=== PATIENT | female | born 1970 | race Caucasian/White ===

== ENCOUNTER 2016-06-27 20:57 | Emergency (ER) | payer OTHER ==
[2016-06-27 21:04] VITALS: RESP 16
--- NOTE | 2016-06-27 22:00 | XR ---
EXAMINATION TYPE: XR cervical spine comp DATE OF EXAM: 06/27/2016 9:49 PM COMPARISON: NONE HISTORY: Neck pain TECHNIQUE: 5 views FINDINGS: Cervical vertebra have normal spacing and alignment. Neural foramina are widely patent. Etta antoaxial facet joint is normal. There are no cervical ribs. IMPRESSION: Normal cervical spine exam.
[2016-06-27] MEDS ORDERED: CYCLOBENZAPRINE 10MG STARTER 3 TAB BTL PO STA (22:03)
[2016-06-27] MEDS ORDERED: IBUPROFEN 600 MG STARTER PACK 4 TAB BTL PO STA (22:03)
--- NOTE | 2016-06-27 22:07 | ED ---
General Adult HPI - General Chief complaint: Neck Pain/Injury Stated complaint: Pinched Nerve Time Seen by Provider: 06/27/16 21:18 Source: patient, RN notes reviewed, old records reviewed Mode of arrival: ambulatory Limitations: no limitations - History of Present Illness Initial comments: Chief complaint history of present for 5-year-old female complaint of pain to the right side of the neck which started 24 hours ago. Patient's had this one time before also from sleeping wrong. No direct injury. Appears to be right sided torticollis. - Related Data Home Medications Medication Instructions Recorded Confirmed Ranitidine HCl [Zantac] 150 mg PO DAILY PRN 09/08/14 06/27/16 metFORMIN HCL [Glucophage] 500 mg PO DAILY 09/08/14 06/27/16 Atenolol [Tenormin] 25 mg PO DAILY 12/28/15 06/27/16 Lisinopril [Zestril] 10 mg PO DAILY 12/28/15 06/27/16 Albuterol Inhaler [Ventolin Hfa 1 - 2 puff INHALATION RT-Q6H PRN 06/27/16 Inhaler] Levothyroxine Sodium [Synthroid] 300 mcg PO DAILY 06/27/16 06/27/16 Previous Rx's Medication Instructions Recorded Cyclobenzaprine [Flexeril] 5 mg PO BID PRN #8 tab 06/27/16 Ibuprofen [Motrin] 600 mg PO Q6HR PRN #20 tab 06/27/16 Allergies Allergy/AdvReac Type Severity Reaction Status Date / Time codeine Allergy Severe Tachycardia Verified 06/27/16 21:04 meperidine HCl [From Demerol] Allergy Severe Unknown Verified 06/27/16 21:04 adhesive Allergy Rash/Hives Verified 06/27/16 21:04 celery Allergy Unknown Verified 06/27/16 21:04 cinnamon Allergy Swelling Verified 06/27/16 21:04 ciprofloxacin [From Cipro] Allergy Abdominal Verified 06/27/16 21:04 Pain ciprofloxacin HCl Allergy Abdominal Verified 06/27/16 21:04 [From Cipro] Pain diphenhydramine HCl Allergy Swelling Verified 06/27/16 21:04 [From Benadryl] eucalyptus Allergy Swelling Verified 06/27/16 21:04 [From [place] Cough Drops] menthol Allergy Swelling Verified 06/27/16 21:04 [From [place] Cough Drops] morphine Allergy Unknown Verified 06/27/16 21:04 naproxen sodium [From Aleve] Allergy Rash/Hives Verified 06/27/16 21:04 nitrofurantoin Allergy Unknown Verified 06/27/16 21:04 macrocrystalline [From Macrodantin] Sulfa (Sulfonamide AdvReac Nausea & Verified 06/27/16 21:04 Antibiotics) Vomiting multivitamin Allergy Intermediate Rash/Hives Uncoded 06/27/16 21:04 car exhaust Allergy Mild Nausea & Uncoded 06/27/16 21:04 Vomiting Review of Systems ROS Statement: Those systems with pertinent positive or pertinent negative responses have been documented in the HPI. Review of systems no headache. She has right sided torticollis no sore throat no visual acuity changes no sinus pain or pressure is no chest pain shortness breath GI/ problems. All systems were otherwise reviewed. Past medical problems significant for non-insulin diabetes mellitus, fibromyalgia, GERD, hyperlipidemia, hypertension, osteoarthritis, seizure disorder which she last had 8 months ago. She stopped all medications because she reports she had more seizures on medication that off. History of SVT and she reports she has probably daily short runs. She's had hypothyroidism. Patient reports she was in coma twice in the once because of Demerol the other because of toxemia . The patient's surgeries include cardiac ablation, , gallbladder, hernia repair, bilateral tubal ligation,. ALLERGIES to codeine, meperidine, adhesive, celery, cinnamon, Cipro, Benadryl. Patient states that she can take ibuprofen and Flexeril if needed. ROS Other: All systems not noted in ROS Statement are negative. Past Medical History Past Medical History: Diabetes Mellitus, Fibromyalgia, GERD/Reflux, Hyperlipidemia, Hypertension, Osteoarthritis (OA), Seizure Disorder, Supraventricular Tachycardia (SVT), Thyroid Disorder Additional Past Medical History / Comment(s): PT STATES IN 1994 PTWAS HAD TOXEMIA WAS GIVEN DEMEROL AND WENT INTO A CARDIAC ARREST (COMA 2 WEEKS), 2ND CARDIAC ARREST 2000(COMA 3-5 DAYS). SLEEP APNEA( NO MACHINE), STATES LAST SEIZURE 1 YEAR AGO. , PANCREATITIS (NOVEMBER 2015)., UMBILICAL HERNIA. History of Any Multi-Drug Resistant Organisms: None Reported Past Surgical History: Cardiac Ablation, Section, Cholecystectomy, Hernia Repair, Tubal Ligation Additional Past Surgical History / Comment(s): Cardiac Arrest x2, Past Anesthesia/Blood Transfusion Reactions: Motion Sickness Additional Past Anesthesia/Blood Transfusion Reaction / Comment(s): CLAUSTERPHOBIA, Past Psychological History: Anxiety, Panic Disorder Additional Psychological History / Comment(s): TAKES CARE OF HER DAUGHTER WHO HAS CEREBAL PALSEY. Smoking Status: Former smoker Past Alcohol Use History: None Reported Additional Past Alcohol Use History / Comment(s): STARTED SMOKING AT AGE 13- SMOKED 1/2 PPD, QUIT IN 1994 Past Drug Use History: None Reported - Past Family History Father Family Medical History: Cancer, Myocardial Infarction ([place]) Additional Family Medical History / Comment(s): AGE 45 FROM [place] Mother Family Medical History: No Reported History Additional Family Medical History / Comment(s): NORMAL-NO PROBLEMS General Exam - General Exam Comments Initial Comments: General: The patient is awake and alert, complaining of right-sided neck pain, stiff necktorticollis. For the past 24 hours. No direct injury. She went to bed and awakened with the discomfort. This is happened one time before. Vital signs show temperature 97.4 pulse 88 respiratory rate 16, blood pressure elevated 185/80. And a pulse ox is 97% room air. Eye: Pupils are equal, round and reactive to light, extra-ocular movements are intact ; there is normal conjunctiva bilaterally. No signs of icterus. Ears, nose, mouth and throat: There are moist mucous membranes and no oral lesions. Neck: Right sided torticollis. Tender right sided neck muscle. Pain increases with looking to the right. No evidence of any rash. No tenderness to the scalp. Patient can look up and to the left more comfortably than down into the right. Cardiovascular: There is a regular rate and rhythm. No murmur, rub or gallop is appreciated. Respiratory: Lungs are clear to auscultation, respirations are non-labored, breath sounds are equal. No wheezes, stridor, rales, or rhonchi. Gastrointestinal: No complaint of any abdominal pain. Back: No back pain Musculoskeletal: No complaint of pain in the upper or lower extremities. No rashes. Full range of motion. Neurological: No neuro deficits. Pain right side of neck. Skin: Skin is warm and dry and no rashes or lesions are noted. Limitations: no limitations Course Vital Signs 06/27/16 21:00 Temperature 97.4 F L Pulse Rate 88 Respiratory 16 Rate Blood Pressure 185/80 O2 Sat by Pulse 97 Oximetry Medical Decision Making - Medical Decision Making Medical decision making;. X-rays of the neck shows straightening. Awaiting radiologist's final impression. The patient was given ibuprofen 800 mg while in emergency room plus Flexeril 10 mg. Her mother is driving her home. She'll be told to use hot showers alternating with ice packs and gentle stretching continue with ibuprofen and Flexeril as needed. Advised follow-up with family physician Disposition Clinical Impression: Torticollis, acute Disposition: HOME SELF-CARE Condition: Fair Instructions: Spasmodic Torticollis (ED) Additional Instructions: Apply ice alternating with heat gentle stretching take medications as directed follow-up with family physician. Prescriptions: Cyclobenzaprine [Flexeril] 5 mg PO BID PRN #8 tab PRN Reason: Pain Ibuprofen [Motrin] 600 mg PO Q6HR PRN #20 tab PRN Reason: Pain Time of Disposition: 22:06
[2016-06-27 22:17] VITALS: BP 159/78; PULSE 77; TEMP 98
== END 2016-06-27 22:21 | disposition home or self-care (01) ==
LOC: EC 20:57
DX: M43.6 Torticollis (principal); Z79.899 Other long term (current) drug therapy; Z88.5 Allergy status to narcotic agent; Z88.1 Allergy status to other antibiotic agents; Z91.02 Food additives allergy status; Z91.018 Allergy to other foods; Z91.048 Other nonmedicinal substance allergy status; K21.9 Gastro-esophageal reflux disease without esophagitis; I10 Essential (primary) hypertension; E11.9 Type 2 diabetes mellitus without complications; E03.9 Hypothyroidism, unspecified; E78.5 Hyperlipidemia, unspecified; F17.200 Nicotine dependence, unspecified, uncomplicated
CPT/HCPCS: 72050; 99283

== ENCOUNTER 2016-07-27 21:51 | Emergency (ER) | payer OTHER ==
[2016-07-27 21:56] VITALS: RESP 18
--- NOTE | 2016-07-27 22:10 | ED ---
Chest Pain HPI - General Chief Complaint: Chest Pain Stated Complaint: Chest Pain Time Seen by Provider: 07/27/16 22:00 Source: patient, family, RN notes reviewed Mode of arrival: ambulatory Limitations: no limitations - History of Present Illness Initial Comments: Is a 46-year-old female who presents with complains of the onset of sharp left- sided chest pain started about 2 hours ago while she was sitting she states was sharp stabbing in nature 10/10 when away came back when waking back up to her left neck into her left axilla. Early she's pain-free she denies any fevers chills nausea vomiting sweats cough other than a chronic cough from her blood pressure medications no phlegm production no trauma no other complaints she states is similar to previous pain she's had in the past but she is not recall what the etiology was. MD Complaint: chest pain - Related Data Home Medications Medication Instructions Recorded Confirmed Ranitidine HCl [Zantac] 150 mg PO DAILY PRN 09/08/14 07/27/16 metFORMIN HCL [Glucophage] 500 mg PO DAILY 09/08/14 07/27/16 Atenolol [Tenormin] 25 mg PO DAILY 12/28/15 07/27/16 Lisinopril [Zestril] 10 mg PO DAILY 12/28/15 07/27/16 Albuterol Inhaler [Ventolin Hfa 1 - 2 puff INHALATION RT-Q6H PRN 06/27/16 Inhaler] Levothyroxine Sodium [Synthroid] 300 mcg PO DAILY 06/27/16 07/27/16 Sodium Chloride [[place]] 1 spray EA NOSTRIL DAILY PRN 07/27/16 07/27/16 Previous Rx's Medication Instructions Recorded Cyclobenzaprine [Flexeril] 5 mg PO BID PRN #8 tab 06/27/16 Ibuprofen [Motrin] 600 mg PO Q6HR PRN #20 tab 06/27/16 Allergies Allergy/AdvReac Type Severity Reaction Status Date / Time codeine Allergy Severe Tachycardia Verified 07/27/16 22:30 meperidine HCl [From Demerol] Allergy Severe Unknown Verified 07/27/16 22:30 adhesive Allergy Rash/Hives Verified 07/27/16 22:30 celery Allergy Unknown Verified 07/27/16 22:30 cinnamon Allergy Swelling Verified 07/27/16 22:30 ciprofloxacin [From Cipro] Allergy Abdominal Verified 07/27/16 22:30 Pain ciprofloxacin HCl Allergy Abdominal Verified 07/27/16 22:30 [From Cipro] Pain diphenhydramine HCl Allergy Swelling Verified 07/27/16 22:30 [From Benadryl] eucalyptus Allergy Swelling Verified 07/27/16 22:30 [From [place] Cough Drops] menthol Allergy Swelling Verified 07/27/16 22:30 [From [place] Cough Drops] morphine Allergy Unknown Verified 07/27/16 22:30 naproxen sodium [From Aleve] Allergy Rash/Hives Verified 07/27/16 22:30 nitrofurantoin Allergy Unknown Verified 07/27/16 22:30 macrocrystalline [From Macrodantin] Sulfa (Sulfonamide AdvReac Nausea & Verified 07/27/16 22:30 Antibiotics) Vomiting multivitamin Allergy Intermediate Rash/Hives Uncoded 07/27/16 21:54 car exhaust Allergy Mild Nausea & Uncoded 07/27/16 21:54 Vomiting Review of Systems ROS Statement: Those systems with pertinent positive or pertinent negative responses have been documented in the HPI. ROS Other: All systems not noted in ROS Statement are negative. EKG Findings - EKG Results: EKG: interpreted by [facility], sinus rhythm (Sinus rhythm rate of 82. Interval 148 QRS duration 68 daily since QTC of 3/[address]-T wave changes are seen.) Past Medical History Past Medical History: Diabetes Mellitus, Fibromyalgia, GERD/Reflux, Hyperlipidemia, Hypertension, Osteoarthritis (OA), Seizure Disorder, Supraventricular Tachycardia (SVT), Thyroid Disorder Additional Past Medical History / Comment(s): PT STATES IN 1994 PTWAS HAD TOXEMIA WAS GIVEN DEMEROL AND WENT INTO A CARDIAC ARREST (COMA 2 WEEKS), 2ND CARDIAC ARREST 2000(COMA 3-5 DAYS). SLEEP APNEA( NO MACHINE), STATES LAST SEIZURE 1 YEAR AGO. , PANCREATITIS (NOVEMBER 2015)., UMBILICAL HERNIA. History of Any Multi-Drug Resistant Organisms: None Reported Past Surgical History: Cardiac Ablation, Section, Cholecystectomy, Hernia Repair, Tubal Ligation Additional Past Surgical History / Comment(s): Cardiac Arrest x2, Past Anesthesia/Blood Transfusion Reactions: Motion Sickness Additional Past Anesthesia/Blood Transfusion Reaction / Comment(s): CLAUSTERPHOBIA, Past Psychological History: Anxiety, Panic Disorder Additional Psychological History / Comment(s): TAKES CARE OF HER DAUGHTER WHO HAS CEREBAL PALSEY. Smoking Status: Former smoker Past Alcohol Use History: None Reported Additional Past Alcohol Use History / Comment(s): STARTED SMOKING AT AGE 13- SMOKED 1/2 PPD, QUIT IN 1994 Past Drug Use History: None Reported - Past Family History Father Family Medical History: Cancer, Myocardial Infarction ([place]) Additional Family Medical History / Comment(s): AGE 45 FROM [place] Mother Family Medical History: No Reported History Additional Family Medical History / Comment(s): NORMAL-NO PROBLEMS General Exam - General Exam Comments Initial Comments: This is a well-developed well-nourished awake alert oriented 3 female Limitations: no limitations General appearance: alert, in no apparent distress Head exam: Present: atraumatic, normocephalic, normal inspection Eye exam: Present: normal appearance, PERRL, EOMI. Absent: scleral icterus, conjunctival injection, periorbital swelling ENT exam: Present: normal exam, mucous membranes moist Neck exam: Present: normal inspection. Absent: tenderness, meningismus, lymphadenopathy Respiratory exam: Present: normal lung sounds bilaterally. Absent: respiratory distress, wheezes, rales, rhonchi, stridor Cardiovascular Exam: Present: regular rate, normal rhythm, normal heart sounds. Absent: systolic murmur, diastolic murmur, rubs, gallop, clicks GI/Abdominal exam: Present: soft, normal bowel sounds, other (Obese abdomen). Absent: distended, tenderness, guarding, rebound, rigid Extremities exam: Present: normal inspection, full ROM, normal capillary refill. Absent: tenderness, pedal edema, joint swelling, calf tenderness Back exam: Present: normal inspection Neurological exam: Present: alert, oriented X3, CN II-XII intact Psychiatric exam: Present: normal affect, normal mood Skin exam: Present: warm, dry, intact, normal color. Absent: rash Course Vital Signs 07/27/16 21:55 Temperature 98.2 F Pulse Rate 94 Respiratory 18 Rate Blood Pressure 193/84 O2 Sat by Pulse 99 Oximetry - Reevaluation(s) Reevaluation #1: 07/27/16 22:11 Old charting was review the patient did have SVT did have ablation done in October 2014 Chest Pain [facility]-rays are negative for acute findings the patient is feeling improved she'll be discharged the presentation is consistent with chest wall pain she states she does have anti-inflammatories at home. Disposition Clinical Impression: Chest wall syndrome, Costalchondritis Disposition: HOME SELF-CARE Condition: Good Instructions: Costochondritis (ED), Chest Wall Pain (ED)
[2016-07-27 22:23] LABS: Basophils % (A) 1 %; CH 30.2; CHCM 33.8; Eosinophils # (A) 0.2 k/uL (0-0.7); Eosinophils % (A) 4 %; HCT 38.1 % (34.0-46.0); HDW 3.06; HGB 12.7 gm/dL (11.4-16.0); Luc # (Auto) 0.11; Luc % (Auto) 2; Lymphocytes # (A) 1.8 k/uL (1.0-4.8); Lymphocytes % (A) 34 %; MCH 29.9 pg (25.0-35.0); MCHC 33.4 g/dL (31.0-37.0); MCV 89.6 fL (80.0-100.0); Mean Platelet Volume 6.9; Monocytes # (A) 0.2 k/uL (0-1.0); Monocytes % (A) 3 %; Neutrophils % (A) 56 %; RBC 4.25 m/uL (3.80-5.40); RDW 13.8 % (11.5-15.5); WBC 5.3 k/uL (3.8-10.6)
--- NOTE | 2016-07-27 22:39 | XR ---
EXAMINATION TYPE: XR chest 2V DATE OF EXAM: 07/27/2016 10:31 PM COMPARISON: May 28, 2016 HISTORY: Chest pain TECHNIQUE: Frontal and lateral views of the chest are obtained. FINDINGS: There is no focal air space opacity, pleural effusion, or pneumothorax seen. The cardiac silhouette size is within normal limits. The osseous structures are intact. IMPRESSION: No acute cardiopulmonary process. No significant change.
[2016-07-27 22:40] LABS: ALT 31 U/L (9-52); AST 21 U/L (14-36); Alkaline Phosphatase 111 U/L (38-126); Amylase <30 U/L (30-110); Anion Gap 9 mmol/L; Blood Urea Nitrogen 17 mg/dL (7-17); Calcium 8.6 mg/dL (8.4-10.2); Carbon Dioxide 25 mmol/L (22-30); Chloride 105 mmol/L (98-107); Glucose 179 mg/dL (74-99); Magnesium 1.8 mg/dL (1.6-2.3); Non-African American GFR(MDRD) 37 (>60 ml/min/1.73 sqM); Potassium 4.8 mmol/L (3.5-5.1); Sodium 139 mmol/L (137-145); Total Bilirubin 0.4 mg/dL (0.2-1.3); Total Protein 6.3 g/dL (6.3-8.2)
[2016-07-27 22:41] LABS: INR 0.9 (<1.1); Partial Thromboplastin Time 22.6 sec (22.0-30.0); Prothrombin Time 9.4 sec (9.0-12.0)
[2016-07-27 23:02] LABS: Creatine Kinase 45 U/L (30-135)
[2016-07-27 23:14] LABS: Creatine Kinase MB 0.8 ng/mL (0.0-2.4); Troponin I <0.012 ng/mL (0.000-0.034)
[2016-07-27 23:58] VITALS: BP 141/66; PULSE 80; TEMP 98
== END 2016-07-27 23:58 | disposition home or self-care (01) ==
LOC: EC 21:51
DX: M94.0 Chondrocostal junction syndrome [Tietze] (principal); R07.1 Chest pain on breathing; K21.9 Gastro-esophageal reflux disease without esophagitis; E07.9 Disorder of thyroid, unspecified; I10 Essential (primary) hypertension; E11.9 Type 2 diabetes mellitus without complications; Z79.84 Long term (current) use of oral hypoglycemic drugs; Z87.891 Personal history of nicotine dependence; Z79.899 Other long term (current) drug therapy; Z88.2 Allergy status to sulfonamides; Z88.5 Allergy status to narcotic agent; Z88.6 Allergy status to analgesic agent; Z88.1 Allergy status to other antibiotic agents; Z91.02 Food additives allergy status; Z91.048 Other nonmedicinal substance allergy status
CPT/HCPCS: 36415; 71020; 80053; 82150; 82550; 82553; 83690; 83735; 83880; 84484; 85025; 85379; 85610; 85730; 93005; 99285

== ENCOUNTER 2016-10-11 22:12 | Observation (INO) | payer OTHER ==
[2016-10-11] MEDS ORDERED: ASPIRIN 81 MG CHEW PO STA (22:46)
[2016-10-11] MEDS ORDERED: SODIUM CHLORIDE 0.9% 1,000 ML IV STA (22:46)
[2016-10-11] MEDS ORDERED: NITROGLYCERIN SL TABS 0.4 MG TAB SUBLINGUAL STA (22:46)
--- NOTE | 2016-10-11 22:51 | ED ---
General Adult HPI - General Chief complaint: Shortness of Breath Stated complaint: back pain Time Seen by Provider: 10/11/16 22:38 Source: patient, RN notes reviewed Mode of arrival: ambulatory Limitations: no limitations - History of Present Illness Initial comments: Patient for 46-year-old female who presents emergency room today with a chief complaint of onset of back and chest pain that began approximately 8 AM this morning. She describes a sharp type pain that started left side of the upper back. States does radiate around to the front of the left side of the chest. She states those a possible for muscle. She denies any injury or trauma to the area. She states she's tried Tylenol at home with no relief the symptoms. Patient does admit the pain is worse when she takes deep inspiration. Denies any other complaints. Patient denies any recent fever, chills, shortness of breath, abdominal pain, nausea or vomiting, numbness or tingling, dysuria or hematuria, constipation or diarrhea, headaches or visual changes, or any other complaints. - Related Data Home Medications Medication Instructions Recorded Confirmed metFORMIN HCL [Glucophage] 500 mg PO QAM 09/08/14 10/11/16 Atenolol [Tenormin] 25 mg PO QAM 12/28/15 10/11/16 Lisinopril [Zestril] 10 mg PO QAM 12/28/15 10/11/16 Albuterol Inhaler [Ventolin Hfa 1 - 2 puff INHALATION RT-Q6H PRN 06/27/16 Inhaler] Levothyroxine Sodium [Synthroid] 300 mcg PO QAM 06/27/16 10/11/16 Pravastatin Sodium [Pravachol] 10 mg PO QAM 10/11/16 10/11/16 Allergies Allergy/AdvReac Type Severity Reaction Status Date / Time codeine Allergy Severe Cardiac Verified 10/11/16 23:34 Arrest meperidine HCl [From Demerol] Allergy Severe Cardiac Verified 10/11/16 23:34 Arrest morphine Allergy Severe Caridac Verified 10/11/16 23:34 Arrest adhesive tape Allergy Rash/Hives Verified 10/11/16 23:34 celery Allergy Oral Verified 10/11/16 23:34 Numbness cinnamon Allergy Anaphylaxis Verified 10/11/16 23:34 diphenhydramine HCl Allergy Anaphylaxis Verified 10/11/16 23:34 [From Benadryl] eucalyptus Allergy Anaphylaxis Verified 10/11/16 23:34 [From [place] Cough Drops] menthol Allergy Anaphylaxis Verified 10/11/16 23:34 [From [place] Cough Drops] naproxen sodium [From Aleve] Allergy Rash/Hives Verified 10/11/16 23:34 nitrofurantoin Allergy Unknown Verified 10/11/16 23:34 macrocrystalline [From Macrodantin] Sulfa (Sulfonamide Allergy Rash/Hives Verified 10/11/16 23:34 Antibiotics) ciprofloxacin [From Cipro] AdvReac Abdominal Verified 10/11/16 23:34 Pain ciprofloxacin HCl AdvReac Abdominal Verified 10/11/16 23:34 [From Cipro] Pain multivitamin Allergy Intermediate Rash/Hives Uncoded 10/11/16 22:28 car exhaust AdvReac Mild Nausea & Uncoded 10/11/16 23:34 Vomiting Review of Systems ROS Statement: Those systems with pertinent positive or pertinent negative responses have been documented in the HPI. ROS Other: All systems not noted in ROS Statement are negative. Past Medical History Past Medical History: Diabetes Mellitus, Fibromyalgia, GERD/Reflux, Hyperlipidemia, Hypertension, Osteoarthritis (OA), Seizure Disorder, Supraventricular Tachycardia (SVT), Thyroid Disorder Additional Past Medical History / Comment(s): PT STATES IN 1994 PTWAS HAD TOXEMIA WAS GIVEN DEMEROL AND WENT INTO A CARDIAC ARREST (COMA 2 WEEKS), 2ND CARDIAC ARREST 2000(COMA 3-5 DAYS). SLEEP APNEA( NO MACHINE), STATES LAST SEIZURE 1 YEAR AGO. , PANCREATITIS (NOVEMBER 2015)., UMBILICAL HERNIA. History of Any Multi-Drug Resistant Organisms: None Reported Past Surgical History: Cardiac Ablation, Section, Cholecystectomy, Hernia Repair, Tubal Ligation Additional Past Surgical History / Comment(s): Cardiac Arrest x2, Past Anesthesia/Blood Transfusion Reactions: Motion Sickness Additional Past Anesthesia/Blood Transfusion Reaction / Comment(s): CLAUSTERPHOBIA, Past Psychological History: Anxiety, Panic Disorder Additional Psychological History / Comment(s): TAKES CARE OF HER DAUGHTER WHO HAS CEREBAL PALSEY. Smoking Status: Former smoker Past Alcohol Use History: None Reported Additional Past Alcohol Use History / Comment(s): STARTED SMOKING AT AGE 13- SMOKED 1/2 PPD, QUIT IN 1994 Past Drug Use History: None Reported - Past Family History Father Family Medical History: Cancer, Myocardial Infarction ([place]) Additional Family Medical History / Comment(s): AGE 45 FROM [place] Mother Family Medical History: No Reported History Additional Family Medical History / Comment(s): NORMAL-NO PROBLEMS General Exam - General Exam Comments Initial Comments: General: The patient is awake and alert, in no distress, and does not appear acutely ill. Eye: Pupils are equal, round and reactive to light, extra-ocular movements are intact. No nystagmus. There is normal conjunctiva bilaterally. No signs of icterus. Ears, nose, mouth and throat: There are moist mucous membranes and no oral lesions. Neck: The neck is supple, there is no tenderness or JVD. Cardiovascular: There is a regular rate and rhythm. No murmur, rub or gallop is appreciated. Respiratory: Lungs are clear to auscultation, respirations are non-labored, breath sounds are equal. No wheezes, stridor, rales, or rhonchi. Gastrointestinal: Soft, non-distended, non-tender abdomen without masses or organomegaly noted. There is no rebound or guarding present. No CVA tenderness. Bowel sounds are unremarkable. Musculoskeletal: Normal ROM, no tenderness. Strength 5/5. Sensation intact. Pulses equal bilaterally 2+. Neurological: A&O x 3. CN II-XII intact, There are no obvious motor or sensory deficits. Coordination appears grossly intact. Speech is normal. Skin: Skin is warm and dry and no rashes or lesions are noted. Psychiatric: Cooperative, appropriate mood & affect, normal judgment. Limitations: no limitations Course Vital Signs 10/11/16 10/11/16 22:26 23:08 Temperature 97.9 F Pulse Rate 88 85 Respiratory 20 16 Rate Blood Pressure 205/88 169/88 O2 Sat by Pulse 98 98 Oximetry EKG Findings - EKG Comments: EKG Findings:: EKG performed at 2253: Shows sinus rhythm with PVCs at 86 bpm. ID interval 148. QRS 76. QT/QTC 380/454. No acute ST changes. Medical Decision Making - Medical Decision Making Patient reexamined at this time shows no signs of distress. She does admit to some improvement of her pain after one sublingual nitroglycerin tab. Patient does have history of diabetes and cardiac disease will be admitted to the hospital for serial enzymes. Heparin and nitro paste. - Lab Data Result diagrams: 10/11/16 23:00 10/11/16 23:00 Lab Results 10/11/16 10/11/16 10/11/16 Range/Units 23:00 23:00 23:00 WBC 6.7 (3.8-10.6) k/uL RBC 4.09 (3.80-5.40) m/uL Hgb 12.4 (11.4-16.0) gm/dL Hct 36.9 (34.0-46.0) % MCV 90.1 (80.0-100.0) fL MCH 30.4 (25.0-35.0) pg MCHC 33.7 (31.0-37.0) g/dL RDW 14.7 (11.5-15.5) % Plt Count 197 (150-450) k/uL Neutrophils % 62 % Lymphocytes % 30 % Monocytes % 3 % Eosinophils % 2 % Basophils % 1 % Neutrophils # 4.2 (1.3-7.7) k/uL Lymphocytes # 2.0 (1.0-4.8) k/uL Monocytes # 0.2 (0-1.0) k/uL Eosinophils # 0.1 (0-0.7) k/uL Basophils # 0.0 (0-0.2) k/uL PT (9.0-12.0) sec INR (<1.1) APTT (22.0-30.0) sec D-Dimer (<0.60) mg/L FEU Sodium 136 L (137-145) mmol/L Potassium 4.2 (3.5-5.1) mmol/L Chloride 102 (98-107) mmol/L Carbon Dioxide 23 (22-30) mmol/L Anion Gap 11 mmol/L BUN 14 (7-17) mg/dL Creatinine 0.66 (0.52-1.04) mg/dL Est GFR (MDRD) Af Amer >60 (>60 ml/min/1.73 sqM) Est GFR (MDRD) Non-Af >60 (>60 ml/min/1.73 sqM) Glucose 147 H (74-99) mg/dL Calcium 9.1 (8.4-10.2) mg/dL Magnesium 1.8 (1.6-2.3) mg/dL Total Bilirubin 0.6 (0.2-1.3) mg/dL AST 27 (14-36) U/L ALT 23 (9-52) U/L Alkaline Phosphatase 101 (38-126) U/L Total Creatine Kinase 66 (30-135) U/L CK-MB (CK-2) 1.1 (0.0-2.4) ng/mL CK-MB (CK-2) Rel Index 1.7 Troponin I <0.012 (0.000-0.034) ng/mL Total Protein 7.1 (6.3-8.2) g/dL Albumin 3.9 (3.5-5.0) g/dL 10/11/16 Range/Units 23:00 WBC (3.8-10.6) k/uL RBC (3.80-5.40) m/uL Hgb (11.4-16.0) gm/dL Hct (34.0-46.0) % MCV (80.0-100.0) fL MCH (25.0-35.0) pg MCHC (31.0-37.0) g/dL RDW (11.5-15.5) % Plt Count (150-450) k/uL Neutrophils % % Lymphocytes % % Monocytes % % Eosinophils % % Basophils % % Neutrophils # (1.3-7.7) k/uL Lymphocytes # (1.0-4.8) k/uL Monocytes # (0-1.0) k/uL Eosinophils # (0-0.7) k/uL Basophils # (0-0.2) k/uL PT 9.7 (9.0-12.0) sec INR 0.9 (<1.1) APTT 23.0 (22.0-30.0) sec D-Dimer 0.43 (<0.60) mg/L FEU Sodium (137-145) mmol/L Potassium (3.5-5.1) mmol/L Chloride (98-107) mmol/L Carbon Dioxide (22-30) mmol/L Anion Gap mmol/L BUN (7-17) mg/dL Creatinine (0.52-1.04) mg/dL Est GFR (MDRD) Af Amer (>60 ml/min/1.73 sqM) Est GFR (MDRD) Non-Af (>60 ml/min/1.73 sqM) Glucose (74-99) mg/dL Calcium (8.4-10.2) mg/dL Magnesium (1.6-2.3) mg/dL Total Bilirubin (0.2-1.3) mg/dL AST (14-36) U/L ALT (9-52) U/L Alkaline Phosphatase (38-126) U/L Total Creatine Kinase (30-135) U/L CK-MB (CK-2) (0.0-2.4) ng/mL CK-MB (CK-2) Rel Index Troponin I (0.000-0.034) ng/mL Total Protein (6.3-8.2) g/dL Albumin (3.5-5.0) g/dL Disposition Clinical Impression: Chest pain Disposition: ADMITTED IP TO THIS HOSP Condition: Stable Time of Disposition: 00:13
[2016-10-11 23:17] LABS: Basophils % (A) 1 %; CH 30.5; CHCM 34.1; Eosinophils # (A) 0.1 k/uL (0-0.7); Eosinophils % (A) 2 %; HCT 36.9 % (34.0-46.0); HGB 12.4 gm/dL (11.4-16.0); Luc # (Auto) 0.15; Luc % (Auto) 2; Lymphocytes % (A) 30 %; MCH 30.4 pg (25.0-35.0); MCHC 33.7 g/dL (31.0-37.0); MCV 90.1 fL (80.0-100.0); Mean Platelet Volume 6.6; Monocytes # (A) 0.2 k/uL (0-1.0); Monocytes % (A) 3 %; Neutrophils # (A) 4.2 k/uL (1.3-7.7); Neutrophils % (A) 62 %; RBC 4.09 m/uL (3.80-5.40); RDW 14.7 % (11.5-15.5); WBC 6.7 k/uL (3.8-10.6); WBC (Perox) 6.86
[2016-10-11 23:23] LABS: ALT 23 U/L (9-52); AST 27 U/L (14-36); Alkaline Phosphatase 101 U/L (38-126); Anion Gap 11 mmol/L; Blood Urea Nitrogen 14 mg/dL (7-17); Calcium 9.1 mg/dL (8.4-10.2); Carbon Dioxide 23 mmol/L (22-30); Chloride 102 mmol/L (98-107); Glucose 147 mg/dL (74-99); Magnesium 1.8 mg/dL (1.6-2.3); Non-African American GFR(MDRD) >60 (>60 ml/min/1.73 sqM); Potassium 4.2 mmol/L (3.5-5.1); Sodium 136 mmol/L (137-145); Total Bilirubin 0.6 mg/dL (0.2-1.3); Total Protein 7.1 g/dL (6.3-8.2)
[2016-10-11 23:30] LABS: INR 0.9 (<1.1); Prothrombin Time 9.7 sec (9.0-12.0)
--- NOTE | 2016-10-11 23:36 | XR ---
EXAM: XR Chest, 2 Views CLINICAL HISTORY: Reason: Chest Pain TECHNIQUE: Frontal and lateral views of the chest. COMPARISON: CXR 07/27/16 FINDINGS: Lungs: Unremarkable. No consolidation. Pleural space: Unremarkable. No pneumothorax. Heart: Unremarkable. No cardiomegaly. Mediastinum: Unremarkable. Bones/joints: Unremarkable. IMPRESSION: Unremarkable chest x-rays.
[2016-10-11 23:37] LABS: Creatine Kinase 66 U/L (30-135)
[2016-10-11 23:50] LABS: Creatine Kinase MB 1.1 ng/mL (0.0-2.4); Troponin I <0.012 ng/mL (0.000-0.034)
[2016-10-12] MEDS ORDERED: SODIUM CHLORIDE 0.9% 1,000 ML IV ONE (00:14)
[2016-10-12] MEDS ORDERED: HEPARIN SODIUM,PORCINE/D5W PMX 25,000 UNIT in DEXTROSE/WATER 1 500ML.BAG IV SCH (00:15)
[2016-10-12] MEDS: HEPARIN SODIUM,PORCINE 5,000 UNIT/ML 1 ML VIAL IV ONE ×2 (00:57→07:36)
[2016-10-12] MEDS: FAMOTIDINE 20 MG/2 ML VIAL IV SCH (02:07)
[2016-10-12 07:17] LABS: Creatine Kinase 54 U/L (30-135)
[2016-10-12 07:29] LABS: Creatine Kinase MB 0.9 ng/mL (0.0-2.4); Troponin I <0.012 ng/mL (0.000-0.034)
[2016-10-12 08:27] LABS: Glucose,Whole Blood 150 mg/dL (75-99)
--- NOTE | 2016-10-12 12:06 | P.CRDCN ---
History of Present Illness Consult date: 10/12/16 Chief complaint: Chest pain History of present illness: This is a pleasant 46-year-old female patient who sees Dr. Zurita with a past medical history significant for hypertension, diabetes, and status post SVT ablation, presented to the hospital complaining of chest discomfort. The patient is under a lot of stress at home lately. She was in her usual state of health until yesterday when she was sitting home and started experiencing discomfort in the mid of the chest as a sharp kind of discomfort worse with deep breath. It was radiating to her back. It was associated with shortness of breath and sweating. When she presented to the emergency room she was given nitroglycerin and aspirin with some improvement in her symptoms. She is not aware of any prior history of coronary artery disease and no heart catheterization. As a matter of fact she underwent a stress test a year ago and that was unremarkable. The EKG showed sinus rhythm without any significant changes compared to the previous EKG. 2 sets of cardiac enzymes came in to unremarkable. The d-dimer was checked and came in to be normal. The blood pressure has been uncontrolled and in the emergency room her systolic pressure was more than 200 mmHg systolic. The patient has hypertensive emergency. I am going to resume her lisinopril and metoprolol. We'll obtain an echocardiogram was Doppler. We'll continue monitor the blood pressure very closely. Past Medical History Past Medical History: Diabetes Mellitus, Fibromyalgia, GERD/Reflux, Hyperlipidemia, Hypertension, Osteoarthritis (OA), Seizure Disorder, Supraventricular Tachycardia (SVT), Thyroid Disorder Additional Past Medical History / Comment(s): Severe allergies, PT STATES IN 1994 PTWAS HAD TOXEMIA WAS GIVEN DEMEROL AND WENT INTO A CARDIAC ARREST (COMA 21 days), was having seizures and had 2ND CARDIAC ARREST 2000 ( COMA 3-5 DAYS), recent sinus and yeast infections tx with ABX, SVT, SLEEP APNEA ( NO MACHINE), STATES LAST SEIZURE 1 YEAR AGO, arthritis low back and hips, PANCREATITIS. History of Any Multi-Drug Resistant Organisms: None Reported Past Surgical History: Cardiac Ablation, Section, Cholecystectomy, Hernia Repair, Tubal Ligation Additional Past Surgical History / Comment(s): Umbilical hernia repair. Past Anesthesia/Blood Transfusion Reactions: Motion Sickness Additional Past Anesthesia/Blood Transfusion Reaction / Comment(s): CLAUSTERPHOBIA, Past Psychological History: Anxiety, Panic Disorder Additional Psychological History / Comment(s): Lives with spouse/daughter. TAKES CARE OF HER 21 yr old DAUGHTER WHO HAS CEREBAL PALSEY. Does not drive, family takes to appts. Ran out of diabetic strips, lancets due to loss of insurance for 2 months. States she is going to be able to have insurance coverage next month. Smoking Status: Former smoker Past Alcohol Use History: None Reported Additional Past Alcohol Use History / Comment(s): STARTED SMOKING AT AGE 13- SMOKED 1/2 PPD, QUIT IN 1994 Past Drug Use History: None Reported - Past Family History Father Family Medical History: Cancer, Myocardial Infarction ([place]) Additional Family Medical History / Comment(s): AGE 45 FROM [place] Mother Family Medical History: No Reported History Additional Family Medical History / Comment(s): NORMAL-NO PROBLEMS Medications and Allergies Home Medications Medication Instructions Recorded Confirmed Type metFORMIN HCL [Glucophage] 500 mg PO QAM 09/08/14 10/11/16 History Atenolol [Tenormin] 25 mg PO QAM 12/28/15 10/11/16 History Lisinopril [Zestril] 10 mg PO QAM 12/28/15 10/11/16 History Albuterol Inhaler [Ventolin Hfa 1 - 2 puff INHALATION RT-Q6H PRN 06/27/16 History Inhaler] Levothyroxine Sodium [Synthroid] 300 mcg PO QAM 06/27/16 10/11/16 History Pravastatin Sodium [Pravachol] 10 mg PO QAM 10/11/16 10/11/16 History Allergies Allergy/AdvReac Type Severity Reaction Status Date / Time codeine Allergy Severe Cardiac Verified 10/11/16 23:34 Arrest meperidine HCl [From Demerol] Allergy Severe Cardiac Verified 10/11/16 23:34 Arrest morphine Allergy Severe Caridac Verified 10/11/16 23:34 Arrest adhesive tape Allergy Rash/Hives Verified 10/11/16 23:34 celery Allergy Oral Verified 10/11/16 23:34 Numbness cinnamon Allergy Anaphylaxis Verified 10/11/16 23:34 diphenhydramine HCl Allergy Anaphylaxis Verified 10/11/16 23:34 [From Benadryl] eucalyptus Allergy Anaphylaxis Verified 10/11/16 23:34 [From [place] Cough Drops] menthol Allergy Anaphylaxis Verified 10/11/16 23:34 [From [place] Cough Drops] naproxen sodium [From Aleve] Allergy Rash/Hives Verified 10/11/16 23:34 nitrofurantoin Allergy Unknown Verified 10/11/16 23:34 macrocrystalline [From Macrodantin] Sulfa (Sulfonamide Allergy Rash/Hives Verified 10/11/16 23:34 Antibiotics) ciprofloxacin [From Cipro] AdvReac Abdominal Verified 10/11/16 23:34 Pain ciprofloxacin HCl AdvReac Abdominal Verified 10/11/16 23:34 [From Cipro] Pain multivitamin Allergy Intermediate Rash/Hives Uncoded 10/11/16 22:28 car exhaust AdvReac Mild Nausea & Uncoded 10/11/16 23:34 Vomiting Physical Exam Vitals: Vital Signs Temp Pulse Pulse Resp BP BP Pulse Ox 10/12/16 11:30 80 16 144/80 98 10/12/16 08:00 98.2 F 85 16 184/83 98 10/12/16 06:48 98.0 F 84 16 159/70 98 10/12/16 02:12 82 18 169/76 98 Intake and Output 10/11/16 10/12/16 10/12/16 22:59 06:59 14:59 Intake Total 130.863 Balance 130.863 Intake: Intake, IV Titration 130.863 Amount Heparin Sodium,Porcine/ 130.863 D5w Pmx 25,000 unit In Dextrose/Water 1 500ml. bag @ 9.2 UNITS/KG/HR 20. 03 mls/hr IV .Q24H [facility] Rx #:[id number] Other: # Voids 1 - Constitutional General appearance: no acute distress - Respiratory Respiratory: bilateral: CTA - Cardiovascular Rhythm: regular Heart sounds: normal: S1, S2 Results 10/11/16 23:00 10/11/16 23:00 Cardiac Enzymes 10/12/16 Range/Units 06:33 CK-MB (CK-2) 0.9 (0.0-2.4) ng/mL Troponin I <0.012 (0.000-0.034) ng/mL Coagulation 10/12/16 Range/Units 06:33 APTT 26.6 (22.0-30.0) sec Current Medications Generic Name Dose Route Start Last Admin Trade Name Freq PRN Reason Stop Dose Admin Aspirin 325 mg 10/12/16 09:00 Aspirin PO DAILY SABINE Famotidine 20 mg 10/12/16 09:00 10/12/16 02:07 Pepcid IV 20 mg DAILY SABINE Administration Sodium Chloride 1,000 mls @ 20 mls/hr 10/11/16 22:46 10/11/16 23:09 Saline 0.9% IV 10/12/16 22:45 20 mls/hr .Q24H STA Administration Heparin Sodium/Dextrose 25,000 500 mls @ 20.03 mls/hr 10/12/16 00:15 07:31 unit/ IV Solution IV 12.2 units/kg/hr .Q24H SABINE 26.56 mls/hr Protocol Titration 9.2 UNITS/KG/HR Sodium Chloride 1,000 mls @ 20 mls/hr 10/12/16 00:14 10/12/16 07:52 Saline 0.9% IV 10/13/16 00:13 Not Given .Q24H ONE Lisinopril 20 mg 10/13/16 09:00 Zestril PO DAILY [facility] Metoprolol Tartrate 25 mg 10/12/16 21:00 Lopressor PO BID SABINE Nitroglycerin 1 inch 10/12/16 06:00 Nitro-Bid Oint TOPICAL Q6HR SABINE Intake and Output 10/11/16 10/12/16 10/12/16 22:59 06:59 14:59 Intake Total 130.863 Balance 130.863 Intake: Intake, IV Titration 130.863 Amount Heparin Sodium,Porcine/ 130.863 D5w Pmx 25,000 unit In Dextrose/Water 1 500ml. bag @ 9.2 UNITS/KG/HR 20. 03 mls/hr IV .Q24H [facility] Rx #:[id number] Other: # Voids 1 Assessment and Plan Plan: Assessment #1 hypertensive emergency #2 diabetes #3 status post SVT ablation Plan #1 resume lisinopril and metoprolol #2 adjust the medications according to blood pressure #3 obtain echocardiogram was Doppler #4 follow-up with the patient
[2016-10-12 13:20] LABS: Creatine Kinase 56 U/L (30-135)
[2016-10-12 13:29] LABS: Creatine Kinase MB 0.9 ng/mL (0.0-2.4); Troponin I <0.012 ng/mL (0.000-0.034)
[2016-10-12] MEDS: ASPIRIN 325 MG TAB PO SCH (13:48)
[2016-10-12] MEDS: NITROGLYCERIN OINT 1 INCH/GM PACKET TOPICAL SCH ×2 (13:48→19:13)
--- NOTE | 2016-10-12 15:37 | P.HPIM ---
History of Present Illness H&P Date: 10/12/16 Chief Complaint: Chest discomfort 46-year-old female presented to the emergency room on the day of admission with a chief complaint of developing chest discomfort chest tightness described as a sharp stabbing pain worse with a deep breath radiated into the back. Patient gives no history of coronary artery artery disease. States that she had a stress test a year ago and was unremarkable. It was noted in the emergency room the blood pressure systolic was elevated more than 200. Patient stated that she was compliant with taking her medication. Patient was seen and admitted to the services of the attending it treated for hypertension urgency. A cardiology consultation has been requested. Patient's d-dimer was checked and was normal the 12-lead EKG showed sinus without any significant changes compared to prior EKGs. 2 sets of cardiac enzymes were reviewed negative patient states that she has seen Dr. ramon in the past and status post SVT ablation Review of Systems Essentially unremarkable except as mentioned in the present illness Past Medical History Past Medical History: Diabetes Mellitus, Fibromyalgia, GERD/Reflux, Hyperlipidemia, Hypertension, Osteoarthritis (OA), Seizure Disorder, Supraventricular Tachycardia (SVT), Thyroid Disorder Additional Past Medical History / Comment(s): Severe allergies, PT STATES IN 1994 PTWAS HAD TOXEMIA WAS GIVEN DEMEROL AND WENT INTO A CARDIAC ARREST (COMA 21 days), was having seizures and had 2ND CARDIAC ARREST 2000 ( COMA 3-5 DAYS), recent sinus and yeast infections tx with ABX, SVT, SLEEP APNEA ( NO MACHINE), STATES LAST SEIZURE 1 YEAR AGO, arthritis low back and hips, PANCREATITIS. History of Any Multi-Drug Resistant Organisms: None Reported Past Surgical History: Cardiac Ablation, Section, Cholecystectomy, Hernia Repair, Tubal Ligation Additional Past Surgical History / Comment(s): Umbilical hernia repair. Past Anesthesia/Blood Transfusion Reactions: Motion Sickness Additional Past Anesthesia/Blood Transfusion Reaction / Comment(s): CLAUSTERPHOBIA, Past Psychological History: Anxiety, Panic Disorder Additional Psychological History / Comment(s): Lives with spouse/daughter. TAKES CARE OF HER 21 yr old DAUGHTER WHO HAS CEREBAL PALSEY. Does not drive, family takes to appts. Ran out of diabetic strips, lancets due to loss of insurance for 2 months. States she is going to be able to have insurance coverage next month. Smoking Status: Former smoker Past Alcohol Use History: None Reported Additional Past Alcohol Use History / Comment(s): STARTED SMOKING AT AGE 13- SMOKED 1/2 PPD, QUIT IN 1994 Past Drug Use History: None Reported - Past Family History Father Family Medical History: Cancer, Myocardial Infarction ([place]) Additional Family Medical History / Comment(s): AGE 45 FROM [place] Mother Family Medical History: No Reported History Additional Family Medical History / Comment(s): NORMAL-NO PROBLEMS Medications and Allergies Home Medications Medication Instructions Recorded Confirmed Type metFORMIN HCL [Glucophage] 500 mg PO QAM 09/08/14 10/11/16 History Atenolol [Tenormin] 25 mg PO QAM 12/28/15 10/11/16 History Lisinopril [Zestril] 10 mg PO QAM 12/28/15 10/11/16 History Albuterol Inhaler [Ventolin Hfa 1 - 2 puff INHALATION RT-Q6H PRN 06/27/16 History Inhaler] Levothyroxine Sodium [Synthroid] 300 mcg PO QAM 06/27/16 10/11/16 History Pravastatin Sodium [Pravachol] 10 mg PO QAM 10/11/16 10/11/16 History Allergies Allergy/AdvReac Type Severity Reaction Status Date / Time codeine Allergy Severe Cardiac Verified 10/11/16 23:34 Arrest meperidine HCl [From Demerol] Allergy Severe Cardiac Verified 10/11/16 23:34 Arrest morphine Allergy Severe Caridac Verified 10/11/16 23:34 Arrest adhesive tape Allergy Rash/Hives Verified 10/11/16 23:34 celery Allergy Oral Verified 10/11/16 23:34 Numbness cinnamon Allergy Anaphylaxis Verified 10/11/16 23:34 diphenhydramine HCl Allergy Anaphylaxis Verified 10/11/16 23:34 [From Benadryl] eucalyptus Allergy Anaphylaxis Verified 10/11/16 23:34 [From [place] Cough Drops] menthol Allergy Anaphylaxis Verified 10/11/16 23:34 [From [place] Cough Drops] naproxen sodium [From Aleve] Allergy Rash/Hives Verified 10/11/16 23:34 nitrofurantoin Allergy Unknown Verified 10/11/16 23:34 macrocrystalline [From Macrodantin] Sulfa (Sulfonamide Allergy Rash/Hives Verified 10/11/16 23:34 Antibiotics) ciprofloxacin [From Cipro] AdvReac Abdominal Verified 10/11/16 23:34 Pain ciprofloxacin HCl AdvReac Abdominal Verified 10/11/16 23:34 [From Cipro] Pain multivitamin Allergy Intermediate Rash/Hives Uncoded 10/11/16 22:28 car exhaust AdvReac Mild Nausea & Uncoded 10/11/16 23:34 Vomiting Physical Exam Vitals: Vital Signs Temp Pulse Pulse Resp BP BP Pulse Ox 10/12/16 12:37 97.6 F 85 16 156/85 94 L 10/12/16 11:30 80 16 144/80 98 10/12/16 08:00 98.2 F 85 16 184/83 98 10/12/16 06:48 98.0 F 84 16 159/70 98 10/12/16 02:12 82 18 169/76 98 Intake and Output 10/12/16 10/12/16 10/12/16 06:59 14:59 22:59 Intake Total 130.863 Balance 130.863 Intake: Intake, IV Titration 130.863 Amount Heparin Sodium,Porcine/ 130.863 D5w Pmx 25,000 unit In Dextrose/Water 1 500ml. bag @ 9.2 UNITS/KG/HR 20. 03 mls/hr IV .Q24H [facility] Rx #:[id number] Other: # Voids 1 GENERAL APPEARANCE: The patient is alert, oriented, in no acute distress. VITAL SIGNS: Reviewed HEENT: Head is normocephalic and atraumatic. Pupils are equal and reactive. The nares are patent. Oropharynx is clear without lesions. NECK: Supple without lymphadenopathy. Traches midline. HEART: S1, S2. Regular rate and rhythm. LUNGS: No crackles or wheezes are heard. ABDOMEN: Soft, nontender, nondistended with good bowel sounds. No peritoneal signs. No palpable organomegaly or masses. EXTREMITIES: Normal skin color and turgor. No cyanosis, rash, ulceration, clubbing or edema. Radial pedal pulses are 2/4 bilaterally. NEUROLOGICAL: No focal deficits. Strength and sensation are grossly intact. Results CBC & Chem 7: 10/11/16 23:00 10/11/16 23:00 Labs: Abnormal Lab Results - Last 24 Hours (Table) 10/12/16 10/12/16 Range/Units 08:04 12:34 APTT 31.0 H (22.0-30.0) sec POC Glucose (mg/dL) 150 H (75-99) mg/dL Thrombosis Risk Factor Assmnt - Choose All That Apply Any of the Below Risk Factors Present?: Yes Each Factor Represents 1 point: Age 41-60 years, Obesity (BMI >25) Other Risk Factors: No Other congenital or acquired thrombophilia - If yes, enter type in comment: No Thrombosis Risk Factor Assessment Total Risk Factor Score: 2 Thrombosis Risk Factor Assessment Level: Low Risk Assessment and Plan Plan: Impression Present on admission chest tightness suspect due to hypertensive urgency systolic pressure 200 History of hypertension Status post SVT ablation Type 2 diabetes non-insulin Dyslipidemia Morbid obesity BMI 42 Plan Follow up on the echocardiogram pending Cardiology recommendations noted appreciated and reviewed continue with recommendations Resume home meds as appropriate DVT and GI prophylaxis Monitor blood pressure and heart rate adjust antihypertensive meds as indicated The above dictated assessment and findings were discussed with dr waters Impression and the plan of care have been dictated as directed. Anum Nguyen nurse practitioner acting as a scribe for dr waters
[2016-10-12 17:07] LABS: Glucose,Whole Blood 162 mg/dL (75-99)
[2016-10-12] MEDS: ACETAMINOPHEN TAB 325 MG TAB PO PRN (21:26)
[2016-10-12] MEDS: METOPROLOL TARTRATE 25 MG TAB PO SCH (21:26)
[2016-10-13] MEDS: NITROGLYCERIN OINT 1 INCH/GM PACKET TOPICAL SCH ×2 (00:30→04:44)
[2016-10-13 04:25] VITALS: RESP 18
[2016-10-13] MEDS: ACETAMINOPHEN TAB 325 MG TAB PO PRN (04:38)
[2016-10-13] MEDS ORDERED: LEVOTHYROXINE 100 MCG TAB PO SCH (06:30)
[2016-10-13 07:11] LABS: Glucose,Whole Blood 157 mg/dL (75-99)
[2016-10-13 07:43] LABS: Cholesterol 213 mg/dL (<200); HDL Cholesterol 41 mg/dL (40-60)
[2016-10-13 08:01] LABS: Triglycerides 1108 mg/dL (<150)
--- NOTE | 2016-10-13 08:50 | P.PN ---
Progress Note - Text This is a pleasant 46-year-old female patient who sees Dr. Zurita with a past medical history significant for hypertension, diabetes, and status post SVT ablation, presented to the hospital complaining of chest discomfort. The patient is under a lot of stress at home lately. She was in her usual state of health until yesterday when she was sitting home and started experiencing discomfort in the mid of the chest as a sharp kind of discomfort worse with deep breath. It was radiating to her back. It was associated with shortness of breath and sweating. When she presented to the emergency room she was given nitroglycerin and aspirin with some improvement in her symptoms. She is not aware of any prior history of coronary artery disease and no heart catheterization. As a matter of fact she underwent a stress test a year ago and that was unremarkable. The EKG showed sinus rhythm without any significant changes compared to the previous EKG. 2 sets of cardiac enzymes came in to unremarkable. The d-dimer was checked and came in to be normal. The blood pressure has been uncontrolled and in the emergency room her systolic pressure was more than 200 mmHg systolic. I did feel that the patient had hypertensive emergency. I did restart her on the beta hang and LOLA inhibitor. On follow-up with her today the blood pressure has been well-controlled and the chest discomfort is much better as well. An echocardiogram was performed and we don't have the results back yet. From the cardiac standpoint of view, she might be able to be discharged home.
[2016-10-13] MEDS: ASPIRIN 325 MG TAB PO SCH (08:51)
[2016-10-13] MEDS: METOPROLOL TARTRATE 25 MG TAB PO SCH (08:52)
[2016-10-13] MEDS: FAMOTIDINE 20 MG/2 ML VIAL IV SCH (08:52)
[2016-10-13] MEDS ORDERED: LISINOPRIL 20 MG TAB PO SCH (09:00)
[2016-10-13] MEDS ORDERED: PRAVASTATIN SODIUM 20 MG TAB PO SCH (09:00)
[2016-10-13] MEDS ORDERED: metFORMIN 500 MG TAB PO SCH (09:00)
--- NOTE | 2016-10-13 11:34 | P.DS ---
Providers Date of admission: 10/12/16 01:05 Expected date of discharge: 10/13/16 Attending physician: Og Waters [facility] Course: 46-year-old female presented to the emergency room on the day of admission with a chief complaint of developing chest discomfort chest tightness described as a sharp stabbing pain worse with a deep breath radiated into the back. Patient gives no history of coronary artery artery disease. States that she had a stress test a year ago and was unremarkable. It was noted in the emergency room the blood pressure systolic was elevated more than 200. Patient stated that she was compliant with taking her medication. Patient was seen and admitted to the services of the attending it treated for hypertension urgency. A cardiology consultation has been requested. Patient's d-dimer was checked and was normal the 12-lead EKG showed sinus without any significant changes compared to prior EKGs. 2 sets of cardiac enzymes were reviewed negative patient states that she has seen Dr. ramon in the past and status post SVT ablation Cardiology felt that the patient had a hypertensive emergency and indicated restart the patient on a beta hang and LOLA inhibitor and a follow-up visit the day after the blood pressure had been fairly well-controlled in the chest discomfort much better. Echocardiogram was done Impression Present on admission chest tightness suspect due to hypertensive urgency systolic pressure 200 History of hypertension Status post SVT ablation Type 2 diabetes non-insulin Dyslipidemia Morbid obesity BMI 42 The above dictated assessment and findings were discussed with dr waters Impression and the plan of care have been dictated as directed. Anum Nguyen nurse practitioner acting as a scribe for dr waters Patient Condition at Discharge: Stable Plan - Discharge Summary New Discharge Prescriptions: Lisinopril [Zestril] 20 mg PO DAILY #30 tab Metoprolol Tartrate [Lopressor] 25 mg PO BID #60 tab Discharge Medication List metFORMIN HCL [Glucophage] 500 mg PO QAM 09/08/14 [History] Albuterol Inhaler [Ventolin Hfa Inhaler] 1 - 2 puff INHALATION RT-Q6H PRN [History] Levothyroxine Sodium [Synthroid] 300 mcg PO QAM 06/27/16 [History] Pravastatin Sodium [Pravachol] 10 mg PO QAM 10/11/16 [History] Lisinopril [Zestril] 20 mg PO DAILY #30 tab 10/13/16 [Rx] Metoprolol Tartrate [Lopressor] 25 mg PO BID #60 tab 10/13/16 [Rx] Follow up Appointment(s)/Referral(s): Og Waters MD [Primary Care Provider] - 1-2 days Discharge Disposition: HOME SELF-CARE
[2016-10-13 11:45] VITALS: BP 131/65; PULSE 77; TEMP 98
[2016-10-13] MEDS ORDERED: FAMOTIDINE 20 MG TAB PO SCH (21:00)
--- NOTE | 2016-10-19 16:00 | ECHOF ---
Referral Reason:cp MEASUREMENTS -------- HEIGHT: 160.0 cm WEIGHT: 108.9 kg BP: 156/55 RVIDd: 2.9 cm (< 3.3) IVSd: 1.2 cm (0.6 - 1.1) LVIDd: 4.9 cm (3.9 - 5.3) LVPWd: 1.1 cm (0.6 - 1.1) IVSs: 1.5 cm LVIDs: 3.7 cm LVPWs: 1.4 cm Ao Diam: 3.1 cm (2.0 - 3.7) AV Cusp: 1.8 cm (1.5 - 2.6) LA Diam: 3.8 cm (2.7 - 3.8) MV EXCURSION: 15.618 mm (> 18.000) MV EF SLOPE: 111 mm/s (70 - 150) EPSS: 0.5 cm MV E Jase: 0.70 m/s MV DecT: 249 ms MV A Jase: 0.96 m/s MV E/A Ratio: 0.73 RAP: 5.00 mmHg RVSP: 9.20 mmHg FINDINGS -------- Sinus rhythm with extra systolic beats. This was a technically adequate study. There is mild concentric left ventricular hypertrophy. Overall left ventricular systolic function is normal with, an EF between 55 - 60 %. The right ventricle is normal in size and function. Normal LA size by volume 22+/-6 ml/m2. The right atrium is normal in size. Aortic valve is trileaflet and is mildly thickened. There is no evidence of aortic regurgitation. There is no evidence of aortic stenosis. The mitral valve leaflets are mildly thickened. There is trace mitral regurgitation. Trace tricuspid regurgitation present. The right ventricular systolic pressure, as measured by Doppler, is 9.20mmHg. The pulmonic valve is normal. The aortic root size is normal. There is a small pericardial effusion is located near the right ventricle. CONCLUSIONS -------- 1. Sinus rhythm with extra systolic beats. 2. There is a small pericardial effusion is located near the right ventricle. 3. There is mild concentric left ventricular hypertrophy. 4. Overall left ventricular systolic function is normal with, an EF between 55 - 60 %. 5. Aortic valve is trileaflet and is mildly thickened. 6. The mitral valve leaflets are mildly thickened. 7. There is trace mitral regurgitation. 8. Trace tricuspid regurgitation present. 9. The right ventricular systolic pressure, as measured by Doppler, is 9.20mmHg. 10. The aortic root size is normal. [employer]ASS: Flora Alvarado RDCS
== END 2016-10-13 12:41 | disposition home or self-care (01) ==
LOC: EC 22:12 → 3OBS 10-12 01:05 → 2ORWHC 10-12 07:38 → 3OBS 10-12 11:50
PROVIDERS: ADMIT Family Medicine; ATTEND Family Medicine
DX: R06.02 Shortness of breath (principal); Z79.84 Long term (current) use of oral hypoglycemic drugs; Z79.899 Other long term (current) drug therapy; Z88.6 Allergy status to analgesic agent; Z88.1 Allergy status to other antibiotic agents; Z88.5 Allergy status to narcotic agent; Z88.2 Allergy status to sulfonamides; Z91.018 Allergy to other foods; Z91.048 Other nonmedicinal substance allergy status; E11.9 Type 2 diabetes mellitus without complications; M79.7 Fibromyalgia; K21.9 Gastro-esophageal reflux disease without esophagitis; E78.5 Hyperlipidemia, unspecified; I10 Essential (primary) hypertension; M19.90 Unspecified osteoarthritis, unspecified site; G40.909 Epilepsy, unspecified, not intractable, without status epilepticus; I47.1 Supraventricular tachycardia; E07.9 Disorder of thyroid, unspecified; G47.30 Sleep apnea, unspecified; Z86.74 Personal history of sudden cardiac arrest; F41.0 Panic disorder [episodic paroxysmal anxiety]; Z87.891 Personal history of nicotine dependence; Z82.49 Family history of ischemic heart disease and other diseases of the circulatory system
CPT/HCPCS: 96365; 96366 ×6; 96376 ×2; 99285; 36415; 94760; 93005 ×2; 93306; 85379; 80061; 80053; 82550 ×2; 82553 ×2; 83735; 84484 ×2; 85025; 85610; 85730 ×2; 71020; G0378 ×2; J1644 ×2

== ENCOUNTER 2016-12-07 00:31 | Observation (INO) | payer OTHER ==
[2016-12-07 00:35] VITALS: RESP 18
[2016-12-07] MEDS ORDERED: ASPIRIN 81 MG CHEW PO STA (00:59)
[2016-12-07] MEDS ORDERED: NITROGLYCERIN OINT 1 INCH/GM PACKET TOPICAL STA (00:59)
--- NOTE | 2016-12-07 01:03 | ED ---
General Adult HPI - General Chief complaint: Chest Pain Stated complaint: chest pain Time Seen by Provider: 12/07/16 00:46 Source: patient, RN notes reviewed Mode of arrival: wheelchair Limitations: no limitations - History of Present Illness Initial comments: Patient is a pleasant 46-year-old female presenting to emergency Department complaining of chest discomfort. Discomfort was severe however now is more mild. Discomfort is sharp left anterior chest. Discomfort is somewhat increased with deep breaths. Discomfort is somewhat similar to previous heart attack. Patient was a little short of breath earlier and nauseated and lightheaded. No diaphoresis. Patient states her fibromyalgia has been acting up more and her last couple of days. - Related Data Home Medications Medication Instructions Recorded Confirmed metFORMIN HCL [Glucophage] 500 mg PO QAM 09/08/14 10/11/16 Albuterol Inhaler [Ventolin Hfa 1 - 2 puff INHALATION RT-Q6H PRN 06/27/16 Inhaler] Levothyroxine Sodium [Synthroid] 300 mcg PO QAM 06/27/16 10/11/16 Pravastatin Sodium [Pravachol] 10 mg PO QAM 10/11/16 10/11/16 Previous Rx's Medication Instructions Recorded Lisinopril [Zestril] 20 mg PO DAILY #30 tab 10/13/16 Metoprolol Tartrate [Lopressor] 25 mg PO BID #60 tab 10/13/16 Allergies Allergy/AdvReac Type Severity Reaction Status Date / Time codeine Allergy Severe Cardiac Verified 12/07/16 00:35 Arrest meperidine HCl [From Demerol] Allergy Severe Cardiac Verified 12/07/16 00:35 Arrest morphine Allergy Severe Caridac Verified 12/07/16 00:35 Arrest adhesive tape Allergy Rash/Hives Verified 12/07/16 00:35 celery Allergy Oral Verified 12/07/16 00:35 Numbness cinnamon Allergy Anaphylaxis Verified 12/07/16 00:35 diphenhydramine HCl Allergy Anaphylaxis Verified 12/07/16 00:35 [From Benadryl] eucalyptus Allergy Anaphylaxis Verified 12/07/16 00:35 [From [place] Cough Drops] menthol Allergy Anaphylaxis Verified 12/07/16 00:35 [From [place] Cough Drops] naproxen sodium [From Aleve] Allergy Rash/Hives Verified 12/07/16 00:35 nitrofurantoin Allergy Unknown Verified 12/07/16 00:35 macrocrystalline [From Macrodantin] Sulfa (Sulfonamide Allergy Rash/Hives Verified 12/07/16 00:35 Antibiotics) ciprofloxacin [From Cipro] AdvReac Abdominal Verified 12/07/16 00:35 Pain ciprofloxacin HCl AdvReac Abdominal Verified 12/07/16 00:35 [From Cipro] Pain multivitamin Allergy Intermediate Rash/Hives Uncoded 12/07/16 00:35 car exhaust AdvReac Mild Nausea & Uncoded 12/07/16 00:35 Vomiting Review of Systems ROS Statement: Those systems with pertinent positive or pertinent negative responses have been documented in the HPI. ROS Other: All systems not noted in ROS Statement are negative. Constitutional: Denies: fever Eyes: Denies: eye pain ENT: Denies: ear pain Respiratory: Denies: cough Cardiovascular: Reports: chest pain Endocrine: Reports: fatigue Gastrointestinal: Reports: nausea Genitourinary: Denies: urgency Skin: Denies: rash Neurological: Denies: headache Past Medical History Past Medical History: Diabetes Mellitus, Fibromyalgia, GERD/Reflux, Hyperlipidemia, Hypertension, Osteoarthritis (OA), Seizure Disorder, Supraventricular Tachycardia (SVT), Thyroid Disorder Additional Past Medical History / Comment(s): Severe allergies, PT STATES IN 1994 PTWAS HAD TOXEMIA WAS GIVEN DEMEROL AND WENT INTO A CARDIAC ARREST (COMA 21 days), was having seizures and had 2ND CARDIAC ARREST 2000 ( COMA 3-5 DAYS), recent sinus and yeast infections tx with ABX, SVT, SLEEP APNEA ( NO MACHINE), STATES LAST SEIZURE 1 YEAR AGO, arthritis low back and hips, PANCREATITIS. History of Any Multi-Drug Resistant Organisms: None Reported Past Surgical History: Cardiac Ablation, Section, Cholecystectomy, Hernia Repair, Tubal Ligation Additional Past Surgical History / Comment(s): Umbilical hernia repair. Past Anesthesia/Blood Transfusion Reactions: Motion Sickness Additional Past Anesthesia/Blood Transfusion Reaction / Comment(s): CLAUSTERPHOBIA, Past Psychological History: Anxiety, Panic Disorder Smoking Status: Former smoker Past Alcohol Use History: None Reported Past Drug Use History: None Reported - Past Family History Father Family Medical History: Cancer, Myocardial Infarction ([place]) Additional Family Medical History / Comment(s): AGE 45 FROM [place] Mother Family Medical History: No Reported History Additional Family Medical History / Comment(s): NORMAL-NO PROBLEMS General Exam Limitations: no limitations General appearance: alert, in no apparent distress Head exam: Present: atraumatic Eye exam: Present: normal appearance, PERRL ENT exam: Present: normal oropharynx Neck exam: Present: normal inspection Respiratory exam: Present: normal lung sounds bilaterally, chest wall tenderness (Mild left anterior chest) Cardiovascular Exam: Present: regular rate, normal rhythm Expanded Peripheral pulses: 2+: Radial (R), Radial (L), Dorsalis Pedis (R), Dorsalis Pedis (L) GI/Abdominal exam: Present: soft. Absent: tenderness Extremities exam: Present: normal inspection. Absent: pedal edema, calf tenderness Neurological exam: Present: alert Psychiatric exam: Present: normal affect, normal mood Skin exam: Present: normal color Course Vital Signs 12/07/16 12/07/16 00:33 01:19 Temperature 98.0 F Pulse Rate 95 Respiratory 18 Rate Blood Pressure 187/82 140/70 O2 Sat by Pulse 97 Oximetry EKG Findings - EKG Comments: EKG Findings:: Normal sinus rhythm 92. CT 148. QRS 76. QT 366. QTc 452. Normal axis. Normal QRS. Normal ST-T. Medical Decision Making - Medical Decision Making Patient reexamined and resting comfortably in bed. Patient updated on results and plan. Case discussed with Dr. Oliva, who will admit his patient with cardiology consult. - Lab Data Result diagrams: 12/07/16 01:04 12/07/16 01:04 Lab Results 12/07/16 12/07/16 12/07/16 Range/Units 01:04 01:04 01:04 WBC 6.0 (3.8-10.6) k/uL RBC 4.12 (3.80-5.40) m/uL Hgb 13.0 (11.4-16.0) gm/dL Hct 37.0 (34.0-46.0) % MCV 89.8 (80.0-100.0) fL MCH 31.6 (25.0-35.0) pg MCHC 35.3 (31.0-37.0) g/dL RDW 13.7 (11.5-15.5) % Plt Count 198 (150-450) k/uL Neutrophils % 66 % Lymphocytes % 26 % Monocytes % 3 % Eosinophils % 2 % Basophils % 0 % Neutrophils # 3.9 (1.3-7.7) k/uL Lymphocytes # 1.6 (1.0-4.8) k/uL Monocytes # 0.2 (0-1.0) k/uL Eosinophils # 0.1 (0-0.7) k/uL Basophils # 0.0 (0-0.2) k/uL PT (9.0-12.0) sec INR (<1.1) APTT (22.0-30.0) sec D-Dimer (<0.60) mg/L FEU Sodium 139 (137-145) mmol/L Potassium 4.2 (3.5-5.1) mmol/L Chloride 103 (98-107) mmol/L Carbon Dioxide 22 (22-30) mmol/L Anion Gap 14 mmol/L BUN 16 (7-17) mg/dL Creatinine 0.80 (0.52-1.04) mg/dL Est GFR (MDRD) Af Amer >60 (>60 ml/min/1.73 sqM) Est GFR (MDRD) Non-Af >60 (>60 ml/min/1.73 sqM) Glucose 190 H (74-99) mg/dL Calcium 9.3 (8.4-10.2) mg/dL Magnesium 1.6 (1.6-2.3) mg/dL Total Bilirubin 0.3 (0.2-1.3) mg/dL AST 23 (14-36) U/L ALT 32 (9-52) U/L Alkaline Phosphatase 110 (38-126) U/L Total Creatine Kinase 39 (30-135) U/L CK-MB (CK-2) 0.9 (0.0-2.4) ng/mL CK-MB (CK-2) Rel Index 2.3 Troponin I <0.012 (0.000-0.034) ng/mL Total Protein 6.4 (6.3-8.2) g/dL Albumin 3.8 (3.5-5.0) g/dL Amylase 39 (30-110) U/L Lipase 153 (23-300) U/L 12/07/16 Range/Units 01:04 WBC (3.8-10.6) k/uL RBC (3.80-5.40) m/uL Hgb (11.4-16.0) gm/dL Hct (34.0-46.0) % MCV (80.0-100.0) fL MCH (25.0-35.0) pg MCHC (31.0-37.0) g/dL RDW (11.5-15.5) % Plt Count (150-450) k/uL Neutrophils % % Lymphocytes % % Monocytes % % Eosinophils % % Basophils % % Neutrophils # (1.3-7.7) k/uL Lymphocytes # (1.0-4.8) k/uL Monocytes # (0-1.0) k/uL Eosinophils # (0-0.7) k/uL Basophils # (0-0.2) k/uL PT 9.5 (9.0-12.0) sec INR 0.9 (<1.1) APTT 22.9 (22.0-30.0) sec D-Dimer 0.54 (<0.60) mg/L FEU Sodium (137-145) mmol/L Potassium (3.5-5.1) mmol/L Chloride (98-107) mmol/L Carbon Dioxide (22-30) mmol/L Anion Gap mmol/L BUN (7-17) mg/dL Creatinine (0.52-1.04) mg/dL Est GFR (MDRD) Af Amer (>60 ml/min/1.73 sqM) Est GFR (MDRD) Non-Af (>60 ml/min/1.73 sqM) Glucose (74-99) mg/dL Calcium (8.4-10.2) mg/dL Magnesium (1.6-2.3) mg/dL Total Bilirubin (0.2-1.3) mg/dL AST (14-36) U/L ALT (9-52) U/L Alkaline Phosphatase (38-126) U/L Total Creatine Kinase (30-135) U/L CK-MB (CK-2) (0.0-2.4) ng/mL CK-MB (CK-2) Rel Index Troponin I (0.000-0.034) ng/mL Total Protein (6.3-8.2) g/dL Albumin (3.5-5.0) g/dL Amylase (30-110) U/L Lipase (23-300) U/L - Radiology Data Radiology results: image reviewed (Chest x-ray shows no acute process.) Disposition Clinical Impression: Unstable angina Disposition: ADMITTED IP TO THIS [facility] Referrals: Og Oliva MD [Primary Care Provider] - 1-2 days Decision Time: 02:30
[2016-12-07 01:12] LABS: Basophils % (A) 0 %; CH 30.4; Eosinophils # (A) 0.1 k/uL (0-0.7); Eosinophils % (A) 2 %; HDW 3.19; Luc # (Auto) 0.08; Luc % (Auto) 1; Lymphocytes # (A) 1.6 k/uL (1.0-4.8); Lymphocytes % (A) 26 %; MCH 31.6 pg (25.0-35.0); MCHC 35.3 g/dL (31.0-37.0); MCV 89.8 fL (80.0-100.0); Mean Platelet Volume 6.6; Monocytes # (A) 0.2 k/uL (0-1.0); Monocytes % (A) 3 %; Neutrophils # (A) 3.9 k/uL (1.3-7.7); Neutrophils % (A) 66 %; RBC 4.12 m/uL (3.80-5.40); RDW 13.7 % (11.5-15.5); WBC (Perox) 6.66
[2016-12-07 01:26] LABS: ALT 32 U/L (9-52); AST 23 U/L (14-36); Alkaline Phosphatase 110 U/L (38-126); Amylase 39 U/L (30-110); Anion Gap 14 mmol/L; Blood Urea Nitrogen 16 mg/dL (7-17); Calcium 9.3 mg/dL (8.4-10.2); Carbon Dioxide 22 mmol/L (22-30); Chloride 103 mmol/L (98-107); Glucose 190 mg/dL (74-99); Magnesium 1.6 mg/dL (1.6-2.3); Non-African American GFR(MDRD) >60 (>60 ml/min/1.73 sqM); Potassium 4.2 mmol/L (3.5-5.1); Sodium 139 mmol/L (137-145); Total Bilirubin 0.3 mg/dL (0.2-1.3); Total Protein 6.4 g/dL (6.3-8.2)
[2016-12-07 01:31] LABS: Creatine Kinase 39 U/L (30-135)
[2016-12-07 01:44] LABS: Creatine Kinase MB 0.9 ng/mL (0.0-2.4); Troponin I <0.012 ng/mL (0.000-0.034)
[2016-12-07 01:52] LABS: INR 0.9 (<1.1); Partial Thromboplastin Time 22.9 sec (22.0-30.0); Prothrombin Time 9.5 sec (9.0-12.0)
--- NOTE | 2016-12-07 02:01 | XR ---
EXAM: XR Chest, 2 Views CLINICAL HISTORY: Chest pain TECHNIQUE: Frontal and lateral views of the chest. COMPARISON: 10/11/2016 FINDINGS: Lungs: Unremarkable. No consolidation. Pleural space: Unremarkable. No pneumothorax. Heart: Unremarkable. No cardiomegaly. Mediastinum: Unremarkable. Bones/joints: No acute osseous abnormality. Tubes, lines and devices: Telemetry leads overlie the patient. IMPRESSION: No acute cardiopulmonary process.
[2016-12-07] MEDS ORDERED: HEPARIN SODIUM,PORCINE 5,000 UNIT/ML 1 ML VIAL IV ONE (02:30)
[2016-12-07] MEDS ORDERED: HEPARIN SODIUM,PORCINE 5,000 UNIT/ML 1 ML VIAL IV PRN (02:30)
[2016-12-07] MEDS ORDERED: NITROGLYCERIN SL TABS 0.4 MG TAB SUBLINGUAL PRN (02:30)
[2016-12-07] MEDS ORDERED: HEPARIN SODIUM,PORCINE/D5W PMX 25,000 UNIT in DEXTROSE/WATER 1 500ML.BAG IV SCH (02:30)
[2016-12-07 03:21] VITALS: BMI 42.5
[2016-12-07] MEDS ORDERED: NITROGLYCERIN OINT 1 INCH/GM PACKET TOPICAL SCH (06:00)
[2016-12-07] MEDS ORDERED: ALBUTEROL NEBULIZED 2.5 MG/3 ML INHALATION PRN (08:20)
[2016-12-07] MEDS ORDERED: LEVOTHYROXINE 100 MCG TAB PO SCH (08:30)
[2016-12-07 08:50] LABS: Mean Platelet Volume 6.7
[2016-12-07] MEDS ORDERED: LISINOPRIL 20 MG TAB PO SCH (09:00)
[2016-12-07] MEDS ORDERED: metFORMIN 500 MG TAB PO SCH (09:00)
[2016-12-07] MEDS ORDERED: PRAVASTATIN SODIUM 20 MG TAB PO SCH (09:00)
[2016-12-07] MEDS ORDERED: METOPROLOL TARTRATE 25 MG TAB PO SCH (09:00)
[2016-12-07 09:16] LABS: Creatine Kinase 32 U/L (30-135)
[2016-12-07 09:29] LABS: Creatine Kinase MB 0.7 ng/mL (0.0-2.4); Troponin I <0.012 ng/mL (0.000-0.034)
[2016-12-07] MEDS ORDERED: ACETAMINOPHEN TAB 325 MG TAB PO PRN (09:50)
--- NOTE | 2016-12-07 09:58 | P.CRDCN ---
History of Present Illness Consult date: 12/07/16 Requesting physician: Og Oliva Consult reason: chest pain Chief complaint: Chest pain History of present illness: This is a pleasant 46-year-old female with history of diabetes, hypertension, GERD, hypothyroidism, prior SVT ablation, who follows with Dr. Iraheta in the office. She presents to the hospital with symptoms of chest discomfort which she describes initially as an ache in her chest that turned into sharp pains that worsened with deep breathing. Patient did undergo dobutamine echocardiographic study in September 2015 which was negative for any reversible ischemia. EKG on presentation here showed a normal sinus rhythm with nonspecific ST-T wave changes in the anterior leads, similar to prior EKGs. Chest x-ray did not reveal any acute cardiopulmonary process. CBC is normal. D-dimer negative. Potassium 4.2, BUN 16, creatinine 0.8. Troponins have been negative 2. Pressure this morning 125/60. Heart rate in the 80s to 90s, 98% on room air. At the time of my examination this morning, she is currently chest pain-free. Past Medical History Past Medical History: Diabetes Mellitus, Fibromyalgia, GERD/Reflux, Hyperlipidemia, Hypertension, Osteoarthritis (OA), Seizure Disorder, Supraventricular Tachycardia (SVT), Thyroid Disorder Additional Past Medical History / Comment(s): Severe allergies, PT STATES IN 1994 PTWAS HAD TOXEMIA WAS GIVEN DEMEROL AND WENT INTO A CARDIAC ARREST (COMA 21 days), was having seizures and had 2ND CARDIAC ARREST 2000 ( COMA 3-5 DAYS), recent sinus and yeast infections tx with ABX, SVT, SLEEP APNEA ( NO MACHINE), STATES LAST SEIZURE 1 YEAR AGO, arthritis low back and hips, PANCREATITIS. History of Any Multi-Drug Resistant Organisms: None Reported Past Surgical History: Cardiac Ablation, Section, Cholecystectomy, Hernia Repair, Tubal Ligation Additional Past Surgical History / Comment(s): Umbilical hernia repair. Past Anesthesia/Blood Transfusion Reactions: Motion Sickness Additional Past Anesthesia/Blood Transfusion Reaction / Comment(s): CLAUSTERPHOBIA, Past Psychological History: Anxiety, Panic Disorder Additional Psychological History / Comment(s): Lives with spouse/daughter. TAKES CARE OF HER 21 yr old DAUGHTER WHO HAS CEREBAL PALSEY. Does not drive, family takes to appts. Ran out of diabetic strips, lancets due to loss of insurance for 2 months. States she is going to be able to have insurance coverage next month. Smoking Status: Former smoker Past Alcohol Use History: None Reported Past Drug Use History: None Reported - Past Family History Father Family Medical History: Cancer, Myocardial Infarction ([place]) Additional Family Medical History / Comment(s): AGE 45 FROM [place] Mother Family Medical History: No Reported History Additional Family Medical History / Comment(s): NORMAL-NO PROBLEMS Medications and Allergies Home Medications Medication Instructions Recorded Confirmed Type metFORMIN HCL [Glucophage] 500 mg PO QAM 09/08/14 12/07/16 History Albuterol Inhaler [Ventolin Hfa 1 - 2 puff INHALATION RT-Q6H PRN 06/27/16 History Inhaler] Levothyroxine Sodium [Synthroid] 300 mcg PO QAM 06/27/16 12/07/16 History Pravastatin Sodium [Pravachol] 10 mg PO QAM 10/11/16 12/07/16 History Allergies Allergy/AdvReac Type Severity Reaction Status Date / Time codeine Allergy Severe Cardiac Verified 12/07/16 08:09 Arrest meperidine HCl [From Demerol] Allergy Severe Cardiac Verified 12/07/16 08:09 Arrest morphine Allergy Severe Caridac Verified 12/07/16 08:09 Arrest adhesive tape Allergy Rash/Hives Verified 12/07/16 08:09 celery Allergy Oral Verified 12/07/16 08:09 Numbness cinnamon Allergy Anaphylaxis Verified 12/07/16 08:09 diphenhydramine HCl Allergy Anaphylaxis Verified 12/07/16 08:09 [From Benadryl] eucalyptus Allergy Anaphylaxis Verified 12/07/16 08:09 [From [place] Cough Drops] menthol Allergy Anaphylaxis Verified 12/07/16 08:09 [From [place] Cough Drops] naproxen sodium [From Aleve] Allergy Rash/Hives Verified 12/07/16 08:09 nitrofurantoin Allergy Unknown Verified 12/07/16 08:09 macrocrystalline [From Macrodantin] Sulfa (Sulfonamide Allergy Rash/Hives Verified 12/07/16 08:09 Antibiotics) ciprofloxacin [From Cipro] AdvReac Abdominal Verified 12/07/16 08:09 Pain ciprofloxacin HCl AdvReac Abdominal Verified 12/07/16 08:09 [From Cipro] Pain multivitamin Allergy Intermediate Rash/Hives Uncoded 12/07/16 00:35 car exhaust AdvReac Mild Nausea & Uncoded 12/07/16 00:35 Vomiting Physical Exam Vitals: Vital Signs Temp Pulse Pulse Resp BP BP BP 12/07/16 08:00 98 18 12/07/16 07:47 12/07/16 07:44 97.7 F 98 18 125/63 12/07/16 04:56 97.9 F 93 18 132/62 12/07/16 03:55 18 12/07/16 02:53 84 18 115/56 12/07/16 02:00 95 18 111/53 12/07/16 01:19 140/70 12/07/16 00:33 98.0 F 95 18 187/82 Pulse Ox 12/07/16 08:00 12/07/16 07:47 98 12/07/16 07:44 98 12/07/16 04:56 97 12/07/16 03:55 12/07/16 02:53 100 12/07/16 02:00 99 12/07/16 01:19 12/07/16 00:33 97 Intake and Output 12/06/16 12/07/16 12/07/16 22:59 06:59 14:59 Other: Voiding Method Toilet # Voids 1 Weight 112.3 kg PHYSICAL EXAMINATION: HEENT: Head is atraumatic, normocephalic. Pupils equal, round. Neck is supple. There is no elevated jugular venous pressure. HEART EXAMINATION: Heart S1, S2 normal. No murmur or gallop heard. CHEST EXAMINATION: Lungs are clear to auscultation and precussion. No chest wall tenderness is noted on palpation or with deep breathing. ABDOMEN: Soft, obese, nontender. Bowel sounds are heard. No organomegaly noted. EXTREMITIES: 2+ peripheral pulses with no evidence of peripheral edema and no calf tenderness noted]. NEUROLOGIC [patient is awake, alert and oriented -3.] . Results 12/07/16 08:07 12/07/16 01:04 Cardiac Enzymes 12/07/16 12/07/16 12/07/16 Range/Units 01:04 01:04 08:07 AST 23 (14-36) U/L CK-MB (CK-2) 0.9 0.7 (0.0-2.4) ng/mL Troponin I <0.012 <0.012 (0.000-0.034) ng/mL Coagulation 12/07/16 Range/Units 01:04 PT 9.5 (9.0-12.0) sec APTT 22.9 (22.0-30.0) sec CBC 12/07/16 12/07/16 Range/Units 01:04 08:07 WBC 6.0 (3.8-10.6) k/uL RBC 4.12 (3.80-5.40) m/uL Hgb 13.0 (11.4-16.0) gm/dL Hct 37.0 (34.0-46.0) % Plt Count 198 179 (150-450) k/uL Comprehensive Metabolic Panel 12/07/16 Range/Units 01:04 Sodium 139 (137-145) mmol/L Potassium 4.2 (3.5-5.1) mmol/L Chloride 103 (98-107) mmol/L Carbon Dioxide 22 (22-30) mmol/L BUN 16 (7-17) mg/dL Creatinine 0.80 (0.52-1.04) mg/dL Glucose 190 H (74-99) mg/dL Calcium 9.3 (8.4-10.2) mg/dL AST 23 (14-36) U/L ALT 32 (9-52) U/L Alkaline Phosphatase 110 (38-126) U/L Total Protein 6.4 (6.3-8.2) g/dL Albumin 3.8 (3.5-5.0) g/dL Current Medications Generic Name Dose Route Start Last Admin Trade Name Freq PRN Reason Stop Dose Admin Albuterol Sulfate 2.5 mg 12/07/16 08:20 Ventolin Nebulized INHALATION RT-Q6H PRN Shortness Of Breath Aspirin 325 mg 12/08/16 09:00 Aspirin PO DAILY SABINE Heparin Sodium (Porcine) 0 unit 12/07/16 02:30 Heparin IV Q6HR PRN Low PTT Protocol Heparin Sodium/Dextrose 25,000 500 mls @ 20.03 mls/hr 12/07/16 02:30 02:49 unit/ IV Solution IV 9.18 units/kg/hr .Q24H SABINE 20 mls/hr Protocol Administration 9.2 UNITS/KG/HR Levothyroxine Sodium 300 mcg 12/07/16 08:30 Synthroid PO QAM@0630 [facility] Lisinopril 20 mg 12/07/16 09:00 Zestril PO DAILY [facility] Metformin HCl 500 mg 12/07/16 09:00 Glucophage PO QAM [facility] Metoprolol Tartrate 25 mg 12/07/16 09:00 Lopressor PO BID [facility] Nitroglycerin 1 inch 12/07/16 06:00 12/07/16 06:35 Nitro-Bid Oint TOPICAL Not Given Q6HR [facility] Nitroglycerin 0.4 mg 12/07/16 02:30 Nitrostat SUBLINGUAL Q5M PRN Chest Pain Pravastatin Sodium 10 mg 12/07/16 09:00 Pravachol PO QAM [facility] Intake and Output 12/06/16 12/07/16 12/07/16 22:59 06:59 14:59 Other: Voiding Method Toilet # Voids 1 Weight 112.3 kg 12/07/16 08:07 12/07/16 01:04 EKG Interpretations (text) EKG shows normal sinus rhythm with nonspecific ST-T wave changes Assessment and Plan Plan: Assessment and plan #1 chest pain, atypical for acute coronary syndrome. Troponins negative 2. EKG shows normal sinus rhythm with nonspecific ST-T wave changes. #2 history of SVT with prior ablation #3 hypertension #4 diabetes #5 fibromyalgia #6 hypothyroidism Plan We will discontinue the IV heparin and Nitropaste. We will also discontinue the Pravachol and put the patient on Lipitor 40 mg daily. She'll be scheduled for an echo along with a dobutamine echocardiographic study today further recommendations will be based on those findings and the patient's clinical course. DNP note has been reviewed, I agree with a documented findings and plan of care. Patient was seen and examined.
[2016-12-07] MEDS ORDERED: ATORVASTATIN 40 MG TAB PO SCH (10:15)
[2016-12-07] MEDS ORDERED: DOBUTamine DRIP for NUC MED 500 MG in DEXTROSE/WATER 1 250ML.BAG IV ONE (10:15)
[2016-12-07 12:05] LABS: Glucose,Whole Blood 169 mg/dL (75-99)
[2016-12-07 12:10] VITALS: BP 134/84; PULSE 94; TEMP 97.1
[2016-12-07 13:19] LABS: Creatine Kinase 32 U/L (30-135)
[2016-12-07 13:31] LABS: Creatine Kinase MB 0.8 ng/mL (0.0-2.4); Troponin I <0.012 ng/mL (0.000-0.034)
--- NOTE | 2016-12-07 13:41 | PCN ---
DATE OF SERVICE: 12/07/2016 DOBUTAMINE STRESS ECHOCARDIOGRAM INDICATION: Chest pain. BASELINE HEART RATE: 92 BASELINE BLOOD PRESSURE: 169/62 MAXIMUM HEART RATE: 151 MAXIMUM BLOOD PRESSURE: 157/79 85% MPHR: 147 100% MPHR: 173 METS: - MAXIMUM STAGE REACHED: 2 TOTAL EXERCISE TIME: 5:00 Baseline EKG showed sinus rhythm, normal axis, normal intervals. Patient was given intravenous dobutamine over a period of 5 minutes as per protocol, achieving 89% of predicted maximum heart rate without chest pain or diagnostic ST-segment depression. Baseline echo shows normal left ventricular size, wall motion and systolic function. Post-dobutamine infusion there is normal hyperdynamic response of all segments of myocardium noted. CONCLUSION: 1. Negative stress test by EKG criteria. 2. Negative dobutamine echo. [facility]
--- NOTE | 2016-12-07 15:10 | P.HPIM ---
History of Present Illness H&P Date: 12/07/16 Chief Complaint: Chest pain 46-year-old female presented on the day of admission to the emergency room with a chief complaint of developing chest discomfort. Described as a sharp to the left anterior chest wall. Patient stated it seemed to get worse if she took in a deep breath. Patient has a history of fibromyalgia which patient stated she feels like it's in been acting up over the last several days patient was admitted to the observation unit cardiology consultation was requested. She did undergo a dobutamine echocardiogram done in September 2015 at that time it was negative. EKG this admission showed sinus rhythm no acute changes. D-dimer was negative. Electrolytes were within normal limits. Cardiac enzymes 3 sets were negative. Chest x-ray was also unremarkable Review of Systems Essentially unremarkable except as mentioned in the present illness Past Medical History Past Medical History: Diabetes Mellitus, Fibromyalgia, GERD/Reflux, Hyperlipidemia, Hypertension, Osteoarthritis (OA), Seizure Disorder, Supraventricular Tachycardia (SVT), Thyroid Disorder Additional Past Medical History / Comment(s): Severe allergies, PT STATES IN 1994 PTWAS HAD TOXEMIA WAS GIVEN DEMEROL AND WENT INTO A CARDIAC ARREST (COMA 21 days), was having seizures and had 2ND CARDIAC ARREST 2000 ( COMA 3-5 DAYS), recent sinus and yeast infections tx with ABX, SVT, SLEEP APNEA ( NO MACHINE), STATES LAST SEIZURE 1 YEAR AGO, arthritis low back and hips, PANCREATITIS. History of Any Multi-Drug Resistant Organisms: None Reported Past Surgical History: Cardiac Ablation, Section, Cholecystectomy, Hernia Repair, Tubal Ligation Additional Past Surgical History / Comment(s): Umbilical hernia repair. Past Anesthesia/Blood Transfusion Reactions: Motion Sickness Additional Past Anesthesia/Blood Transfusion Reaction / Comment(s): CLAUSTERPHOBIA, Past Psychological History: Anxiety, Panic Disorder Additional Psychological History / Comment(s): Lives with spouse/daughter. TAKES CARE OF HER 21 yr old DAUGHTER WHO HAS CEREBAL PALSEY. Does not drive, family takes to appts. Ran out of diabetic strips, lancets due to loss of insurance for 2 months. States she is going to be able to have insurance coverage next month. Smoking Status: Former smoker Past Alcohol Use History: None Reported Past Drug Use History: None Reported - Past Family History Father Family Medical History: Cancer, Myocardial Infarction ([place]) Additional Family Medical History / Comment(s): AGE 45 FROM [place] Mother Family Medical History: No Reported History Additional Family Medical History / Comment(s): NORMAL-NO PROBLEMS Medications and Allergies Home Medications Medication Instructions Recorded Confirmed Type metFORMIN HCL [Glucophage] 500 mg PO QAM 09/08/14 12/07/16 History Albuterol Inhaler [Ventolin Hfa 1 - 2 puff INHALATION RT-Q6H PRN 06/27/16 History Inhaler] Levothyroxine Sodium [Synthroid] 300 mcg PO QAM 06/27/16 12/07/16 History Pravastatin Sodium [Pravachol] 10 mg PO QAM 10/11/16 12/07/16 History Allergies Allergy/AdvReac Type Severity Reaction Status Date / Time codeine Allergy Severe Cardiac Verified 12/07/16 08:09 Arrest meperidine HCl [From Demerol] Allergy Severe Cardiac Verified 12/07/16 08:09 Arrest morphine Allergy Severe Caridac Verified 12/07/16 08:09 Arrest adhesive tape Allergy Rash/Hives Verified 12/07/16 08:09 celery Allergy Oral Verified 12/07/16 08:09 Numbness cinnamon Allergy Anaphylaxis Verified 12/07/16 08:09 diphenhydramine HCl Allergy Anaphylaxis Verified 12/07/16 08:09 [From Benadryl] eucalyptus Allergy Anaphylaxis Verified 12/07/16 08:09 [From [place] Cough Drops] menthol Allergy Anaphylaxis Verified 12/07/16 08:09 [From [place] Cough Drops] naproxen sodium [From Aleve] Allergy Rash/Hives Verified 12/07/16 08:09 nitrofurantoin Allergy Unknown Verified 12/07/16 08:09 macrocrystalline [From Macrodantin] Sulfa (Sulfonamide Allergy Rash/Hives Verified 12/07/16 08:09 Antibiotics) ciprofloxacin [From Cipro] AdvReac Abdominal Verified 12/07/16 08:09 Pain ciprofloxacin HCl AdvReac Abdominal Verified 12/07/16 08:09 [From Cipro] Pain multivitamin Allergy Intermediate Rash/Hives Uncoded 12/07/16 00:35 car exhaust AdvReac Mild Nausea & Uncoded 12/07/16 00:35 Vomiting Physical Exam Vitals: Vital Signs Temp Pulse Pulse Resp BP BP BP 12/07/16 12:00 97.1 F L 94 18 134/84 06/28/17 08:00 98 18 12/07/16 07:47 12/07/16 07:44 97.7 F 98 18 125/63 12/07/16 04:56 97.9 F 93 18 132/62 12/07/16 03:55 18 12/07/16 02:53 84 18 115/56 12/07/16 02:00 95 18 111/53 12/07/16 01:19 140/70 12/07/16 00:33 98.0 F 95 18 187/82 Pulse Ox 12/07/16 12:00 98 12/07/16 08:00 12/07/16 07:47 98 12/07/16 07:44 98 12/07/16 04:56 97 12/07/16 03:55 12/07/16 02:53 100 12/07/16 02:00 99 12/07/16 01:19 12/07/16 00:33 97 Intake and Output 12/07/16 12/07/16 12/07/16 06:59 14:59 22:59 Intake Total 600 Balance 600 Intake: Oral 600 Other: Voiding Method Toilet # Voids 1 Weight 112.3 kg GENERAL APPEARANCE: 46-year-old female patient is alert, oriented, in no acute distress. VITAL SIGNS: Reviewed HEENT: Head is normocephalic and atraumatic. Pupils are equal and reactive. The nares are patent. Oropharynx is clear without lesions. NECK: Supple without lymphadenopathy. Traches midline. HEART: S1, S2. Regular rate and rhythm. Denying chest pain LUNGS: No crackles or wheezes are heard. No shortness of breath noted no cough ABDOMEN: Soft, nontender, nondistended with good bowel sounds. No peritoneal signs. No palpable organomegaly or masses. EXTREMITIES: Normal skin color and turgor. No cyanosis, rash, ulceration, clubbing or edema. Radial pedal pulses are 2/4 bilaterally. NEUROLOGICAL: No focal deficits. Strength and sensation are grossly intact. Results CBC & Chem 7: 12/07/16 08:07 12/07/16 01:04 Labs: Abnormal Lab Results - Last 24 Hours (Table) 12/07/16 12/07/16 Range/Units 01:04 12:02 Glucose 190 H (74-99) mg/dL POC Glucose (mg/dL) 169 H (75-99) mg/dL Thrombosis Risk Factor Assmnt - Choose All That Apply Each Factor Represents 1 point: Age 41-60 years Thrombosis Risk Factor Assessment Total Risk Factor Score: 1 Thrombosis Risk Factor Assessment Level: Low Risk Assessment and Plan Plan: Impression Present on admission chest pain atypical features no evidence of acute coronary syndrome cardiac enzymes 2 sets -12-lead EKG normal sinus rhythm History of SVT with prior ablation Hypertension essential benign Morbid obesity BMI 43 Hypothyroid on supplements Dyslipidemia fibromyalgia Type 2 diabetes non-insulin Plan Resume home meds as appropriate Cardiology consultation pending DVT and GI prophylaxis Probable discharge in the next 24 hours The above impression and plan of care have been discussed and directed by signing physician. Anum Nguyen nurse practitioner acting as scribe for signing physician.
--- NOTE | 2016-12-07 15:16 | P.DS ---
Providers Date of admission: 12/07/16 02:30 Expected date of discharge: 12/07/16 Attending physician: Og Oliva Consults: 12/07/16 02:31 Consult Physician Urgent Consulting Provider: Kathryn Strauss Consult Reason/Comments: ua Do you want consulting provider notified?: Yes Primary care physician: [facility] Course: 46-year-old female presented to the emergency room to be evaluated for chief complaint of developing chest discomfort patient describes the discomfort as a sharp sensation left anterior chest wall. Patient was admitted and a chest protocol initiated patient was seen by cardiology service. The 12-lead EKG showed sinus rhythm no acute changes the d-dimer was negative cardiac enzymes 3 sets were also negative chest x-ray unremarkable cardiology recommended that the patient undergo a dobutamine stress echocardiogram that was a negative stress study negative dobutamine echo cardiology had no further recommendations and patient had no further episodes of chest pain patient was felt to be stable and appropriate proceed with a discharge to home the recommendations by cardiology were to stop the Pravachol start patient on Lipitor 40 mg daily Impression discharge Present on admission chest pain atypical features no evidence of acute coronary syndrome cardiac enzymes 2 sets -12-lead EKG normal sinus rhythm History of SVT with prior ablation Hypertension essential benign Morbid obesity BMI 43 Hypothyroid on supplements Dyslipidemia fibromyalgia Type 2 diabetes non-insulin The above impression and plan of care have been discussed and directed by signing physician. Anum Nguyen nurse practitioner acting as scribe for signing physician. Plan - Discharge Summary New Discharge Prescriptions: New Atorvastatin [Lipitor] 40 mg PO DAILY #30 tab Continue metFORMIN HCL [Glucophage] 500 mg PO QAM Levothyroxine Sodium [Synthroid] 300 mcg PO QAM Albuterol Inhaler [Ventolin Hfa Inhaler] 1 - 2 puff INHALATION RT-Q6H PRN PRN Reason: Shortness Of Breath Lisinopril [Zestril] 20 mg PO DAILY #30 tab Metoprolol Tartrate [Lopressor] 25 mg PO BID #60 tab Discontinued Pravastatin Sodium [Pravachol] 10 mg PO QAM Discharge Medication List metFORMIN HCL [Glucophage] 500 mg PO QAM 09/08/14 [History] Albuterol Inhaler [Ventolin Hfa Inhaler] 1 - 2 puff INHALATION RT-Q6H PRN 01/16/ 17 [History] Levothyroxine Sodium [Synthroid] 300 mcg PO QAM 06/27/16 [History] Lisinopril [Zestril] 20 mg PO DAILY #30 tab 10/13/16 [Rx] Metoprolol Tartrate [Lopressor] 25 mg PO BID #60 tab 10/13/16 [Rx] Atorvastatin [Lipitor] 40 mg PO DAILY #30 tab 12/07/16 [Rx] Follow up Appointment(s)/Referral(s): Og Oliva MD [Primary Care Provider] - 1-2 days Discharge Disposition: HOME SELF-CARE
[2016-12-08] MEDS ORDERED: ASPIRIN 81 MG CHEW PO SCH (09:00)
[2016-12-08] MEDS ORDERED: ASPIRIN 325 MG TAB PO SCH (09:00)
== END 2016-12-07 16:36 | disposition home or self-care (01) ==
LOC: EC 00:31 → 3OBS 02:30
PROVIDERS: ADMIT Family Medicine; ATTEND Family Medicine
DX: I20.0 Unstable angina (principal); R07.89 Other chest pain; I47.1 Supraventricular tachycardia; I10 Essential (primary) hypertension; E66.01 Morbid (severe) obesity due to excess calories; E03.9 Hypothyroidism, unspecified; M79.7 Fibromyalgia; E11.9 Type 2 diabetes mellitus without complications; E78.5 Hyperlipidemia, unspecified; F41.9 Anxiety disorder, unspecified; G40.909 Epilepsy, unspecified, not intractable, without status epilepticus; G47.30 Sleep apnea, unspecified; K21.9 Gastro-esophageal reflux disease without esophagitis; I25.2 Old myocardial infarction; M19.90 Unspecified osteoarthritis, unspecified site; R06.02 Shortness of breath; Z86.74 Personal history of sudden cardiac arrest; Z87.891 Personal history of nicotine dependence; Z88.5 Allergy status to narcotic agent; L23.1 Allergic contact dermatitis due to adhesives; Z88.8 Allergy status to other drugs, medicaments and biological substances; Z88.2 Allergy status to sulfonamides; Z91.02 Food additives allergy status; Z88.1 Allergy status to other antibiotic agents; F41.0 Panic disorder [episodic paroxysmal anxiety]; Z82.49 Family history of ischemic heart disease and other diseases of the circulatory system; Z90.49 Acquired absence of other specified parts of digestive tract; Z79.84 Long term (current) use of oral hypoglycemic drugs; Z79.899 Other long term (current) drug therapy; Z68.41 Body mass index [BMI] 40.0-44.9, adult
CPT/HCPCS: 96374 ×2; 99285 ×2; 36415; 94760; 93005; 93017; 93350; 85379; 80053; 82150; 82550; 82553; 83690; 83735; 84484; 85025; 85049; 85610; 85730; 71020; G0378; J1250; J1644 ×2

== ENCOUNTER 2017-01-04 13:32 | Emergency (ER) | payer OTHER ==
[2017-01-04] MEDS ORDERED: RX INFO: IV CONTRAST WAS GIVEN 1 EACH MISC MISCELLANE PRN (15:01)
[2017-01-04] MEDS ORDERED: HYDROmorphone 1 MG/ML 1 ML SYRINGE IVP STA (15:01)
[2017-01-04] MEDS ORDERED: SODIUM CHLORIDE 0.9% 1,000 ML IV STA (15:01)
[2017-01-04] MEDS ORDERED: ONDANSETRON 4 MG/2 ML VIAL IVP STA (15:01)
--- NOTE | 2017-01-04 15:05 | ED ---
Abdominal Pain HPI - General Chief Complaint: Abdominal Pain Stated Complaint: left side abdominal pain Time Seen by Provider: 01/04/17 14:56 Source: patient, RN notes reviewed Mode of arrival: ambulatory Limitations: no limitations - History of Present Illness Initial Comments: 46-year-old female presents emergency Department chief complaint left lower quadrant abdominal pain. Patient states started earlier today. Patient states she's had some diarrhea, nausea associated with. Patient has no history of bowel infection she had a prior tubal ligation, section, cholecystectomy and hernia repair. Patient denies any dysuria hematuria. No history kidney stones. She denies any back pain or flank pain. Denies any chest pain, shortness breath, fever, chills. Patient had no prior colonoscopy. Patient denies any rectal bleeding or melena. - Related Data Home Medications Medication Instructions Recorded Confirmed metFORMIN HCL [Glucophage] 500 mg PO QAM 09/08/14 01/04/17 Albuterol Inhaler [Ventolin Hfa 1 - 2 puff INHALATION RT-Q6H PRN 06/27/16 Inhaler] Levothyroxine Sodium [Synthroid] 300 mcg PO QAM 06/27/16 01/04/17 Previous Rx's Medication Instructions Recorded Lisinopril [Zestril] 20 mg PO DAILY #30 tab 10/13/16 Metoprolol Tartrate [Lopressor] 25 mg PO BID #60 tab 10/13/16 Dicyclomine [Bentyl] 20 mg PO TID #30 tablet 01/04/17 Hydrocodone/Acetaminophen [[place] 1 tab PO Q6HR PRN #15 tab 01/04/17 5-325] Allergies Allergy/AdvReac Type Severity Reaction Status Date / Time codeine Allergy Severe Cardiac Verified 01/04/17 14:04 Arrest meperidine HCl [From Demerol] Allergy Severe Cardiac Verified 01/04/17 14:04 Arrest morphine Allergy Severe Caridac Verified 01/04/17 14:04 Arrest adhesive tape Allergy Rash/Hives Verified 01/04/17 14:04 celery Allergy Oral Verified 01/04/17 14:04 Numbness cinnamon Allergy Anaphylaxis Verified 01/04/17 14:04 diphenhydramine HCl Allergy Anaphylaxis Verified 01/04/17 14:04 [From Benadryl] eucalyptus Allergy Anaphylaxis Verified 01/04/17 14:04 [From [place] Cough Drops] menthol Allergy Anaphylaxis Verified 01/04/17 14:04 [From [place] Cough Drops] naproxen sodium [From Aleve] Allergy Rash/Hives Verified 01/04/17 14:04 nitrofurantoin Allergy Unknown Verified 01/04/17 14:04 macrocrystalline [From Macrodantin] Sulfa (Sulfonamide Allergy Rash/Hives Verified 01/04/17 14:04 Antibiotics) ciprofloxacin [From Cipro] AdvReac Abdominal Verified 01/04/17 14:04 Pain ciprofloxacin HCl AdvReac Abdominal Verified 01/04/17 14:04 [From Cipro] Pain multivitamin Allergy Intermediate Rash/Hives Uncoded 01/04/17 14:04 car exhaust AdvReac Mild Nausea & Uncoded 01/04/17 14:04 Vomiting Review of Systems ROS Statement: Those systems with pertinent positive or pertinent negative responses have been documented in the HPI. ROS Other: All systems not noted in ROS Statement are negative. Past Medical History Past Medical History: Diabetes Mellitus, Fibromyalgia, GERD/Reflux, Hyperlipidemia, Hypertension, Osteoarthritis (OA), Seizure Disorder, Supraventricular Tachycardia (SVT), Thyroid Disorder Additional Past Medical History / Comment(s): Severe allergies, PT STATES IN 1994 PTWAS HAD TOXEMIA WAS GIVEN DEMEROL AND WENT INTO A CARDIAC ARREST (COMA 21 days), was having seizures and had 2ND CARDIAC ARREST 2000 ( COMA 3-5 DAYS), SVT, SLEEP APNEA( NO MACHINE), STATES LAST SEIZURE 1 YEAR AGO, arthritis low back and hips, PANCREATITIS. History of Any Multi-Drug Resistant Organisms: None Reported Past Surgical History: Cardiac Ablation, Section, Cholecystectomy, Hernia Repair, Tubal Ligation Additional Past Surgical History / Comment(s): Umbilical hernia repair. Past Anesthesia/Blood Transfusion Reactions: Motion Sickness Additional Past Anesthesia/Blood Transfusion Reaction / Comment(s): CLAUSTERPHOBIA, Past Psychological History: Anxiety, Panic Disorder Smoking Status: Former smoker Past Alcohol Use History: None Reported Past Drug Use History: None Reported - Past Family History Father Family Medical History: Cancer, Myocardial Infarction ([place]) Additional Family Medical History / Comment(s): AGE 45 FROM [place] Mother Family Medical History: No Reported History Additional Family Medical History / Comment(s): NORMAL-NO PROBLEMS General Exam Limitations: no limitations General appearance: alert, in no apparent distress Head exam: Present: atraumatic, normocephalic, normal inspection Neck exam: Present: normal inspection. Absent: tenderness, meningismus, lymphadenopathy Respiratory exam: Present: normal lung sounds bilaterally. Absent: respiratory distress, wheezes, rales, rhonchi, stridor Cardiovascular Exam: Present: regular rate, normal rhythm, normal heart sounds. Absent: systolic murmur, diastolic murmur, rubs, gallop, clicks GI/Abdominal exam: Present: soft, tenderness (Moderate left lower quadrant tenderness), normal bowel sounds. Absent: distended, guarding, rebound, rigid Back exam: Present: CVA tenderness (L). Absent: CVA tenderness (R) Neurological exam: Present: alert, oriented X3, CN II-XII intact Skin exam: Present: warm, dry, intact, normal color. Absent: rash Course Vital Signs 01/04/17 01/04/17 14:02 16:09 Temperature 97.9 F Pulse Rate 106 H 105 H Respiratory 18 20 Rate Blood Pressure 145/81 159/68 O2 Sat by Pulse 99 96 Oximetry Medical Decision Making - Medical Decision Making 46-year-old female presents emergency Department chief complaint left sided abdominal pain. Patient CT shows colitis. This most likely is related to a viral inflammatory changes. There is no elevation in white count or any fever noted. Patient has a contaminated urine at this time. Patient be discharged with Bentyl and pain medication patient will follow-up with primary care physician return parameters were discussed. - Lab Data Result diagrams: 01/04/17 15:25 01/04/17 15:25 Lab Results 01/04/17 01/04/17 01/04/17 Range/Units 15:25 15:25 15:25 WBC 6.0 (3.8-10.6) k/uL RBC 4.33 (3.80-5.40) m/uL Hgb 13.1 (11.4-16.0) gm/dL Hct 37.6 (34.0-46.0) % MCV 86.8 (80.0-100.0) fL MCH 30.2 (25.0-35.0) pg MCHC 34.8 (31.0-37.0) g/dL RDW 13.5 (11.5-15.5) % Plt Count 205 (150-450) k/uL Neutrophils % 67 % Lymphocytes % 24 % Monocytes % 4 % Eosinophils % 3 % Basophils % 1 % Neutrophils # 4.1 (1.3-7.7) k/uL Lymphocytes # 1.5 (1.0-4.8) k/uL Monocytes # 0.2 (0-1.0) k/uL Eosinophils # 0.2 (0-0.7) k/uL Basophils # 0.0 (0-0.2) k/uL PT 9.8 (9.0-12.0) sec INR 1.0 (<1.2) APTT 22.9 (22.0-30.0) sec Sodium 138 (137-145) mmol/L Potassium 4.4 (3.5-5.1) mmol/L Chloride 103 (98-107) mmol/L Carbon Dioxide 24 (22-30) mmol/L Anion Gap 11 mmol/L BUN 15 (7-17) mg/dL Creatinine 0.67 (0.52-1.04) mg/dL Est GFR (MDRD) Af Amer >60 (>60 ml/min/1.73 sqM) Est GFR (MDRD) Non-Af >60 (>60 ml/min/1.73 sqM) Glucose 176 H (74-99) mg/dL Calcium 9.0 (8.4-10.2) mg/dL Total Bilirubin 0.6 (0.2-1.3) mg/dL AST 26 (14-36) U/L ALT 34 (9-52) U/L Alkaline Phosphatase 96 (38-126) U/L Total Protein 6.3 (6.3-8.2) g/dL Albumin 3.7 (3.5-5.0) g/dL Amylase <30 L (30-110) U/L Lipase 162 (23-300) U/L Urine Color Urine Appearance (Clear) Urine pH (5.0-8.0) Ur Specific [place] (1.001-1.035) Urine Protein (Negative) Urine Glucose (UA) (Negative) Urine Ketones (Negative) Urine Blood (Negative) Urine Nitrite (Negative) Urine Bilirubin (Negative) Urine Urobilinogen (<2.0) mg/dL Ur Leukocyte Esterase (Negative) Urine RBC (0-5) /hpf Urine WBC (0-5) /hpf Ur Squamous Epith Cells (0-4) /hpf Amorphous Sediment (None) /hpf Urine Bacteria (None) /hpf Urine Mucus (None) /hpf 01/04/17 Range/Units 16:06 WBC (3.8-10.6) k/uL RBC (3.80-5.40) m/uL Hgb (11.4-16.0) gm/dL Hct (34.0-46.0) % MCV (80.0-100.0) fL MCH (25.0-35.0) pg MCHC (31.0-37.0) g/dL RDW (11.5-15.5) % Plt Count (150-450) k/uL Neutrophils % % Lymphocytes % % Monocytes % % Eosinophils % % Basophils % % Neutrophils # (1.3-7.7) k/uL Lymphocytes # (1.0-4.8) k/uL Monocytes # (0-1.0) k/uL Eosinophils # (0-0.7) k/uL Basophils # (0-0.2) k/uL PT (9.0-12.0) sec INR (<1.2) APTT (22.0-30.0) sec Sodium (137-145) mmol/L Potassium (3.5-5.1) mmol/L Chloride (98-107) mmol/L Carbon Dioxide (22-30) mmol/L Anion Gap mmol/L BUN (7-17) mg/dL Creatinine (0.52-1.04) mg/dL Est GFR (MDRD) Af Amer (>60 ml/min/1.73 sqM) Est GFR (MDRD) Non-Af (>60 ml/min/1.73 sqM) Glucose (74-99) mg/dL Calcium (8.4-10.2) mg/dL Total Bilirubin (0.2-1.3) mg/dL AST (14-36) U/L ALT (9-52) U/L Alkaline Phosphatase (38-126) U/L Total Protein (6.3-8.2) g/dL Albumin (3.5-5.0) g/dL Amylase (30-110) U/L Lipase (23-300) U/L Urine Color Yellow Urine Appearance Cloudy H (Clear) Urine pH 5.0 (5.0-8.0) Ur Specific [place] 1.016 (1.001-1.035) Urine Protein Negative (Negative) Urine Glucose (UA) Negative (Negative) Urine Ketones Negative (Negative) Urine Blood Negative (Negative) Urine Nitrite Negative (Negative) Urine Bilirubin Negative (Negative) Urine Urobilinogen <2.0 (<2.0) mg/dL Ur Leukocyte Esterase Small H (Negative) Urine RBC 1 (0-5) /hpf Urine WBC 13 H (0-5) /hpf Ur Squamous Epith Cells 14 H (0-4) /hpf Amorphous Sediment Rare H (None) /hpf Urine Bacteria Rare H (None) /hpf Urine Mucus Rare H (None) /hpf Disposition Clinical Impression: Colitis, Abdominal pain Disposition: HOME SELF-CARE Condition: Stable Instructions: Colitis (ED) Additional Instructions: Please return to the Emergency Department if symptoms worsen or any other concerns. Prescriptions: Dicyclomine [Bentyl] 20 mg PO TID #30 tablet Hydrocodone/Acetaminophen [[place] 5-325] 1 tab PO Q6HR PRN #15 tab PRN Reason: Pain Referrals: Og Oliva MD [Primary Care Provider] - 1-2 days Laurie Whitlock MD [STAFF PHYSICIAN] - 1-2 days
[2017-01-04 15:37] LABS: Basophils % (A) 1 %; CH 29.8; CHCM 34.5; Eosinophils # (A) 0.2 k/uL (0-0.7); Eosinophils % (A) 3 %; HCT 37.6 % (34.0-46.0); HDW 3.36; HGB 13.1 gm/dL (11.4-16.0); Luc # (Auto) 0.09; Luc % (Auto) 2; Lymphocytes # (A) 1.5 k/uL (1.0-4.8); Lymphocytes % (A) 24 %; MCH 30.2 pg (25.0-35.0); MCHC 34.8 g/dL (31.0-37.0); MCV 86.8 fL (80.0-100.0); Mean Platelet Volume 6.9; Monocytes # (A) 0.2 k/uL (0-1.0); Monocytes % (A) 4 %; Neutrophils # (A) 4.1 k/uL (1.3-7.7); Neutrophils % (A) 67 %; RBC 4.33 m/uL (3.80-5.40); RDW 13.5 % (11.5-15.5); WBC (Perox) 6.38
[2017-01-04 15:45] LABS: Partial Thromboplastin Time 22.9 sec (22.0-30.0); Prothrombin Time 9.8 sec (9.0-12.0)
[2017-01-04 15:49] LABS: ALT 34 U/L (9-52); AST 26 U/L (14-36); Alkaline Phosphatase 96 U/L (38-126); Amylase <30 U/L (30-110); Anion Gap 11 mmol/L; Blood Urea Nitrogen 15 mg/dL (7-17); Carbon Dioxide 24 mmol/L (22-30); Chloride 103 mmol/L (98-107); Glucose 176 mg/dL (74-99); Non-African American GFR(MDRD) >60 (>60 ml/min/1.73 sqM); Potassium 4.4 mmol/L (3.5-5.1); Sodium 138 mmol/L (137-145); Total Bilirubin 0.6 mg/dL (0.2-1.3); Total Protein 6.3 g/dL (6.3-8.2)
[2017-01-04 16:26] LABS: Amorphous Sediment,Urine Rare /hpf; Appearance,Urine Cloudy (Clear); Bacteria,Urine Rare /hpf; Bilirubin,Urine Negative (Negative); Glucose,Urine (UA) Negative (Negative); Ketones,Urine Negative (Negative); Leukocyte Esterase,Urine Small (Negative); Mucus,Urine Rare /hpf; Nitrite,Urine Negative (Negative); Particle Count 5472; Protein,Urine Negative (Negative); RBC,Urine 1 /hpf (0-5); Specific Gravity,Urine 1.016 (1.001-1.035); Squamous Epithelial Cell,Urine 14 /hpf (0-4); UA Billing (MACRO vs. MICRO) MICRO; Urobilinogen,Urine <2.0 mg/dL (<2.0); WBC,Urine 13 /hpf (0-5)
--- NOTE | 2017-01-04 16:56 | CT ---
EXAMINATION TYPE: CT abdomen pelvis w con DATE OF EXAM: 01/04/2017 REFERENCE: Previous study dated 11/20/2015. HISTORY: abdominal pain HISTORY: Left lower quadrant pain CT DLP: 1052 mGy Automated exposure control for dose reduction was used. TECHNIQUE: Helical acquisition through the abdomen and pelvis was obtained following the oral ingesti on of with Oral Contrast and following intravenous administration of 100 mL of Omnipaque 300. The mary jane a was reformatted in axial, coronal and sagittal projections. FINDINGS: Visualized portions of the lungs are clear. There is no pleural or pericardial fluid. The heart is not enlarged. There is a small hiatal hernia. Within the abdomen, the gallbladder is been removed. The liver is prominent measuring 19 cm. The sple en is enlarged measuring 13.5 cm. Both adrenal glands are normal. There is a fat-containing structure in the mid body of the right kidney. 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 This was present previously. The left kidney appears normal. The pancreas is unremarkable. There is no significant retroperitoneal, iliac or inguinal adenopathy. The uterus is unremarkable. The left ovary is normal. The right is not well visualized. Bladder is not distended. There is mucosal thickening involving much of the descending colon and sigmoid colon. The appendix is normal. Small bowel loops are normal. There is no free fluid and no free air. There is no bony destructive lesion. IMPRESSION: 1. COLONIC MUCOSAL THICKENING INVOLVING MUCH OF THE DESCENDING COLON AND SIGMOID COLON. PLEASE CORREL ATE FOR COLITIS. 2. SMALL HIATAL HERNIA. 3. HEPATOSPLENOMEGALY. 4. 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
[2017-01-04 17:25] VITALS: BP 148/67; PULSE 94; RESP 18; TEMP 99.2
== END 2017-01-04 17:24 | disposition home or self-care (01) ==
LOC: EC 13:32
DX: K52.9 Noninfective gastroenteritis and colitis, unspecified (principal); R82.90 Unspecified abnormal findings in urine; R11.0 Nausea; E11.9 Type 2 diabetes mellitus without complications; E07.9 Disorder of thyroid, unspecified; Z87.891 Personal history of nicotine dependence; Z79.84 Long term (current) use of oral hypoglycemic drugs; Z79.899 Other long term (current) drug therapy; Z88.1 Allergy status to other antibiotic agents; Z88.2 Allergy status to sulfonamides; Z88.5 Allergy status to narcotic agent; Z88.6 Allergy status to analgesic agent; Z88.8 Allergy status to other drugs, medicaments and biological substances; Z91.018 Allergy to other foods; Z91.09 Other allergy status, other than to drugs and biological substances; Z90.49 Acquired absence of other specified parts of digestive tract
CPT/HCPCS: 36415; 80053; 82150; 83690; 85025; 85610; 85730; 81001; 74177; 99284; 96374; 96375; 96361 ×2; J2405; J1170; Q9967

== ENCOUNTER 2017-01-18 02:47 | Observation (INO) | payer OTHER ==
[2017-01-18 03:39] LABS: Basophils % (A) 0 %; CH 29.8; CHCM 34.2; Eosinophils # (A) 0.2 k/uL (0-0.7); Eosinophils % (A) 3 %; HCT 35.7 % (34.0-46.0); HDW 3.33; HGB 12.5 gm/dL (11.4-16.0); Luc # (Auto) 0.12; Luc % (Auto) 2; Lymphocytes # (A) 1.9 k/uL (1.0-4.8); Lymphocytes % (A) 34 %; MCH 30.7 pg (25.0-35.0); MCV 87.8 fL (80.0-100.0); Mean Platelet Volume 6.5; Monocytes # (A) 0.2 k/uL (0-1.0); Monocytes % (A) 3 %; Neutrophils # (A) 3.3 k/uL (1.3-7.7); Neutrophils % (A) 58 %; RBC 4.07 m/uL (3.80-5.40); RDW 13.8 % (11.5-15.5); WBC 5.7 k/uL (3.8-10.6); WBC (Perox) 5.87
--- NOTE | 2017-01-18 03:42 | ED ---
General Adult HPI - General Chief complaint: Chest Pain Stated complaint: chest pain Time Seen by Provider: 01/18/17 02:59 Source: patient, RN notes reviewed, old records reviewed Mode of arrival: ambulatory Limitations: no limitations - History of Present Illness Initial comments: This is a 46-year-old female to the ER for evaluation. This patient presents for evaluation regarding chest pain. Glossitis. History of similar pain before. Patient's history of ablation, history of chest pain. Patient states prior chest pain this is related to hypertension. Patient has no modifying date pain control - Related Data Home Medications Medication Instructions Recorded Confirmed metFORMIN HCL [Glucophage] 500 mg PO QAM 09/08/14 01/18/17 Albuterol Inhaler [Ventolin Hfa 1 - 2 puff INHALATION RT-Q6H PRN 06/27/16 Inhaler] Levothyroxine Sodium [Synthroid] 300 mcg PO QAM 06/27/16 01/18/17 Previous Rx's Medication Instructions Recorded Lisinopril [Zestril] 20 mg PO DAILY #30 tab 10/13/16 Metoprolol Tartrate [Lopressor] 25 mg PO BID #60 tab 10/13/16 Dicyclomine [Bentyl] 20 mg PO TID #30 tablet 01/04/17 Hydrocodone/Acetaminophen [[place] 1 tab PO Q6HR PRN #15 tab 01/04/17 5-325] Allergies Allergy/AdvReac Type Severity Reaction Status Date / Time codeine Allergy Severe Cardiac Verified 01/04/17 14:04 Arrest meperidine HCl [From Demerol] Allergy Severe Cardiac Verified 01/04/17 14:04 Arrest morphine Allergy Severe Caridac Verified 01/04/17 14:04 Arrest adhesive tape Allergy Rash/Hives Verified 01/04/17 14:04 celery Allergy Oral Verified 01/04/17 14:04 Numbness cinnamon Allergy Anaphylaxis Verified 01/04/17 14:04 diphenhydramine HCl Allergy Anaphylaxis Verified 01/04/17 14:04 [From Benadryl] eucalyptus Allergy Anaphylaxis Verified 01/04/17 14:04 [From [place] Cough Drops] menthol Allergy Anaphylaxis Verified 01/04/17 14:04 [From [place] Cough Drops] naproxen sodium [From Aleve] Allergy Rash/Hives Verified 01/04/17 14:04 nitrofurantoin Allergy Unknown Verified 01/04/17 14:04 macrocrystalline [From Macrodantin] Sulfa (Sulfonamide Allergy Rash/Hives Verified 01/04/17 14:04 Antibiotics) ciprofloxacin [From Cipro] AdvReac Abdominal Verified 01/04/17 14:04 Pain ciprofloxacin HCl AdvReac Abdominal Verified 01/04/17 14:04 [From Cipro] Pain multivitamin Allergy Intermediate Rash/Hives Uncoded 01/04/17 14:04 car exhaust AdvReac Mild Nausea & Uncoded 01/04/17 14:04 Vomiting Review of Systems ROS Statement: Those systems with pertinent positive or pertinent negative responses have been documented in the HPI. ROS Other: All systems not noted in ROS Statement are negative. Past Medical History Past Medical History: Diabetes Mellitus, Fibromyalgia, GERD/Reflux, Hyperlipidemia, Hypertension, Osteoarthritis (OA), Seizure Disorder, Supraventricular Tachycardia (SVT), Thyroid Disorder Additional Past Medical History / Comment(s): Severe allergies, PT STATES IN 1994 PTWAS HAD TOXEMIA WAS GIVEN DEMEROL AND WENT INTO A CARDIAC ARREST (COMA 21 days), was having seizures and had 2ND CARDIAC ARREST 2000 ( COMA 3-5 DAYS), SVT, SLEEP APNEA( NO MACHINE), STATES LAST SEIZURE 1 YEAR AGO, arthritis low back and hips, PANCREATITIS. History of Any Multi-Drug Resistant Organisms: None Reported Past Surgical History: Cardiac Ablation, Section, Cholecystectomy, Hernia Repair, Tubal Ligation Additional Past Surgical History / Comment(s): Umbilical hernia repair. Past Anesthesia/Blood Transfusion Reactions: Motion Sickness Additional Past Anesthesia/Blood Transfusion Reaction / Comment(s): CLAUSTERPHOBIA, Past Psychological History: Anxiety, Panic Disorder Smoking Status: Former smoker Past Alcohol Use History: None Reported Past Drug Use History: None Reported - Past Family History Father Family Medical History: Cancer, Myocardial Infarction ([place]) Additional Family Medical History / Comment(s): AGE 45 FROM [place] Mother Family Medical History: No Reported History Additional Family Medical History / Comment(s): NORMAL-NO PROBLEMS General Exam Limitations: no limitations General appearance: alert, in no apparent distress Head exam: Present: atraumatic, normocephalic, normal inspection Eye exam: Present: normal appearance, PERRL, EOMI. Absent: scleral icterus, conjunctival injection, periorbital swelling ENT exam: Present: normal exam, mucous membranes moist Neck exam: Present: normal inspection. Absent: tenderness, meningismus, lymphadenopathy Respiratory exam: Present: normal lung sounds bilaterally. Absent: respiratory distress, wheezes, rales, rhonchi, stridor Cardiovascular Exam: Present: regular rate, normal rhythm, normal heart sounds. Absent: systolic murmur, diastolic murmur, rubs, gallop, clicks GI/Abdominal exam: Present: soft, normal bowel sounds. Absent: distended, tenderness, guarding, rebound, rigid Extremities exam: Present: normal inspection, full ROM, normal capillary refill. Absent: tenderness, pedal edema, joint swelling, calf tenderness Back exam: Present: normal inspection Neurological exam: Present: alert, oriented X3, CN II-XII intact Psychiatric exam: Present: normal affect, normal mood Skin exam: Present: warm, dry, intact, normal color. Absent: rash Course Vital Signs 01/18/17 01/18/17 02:50 04:43 Temperature 98.3 F Pulse Rate 82 84 Respiratory 20 18 Rate Blood Pressure 144/76 159/70 O2 Sat by Pulse 100 95 Oximetry - Reevaluation(s) Reevaluation #1: 01/18/17 05:36 Patient certainly has a chest pain, states it is unlike her normal for her myalgic pain, will likely be seen by cardiology EKG Findings - EKG Comments: EKG Findings:: EKG shows sinus rhythm rate of 80, OR 140, QRS 60, QTC 435, anterior T-wave inversion, is T-wave inversions compared to prior EKG in the setting Medical Decision Making - Medical Decision Making 46 female here for reevaluation chest pain history of chest pain fibromyalgia, patient be admitted for evaluation regarding chest pain, chest pain rating left side when he left arm made to her back. - Lab Data Result diagrams: 01/18/17 03:22 01/18/17 03:22 Lab Results 01/18/17 01/18/17 01/18/17 Range/Units 03:22 03:22 03:22 WBC 5.7 (3.8-10.6) k/uL RBC 4.07 (3.80-5.40) m/uL Hgb 12.5 (11.4-16.0) gm/dL Hct 35.7 (34.0-46.0) % MCV 87.8 (80.0-100.0) fL MCH 30.7 (25.0-35.0) pg MCHC 35.0 (31.0-37.0) g/dL RDW 13.8 (11.5-15.5) % Plt Count 221 (150-450) k/uL Neutrophils % 58 % Lymphocytes % 34 % Monocytes % 3 % Eosinophils % 3 % Basophils % 0 % Neutrophils # 3.3 (1.3-7.7) k/uL Lymphocytes # 1.9 (1.0-4.8) k/uL Monocytes # 0.2 (0-1.0) k/uL Eosinophils # 0.2 (0-0.7) k/uL Basophils # 0.0 (0-0.2) k/uL PT (9.0-12.0) sec INR (<1.2) APTT (22.0-30.0) sec D-Dimer (<0.60) mg/L FEU Sodium 139 (137-145) mmol/L Potassium 4.6 (3.5-5.1) mmol/L Chloride 105 (98-107) mmol/L Carbon Dioxide 23 (22-30) mmol/L Anion Gap 11 mmol/L BUN 11 (7-17) mg/dL Creatinine 0.65 (0.52-1.04) mg/dL Est GFR (MDRD) Af Amer >60 (>60 ml/min/1.73 sqM) Est GFR (MDRD) Non-Af >60 (>60 ml/min/1.73 sqM) Glucose 188 H (74-99) mg/dL Calcium 8.8 (8.4-10.2) mg/dL Magnesium 1.6 (1.6-2.3) mg/dL Total Bilirubin 0.3 (0.2-1.3) mg/dL AST 18 (14-36) U/L ALT 33 (9-52) U/L Alkaline Phosphatase 106 (38-126) U/L Total Creatine Kinase 56 (30-135) U/L CK-MB (CK-2) 1.0 (0.0-2.4) ng/mL CK-MB (CK-2) Rel Index 1.8 Troponin I <0.012 (0.000-0.034) ng/mL Total Protein 6.1 L (6.3-8.2) g/dL Albumin 3.6 (3.5-5.0) g/dL Lipase 150 (23-300) U/L 01/18/17 Range/Units 03:22 WBC (3.8-10.6) k/uL RBC (3.80-5.40) m/uL Hgb (11.4-16.0) gm/dL Hct (34.0-46.0) % MCV (80.0-100.0) fL MCH (25.0-35.0) pg MCHC (31.0-37.0) g/dL RDW (11.5-15.5) % Plt Count (150-450) k/uL Neutrophils % % Lymphocytes % % Monocytes % % Eosinophils % % Basophils % % Neutrophils # (1.3-7.7) k/uL Lymphocytes # (1.0-4.8) k/uL Monocytes # (0-1.0) k/uL Eosinophils # (0-0.7) k/uL Basophils # (0-0.2) k/uL PT 9.4 (9.0-12.0) sec INR 0.9 (<1.2) APTT 22.3 (22.0-30.0) sec D-Dimer 0.45 (<0.60) mg/L FEU Sodium (137-145) mmol/L Potassium (3.5-5.1) mmol/L Chloride (98-107) mmol/L Carbon Dioxide (22-30) mmol/L Anion Gap mmol/L BUN (7-17) mg/dL Creatinine (0.52-1.04) mg/dL Est GFR (MDRD) Af Amer (>60 ml/min/1.73 sqM) Est GFR (MDRD) Non-Af (>60 ml/min/1.73 sqM) Glucose (74-99) mg/dL Calcium (8.4-10.2) mg/dL Magnesium (1.6-2.3) mg/dL Total Bilirubin (0.2-1.3) mg/dL AST (14-36) U/L ALT (9-52) U/L Alkaline Phosphatase (38-126) U/L Total Creatine Kinase (30-135) U/L CK-MB (CK-2) (0.0-2.4) ng/mL CK-MB (CK-2) Rel Index Troponin I (0.000-0.034) ng/mL Total Protein (6.3-8.2) g/dL Albumin (3.5-5.0) g/dL Lipase (23-300) U/L - Radiology Data Radiology results: report reviewed (Chest x-ray is negative for acute disease), image reviewed Disposition Clinical Impression: Chest pain Disposition: ADMITTED IP TO THIS HOSP Condition: Fair Instructions: Chest Pain (ED) Referrals: Og Oliva MD [Primary Care Provider] - 1-2 days
[2017-01-18 03:43] LABS: ALT 33 U/L (9-52); AST 18 U/L (14-36); Alkaline Phosphatase 106 U/L (38-126); Anion Gap 11 mmol/L; Blood Urea Nitrogen 11 mg/dL (7-17); Calcium 8.8 mg/dL (8.4-10.2); Carbon Dioxide 23 mmol/L (22-30); Chloride 105 mmol/L (98-107); Glucose 188 mg/dL (74-99); Magnesium 1.6 mg/dL (1.6-2.3); Non-African American GFR(MDRD) >60 (>60 ml/min/1.73 sqM); Potassium 4.6 mmol/L (3.5-5.1); Sodium 139 mmol/L (137-145); Total Bilirubin 0.3 mg/dL (0.2-1.3); Total Protein 6.1 g/dL (6.3-8.2)
[2017-01-18 03:49] LABS: INR 0.9 (<1.2); Partial Thromboplastin Time 22.3 sec (22.0-30.0); Prothrombin Time 9.4 sec (9.0-12.0)
--- NOTE | 2017-01-18 03:50 | XR ---
EXAM: XR Chest, 2 Views CLINICAL HISTORY: Reason: Chest Pain TECHNIQUE: Frontal and lateral views of the chest. COMPARISON: 12/07/16 FINDINGS: Lungs: Unremarkable. No consolidation. Pleural space: Unremarkable. No pneumothorax. Heart: Unremarkable. No cardiomegaly. Mediastinum: Unremarkable. Bones/joints: Unremarkable. IMPRESSION: No acute findings or change
[2017-01-18 03:53] LABS: Creatine Kinase 56 U/L (30-135)
[2017-01-18 04:05] LABS: Troponin I <0.012 ng/mL (0.000-0.034)
[2017-01-18 04:44] VITALS: RESP 18
[2017-01-18] MEDS ORDERED: ASPIRIN 81 MG CHEW PO STA (05:22)
[2017-01-18] MEDS ORDERED: HEPARIN SODIUM,PORCINE 5,000 UNIT/ML 1 ML VIAL IV ONE (05:22)
[2017-01-18] MEDS ORDERED: NITROGLYCERIN SL TABS 0.4 MG TAB SUBLINGUAL PRN (05:22)
[2017-01-18] MEDS ORDERED: HEPARIN SODIUM,PORCINE 5,000 UNIT/ML 1 ML VIAL IV PRN (05:22)
[2017-01-18] MEDS ORDERED: MORPHINE SULFATE 4 MG/ML SYRINGE IV PRN (05:22)
[2017-01-18] MEDS ORDERED: HEPARIN SODIUM,PORCINE/D5W PMX 25,000 UNIT in DEXTROSE/WATER 1 500ML.BAG IV SCH (05:30)
[2017-01-18] MEDS ORDERED: KETOROLAC 30 MG/ML 1 ML VIAL IVP STA (06:19)
[2017-01-18 06:48] LABS: Glucose,Whole Blood 166 mg/dL (75-99)
[2017-01-18 06:57] VITALS: BMI 43.7
[2017-01-18] MEDS ORDERED: HYDROcodone/APAP 5-325MG 1 EACH TAB PO PRN (09:29)
[2017-01-18] MEDS ORDERED: ALBUTEROL NEBULIZED 2.5 MG/3 ML INHALATION PRN (09:29)
[2017-01-18] MEDS ORDERED: DICYCLOMINE 20 MG TAB PO SCH (09:30)
[2017-01-18] MEDS ORDERED: METOPROLOL TARTRATE 25 MG TAB PO SCH (09:30)
[2017-01-18] MEDS ORDERED: metFORMIN 500 MG TAB PO SCH (09:30)
[2017-01-18] MEDS ORDERED: LEVOTHYROXINE 100 MCG TAB PO SCH (09:30)
[2017-01-18] MEDS ORDERED: LISINOPRIL 20 MG TAB PO SCH (09:30)
[2017-01-18 10:12] LABS: Mean Platelet Volume 7.4
[2017-01-18 10:38] LABS: Creatine Kinase 41 U/L (30-135)
[2017-01-18 10:52] LABS: Creatine Kinase MB 0.9 ng/mL (0.0-2.4); Troponin I <0.012 ng/mL (0.000-0.034)
[2017-01-18 12:32] VITALS: BP 121/61; PULSE 72; TEMP 97.8
--- NOTE | 2017-01-18 14:22 | P.HPIM ---
History of Present Illness H&P Date: 01/18/17 Chief Complaint: Chest pain 46-year-old female presented with a chief complaint of developing chest discomfort. Stated the chest discomfort felt to be related to hypertension. In the emergency room the blood pressure was 144/76. Stated the pain occurred in the left chest area radiating down the left arm into the back. A 12-lead EKG showed sinus. Patient gives a history of having an ablation for SVT done otherwise no significant past cardiac history subsequent the patient was admitted to the services of the attending with a cardiology consultation requested. With the episode the patient denied any dizziness lightheadedness shortness of breath diaphoresis nausea or vomiting patient stated there were no aggravating or relieving factors to the chest discomfort Review of Systems Essentially unremarkable except as mentioned in the present illness Past Medical History Past Medical History: Diabetes Mellitus, Fibromyalgia, GERD/Reflux, Hyperlipidemia, Hypertension, Osteoarthritis (OA), Seizure Disorder, Supraventricular Tachycardia (SVT), Thyroid Disorder Additional Past Medical History / Comment(s): Severe allergies, PT STATES IN 1994 PTWAS HAD TOXEMIA WAS GIVEN DEMEROL AND WENT INTO A CARDIAC ARREST (COMA 21 days), was having seizures and had 2ND CARDIAC ARREST 2000 ( COMA 3-5 DAYS), SVT, SLEEP APNEA( NO MACHINE), STATES LAST SEIZURE 1 YEAR AGO, arthritis low back and hips, PANCREATITIS, colitis. History of Any Multi-Drug Resistant Organisms: None Reported Past Surgical History: Cardiac Ablation, Section, Cholecystectomy, Hernia Repair, Tubal Ligation Additional Past Surgical History / Comment(s): Umbilical hernia repair. Past Anesthesia/Blood Transfusion Reactions: Motion Sickness Additional Past Anesthesia/Blood Transfusion Reaction / Comment(s): CLAUSTERPHOBIA, Past Psychological History: Anxiety, Panic Disorder Additional Psychological History / Comment(s): Lives with spouse/daughter. TAKES CARE OF HER 21 yr old DAUGHTER WHO HAS CEREBAL PALSEY. Does not drive, family takes to [employer]. Ran out of diabetic strips, lancets due to loss of insurance for 2 months. States she is going to be able to have insurance coverage next month. Smoking Status: Former smoker Past Alcohol Use History: None Reported Additional Past Alcohol Use History / Comment(s): STARTED SMOKING AT AGE 13- SMOKED 1/2 PPD, QUIT IN 1994 Past Drug Use History: None Reported - Past Family History Father Family Medical History: Cancer, Myocardial Infarction ([place]) Additional Family Medical History / Comment(s): AGE 45 FROM [place] Mother Family Medical History: No Reported History Additional Family Medical History / Comment(s): NORMAL-NO PROBLEMS Medications and Allergies Home Medications Medication Instructions Recorded Confirmed Type metFORMIN HCL [Glucophage] 500 mg PO QAM 09/08/14 01/18/17 History Albuterol Inhaler [Ventolin Hfa 1 - 2 puff INHALATION RT-Q6H PRN 06/27/16 History Inhaler] Levothyroxine Sodium [Synthroid] 300 mcg PO QAM 06/27/16 01/18/17 History Allergies Allergy/AdvReac Type Severity Reaction Status Date / Time codeine Allergy Severe Cardiac Verified 01/18/17 07:28 Arrest meperidine HCl [From Demerol] Allergy Severe Cardiac Verified 01/18/17 07:28 Arrest morphine Allergy Severe Caridac Verified 01/18/17 07:28 Arrest adhesive tape Allergy Rash/Hives Verified 01/18/17 07:28 celery Allergy Oral Verified 01/18/17 07:28 Numbness cinnamon Allergy Anaphylaxis Verified 01/18/17 07:28 diphenhydramine HCl Allergy Anaphylaxis Verified 01/18/17 07:28 [From Benadryl] eucalyptus Allergy Anaphylaxis Verified 01/18/17 07:28 [From [place] Cough Drops] menthol Allergy Anaphylaxis Verified 01/18/17 07:28 [From [place] Cough Drops] naproxen sodium [From Aleve] Allergy Rash/Hives Verified 01/18/17 07:28 nitrofurantoin Allergy Unknown Verified 01/18/17 07:28 macrocrystalline [From Macrodantin] Sulfa (Sulfonamide Allergy Rash/Hives Verified 01/18/17 07:28 Antibiotics) ciprofloxacin [From Cipro] AdvReac Abdominal Verified 01/18/17 07:28 Pain ciprofloxacin HCl AdvReac Abdominal Verified 01/18/17 07:28 [From Cipro] Pain multivitamin Allergy Intermediate Rash/Hives Uncoded 01/04/17 14:04 car exhaust AdvReac Mild Nausea & Uncoded 01/04/17 14:04 Vomiting Physical Exam Vitals: Vital Signs Temp Pulse Pulse Resp BP BP Pulse Ox 01/18/17 12:00 97.8 F 72 18 121/61 96 01/18/17 07:07 140/78 08/09/17 07:00 88 18 01/18/17 06:55 97.7 F 88 18 159/72 98 01/18/17 06:40 97.4 F L 87 18 161/75 97 01/18/17 06:15 97.4 F L 87 18 161/75 97 01/18/17 04:43 84 18 159/70 95 01/18/17 02:50 98.3 F 82 20 144/76 100 Intake and Output 01/17/17 01/18/17 01/18/17 22:59 06:59 14:59 Other: # Voids 1 Weight 112.037 kg GENERAL APPEARANCE: 46-year-old female patient is alert, oriented, in no acute distress. VITAL SIGNS: Reviewed HEENT: Head is normocephalic and atraumatic. Pupils are equal and reactive. The nares are patent. Oropharynx is clear without lesions. NECK: Supple without lymphadenopathy. Traches midline. HEART: S1, S2. Regular rate and rhythm. No murmur noted LUNGS: No crackles or wheezes are heard. Adequate air movement bilaterally ABDOMEN: Soft obese to, nontender, nondistended with good bowel sounds. No peritoneal signs. No palpable organomegaly or masses. EXTREMITIES: Normal skin color and turgor. No cyanosis, rash, ulceration, clubbing or edema. Radial pedal pulses are 2/4 bilaterally. NEUROLOGICAL: No focal deficits. Strength and sensation are grossly intact. Results CBC & Chem 7: 01/18/17 09:48 01/18/17 03:22 Labs: Abnormal Lab Results - Last 24 Hours (Table) 01/18/17 01/18/17 01/18/17 Range/Units 03:22 06:46 09:48 Glucose 188 H (74-99) mg/dL POC Glucose (mg/dL) 166 H (75-99) mg/dL Total Protein 6.1 L (6.3-8.2) g/dL TSH <0.015 L (0.465-4.680) mIU/L Thrombosis Risk Factor Assmnt - Choose All That Apply Each Factor Represents 1 point: Age 41-60 years, Obesity (BMI >25) Thrombosis Risk Factor Assessment Total Risk Factor Score: 2 Thrombosis Risk Factor Assessment Level: Low Risk Assessment and Plan Plan: Impression Present on admission chest pain atypical features History of SVT with prior ablation Hypertension essential benign Morbid obesity BMI 43 Fibromyalgia Type 2 diabetes non-insulin A recent dobutamine stress echocardiogram negative done November 2016 Hypothyroid on supplements Plan Cardiac enzymes per protocol Cardiac eval Resume home meds as appropriate Further recommendations pending The above impression and plan of care have been discussed and directed by signing physician. Anum Nguyen nurse practitioner acting as scribe for signing physician.
--- NOTE | 2017-01-18 14:31 | P.DS ---
Providers Date of admission: 01/18/17 05:22 Expected date of discharge: 01/18/17 Attending physician: Og Oliva Consults: 01/18/17 05:22 Consult Physician Urgent Consulting Provider: Vivek Servin Consult Reason/Comments: cp Do you want consulting provider notified?: Yes Primary care physician: [facility] Hospital Course: 46-year-old female presented with a chief complaint of developing chest discomfort. Stated the chest discomfort felt to be related to hypertension. In the emergency room the blood pressure was 144/76. Stated the pain occurred in the left chest area radiating down the left arm into the back. A 12-lead EKG showed sinus. Patient gives a history of having an ablation for SVT done otherwise no significant past cardiac history subsequent the patient was admitted to the services of the attending with a cardiology consultation requested. With the episode the patient denied any dizziness lightheadedness shortness of breath diaphoresis nausea or vomiting patient stated there were no aggravating or relieving factors to the chest discomfort Present on admission chest pain atypical features History of SVT with prior ablation Hypertension essential benign Morbid obesity BMI 43 Fibromyalgia Type 2 diabetes non-insulin A recent dobutamine stress echocardiogram negative done November 2016 Hypothyroid on supplements The above impression and plan of care have been discussed and directed by signing physician. Anum Nguyen nurse practitioner acting as scribe for signing physician. Patient Condition at Discharge: Fair Plan - Discharge Summary New Discharge Prescriptions: Continue metFORMIN HCL [Glucophage] 500 mg PO QAM Levothyroxine Sodium [Synthroid] 300 mcg PO QAM Albuterol Inhaler [Ventolin Hfa Inhaler] 1 - 2 puff INHALATION RT-Q6H PRN PRN Reason: Shortness Of Breath Lisinopril [Zestril] 20 mg PO DAILY #30 tab Metoprolol Tartrate [Lopressor] 25 mg PO BID #60 tab Dicyclomine [Bentyl] 20 mg PO TID #30 tablet Hydrocodone/Acetaminophen [[place] 5-325] 1 tab PO Q6HR PRN #15 tab PRN Reason: Pain Discharge Medication List metFORMIN HCL [Glucophage] 500 mg PO QAM 09/08/14 [History] Albuterol Inhaler [Ventolin Hfa Inhaler] 1 - 2 puff INHALATION RT-Q6H PRN 01/16/ 17 [History] Levothyroxine Sodium [Synthroid] 300 mcg PO QAM 06/27/16 [History] Lisinopril [Zestril] 20 mg PO DAILY #30 tab 10/13/16 [Rx] Metoprolol Tartrate [Lopressor] 25 mg PO BID #60 tab 10/13/16 [Rx] Dicyclomine [Bentyl] 20 mg PO TID #30 tablet 01/04/17 [Rx] Hydrocodone/Acetaminophen [[place] 5-325] 1 tab PO Q6HR PRN #15 tab 01/04/17 [Rx] Follow up Appointment(s)/Referral(s): Indra Zurita MD [STAFF PHYSICIAN] - 1 Week (Follow up appointment on January 27 @ 6:15p.m. if there are any changes with appointment times the office will call the patient) Og Oliva MD [Primary Care Provider] - 1-2 days Patient Instructions/Handouts: Chest Pain (ED) Discharge Disposition: HOME SELF-CARE
--- NOTE | 2017-01-18 18:17 | CONS ---
Nora Holder is a 46-year old lady with history of Type 2 diabetes, obesity, hyperlipidemia and history of some palpitations with AV NRT for which she had an ablation performed in the past and since then her palpations have improved. About a month ago, she was here in the hospital and had an echocardiogram as well as dobutamine echo. Both of these studies were completely normal. She has episodes of hypertension. Her dobutamine echo was performed on December 07, 2016 and at a maximum heart rate of about 89%, there was no evidence of any arrhythmia and there was good hyperdynamic response of all segments suggesting that there was no evidence of ischemia. She came into the hospital this time mainly with what appears to be an episode of chest pain which she describes as a discomfort on the left anterior chest sharp in nature radiating to the axilla. The quality of the pain seems very atypical, superficial, almost musculoskeletal. She does have risk factors in the form of Type 2 diabetes, obesity, and hypertensive cardiovascular disease. However, she is resting comfortably without symptoms. Her initial troponin and EKG are unremarkable. Past medical history: 1. Type 2 diabetes mellitus. 2. Hypertension. 3. Hyperlipidemia. 4. 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 Medications at home include: 1. Metformin. 2. Albuterol inhaler. 3. Synthroid. 4. Lisinopril. 5. Metoprolol tartrate. 6. She takes Bentyl. ALLERGIES: DEMEROL, CODEINE, BENADRYL, MACRODANTIN, SULFA, AND CIPRO. Status post umbilical hernia repair surgery performed about a year ago. SOCIAL HISTORY: The patient does not smoke and consumes alcohol very rarely. On examination, blood pressure is 144/70. Pulse rate is about 70 per minute. HEENT unremarkable. Fundus was not examined by me. Neck is supple. No JVD. I do not hear a carotid bruit. No thyromegaly. Heart exam reveals S1, S2 heard normal in all areas without rub, murmur or gallop. Lungs are clear. Abdomen soft and nontender. Lower extremities reveal normal pulses. No edema. Central nervous system is normal. EKG revealed sinus mechanism without any significant ST-T changes. Minor nonspecific T-wave abnormalities are noted on precordial leads which I do not think is significant. Initial troponin level is normal. IMPRESSION: 1. Atypical musculoskeletal chest pain. 2. Type 2 diabetes. 3. Hypertension. 4. Obesity. RECOMMENDATIONS: I am recommending that we will obtain additional troponin level, obtain additional EKG. We will increase activity. If she has no further symptoms and troponin is negative, she can be discharged. Her dobutamine echo from 12/07/2016 was unremarkable for ischemia. If she has symptoms I will consider cardiac catheterization. Discussed my thoughts in detail with the patient. Thank you very much for the consult. RASTA
[2017-01-19] MEDS ORDERED: ASPIRIN 325 MG TAB PO SCH (09:00)
== END 2017-01-18 14:42 | disposition home or self-care (01) ==
LOC: EC 02:47 → 3OBS 05:22
PROVIDERS: ADMIT Family Medicine; ATTEND Family Medicine
DX: R07.89 Other chest pain (principal); I47.1 Supraventricular tachycardia; I11.9 Hypertensive heart disease without heart failure; E66.01 Morbid (severe) obesity due to excess calories; Z68.41 Body mass index [BMI] 40.0-44.9, adult; M79.7 Fibromyalgia; E11.9 Type 2 diabetes mellitus without complications; E03.9 Hypothyroidism, unspecified; G47.30 Sleep apnea, unspecified; Z79.84 Long term (current) use of oral hypoglycemic drugs; Z79.899 Other long term (current) drug therapy; Z88.6 Allergy status to analgesic agent; Z88.1 Allergy status to other antibiotic agents; Z88.5 Allergy status to narcotic agent; Z88.2 Allergy status to sulfonamides; Z88.8 Allergy status to other drugs, medicaments and biological substances; Z91.018 Allergy to other foods; Z91.048 Other nonmedicinal substance allergy status; Z86.74 Personal history of sudden cardiac arrest; Z87.891 Personal history of nicotine dependence; Z82.49 Family history of ischemic heart disease and other diseases of the circulatory system
CPT/HCPCS: 99285; 96376 ×2; 96375 ×2; 96365 ×2; 96366; 36415; 93005; 85379; 84439; 80053; 84443; 82550; 82553; 83690; 83735; 84484; 85025; 85049; 85610; 85730; 71020; G0378; J1644 ×2; J1885

== ENCOUNTER 2017-03-17 00:05 | Emergency (ER) | payer OTHER ==
[2017-03-17 00:09] VITALS: RESP 16; TEMP 98.1
[2017-03-17] MEDS ORDERED: SODIUM CHLORIDE 0.9% 1,000 ML IV STA (00:43)
[2017-03-17 01:04] LABS: Basophils % (A) 1 %; CH 30.7; CHCM 34.5; Eosinophils # (A) 0.2 k/uL (0-0.7); Eosinophils % (A) 3 %; HCT 39.3 % (34.0-46.0); HDW 3.29; Luc # (Auto) 0.06; Luc % (Auto) 1; Lymphocytes # (A) 1.7 k/uL (1.0-4.8); Lymphocytes % (A) 29 %; MCH 29.6 pg (25.0-35.0); MCV 89.6 fL (80.0-100.0); Mean Platelet Volume 7.3; Monocytes # (A) 0.2 k/uL (0-1.0); Monocytes % (A) 4 %; Neutrophils # (A) 3.6 k/uL (1.3-7.7); Neutrophils % (A) 63 %; RBC 4.39 m/uL (3.80-5.40); RDW 14.7 % (11.5-15.5); WBC 5.7 k/uL (3.8-10.6)
[2017-03-17 01:16] LABS: ALT 35 U/L (9-52); AST 26 U/L (14-36); Alkaline Phosphatase 123 U/L (38-126); Anion Gap 14 mmol/L; Blood Urea Nitrogen 22 mg/dL (7-17); Calcium 9.5 mg/dL (8.4-10.2); Carbon Dioxide 24 mmol/L (22-30); Chloride 99 mmol/L (98-107); Glucose 217 mg/dL (74-99); Magnesium 1.7 mg/dL (1.6-2.3); Non-African American GFR(MDRD) >60 (>60 ml/min/1.73 sqM); Potassium 3.9 mmol/L (3.5-5.1); Sodium 137 mmol/L (137-145); Total Bilirubin 0.4 mg/dL (0.2-1.3); Total Protein 6.7 g/dL (6.3-8.2)
[2017-03-17 01:18] LABS: Partial Thromboplastin Time 22.6 sec (22.0-30.0)
[2017-03-17 01:21] LABS: INR 0.9 (<1.2); Prothrombin Time 9.7 sec (9.0-12.0)
[2017-03-17 01:22] LABS: Creatine Kinase 62 U/L (30-135)
--- NOTE | 2017-03-17 01:22 | XR ---
EXAMINATION TYPE: XR chest 2V DATE OF EXAM: 03/17/2017 COMPARISON: 01/18/2017 HISTORY: Chest pain TECHNIQUE: Frontal and lateral views of the chest are obtained. FINDINGS: Heart and mediastinum are normal. Lungs are clear. Diaphragm is normal. Bony thorax appear s normal. There are chest leads. IMPRESSION: Normal chest. No change.
[2017-03-17 01:35] LABS: Creatine Kinase MB 1.1 ng/mL (0.0-2.4); Troponin I <0.012 ng/mL (0.000-0.034)
--- NOTE | 2017-03-17 01:52 | ED ---
General Adult HPI - General Chief complaint: Chest Pain Stated complaint: Chest Pain x 3 days Time Seen by Provider: 03/17/17 00:15 Source: patient, family, RN notes reviewed, old records reviewed Mode of arrival: wheelchair Limitations: no limitations - History of Present Illness Initial comments: 46-year-old female presents with 2 day history of sharp anterior chest pain. Pain is located in the upper center chest. Patient's pain comes and goes. Lasts only a few seconds. Patient does report some nausea. No vomiting. No radiating symptoms. Pain is not related to exertion. She has no difficulty breathing. No fever no cough. No palpitations. No abdominal pain. Patient does report a mild headache. She has past medical history of hypertension, diabetes, fibromyalgia. - Related Data Home Medications Medication Instructions Recorded Confirmed metFORMIN HCL [Glucophage] 500 mg PO QAM 09/08/14 01/18/17 Albuterol Inhaler [Ventolin Hfa 1 - 2 puff INHALATION RT-Q6H PRN 06/27/16 Inhaler] Levothyroxine Sodium [Synthroid] 300 mcg PO QAM 06/27/16 01/18/17 Previous Rx's Medication Instructions Recorded Lisinopril [Zestril] 20 mg PO DAILY #30 tab 10/13/16 Metoprolol Tartrate [Lopressor] 25 mg PO BID #60 tab 10/13/16 Dicyclomine [Bentyl] 20 mg PO TID #30 tablet 01/04/17 Hydrocodone/Acetaminophen [[place] 1 tab PO Q6HR PRN #15 tab 01/04/17 5-325] Allergies Allergy/AdvReac Type Severity Reaction Status Date / Time codeine Allergy Severe Cardiac Verified 03/17/17 00:09 Arrest meperidine HCl [From Demerol] Allergy Severe Cardiac Verified 03/17/17 00:09 Arrest morphine Allergy Severe Caridac Verified 03/17/17 00:09 Arrest adhesive tape Allergy Rash/Hives Verified 03/17/17 00:09 celery Allergy Oral Verified 03/17/17 00:09 Numbness cinnamon Allergy Anaphylaxis Verified 03/17/17 00:09 diphenhydramine HCl Allergy Anaphylaxis Verified 03/17/17 00:09 [From Benadryl] eucalyptus Allergy Anaphylaxis Verified 03/17/17 00:09 [From [place] Cough Drops] menthol Allergy Anaphylaxis Verified 03/17/17 00:09 [From [place] Cough Drops] naproxen sodium [From Aleve] Allergy Rash/Hives Verified 03/17/17 00:09 nitrofurantoin Allergy Unknown Verified 03/17/17 00:09 macrocrystalline [From Macrodantin] Sulfa (Sulfonamide Allergy Rash/Hives Verified 03/17/17 00:09 Antibiotics) ciprofloxacin [From Cipro] AdvReac Abdominal Verified 03/17/17 00:09 Pain ciprofloxacin HCl AdvReac Abdominal Verified 03/17/17 00:09 [From Cipro] Pain multivitamin Allergy Intermediate Rash/Hives Uncoded 03/17/17 00:09 car exhaust AdvReac Mild Nausea & Uncoded 03/17/17 00:09 Vomiting Review of Systems ROS Statement: Those systems with pertinent positive or pertinent negative responses have been documented in the HPI. ROS Other: All systems not noted in ROS Statement are negative. Past Medical History Past Medical History: Diabetes Mellitus, Fibromyalgia, GERD/Reflux, Hyperlipidemia, Hypertension, Osteoarthritis (OA), Seizure Disorder, Supraventricular Tachycardia (SVT), Thyroid Disorder Additional Past Medical History / Comment(s): Severe allergies, PT STATES IN 1994 PTWAS HAD TOXEMIA WAS GIVEN DEMEROL AND WENT INTO A CARDIAC ARREST (COMA 21 days), was having seizures and had 2ND CARDIAC ARREST 2000 ( COMA 3-5 DAYS), SVT, SLEEP APNEA( NO MACHINE), STATES LAST SEIZURE 1 YEAR AGO, arthritis low back and hips, PANCREATITIS, colitis. History of Any Multi-Drug Resistant Organisms: None Reported Past Surgical History: Cardiac Ablation, Section, Cholecystectomy, Hernia Repair, Tubal Ligation Additional Past Surgical History / Comment(s): Umbilical hernia repair. Past Anesthesia/Blood Transfusion Reactions: Motion Sickness Additional Past Anesthesia/Blood Transfusion Reaction / Comment(s): CLAUSTERPHOBIA, Past Psychological History: Anxiety, Panic Disorder Smoking Status: Former smoker Past Alcohol Use History: None Reported Past Drug Use History: None Reported - Past Family History Father Family Medical History: Cancer, Myocardial Infarction ([place]) Additional Family Medical History / Comment(s): AGE 45 FROM [place] Mother Family Medical History: No Reported History Additional Family Medical History / Comment(s): NORMAL-NO PROBLEMS General Exam Limitations: no limitations General appearance: alert, in no apparent distress Head exam: Present: atraumatic, normocephalic Eye exam: Present: normal appearance, PERRL ENT exam: Present: normal exam, normal oropharynx Neck exam: Present: normal inspection, full ROM. Absent: tenderness Respiratory exam: Present: normal lung sounds bilaterally. Absent: respiratory distress, wheezes, rhonchi Cardiovascular Exam: Present: regular rate, normal rhythm, normal heart sounds GI/Abdominal exam: Present: soft. Absent: distended, tenderness Extremities exam: Present: normal inspection, full ROM, normal capillary refill. Absent: pedal edema Course Vital Signs 03/17/17 00:06 Temperature 98.1 F Pulse Rate 96 Respiratory 16 Rate Blood Pressure 182/84 O2 Sat by Pulse 97 Oximetry EKG Findings - EKG Comments: EKG Findings:: EKG shows normal sinus rhythm, ventricular rate 90 01/12/1945, QRS duration 76, QTC 469, no ST segment elevation or depression, no T-wave abnormality Medical Decision Making - Medical Decision Making 46-year-old female presented for evaluation of chest pain. Only associated symptom is nausea. Pain is sharp and intermittent. Atypical in nature. Patient does have risk factors including hypertension and diabetes. No history of coronary artery disease. Patient reports she had a normal stress test within the past several years. EKG is nonischemic. Chest x-ray shows no acute findings. Laboratory studies including CBC, CMP, cardiac enzymes are unremarkable. Patient is encouraged to follow up with her primary care physician. - Lab Data Result diagrams: 03/17/17 00:20 03/17/17 00:20 Lab Results 03/17/17 03/17/17 03/17/17 Range/Units 00:20 00:20 00:20 WBC 5.7 (3.8-10.6) k/uL RBC 4.39 (3.80-5.40) m/uL Hgb 13.0 (11.4-16.0) gm/dL Hct 39.3 (34.0-46.0) % MCV 89.6 (80.0-100.0) fL MCH 29.6 (25.0-35.0) pg MCHC 33.0 (31.0-37.0) g/dL RDW 14.7 (11.5-15.5) % Plt Count 213 (150-450) k/uL Neutrophils % 63 % Lymphocytes % 29 % Monocytes % 4 % Eosinophils % 3 % Basophils % 1 % Neutrophils # 3.6 (1.3-7.7) k/uL Lymphocytes # 1.7 (1.0-4.8) k/uL Monocytes # 0.2 (0-1.0) k/uL Eosinophils # 0.2 (0-0.7) k/uL Basophils # 0.0 (0-0.2) k/uL PT (9.0-12.0) sec INR (<1.2) APTT (22.0-30.0) sec D-Dimer (<0.60) mg/L FEU Sodium 137 (137-145) mmol/L Potassium 3.9 (3.5-5.1) mmol/L Chloride 99 (98-107) mmol/L Carbon Dioxide 24 (22-30) mmol/L Anion Gap 14 mmol/L BUN 22 H (7-17) mg/dL Creatinine 0.90 (0.52-1.04) mg/dL Est GFR (MDRD) Af Amer >60 (>60 ml/min/1.73 sqM) Est GFR (MDRD) Non-Af >60 (>60 ml/min/1.73 sqM) Glucose 217 H (74-99) mg/dL Calcium 9.5 (8.4-10.2) mg/dL Magnesium 1.7 (1.6-2.3) mg/dL Total Bilirubin 0.4 (0.2-1.3) mg/dL AST 26 (14-36) U/L ALT 35 (9-52) U/L Alkaline Phosphatase 123 (38-126) U/L Total Creatine Kinase 62 (30-135) U/L CK-MB (CK-2) 1.1 (0.0-2.4) ng/mL CK-MB (CK-2) Rel Index 1.8 Troponin I <0.012 (0.000-0.034) ng/mL Total Protein 6.7 (6.3-8.2) g/dL Albumin 4.0 (3.5-5.0) g/dL 03/17/17 Range/Units 00:20 WBC (3.8-10.6) k/uL RBC (3.80-5.40) m/uL Hgb (11.4-16.0) gm/dL Hct (34.0-46.0) % MCV (80.0-100.0) fL MCH (25.0-35.0) pg MCHC (31.0-37.0) g/dL RDW (11.5-15.5) % Plt Count (150-450) k/uL Neutrophils % % Lymphocytes % % Monocytes % % Eosinophils % % Basophils % % Neutrophils # (1.3-7.7) k/uL Lymphocytes # (1.0-4.8) k/uL Monocytes # (0-1.0) k/uL Eosinophils # (0-0.7) k/uL Basophils # (0-0.2) k/uL PT 9.7 (9.0-12.0) sec INR 0.9 (<1.2) APTT 22.6 (22.0-30.0) sec D-Dimer 0.47 (<0.60) mg/L FEU Sodium (137-145) mmol/L Potassium (3.5-5.1) mmol/L Chloride (98-107) mmol/L Carbon Dioxide (22-30) mmol/L Anion Gap mmol/L BUN (7-17) mg/dL Creatinine (0.52-1.04) mg/dL Est GFR (MDRD) Af Amer (>60 ml/min/1.73 sqM) Est GFR (MDRD) Non-Af (>60 ml/min/1.73 sqM) Glucose (74-99) mg/dL Calcium (8.4-10.2) mg/dL Magnesium (1.6-2.3) mg/dL Total Bilirubin (0.2-1.3) mg/dL AST (14-36) U/L ALT (9-52) U/L Alkaline Phosphatase (38-126) U/L Total Creatine Kinase (30-135) U/L CK-MB (CK-2) (0.0-2.4) ng/mL CK-MB (CK-2) Rel Index Troponin I (0.000-0.034) ng/mL Total Protein (6.3-8.2) g/dL Albumin (3.5-5.0) g/dL Disposition Clinical Impression: Chest pain Disposition: HOME SELF-CARE Condition: Good Instructions: Chest Pain (ED) Referrals: Og Oliva MD [Primary Care Provider] - 1-2 days Time of Disposition: 02:01
[2017-03-17 02:39] VITALS: BP 132/61; PULSE 92
== END 2017-03-17 02:40 | disposition home or self-care (01) ==
LOC: EC 00:05
DX: R07.89 Other chest pain (principal); R51 Headache; R11.0 Nausea; E11.9 Type 2 diabetes mellitus without complications; E78.5 Hyperlipidemia, unspecified; I10 Essential (primary) hypertension; I47.1 Supraventricular tachycardia; E07.9 Disorder of thyroid, unspecified; G47.30 Sleep apnea, unspecified; Z98.890 Other specified postprocedural states; Z87.891 Personal history of nicotine dependence; Z79.84 Long term (current) use of oral hypoglycemic drugs; Z79.899 Other long term (current) drug therapy; Z88.2 Allergy status to sulfonamides; Z88.1 Allergy status to other antibiotic agents; Z88.6 Allergy status to analgesic agent; Z88.5 Allergy status to narcotic agent; Z88.8 Allergy status to other drugs, medicaments and biological substances; Z91.048 Other nonmedicinal substance allergy status
CPT/HCPCS: 36415; 71020; 80053; 82550; 82553; 83735; 84484; 85025; 85379; 85610; 85730; 93005; 96360; 99285

== ENCOUNTER 2017-04-05 02:19 | Emergency (ER) | payer OTHER ==
[2017-04-05 02:24] VITALS: BP 140/70; PULSE 115; RESP 16; TEMP 98.7
--- NOTE | 2017-04-05 02:43 | ED ---
SOB HPI - General Chief Complaint: Shortness of Breath Stated Complaint: ROSARIO, back pain Time Seen by Provider: 04/05/17 02:36 Source: patient Mode of arrival: ambulatory Limitations: no limitations - History of Present Illness Initial Comments: This is a 46-year-old female who presents with 2 days of complaints of left- sided neck pain rhinorrhea was sore throat and some ear discomfort also fevers chills sweats a nonproductive cough. She states she has some left posterior back pain which she takes a deep breath. She denies any other overt chest pain she has had frontal sinus discomfort and maxillary sinus discomfort. MD Complaint: shortness of breath - Related Data Home Medications Medication Instructions Recorded Confirmed metFORMIN HCL [Glucophage] 500 mg PO QAM 09/08/14 03/23/17 Levothyroxine Sodium [Synthroid] 300 mcg PO QAM 06/27/16 03/23/17 LORazepam [Ativan] 0.5 mg PO DAILY 03/23/17 03/23/17 Omeprazole 20 mg PO DAILY 03/23/17 03/23/17 Sodium Chloride [[place]] 1 spray EA NOSTRIL DAILY PRN 03/23/17 03/23/17 Previous Rx's Medication Instructions Recorded Lisinopril [Zestril] 20 mg PO DAILY #30 tab 10/13/16 Metoprolol Tartrate [Lopressor] 25 mg PO BID #60 tab 10/13/16 Amoxic-Pot Clav 875-125Mg 1 tab PO Q12HR #20 tablet 04/05/17 [Augmentin 875-125] guaiFENesin [Mucinex] 600 mg PO Q12HR #14 tablet.er 04/05/17 Allergies Allergy/AdvReac Type Severity Reaction Status Date / Time codeine Allergy Severe Cardiac Verified 04/05/17 02:24 Arrest meperidine HCl [From Demerol] Allergy Severe Cardiac Verified 04/05/17 02:24 Arrest morphine Allergy Severe Caridac Verified 04/05/17 02:24 Arrest adhesive tape Allergy Rash/Hives Verified 04/05/17 02:24 celery Allergy Oral Verified 04/05/17 02:24 Numbness cinnamon Allergy Anaphylaxis Verified 04/05/17 02:24 diphenhydramine HCl Allergy Anaphylaxis Verified 04/05/17 02:24 [From Benadryl] eucalyptus Allergy Anaphylaxis Verified 04/05/17 02:24 [From [place] Cough Drops] menthol Allergy Anaphylaxis Verified 04/05/17 02:24 [From [place] Cough Drops] naproxen sodium [From Aleve] Allergy Rash/Hives Verified 04/05/17 02:24 nitrofurantoin Allergy Unknown Verified 04/05/17 02:24 macrocrystalline [From Macrodantin] Sulfa (Sulfonamide Allergy Rash/Hives Verified 04/05/17 02:24 Antibiotics) ciprofloxacin [From Cipro] AdvReac Abdominal Verified 04/05/17 02:24 Pain ciprofloxacin HCl AdvReac Abdominal Verified 04/05/17 02:24 [From Cipro] Pain multivitamin Allergy Intermediate Rash/Hives Uncoded 04/05/17 02:24 car exhaust AdvReac Mild Nausea & Uncoded 04/05/17 02:24 Vomiting Review of Systems ROS Statement: Those systems with pertinent positive or pertinent negative responses have been documented in the HPI. ROS Other: All systems not noted in ROS Statement are negative. Past Medical History Past Medical History: Diabetes Mellitus, Fibromyalgia, GERD/Reflux, Hyperlipidemia, Hypertension, Osteoarthritis (OA), Seizure Disorder, Supraventricular Tachycardia (SVT), Thyroid Disorder Additional Past Medical History / Comment(s): Severe allergies, PT STATES IN 1994 PTWAS HAD TOXEMIA WAS GIVEN DEMEROL AND WENT INTO A CARDIAC ARREST (COMA 21 days), was having seizures and had 2ND CARDIAC ARREST 2000 ( COMA 3-5 DAYS), SVT, SLEEP APNEA( NO MACHINE), STATES LAST SEIZURE 1 YEAR AGO, arthritis low back and hips, PANCREATITIS, colitis. History of Any Multi-Drug Resistant Organisms: None Reported Past Surgical History: Cardiac Ablation, Section, Cholecystectomy, Hernia Repair, Tubal Ligation Additional Past Surgical History / Comment(s): Umbilical hernia repair. Past Anesthesia/Blood Transfusion Reactions: Motion Sickness Additional Past Anesthesia/Blood Transfusion Reaction / Comment(s): CLAUSTERPHOBIA, Past Psychological History: Anxiety, Panic Disorder Smoking Status: Former smoker Past Alcohol Use History: None Reported Past Drug Use History: None Reported - Past Family History Father Family Medical History: Cancer, Myocardial Infarction ([place]) Additional Family Medical History / Comment(s): AGE 45 FROM [place] Mother Family Medical History: No Reported History Additional Family Medical History / Comment(s): NORMAL-NO PROBLEMS General Exam - General Exam Comments Initial Comments: This is a well-developed well-nourished awake alert oriented 3 female Limitations: no limitations General appearance: alert, in no apparent distress Head exam: Present: atraumatic, normocephalic, normal inspection Eye exam: Present: normal appearance, PERRL, EOMI. Absent: scleral icterus, conjunctival injection, periorbital swelling ENT exam: Present: other (Boggy nasal mucosa fluid behind the left tympanic membrane. 3 minimal posterior pharyngeal hyperemia with no exudate seen.) Neck exam: Present: normal inspection. Absent: tenderness, meningismus, lymphadenopathy Respiratory exam: Present: normal lung sounds bilaterally, chest wall tenderness (The posterior wall tenderness no rash no CVA tenderness.). Absent: respiratory distress, wheezes, rales, rhonchi, stridor Cardiovascular Exam: Present: regular rate, normal rhythm, normal heart sounds. Absent: systolic murmur, diastolic murmur, rubs, gallop, clicks GI/Abdominal exam: Present: soft, normal bowel sounds. Absent: distended, tenderness, guarding, rebound, rigid Extremities exam: Present: normal inspection, full ROM, normal capillary refill. Absent: tenderness, pedal edema, joint swelling, calf tenderness Back exam: Present: normal inspection Neurological exam: Present: alert, oriented X3, CN II-XII intact Psychiatric exam: Present: normal affect, normal mood Skin exam: Present: warm, dry, intact, normal color. Absent: rash Course Vital Signs 04/05/17 02:21 Temperature 98.7 F Pulse Rate 115 H Respiratory 16 Rate Blood Pressure 140/70 O2 Sat by Pulse 97 Oximetry Medical Decision Making - Medical Decision Making I did discuss the findings with the patient she was recently and Z-Dimitry for sinusitis it did not help she states she can take amoxicillin days drugs she'll be placed on antibiotics also decongestant she is follow-up with her doctor return when necessary the presentation is consistent with frontal sinusitis and bronchitis - Radiology Data Radiology results: report reviewed, image reviewed Disposition Clinical Impression: Acute sinusitis, Bronchitis Disposition: HOME SELF-CARE Condition: Good Instructions: Sinusitis (ED), Acute Bronchitis (ED) Prescriptions: Amoxic-Pot Clav 875-125Mg [Augmentin 875-125] 1 tab PO Q12HR #20 tablet guaiFENesin [Mucinex] 600 mg PO Q12HR #14 tablet.er Referrals: Og Oliva MD [Primary Care Provider] - 1-2 days
--- NOTE | 2017-04-05 02:54 | XR ---
EXAMINATION TYPE: XR chest 2V DATE OF EXAM: 04/05/2017 COMPARISON: 03/23/2017 HISTORY: Cough TECHNIQUE: Frontal and lateral views of the chest are obtained. FINDINGS: Heart and mediastinum are normal. Lungs are clear. Diaphragm is normal. Bony thorax appear s normal. IMPRESSION: Normal chest. No change.
== END 2017-04-05 03:48 | disposition home or self-care (01) ==
LOC: EC 02:19
DX: J01.90 Acute sinusitis, unspecified (principal); J40 Bronchitis, not specified as acute or chronic; E11.9 Type 2 diabetes mellitus without complications; E07.9 Disorder of thyroid, unspecified; K21.9 Gastro-esophageal reflux disease without esophagitis; F41.9 Anxiety disorder, unspecified; Z87.891 Personal history of nicotine dependence; Z88.5 Allergy status to narcotic agent; Z91.048 Other nonmedicinal substance allergy status; Z88.6 Allergy status to analgesic agent; Z88.2 Allergy status to sulfonamides; Z91.018 Allergy to other foods; Z88.1 Allergy status to other antibiotic agents; Z91.09 Other allergy status, other than to drugs and biological substances; Z79.84 Long term (current) use of oral hypoglycemic drugs; Z79.899 Other long term (current) drug therapy
CPT/HCPCS: 71020; 99284

== ENCOUNTER 2017-06-18 13:02 | Emergency (ER) | payer OTHER ==
[2017-06-18] MEDS ORDERED: ACETAMINOPHEN TAB 500 MG TAB PO STA (13:15)
[2017-06-18] MEDS ORDERED: IBUPROFEN 600 MG TAB PO STA (13:15)
--- NOTE | 2017-06-18 13:47 | ED ---
ENT HPI - General Chief complaint: ENT Stated complaint: Sore Throat Time Seen by Provider: 06/18/17 13:15 Source: patient, RN notes reviewed, old records reviewed Mode of arrival: ambulatory Limitations: no limitations - History of Present Illness Initial comments: Present her female presents today with chief complaint of fever and cough. Patient reports that she's had the symptoms for 2 days. Patient states she has a sore throat and earache. Patient reports that she has a fever and chills. No recent Motrin or Tylenol today. She arrives emergency department with a fever 103.3. She denies any nausea or vomiting. No abdominal pain chest pain shortness of breath. Patient reports that her daughter has similiar symptoms. Patient has hsitory of diabeters, HTN. - Related Data Home Medications Medication Instructions Recorded Confirmed metFORMIN HCL [Glucophage] 500 mg PO QAM 09/08/14 06/18/17 Levothyroxine Sodium [Synthroid] 300 mcg PO QAM 06/27/16 06/18/17 Omeprazole 20 mg PO DAILY 03/23/17 06/18/17 Sodium Chloride [[place]] 1 spray EA NOSTRIL BID PRN 03/23/17 06/18/17 Previous Rx's Medication Instructions Recorded Metoprolol Tartrate [Lopressor] 25 mg PO BID #60 tab 10/13/16 Meclizine [Antivert] 25 mg PO TID PRN #20 tab 05/15/17 Acetaminophen Tab [Tylenol Tab] 650 mg PO Q4H #30 tablet 06/18/17 Ibuprofen [Motrin] 600 mg PO Q6HR PRN #30 tab 06/18/17 Oseltamivir [Tamiflu] 75 mg PO Q12HR #14 cap 06/18/17 Promethazine/Dextromethorphan 5 ml PO TID #120 ml 06/18/17 [Phenergan DM Syrup] Allergies Allergy/AdvReac Type Severity Reaction Status Date / Time codeine Allergy Severe Cardiac Verified 06/18/17 13:24 Arrest meperidine HCl [From Demerol] Allergy Severe Cardiac Verified 06/18/17 13:24 Arrest morphine Allergy Severe Caridac Verified 06/18/17 13:24 Arrest adhesive tape Allergy Rash/Hives Verified 06/18/17 13:24 celery Allergy Oral Verified 06/18/17 13:24 Numbness cinnamon Allergy Anaphylaxis Verified 06/18/17 13:24 diphenhydramine HCl Allergy Anaphylaxis Verified 06/18/17 13:24 [From Benadryl] eucalyptus Allergy Anaphylaxis Verified 06/18/17 13:24 [From [place] Cough Drops] menthol Allergy Anaphylaxis Verified 06/18/17 13:24 [From [place] Cough Drops] naproxen sodium [From Aleve] Allergy Rash/Hives Verified 06/18/17 13:24 nitrofurantoin Allergy Unknown Verified 06/18/17 13:24 macrocrystalline [From Macrodantin] Sulfa (Sulfonamide Allergy Rash/Hives Verified 06/18/17 13:24 Antibiotics) ciprofloxacin [From Cipro] AdvReac Abdominal Verified 06/18/17 13:24 Pain ciprofloxacin HCl AdvReac Abdominal Verified 06/18/17 13:24 [From Cipro] Pain multivitamin Allergy Intermediate Rash/Hives Uncoded 06/18/17 13:13 car exhaust AdvReac Mild Nausea & Uncoded 06/18/17 13:13 Vomiting Review of Systems ROS Statement: Those systems with pertinent positive or pertinent negative responses have been documented in the HPI. ROS Other: All systems not noted in ROS Statement are negative. Past Medical History Past Medical History: Diabetes Mellitus, Fibromyalgia, GERD/Reflux, Hyperlipidemia, Hypertension, Osteoarthritis (OA), Seizure Disorder, Supraventricular Tachycardia (SVT), Thyroid Disorder Additional Past Medical History / Comment(s): Severe allergies, PT STATES IN 1994 PTWAS HAD TOXEMIA WAS GIVEN DEMEROL AND WENT INTO A CARDIAC ARREST (COMA 21 days), was having seizures and had 2ND CARDIAC ARREST 2000 ( COMA 3-5 DAYS), SVT, SLEEP APNEA( NO MACHINE), STATES LAST SEIZURE 1 YEAR AGO, arthritis low back and hips, PANCREATITIS, colitis. History of Any Multi-Drug Resistant Organisms: None Reported Past Surgical History: Cardiac Ablation, Section, Cholecystectomy, Hernia Repair, Tubal Ligation Additional Past Surgical History / Comment(s): Umbilical hernia repair. Past Anesthesia/Blood Transfusion Reactions: Motion Sickness Additional Past Anesthesia/Blood Transfusion Reaction / Comment(s): CLAUSTERPHOBIA, Past Psychological History: Anxiety, Panic Disorder Smoking Status: Former smoker Past Alcohol Use History: None Reported Past Drug Use History: None Reported - Past Family History Father Family Medical History: Cancer, Myocardial Infarction ([place]) Additional Family Medical History / Comment(s): AGE 45 FROM [place] Mother Family Medical History: No Reported History Additional Family Medical History / Comment(s): NORMAL-NO PROBLEMS General Exam - General Exam Comments Initial Comments: This patient is a 46-year-old female. No distress. Limitations: no limitations General appearance: alert, in no apparent distress Head exam: Present: atraumatic, normocephalic, normal inspection Eye exam: Present: normal appearance, PERRL, EOMI. Absent: scleral icterus, conjunctival injection, periorbital swelling ENT exam: Present: normal exam, mucous membranes moist Neck exam: Present: normal inspection. Absent: tenderness, meningismus, lymphadenopathy Respiratory exam: Present: normal lung sounds bilaterally. Absent: respiratory distress, wheezes, rales, rhonchi, stridor Cardiovascular Exam: Present: regular rate, normal rhythm, normal heart sounds. Absent: systolic murmur, diastolic murmur, rubs, gallop, clicks GI/Abdominal exam: Present: soft, normal bowel sounds. Absent: distended, tenderness, guarding, rebound, rigid Back exam: Present: normal inspection Neurological exam: Present: alert, oriented X3, CN II-XII intact Psychiatric exam: Present: normal affect, normal mood Skin exam: Present: warm, dry, intact, normal color. Absent: rash Course Vital Signs 06/18/17 06/18/17 13:11 14:30 Temperature 103.3 F H 98.9 F Pulse Rate 125 H 88 Respiratory 20 18 Rate Blood Pressure 184/81 135/75 O2 Sat by Pulse 96 98 Oximetry Medical Decision Making - Medical Decision Making This is a 46-year-old female with history of fever for 1-2 days, she has cough, sore throat, and ear ache. PAtient arrives with body aches, chills, and fever 103.2. Given motrin and tylenol. Lungs are clear, slightly erythematous oropharynx. Lymphadenopathy noted. Patient CXR shows no pneumonia, Left lunb base scaring or atelectasis. Patient has positive influenza A. Discussed treating symptomatically, with motrin, tylenol, and cough syrup. Discussed follow up with PCP and return parameters discussed. Discharged with cough syrup , motrin and tylenol Rx. - Lab Data Lab Results 06/18/17 06/18/17 Range/Units 13:00 13:24 Influenza Type A RNA Detected H (Not Detectd) Influenza Type B (PCR) Not Detected (Not Detectd) Group A Strep Rapid Negative (Negative) - Radiology Data Radiology results: report reviewed CXR shows left lung base scaring or atelectasis. No focal pneumonia. Disposition Clinical Impression: Influenza A Disposition: HOME SELF-CARE Condition: Good Instructions: Influenza (ED) Additional Instructions: Patient advised to follow-up with primary care provider. Return to the emergency department if any alarming signs or symptoms occur. Patient can take the cough syrup and take the Tamiflu prescription. Alternate Motrin and Tylenol every 4 hours. Prescriptions: Acetaminophen Tab [Tylenol Tab] 650 mg PO Q4H #30 tablet Ibuprofen [Motrin] 600 mg PO Q6HR PRN #30 tab PRN Reason: Pain Oseltamivir [Tamiflu] 75 mg PO Q12HR #14 cap Promethazine/Dextromethorphan [Phenergan DM Syrup] 5 ml PO TID #120 ml Referrals: Og Oliva MD [Primary Care Provider] - 1-2 days Time of Disposition: 14:14
--- NOTE | 2017-06-18 13:58 | XR ---
EXAMINATION TYPE: XR chest 2V DATE OF EXAM: 06/18/2017 HISTORY: Pain. REFERENCE: Previous study dated 04/05/2017. FINDINGS: Linear density in the left midlung may represent atelectasis or scarring. The lungs are oth erwise clear. Pleural spaces are clear. The heart is not enlarged. IMPRESSION: SCARRING VERSUS ATELECTASIS, LEFT MIDLUNG.
[2017-06-18 14:31] VITALS: BP 135/75; PULSE 88; RESP 18; TEMP 98.9
== END 2017-06-18 14:29 | disposition home or self-care (01) ==
LOC: EC 13:02
DX: J10.1 Influenza due to other identified influenza virus with other respiratory manifestations (principal); E11.9 Type 2 diabetes mellitus without complications; K21.9 Gastro-esophageal reflux disease without esophagitis; E07.9 Disorder of thyroid, unspecified; Z87.891 Personal history of nicotine dependence; Z88.5 Allergy status to narcotic agent; Z91.048 Other nonmedicinal substance allergy status; Z91.018 Allergy to other foods; Z88.6 Allergy status to analgesic agent; Z88.2 Allergy status to sulfonamides; Z88.1 Allergy status to other antibiotic agents; Z88.8 Allergy status to other drugs, medicaments and biological substances; Z91.09 Other allergy status, other than to drugs and biological substances; Z79.84 Long term (current) use of oral hypoglycemic drugs; Z79.899 Other long term (current) drug therapy
CPT/HCPCS: 71046; 87081; 87430; 87502; 99284

== ENCOUNTER 2017-06-27 22:19 | Emergency (ER) | payer OTHER ==
[2017-06-27 22:23] VITALS: RESP 18
[2017-06-27] MEDS ORDERED: IBUPROFEN 800 MG TAB PO STA (22:42)
--- NOTE | 2017-06-27 22:57 | ED ---
Fall HPI - General Chief Complaint: Fall Stated Complaint: Fall Time Seen by Provider: 06/27/17 22:28 Source: patient Mode of arrival: ambulatory - History of Present Illness Initial Comments: 46-year-old female presenting for evaluation of multiple injuries secondary to fall from 5 stairs. She states that she was walking outside and had 5 stairs on her porch. She slipped on the snow falling backwards onto her behind and going down all 5 stairs. She denies hitting her head or neck or loss of consciousness. She does not take anticoagulants. She states she has pain to her coccyx and sacrum, lumbothoracic spine, and ribs and left shoulder. Fall occurred at 1700 and she tried taking Tylenol home without any improvement. Patient was ambulatory since then but brought by her mother for further evaluation. - Related Data Home Medications Medication Instructions Recorded Confirmed metFORMIN HCL [Glucophage] 500 mg PO QAM 09/08/14 06/27/17 Levothyroxine Sodium [Synthroid] 300 mcg PO QAM 06/27/16 06/27/17 Omeprazole 20 mg PO HS 03/23/17 06/27/17 Sodium Chloride [[place]] 1 spray EA NOSTRIL BID PRN 03/23/17 06/27/17 LORazepam [Ativan] 0.5 mg PO DAILY PRN 06/27/17 06/27/17 Lisinopril [Zestril] 20 mg PO DAILY 06/27/17 06/27/17 Previous Rx's Medication Instructions Recorded Metoprolol Tartrate [Lopressor] 25 mg PO BID #60 tab 10/13/16 Meclizine [Antivert] 25 mg PO TID PRN #20 tab 05/15/17 HYDROcodone/APAP 5-325MG [[place] 1 - 2 tab PO Q6HR PRN #14 tab 06/27/17 5-325] Allergies Allergy/AdvReac Type Severity Reaction Status Date / Time codeine Allergy Severe Cardiac Verified 06/27/17 22:30 Arrest meperidine HCl [From Demerol] Allergy Severe Cardiac Verified 06/27/17 22:30 Arrest morphine Allergy Severe Caridac Verified 06/27/17 22:30 Arrest adhesive tape Allergy Rash/Hives Verified 06/27/17 22:30 celery Allergy Oral Verified 06/27/17 22:30 Numbness cinnamon Allergy Anaphylaxis Verified 06/27/17 22:30 diphenhydramine HCl Allergy Anaphylaxis Verified 06/27/17 22:30 [From Benadryl] eucalyptus Allergy Anaphylaxis Verified 06/27/17 22:30 [From [place] Cough Drops] menthol Allergy Anaphylaxis Verified 06/27/17 22:30 [From [place] Cough Drops] naproxen sodium [From Aleve] Allergy Rash/Hives Verified 06/27/17 22:30 nitrofurantoin Allergy Unknown Verified 06/27/17 22:30 macrocrystalline [From Macrodantin] Sulfa (Sulfonamide Allergy Rash/Hives Verified 06/27/17 22:30 Antibiotics) ciprofloxacin [From Cipro] AdvReac Abdominal Verified 06/27/17 22:30 Pain ciprofloxacin HCl AdvReac Abdominal Verified 06/27/17 22:30 [From Cipro] Pain multivitamin Allergy Intermediate Rash/Hives Uncoded 06/27/17 22:23 car exhaust AdvReac Mild Nausea & Uncoded 06/27/17 22:23 Vomiting Review of Systems ROS Statement: Those systems with pertinent positive or pertinent negative responses have been documented in the HPI. ROS Other: All systems not noted in ROS Statement are negative. Constitutional: Denies: fever, chills Eyes: Denies: eye pain, vision change ENT: Denies: ear pain, throat pain Respiratory: Denies: cough, dyspnea Cardiovascular: Denies: chest pain, palpitations Endocrine: Denies: fatigue, polydipsia, polyuria Gastrointestinal: Denies: abdominal pain, nausea, vomiting Genitourinary: Denies: urgency, dysuria Musculoskeletal: Reports: back pain (Thoracic and lumbar spine), arthralgia ( Coccyx and left shoulder as well as ribs). Denies: joint swelling Skin: Denies: rash, lesions Neurological: Denies: headache, weakness Psychiatric: Denies: anxiety, depression Hematological/Lymphatic: Denies: easy bleeding, easy bruising Past Medical History Past Medical History: Diabetes Mellitus, Fibromyalgia, GERD/Reflux, Hyperlipidemia, Hypertension, Osteoarthritis (OA), Seizure Disorder, Supraventricular Tachycardia (SVT), Thyroid Disorder Additional Past Medical History / Comment(s): Severe allergies, PT STATES IN 1994 PTWAS HAD TOXEMIA WAS GIVEN DEMEROL AND WENT INTO A CARDIAC ARREST (COMA 21 days), was having seizures and had 2ND CARDIAC ARREST 2000 ( COMA 3-5 DAYS), SVT, SLEEP APNEA( NO MACHINE), STATES LAST SEIZURE 1 YEAR AGO, arthritis low back and hips, PANCREATITIS, colitis. History of Any Multi-Drug Resistant Organisms: None Reported Past Surgical History: Cardiac Ablation, Section, Cholecystectomy, Hernia Repair, Tubal Ligation Additional Past Surgical History / Comment(s): Umbilical hernia repair. Past Anesthesia/Blood Transfusion Reactions: Motion Sickness Additional Past Anesthesia/Blood Transfusion Reaction / Comment(s): CLAUSTERPHOBIA, Past Psychological History: Anxiety, Panic Disorder Smoking Status: Former smoker Past Alcohol Use History: None Reported Past Drug Use History: None Reported - Past Family History Father Family Medical History: Cancer, Myocardial Infarction ([place]) Additional Family Medical History / Comment(s): AGE 45 FROM [place] Mother Family Medical History: No Reported History Additional Family Medical History / Comment(s): NORMAL-NO PROBLEMS General Exam Limitations: no limitations General appearance: alert, in no apparent distress Head exam: Present: atraumatic, normocephalic Eye exam: Present: normal appearance, PERRL, EOMI ENT exam: Present: normal exam, normal oropharynx Neck exam: Present: normal inspection, full ROM. Absent: tenderness, lymphadenopathy Respiratory exam: Present: normal lung sounds bilaterally. Absent: respiratory distress, wheezes, rales, rhonchi, stridor Cardiovascular Exam: Present: regular rate, normal rhythm GI/Abdominal exam: Present: soft. Absent: distended, tenderness, guarding, rebound, rigid Rectal exam: Present: deferred Extremities exam: Present: full ROM, tenderness (Left shoulder), normal capillary refill. Absent: pedal edema, joint swelling, calf tenderness Back exam: Present: full ROM, tenderness (Left-sided ribs and coccyx), vertebral tenderness (Thoracic and lumbar). Absent: normal inspection, CVA tenderness (R), CVA tenderness (L) Neurological exam: Present: alert, oriented X3, CN II-XII intact, reflexes normal, other (Negative for saddle anesthesia or lower extremity weakness). Absent: motor sensory deficit Psychiatric exam: Present: normal affect, normal mood Skin exam: Present: warm, dry, intact, normal color Course Vital Signs 06/27/17 22:21 Temperature 98.2 F Pulse Rate 89 Respiratory 18 Rate Blood Pressure 166/77 O2 Sat by Pulse 97 Oximetry Medical Decision Making - Medical Decision Making 46 year female presented for evaluation of fall down 5 stairs resulting in coccyx, thoracic and lumbar spine, left-sided rib, and left shoulder pain. On physical examination she is laying on her right side and unable to sit flat on her buttocks. There is tenderness over the aforementioned areas however no overlying skin changes. The patient is otherwise neurovascularly intact without saddle anesthesia, lower extremity weakness, or bowel or bladder dysfunction. We'll obtain x-rays and provide pain control. X-rays of the shoulder, ribs, and spine. No significant abnormality. X-ray of the coccyx however shows posterior displacement of the coccyx on the sacrum with potential ligamentous injury and partial dislocation. Patient was reevaluated and had improvement in her symptoms. She was informed of results and offered reduction versus outpatient management and follow-up. She requested outpatient management with pain control. She is advised follow-up with her primary care physician and given return instructions. The patient acknowledged an understanding of all information provided and agreed with this plan of care. Patient was asked what kind of pain medication she can take and stated that [place] would work just fine. She states that she has Motrin at home. Disposition Clinical Impression: Traumatic dislocation of coccyx Disposition: HOME SELF-CARE Condition: Stable Instructions: Coccyx Injury (ED) Additional Instructions: Please use medication as discussed. Please follow up with family doctor if symptoms have not improved over the next two days. Please return to the emergency room if your symptoms increase or worsen or for any other concerns. Prescriptions: HYDROcodone/APAP 5-325MG [[place] 5-325] 1 - 2 tab PO Q6HR PRN #14 tab PRN Reason: Analgesia Referrals: Og Oliva MD [Primary Care Provider] - 1-2 days Time of Disposition: 23:57
--- NOTE | 2017-06-27 23:12 | XR ---
EXAMINATION TYPE: XR shoulder complete LT DATE OF EXAM: 06/27/2017 COMPARISON: NONE HISTORY: Shoulder pain TECHNIQUE: 3 views FINDINGS: I see no fracture nor dislocation. Joint spaces are normal. There are no pathologic calcifi cations. IMPRESSION: Negative left shoulder exam.
--- NOTE | 2017-06-27 23:13 | XR ---
EXAMINATION TYPE: XR ribs bilateral DATE OF EXAM: 06/27/2017 COMPARISON: NONE HISTORY: Pain TECHNIQUE: 8 views FINDINGS: There is no evidence of pleural effusion or pneumothorax. The lungs are clear of infiltrate . I see no rib fracture. IMPRESSION: Normal bilateral rib exam. No fracture seen.
--- NOTE | 2017-06-27 23:16 | XR ---
EXAMINATION TYPE: XR thoraco lumbar junction DATE OF EXAM: 06/27/2017 COMPARISON: NONE HISTORY: Back pain TECHNIQUE: 2 views FINDINGS: Frontal and lateral views of the thoracolumbar junction show normal alignment of the verteb ra. There is no sign of a lower thoracic paraspinal mass. I see no compression fracture. Disc spaces are normal. IMPRESSION: Negative exam. No fracture seen.
--- NOTE | 2017-06-27 23:16 | XR ---
EXAMINATION TYPE: XR sacrum coccyx DATE OF EXAM: 06/27/2017 COMPARISON: NONE HISTORY: Pain TECHNIQUE: 3 views FINDINGS: There is some malalignment at the sacrococcygeal junction of 5 mm. I see no fracture line. Sacroiliac joints appear normal. IMPRESSION: Posterior displacement of the coccyx in relation to the sacrum on the lateral view consis tent with ligamentous tear and partial dislocation.
[2017-06-28 00:15] VITALS: BP 158/69; PULSE 72; TEMP 98
== END 2017-06-28 00:15 | disposition home or self-care (01) ==
LOC: EC 22:19
DX: S33.2XXA Dislocation of sacroiliac and sacrococcygeal joint, initial encounter (principal); R07.81 Pleurodynia; M25.512 Pain in left shoulder; E11.9 Type 2 diabetes mellitus without complications; K21.9 Gastro-esophageal reflux disease without esophagitis; I10 Essential (primary) hypertension; E07.9 Disorder of thyroid, unspecified; Z87.891 Personal history of nicotine dependence; Z88.5 Allergy status to narcotic agent; Z91.048 Other nonmedicinal substance allergy status; Z88.8 Allergy status to other drugs, medicaments and biological substances; Z88.6 Allergy status to analgesic agent; Z88.1 Allergy status to other antibiotic agents; Z88.2 Allergy status to sulfonamides; Z91.09 Other allergy status, other than to drugs and biological substances; Z91.018 Allergy to other foods; Z79.84 Long term (current) use of oral hypoglycemic drugs; Z79.899 Other long term (current) drug therapy; W10.9XXA Fall (on) (from) unspecified stairs and steps, initial encounter; Y93.01 Activity, walking, marching and hiking
CPT/HCPCS: 71110; 72080; 72220; 99283

== ENCOUNTER 2017-07-27 22:14 | Emergency (ER) | payer OTHER ==
[2017-07-27 22:39] VITALS: BP 186/79; PULSE 95; RESP 20; TEMP 98.8
--- NOTE | 2017-07-27 23:51 | ED ---
General Adult HPI - General Chief complaint: Upper Respiratory Infection Stated complaint: Cough Time Seen by Provider: 07/27/17 22:44 Source: patient Mode of arrival: ambulatory Limitations: no limitations - History of Present Illness Initial comments: Patient presents with cough for 1 day. Patient states yellow sputum. Patient states no cough yesterday. However yesterday she did have nasal congestion. Patient states "it's not the flu, I had the flu last month", patient is not will be tested for flu today. Patient denies fevers, chills, nausea, vomiting, abdominal pain, changes in appetite or headaches. Patient has not seen her primary care physician for this problem. She has not tried any medications at home. - Related Data Home Medications Medication Instructions Recorded Confirmed metFORMIN HCL [Glucophage] 500 mg PO QAM 09/08/14 07/27/17 Levothyroxine Sodium [Synthroid] 300 mcg PO QAM 06/27/16 07/27/17 Sodium Chloride [[place]] 1 spray EA NOSTRIL BID PRN 03/23/17 07/27/17 LORazepam [Ativan] 0.5 mg PO DAILY PRN 06/27/17 07/27/17 Lisinopril [Zestril] 20 mg PO DAILY 06/27/17 07/27/17 HYDROcodone/APAP 5-325MG [[place] 1 tab PO TID PRN 07/27/17 07/27/17 5-325] Metoprolol Tartrate [Lopressor] 25 mg PO DAILY 07/27/17 07/27/17 Previous Rx's Medication Instructions Recorded Albuterol Inhaler [Ventolin Hfa 1 - 2 puff INHALATION Q4HR PRN #1 07/27/17 Inhaler] inhaler predniSONE 40 mg PO DAILY 5 Days #10 tab 07/27/17 Allergies Allergy/AdvReac Type Severity Reaction Status Date / Time codeine Allergy Severe Cardiac Verified 07/27/17 22:55 Arrest meperidine HCl [From Demerol] Allergy Severe Cardiac Verified 07/27/17 22:55 Arrest morphine Allergy Severe Caridac Verified 07/27/17 22:55 Arrest adhesive tape Allergy Rash/Hives Verified 07/27/17 22:55 celery Allergy Oral Verified 07/27/17 22:55 Numbness cinnamon Allergy Anaphylaxis Verified 07/27/17 22:55 diphenhydramine HCl Allergy Anaphylaxis Verified 07/27/17 22:55 [From Benadryl] eucalyptus Allergy Anaphylaxis Verified 07/27/17 22:55 [From [place] Cough Drops] menthol Allergy Anaphylaxis Verified 07/27/17 22:55 [From [place] Cough Drops] naproxen sodium [From Aleve] Allergy Rash/Hives Verified 07/27/17 22:55 nitrofurantoin Allergy Unknown Verified 07/27/17 22:55 macrocrystalline [From Macrodantin] Sulfa (Sulfonamide Allergy Rash/Hives Verified 07/27/17 22:55 Antibiotics) ciprofloxacin [From Cipro] AdvReac Abdominal Verified 07/27/17 22:55 Pain ciprofloxacin HCl AdvReac Abdominal Verified 07/27/17 22:55 [From Cipro] Pain multivitamin Allergy Intermediate Rash/Hives Uncoded 07/27/17 22:39 car exhaust AdvReac Mild Nausea & Uncoded 07/27/17 22:39 Vomiting Review of Systems ROS Statement: Those systems with pertinent positive or pertinent negative responses have been documented in the HPI. ROS Other: All systems not noted in ROS Statement are negative. Constitutional: Denies: fever, chills, weakness Eyes: Denies: eye pain, eye discharge, vision change ENT: Reports: congestion. Denies: ear pain, throat pain, dental pain Respiratory: Reports: cough. Denies: dyspnea, wheezes, hemoptysis, stridor Cardiovascular: Denies: chest pain, palpitations Endocrine: Denies: fatigue Gastrointestinal: Denies: abdominal pain, nausea, vomiting, diarrhea, constipation Genitourinary: Denies: urgency, dysuria, frequency, hematuria Musculoskeletal: Denies: back pain, joint swelling, arthralgia, myalgia Skin: Denies: rash Neurological: Denies: headache Past Medical History Past Medical History: Diabetes Mellitus, Fibromyalgia, GERD/Reflux, Hyperlipidemia, Hypertension, Osteoarthritis (OA), Seizure Disorder, Supraventricular Tachycardia (SVT), Thyroid Disorder Additional Past Medical History / Comment(s): Severe allergies, PT STATES IN 1994 PTWAS HAD TOXEMIA WAS GIVEN DEMEROL AND WENT INTO A CARDIAC ARREST (COMA 21 days), was having seizures and had 2ND CARDIAC ARREST 2000 ( COMA 3-5 DAYS), SVT, SLEEP APNEA( NO MACHINE), STATES LAST SEIZURE 1 YEAR AGO, arthritis low back and hips, PANCREATITIS, colitis. History of Any Multi-Drug Resistant Organisms: None Reported Past Surgical History: Cardiac Ablation, Section, Cholecystectomy, Hernia Repair, Tubal Ligation Additional Past Surgical History / Comment(s): Umbilical hernia repair. Past Anesthesia/Blood Transfusion Reactions: Motion Sickness Additional Past Anesthesia/Blood Transfusion Reaction / Comment(s): CLAUSTERPHOBIA, Past Psychological History: Anxiety, Panic Disorder Smoking Status: Former smoker Past Alcohol Use History: None Reported Past Drug Use History: None Reported - Past Family History Father Family Medical History: Cancer, Myocardial Infarction ([place]) Additional Family Medical History / Comment(s): AGE 45 FROM [place] Mother Family Medical History: No Reported History Additional Family Medical History / Comment(s): NORMAL-NO PROBLEMS General Exam - General Exam Comments Initial Comments: Laying on side on bed watching TV. Well-appearing. Conversing normally. Calm , pleasant. No acute distress. Limitations: no limitations General appearance: alert, in no apparent distress Head exam: Present: atraumatic, normocephalic Eye exam: Present: normal appearance, PERRL, EOMI ENT exam: Present: normal exam, normal oropharynx, mucous membranes moist Neck exam: Present: normal inspection, full ROM. Absent: tenderness, meningismus, lymphadenopathy Respiratory exam: Present: normal lung sounds bilaterally, other (Lungs sounds clear bilaterally, coughing during exam.). Absent: respiratory distress, wheezes, rales, rhonchi, stridor, accessory muscle use, decreased breath sounds , prolonged expiratory Cardiovascular Exam: Present: regular rate, normal rhythm GI/Abdominal exam: Present: soft. Absent: distended, tenderness, guarding, rebound Extremities exam: Present: other (No gross deformities) Neurological exam: Present: alert, oriented X3 Psychiatric exam: Present: normal affect, normal mood Skin exam: Present: warm, dry, intact, normal color. Absent: rash Course Vital Signs 07/27/17 22:37 Temperature 98.8 F Pulse Rate 95 Respiratory 20 Rate Blood Pressure 186/79 O2 Sat by Pulse 97 Oximetry Medical Decision Making - Medical Decision Making Patient with mild cough for one day. Nasal congestion for 2 days. Denies any other associated symptoms. Patient well appearing on exam. Patient has not tried medications outpatient. Patient agrees to albuterol inhaler and steroid pack outpatient. Agrees to follow primary care physician. Return to ER for new or worsening symptoms. Disposition Clinical Impression: Bronchitis Disposition: HOME SELF-CARE Condition: Good Instructions: Acute Bronchitis (ED) Additional Instructions: Follow-up with your primary care physician one to 2 days. Return to ER for new or worsening symptoms. Prescriptions: Albuterol Inhaler [Ventolin Hfa Inhaler] 1 - 2 puff INHALATION Q4HR PRN #1 inhaler PRN Reason: Shortness Of Breath predniSONE 40 mg PO DAILY 5 Days #10 tab Referrals: Og Oliva MD [Primary Care Provider] - 1-2 days
== END 2017-07-28 00:02 | disposition home or self-care (01) ==
LOC: EC 22:14
DX: J40 Bronchitis, not specified as acute or chronic (principal); E11.9 Type 2 diabetes mellitus without complications; I10 Essential (primary) hypertension; E07.9 Disorder of thyroid, unspecified; Z87.891 Personal history of nicotine dependence; Z79.84 Long term (current) use of oral hypoglycemic drugs; Z79.899 Other long term (current) drug therapy; Z88.5 Allergy status to narcotic agent; Z88.8 Allergy status to other drugs, medicaments and biological substances; Z91.048 Other nonmedicinal substance allergy status; Z88.2 Allergy status to sulfonamides; Z88.6 Allergy status to analgesic agent; Z88.1 Allergy status to other antibiotic agents; Z91.09 Other allergy status, other than to drugs and biological substances
CPT/HCPCS: 99282

== ENCOUNTER 2017-08-29 22:27 | Emergency (ER) | payer OTHER ==
[2017-08-29 23:21] LABS: Basophils % (A) 0 %; Eosinophils # (A) 0.1 k/uL (0-0.7); Eosinophils % (A) 2 %; HCT 36.7 % (34.0-46.0); HGB 12.1 gm/dL (11.4-16.0); Lymphocytes # (A) 1.7 k/uL (1.0-4.8); Lymphocytes % (A) 27 %; MCH 28.2 pg (25.0-35.0); MCHC 32.9 g/dL (31.0-37.0); MCV 85.9 fL (80.0-100.0); Mean Platelet Volume 6.9; Monocytes # (A) 0.2 k/uL (0-1.0); Monocytes % (A) 3 %; Neutrophils # (A) 4.1 k/uL (1.3-7.7); Neutrophils % (A) 67 %; Platelet Count 219 k/uL (150-450); RBC 4.28 m/uL (3.80-5.40); RDW 14.3 % (11.5-15.5); WBC 6.2 k/uL (3.8-10.6)
[2017-08-29 23:32] LABS: INR 0.9 (<1.2); Partial Thromboplastin Time 22.3 sec (22.0-30.0); Prothrombin Time 9.3 sec (9.0-12.0)
[2017-08-29 23:34] LABS: ALT 20 U/L (9-52); AST 17 U/L (14-36); Albumin 3.8 g/dL (3.5-5.0); Alkaline Phosphatase 112 U/L (38-126); Anion Gap 10 mmol/L; Blood Urea Nitrogen 14 mg/dL (7-17); Calcium 9.2 mg/dL (8.4-10.2); Carbon Dioxide 24 mmol/L (22-30); Chloride 105 mmol/L (98-107); Glucose 178 mg/dL (74-99); Magnesium 1.7 mg/dL (1.6-2.3); Potassium 4.2 mmol/L (3.5-5.1); Sodium 139 mmol/L (137-145); Total Bilirubin 0.3 mg/dL (0.2-1.3); Total Protein 6.6 g/dL (6.3-8.2)
--- NOTE | 2017-08-29 23:35 | ED ---
SOB HPI - General Chief Complaint: Shortness of Breath Stated Complaint: SOB Time Seen by Provider: 08/29/17 22:44 Source: patient, RN notes reviewed Mode of arrival: ambulatory Limitations: no limitations - History of Present Illness Initial Comments: This is a 47-year-old female who presents to the emergency department with chief complaint of shortness of breath. Patient states that since 2:30 PM this afternoon she has had 3 episodes of shortness of breath. She states that it occurs when she is just sitting there. She states that it lasts for a few minutes at a time. She states that she becomes short of breath then begins hyperventilating and it eventually ends in a "panic attack." She denies any chest pain. She does state that she has a history of supraventricular tachycardia and underwent a cardiac ablation 2 years ago. Denies fevers or chills, abdominal pain, nausea or vomiting, dysuria or hematuria, diarrhea or constipation, headache or dizziness. - Related Data Home Medications Medication Instructions Recorded Confirmed metFORMIN HCL [Glucophage] 500 mg PO QAM 09/08/14 08/29/17 Levothyroxine Sodium [Synthroid] 300 mcg PO QAM 06/27/16 08/29/17 Sodium Chloride [[place]] 1 spray EA NOSTRIL BID PRN 03/23/17 08/29/17 LORazepam [Ativan] 0.5 mg PO DAILY PRN 06/27/17 08/29/17 Lisinopril [Zestril] 20 mg PO DAILY 06/27/17 08/29/17 HYDROcodone/APAP 5-325MG [[place] 1 tab PO TID PRN 07/27/17 08/29/17 5-325] Metoprolol Tartrate [Lopressor] 25 mg PO BID 07/27/17 08/29/17 Previous Rx's Medication Instructions Recorded Albuterol Inhaler [Ventolin Hfa 1 - 2 puff INHALATION Q4HR PRN #1 07/27/17 Inhaler] inhaler Allergies Allergy/AdvReac Type Severity Reaction Status Date / Time codeine Allergy Severe Cardiac Verified 08/29/17 23:15 Arrest meperidine HCl [From Demerol] Allergy Severe Cardiac Verified 08/29/17 23:15 Arrest morphine Allergy Severe Caridac Verified 08/29/17 23:15 Arrest adhesive tape Allergy Rash/Hives Verified 08/29/17 23:15 celery Allergy Oral Verified 08/29/17 23:15 Numbness cinnamon Allergy Anaphylaxis Verified 08/29/17 23:15 diphenhydramine HCl Allergy Anaphylaxis Verified 08/29/17 23:15 [From Benadryl] eucalyptus Allergy Anaphylaxis Verified 08/29/17 23:15 [From [place] Cough Drops] menthol Allergy Anaphylaxis Verified 08/29/17 23:15 [From [place] Cough Drops] naproxen sodium [From Aleve] Allergy Rash/Hives Verified 08/29/17 23:15 nitrofurantoin Allergy Unknown Verified 08/29/17 23:15 macrocrystalline [From Macrodantin] Sulfa (Sulfonamide Allergy Rash/Hives Verified 08/29/17 23:15 Antibiotics) ciprofloxacin [From Cipro] AdvReac Abdominal Verified 08/29/17 23:15 Pain ciprofloxacin HCl AdvReac Abdominal Verified 08/29/17 23:15 [From Cipro] Pain multivitamin Allergy Intermediate Rash/Hives Uncoded 08/29/17 22:42 car exhaust AdvReac Mild Nausea & Uncoded 08/29/17 22:42 Vomiting Review of Systems ROS Statement: Those systems with pertinent positive or pertinent negative responses have been documented in the HPI. ROS Other: All systems not noted in ROS Statement are negative. Past Medical History Past Medical History: Diabetes Mellitus, Fibromyalgia, GERD/Reflux, Hyperlipidemia, Hypertension, Osteoarthritis (OA), Seizure Disorder, Supraventricular Tachycardia (SVT), Thyroid Disorder Additional Past Medical History / Comment(s): Severe allergies, PT STATES IN 1994 PTWAS HAD TOXEMIA WAS GIVEN DEMEROL AND WENT INTO A CARDIAC ARREST (COMA 21 days), was having seizures and had 2ND CARDIAC ARREST 2000 ( COMA 3-5 DAYS), SVT, SLEEP APNEA( NO MACHINE), STATES LAST SEIZURE 1 YEAR AGO, arthritis low back and hips, PANCREATITIS, colitis. History of Any Multi-Drug Resistant Organisms: None Reported Past Surgical History: Cardiac Ablation, Section, Cholecystectomy, Hernia Repair, Tubal Ligation Additional Past Surgical History / Comment(s): Umbilical hernia repair. Past Anesthesia/Blood Transfusion Reactions: Motion Sickness Additional Past Anesthesia/Blood Transfusion Reaction / Comment(s): CLAUSTERPHOBIA, Past Psychological History: Anxiety, Panic Disorder Smoking Status: Former smoker Past Alcohol Use History: None Reported Past Drug Use History: None Reported - Past Family History Father Family Medical History: Cancer, Myocardial Infarction ([place]) Additional Family Medical History / Comment(s): AGE 45 FROM [place] Mother Family Medical History: No Reported History Additional Family Medical History / Comment(s): NORMAL-NO PROBLEMS General Exam - General Exam Comments Initial Comments: General: Awake and alert, well-developed; in no apparent distress. HEENT: Head atraumatic, normocephalic. Pupils are equal, round and reactive to light. Extraocular movements intact. Oropharynx moist without erythema or exudate. Neck: Supple. Normal ROM. Cardiovascular: Regular rate and rhythm. No murmurs, rubs or gallops. Chest symmetrical. Respiratory: Lungs clear to auscultation bilaterally. No wheezes, rales or rhonchi. Normal respiratory effort with no use of accessory muscles. Abdomen: Soft, non-tender, non-distended. No rigidity, rebound or guarding. Normal bowel sounds in all 4 quadrants. Musculoskeletal: Normal ROM, no tenderness bilateral upper and lower extremities. Ambulating normally. Skin: [place], warm and dry without rashes or lesions. Neurological: Alert and oriented x3. CN II-XII grossly intact. Speech is fluent and answers are appropriate. No focal neuro deficits. Limitations: no limitations Course Vital Signs 08/29/17 08/29/17 22:40 23:53 Temperature 97.9 F Pulse Rate 85 80 Respiratory 20 18 Rate Blood Pressure 146/73 130/63 O2 Sat by Pulse 99 99 Oximetry Medical Decision Making - Medical Decision Making This is a 47-year-old female who presented to the emergency department with chief complaint of shortness of breath. On presentation and throughout entire emergency department visit, patient's vital signs have been stable. She has been 99% on room air. CBC and CMP are unremarkable. Troponin and cardiac profile are negative. BMP is abnormal. Chest x-ray revealed no acute cardiopulmonary processes and did note improvement of subsegmental atelectasis when compared to previous chest x-ray. Patient is low risk for a DVT or PE and PERC score is 0. EKG revealed normal sinus rhythm with PVCs. When compared to previous EKG in May 2017, no significant changes are noted. No ST segment elevation or depression. Findings were discussed with patient. She is in no acute distress and will be discharged home. Recommended following up with her primary care provider. She is in agreement and voices understanding. All questions were answered. - Lab Data Result diagrams: 08/29/17 23:13 08/29/17 23:13 Lab Results 08/29/17 08/29/17 08/29/17 Range/Units 23:13 23:13 23:13 WBC 6.2 (3.8-10.6) k/uL RBC 4.28 (3.80-5.40) m/uL Hgb 12.1 (11.4-16.0) gm/dL Hct 36.7 (34.0-46.0) % MCV 85.9 (80.0-100.0) fL MCH 28.2 (25.0-35.0) pg MCHC 32.9 (31.0-37.0) g/dL RDW 14.3 (11.5-15.5) % Plt Count 219 (150-450) k/uL Neutrophils % 67 % Lymphocytes % 27 % Monocytes % 3 % Eosinophils % 2 % Basophils % 0 % Neutrophils # 4.1 (1.3-7.7) k/uL Lymphocytes # 1.7 (1.0-4.8) k/uL Monocytes # 0.2 (0-1.0) k/uL Eosinophils # 0.1 (0-0.7) k/uL Basophils # 0.0 (0-0.2) k/uL PT (9.0-12.0) sec INR (<1.2) APTT (22.0-30.0) sec Sodium 139 (137-145) mmol/L Potassium 4.2 (3.5-5.1) mmol/L Chloride 105 (98-107) mmol/L Carbon Dioxide 24 (22-30) mmol/L Anion Gap 10 mmol/L BUN 14 (7-17) mg/dL Creatinine 0.60 (0.52-1.04) mg/dL Est GFR (CKD-EPI)AfAm >90 (>60 ml/min/1.73 sqM) Est GFR (CKD-EPI)NonAf >90 (>60 ml/min/1.73 sqM) Glucose 178 H (74-99) mg/dL Calcium 9.2 (8.4-10.2) mg/dL Magnesium 1.7 (1.6-2.3) mg/dL Total Bilirubin 0.3 (0.2-1.3) mg/dL AST 17 (14-36) U/L ALT 20 (9-52) U/L Alkaline Phosphatase 112 (38-126) U/L Total Creatine Kinase 62 (30-135) U/L CK-MB (CK-2) 1.6 (0.0-2.4) ng/mL CK-MB (CK-2) Rel Index 2.6 Troponin I <0.012 (0.000-0.034) ng/mL NT-Pro-B Natriuret Pep pg/mL Total Protein 6.6 (6.3-8.2) g/dL Albumin 3.8 (3.5-5.0) g/dL 08/29/17 08/29/17 Range/Units 23:13 23:13 WBC (3.8-10.6) k/uL RBC (3.80-5.40) m/uL Hgb (11.4-16.0) gm/dL Hct (34.0-46.0) % MCV (80.0-100.0) fL MCH (25.0-35.0) pg MCHC (31.0-37.0) g/dL RDW (11.5-15.5) % Plt Count (150-450) k/uL Neutrophils % % Lymphocytes % % Monocytes % % Eosinophils % % Basophils % % Neutrophils # (1.3-7.7) k/uL Lymphocytes # (1.0-4.8) k/uL Monocytes # (0-1.0) k/uL Eosinophils # (0-0.7) k/uL Basophils # (0-0.2) k/uL PT 9.3 (9.0-12.0) sec INR 0.9 (<1.2) APTT 22.3 (22.0-30.0) sec Sodium (137-145) mmol/L Potassium (3.5-5.1) mmol/L Chloride (98-107) mmol/L Carbon Dioxide (22-30) mmol/L Anion Gap mmol/L BUN (7-17) mg/dL Creatinine (0.52-1.04) mg/dL Est GFR (CKD-EPI)AfAm (>60 ml/min/1.73 sqM) Est GFR (CKD-EPI)NonAf (>60 ml/min/1.73 sqM) Glucose (74-99) mg/dL Calcium (8.4-10.2) mg/dL Magnesium (1.6-2.3) mg/dL Total Bilirubin (0.2-1.3) mg/dL AST (14-36) U/L ALT (9-52) U/L Alkaline Phosphatase (38-126) U/L Total Creatine Kinase (30-135) U/L CK-MB (CK-2) (0.0-2.4) ng/mL CK-MB (CK-2) Rel Index Troponin I (0.000-0.034) ng/mL NT-Pro-B Natriuret Pep 179 pg/mL Total Protein (6.3-8.2) g/dL Albumin (3.5-5.0) g/dL - EKG Data EKG Comments: EKG at 23:04:18 reveals sinus rhythm with occasional PVCs. Possible left atrial enlargement. Ventricular rate 90 bpm, OK interval 142, QRS duration 76, QT/QTC 372/455. - Radiology Data Radiology results: report reviewed Chest x-ray impression: Normal chest. There is clearing of mild subsegmental atelectasis compared to old exam. Disposition Clinical Impression: Shortness of breath Disposition: HOME SELF-CARE Condition: Good Instructions: Dyspnea (ED) Additional Instructions: Please follow up with primary care provider within 1-2 days. Return to emergency department if symptoms should worsen or any concerns arise. Referrals: Og Oliva MD [Primary Care Provider] - 1-2 days Time of Disposition: 00:11
[2017-08-29 23:44] LABS: Creatine Kinase 62 U/L (30-135)
--- NOTE | 2017-08-29 23:47 | XR ---
EXAMINATION TYPE: XR chest 2V DATE OF EXAM: 08/29/2017 COMPARISON: 06/18/2017 HISTORY: Difficulty breathing TECHNIQUE: Frontal and lateral views of the chest are obtained. FINDINGS: Heart and mediastinum are normal. Lungs are clear. Diaphragm is normal. Bony thorax appear s normal. There are chest leads. IMPRESSION: Normal chest. There is clearing of mild subsegmental atelectasis compared to old exam.
[2017-08-29 23:55] VITALS: RESP 18
[2017-08-29 23:56] LABS: Creatine Kinase MB 1.6 ng/mL (0.0-2.4); Troponin I <0.012 ng/mL (0.000-0.034)
[2017-08-30 00:31] VITALS: BP 132/73; PULSE 85; TEMP 98.2
== END 2017-08-30 00:30 | disposition home or self-care (01) ==
LOC: EC 22:27
DX: R06.02 Shortness of breath (principal); R06.4 Hyperventilation; F41.9 Anxiety disorder, unspecified; I49.3 Ventricular premature depolarization; J98.11 Atelectasis; E11.9 Type 2 diabetes mellitus without complications; I10 Essential (primary) hypertension; E07.9 Disorder of thyroid, unspecified; Z87.891 Personal history of nicotine dependence; Z86.79 Personal history of other diseases of the circulatory system; Z82.49 Family history of ischemic heart disease and other diseases of the circulatory system; Z88.1 Allergy status to other antibiotic agents; Z88.2 Allergy status to sulfonamides; Z88.5 Allergy status to narcotic agent; Z88.6 Allergy status to analgesic agent; Z88.8 Allergy status to other drugs, medicaments and biological substances; Z91.048 Other nonmedicinal substance allergy status; Z79.84 Long term (current) use of oral hypoglycemic drugs; Z79.899 Other long term (current) drug therapy; Z98.890 Other specified postprocedural states
CPT/HCPCS: 36415; 71046; 80053; 82550; 82553; 83735; 83880; 84484; 85025; 85610; 85730; 93005; 99285

== ENCOUNTER 2017-09-05 03:50 | Observation (INO) | payer OTHER ==
[2017-09-05 04:35] LABS: Basophils % (A) 0 %; Eosinophils # (A) 0.1 k/uL (0-0.7); Eosinophils % (A) 2 %; HGB 12.6 gm/dL (11.4-16.0); Lymphocytes # (A) 2.3 k/uL (1.0-4.8); Lymphocytes % (A) 32 %; MCHC 32.3 g/dL (31.0-37.0); MCV 86.8 fL (80.0-100.0); Mean Platelet Volume 6.8; Monocytes # (A) 0.2 k/uL (0-1.0); Monocytes % (A) 3 %; Neutrophils # (A) 4.4 k/uL (1.3-7.7); Neutrophils % (A) 62 %; Platelet Count 224 k/uL (150-450); RDW 14.1 % (11.5-15.5); WBC 7.2 k/uL (3.8-10.6)
--- NOTE | 2017-09-05 04:36 | ED ---
Chest Pain HPI - General Chief Complaint: Chest Pain Stated Complaint: chest pain Time Seen by Provider: 09/05/17 04:23 Source: patient Mode of arrival: ambulatory Limitations: no limitations - History of Present Illness Initial Comments: This patient is a 47-year-old woman who states that around 2 AM she started having some aching pain in the left axilla. She describes the pain as aching, sharp, constant and moderately severe. She tried lying down in bed but the pain continued so she felt she should be evaluated here she has not noted any worsening or relieving factors. MD Complaint: chest pain Onset/Timin -: hour(s) Onset: during rest Pain Location: left chest Pain Radiation: none Severity: moderate Quality: aching Consistency: constant Improves With: nothing Worsens With: nothing Treatments Prior to Arrival: none - Related Data Home Medications Medication Instructions Recorded Confirmed metFORMIN HCL [Glucophage] 500 mg PO QAM 09/08/14 09/05/17 Levothyroxine Sodium [Synthroid] 300 mcg PO QAM 06/27/16 09/05/17 Sodium Chloride [[place]] 1 spray EA NOSTRIL BID PRN 03/23/17 09/05/17 LORazepam [Ativan] 0.5 mg PO DAILY PRN 06/27/17 09/05/17 HYDROcodone/APAP 5-325MG [[place] 1 tab PO TID PRN 07/27/17 09/05/17 5-325] Metoprolol Tartrate [Lopressor] 25 mg PO DAILY 07/27/17 09/05/17 Previous Rx's Medication Instructions Recorded Albuterol Inhaler [Ventolin Hfa 1 - 2 puff INHALATION Q4HR PRN #1 07/27/17 Inhaler] inhaler Lisinopril-Hctz 20-12.5 mg 1 each PO DAILY #30 tab 09/05/17 [Zestoretic 20-12.5] amLODIPine [Norvasc] 5 mg PO HS #30 tab 09/05/17 Allergies Allergy/AdvReac Type Severity Reaction Status Date / Time codeine Allergy Severe Cardiac Verified 09/05/17 07:27 Arrest meperidine HCl [From Demerol] Allergy Severe Cardiac Verified 09/05/17 07:27 Arrest morphine Allergy Severe Caridac Verified 09/05/17 07:27 Arrest adhesive tape Allergy Rash/Hives Verified 09/05/17 07:27 celery Allergy Oral Verified 09/05/17 07:27 Numbness cinnamon Allergy Anaphylaxis Verified 09/05/17 07:27 diphenhydramine HCl Allergy Anaphylaxis Verified 09/05/17 07:27 [From Benadryl] eucalyptus Allergy Anaphylaxis Verified 09/05/17 07:27 [From [place] Cough Drops] menthol Allergy Anaphylaxis Verified 09/05/17 07:27 [From [place] Cough Drops] naproxen sodium [From Aleve] Allergy Rash/Hives Verified 09/05/17 07:27 nitrofurantoin Allergy Unknown Verified 09/05/17 07:27 macrocrystalline [From Macrodantin] Sulfa (Sulfonamide Allergy Rash/Hives Verified 09/05/17 07:27 Antibiotics) ciprofloxacin [From Cipro] AdvReac Abdominal Verified 09/05/17 07:27 Pain ciprofloxacin HCl AdvReac Abdominal Verified 09/05/17 07:27 [From Cipro] Pain multivitamin Allergy Intermediate Rash/Hives Uncoded 09/05/17 03:56 car exhaust AdvReac Mild Nausea & Uncoded 09/05/17 03:56 Vomiting Review of Systems ROS Statement: Those systems with pertinent positive or pertinent negative responses have been documented in the HPI. ROS Other: All systems not noted in ROS Statement are negative. EKG Findings - EKG Results: EKG: interpreted by [facility], sinus rhythm (With PVCs, rate 94 bpm), normal axis, normal QRS - Blocks, [place], Hypertrophy, ST Abn: Repolarization changes or abnormalities: nonspecific abnormality, ST segment, and/or T wave Past Medical History Past Medical History: Diabetes Mellitus, Fibromyalgia, GERD/Reflux, Hyperlipidemia, Hypertension, Osteoarthritis (OA), Seizure Disorder, Supraventricular Tachycardia (SVT), Thyroid Disorder Additional Past Medical History / Comment(s): Severe allergies, PT STATES IN 1994 PTWAS HAD TOXEMIA WAS GIVEN DEMEROL AND WENT INTO A CARDIAC ARREST (COMA 21 days), was having seizures and had 2ND CARDIAC ARREST 2000 ( COMA 3-5 DAYS), SVT, SLEEP APNEA( NO MACHINE), STATES LAST SEIZURE 1 YEAR AGO, arthritis low back and hips, PANCREATITIS, colitis. History of Any Multi-Drug Resistant Organisms: None Reported Past Surgical History: Cardiac Ablation, Section, Cholecystectomy, Hernia Repair, Tubal Ligation Additional Past Surgical History / Comment(s): Umbilical hernia repair. Past Anesthesia/Blood Transfusion Reactions: Motion Sickness Additional Past Anesthesia/Blood Transfusion Reaction / Comment(s): CLAUSTERPHOBIA, Past Psychological History: Anxiety, Panic Disorder Smoking Status: Former smoker Past Alcohol Use History: Rare Past Drug Use History: None Reported - Past Family History Father Family Medical History: Cancer, Myocardial Infarction ([place]) Additional Family Medical History / Comment(s): AGE 45 FROM [place] Mother Family Medical History: No Reported History Additional Family Medical History / Comment(s): NORMAL-NO PROBLEMS General Exam Limitations: no limitations General appearance: alert, in no apparent distress, obese Head exam: Present: atraumatic, normocephalic Eye exam: Present: normal appearance. Absent: scleral icterus, conjunctival injection Respiratory exam: Present: normal lung sounds bilaterally. Absent: respiratory distress, wheezes, rales, rhonchi, stridor, chest wall tenderness Cardiovascular Exam: Present: regular rate, normal rhythm, normal heart sounds. Absent: systolic murmur, diastolic murmur, rubs, gallop GI/Abdominal exam: Present: soft. Absent: distended, tenderness, guarding, rebound Extremities exam: Present: normal inspection, normal capillary refill. Absent: pedal edema, calf tenderness Back exam: Present: normal inspection. Absent: CVA tenderness (R), CVA tenderness (L) Neurological exam: Present: alert Skin exam: Present: warm, dry, intact, normal color. Absent: rash Course Vital Signs 09/05/17 09/05/17 09/05/17 03:52 04:20 05:23 Temperature 97.5 F L Pulse Rate 97 91 Respiratory 18 18 20 Rate Blood Pressure 199/96 131/68 O2 Sat by Pulse 100 99 Oximetry 09/05/17 09/05/17 06:29 08:06 Temperature 97.4 F L Pulse Rate 87 85 Respiratory 20 17 Rate Blood Pressure 142/63 161/74 O2 Sat by Pulse 99 99 Oximetry Disposition Clinical Impression: Chest pain Disposition: ADMITTED IP TO THIS HOSP Condition: Fair
[2017-09-05 04:46] LABS: D-Dimer 0.4 mg/L FEU (<0.60)
[2017-09-05 04:47] LABS: ALT 26 U/L (9-52); AST 21 U/L (14-36); Alkaline Phosphatase 118 U/L (38-126); Anion Gap 12 mmol/L; Blood Urea Nitrogen 19 mg/dL (7-17); Calcium 9.4 mg/dL (8.4-10.2); Carbon Dioxide 26 mmol/L (22-30); Chloride 99 mmol/L (98-107); Glucose 175 mg/dL (74-99); Magnesium 1.7 mg/dL (1.6-2.3); Sodium 137 mmol/L (137-145); Total Bilirubin 0.3 mg/dL (0.2-1.3); Total Protein 6.8 g/dL (6.3-8.2)
--- NOTE | 2017-09-05 04:47 | XR ---
EXAM: XR Chest, 2 Views CLINICAL HISTORY: Chest Pain TECHNIQUE: Frontal and lateral views of the chest. COMPARISON: 08/29/2017 FINDINGS: Lungs: Unremarkable. No consolidation. Pleural space: Unremarkable. No pneumothorax. Heart: Unremarkable. No cardiomegaly. Mediastinum: Unremarkable. Bones/joints: No acute osseous abnormality. IMPRESSION: No acute cardiopulmonary process.
[2017-09-05 04:55] LABS: INR 0.9 (<1.2); Partial Thromboplastin Time 22.1 sec (22.0-30.0); Prothrombin Time 9.3 sec (9.0-12.0)
[2017-09-05 04:58] LABS: Creatine Kinase 70 U/L (30-135)
[2017-09-05 05:11] LABS: Creatine Kinase MB 1.8 ng/mL (0.0-2.4); Troponin I <0.012 ng/mL (0.000-0.034)
[2017-09-05] MEDS ORDERED: NITROGLYCERIN SL TABS 0.4 MG TAB SUBLINGUAL PRN (07:05)
[2017-09-05] MEDS ORDERED: traMADol 50 MG TAB PO STA (07:25)
[2017-09-05 08:37] VITALS: RESP 18
[2017-09-05] MEDS ORDERED: ALBUTEROL NEBULIZED 2.5 MG/3 ML INHALATION PRN (09:25)
[2017-09-05] MEDS ORDERED: ONDANSETRON 4 MG/2 ML VIAL IVP PRN (09:25)
[2017-09-05] MEDS ORDERED: HYDROcodone/APAP 5-325MG 1 EACH TAB PO PRN (09:25)
[2017-09-05] MEDS ORDERED: SODIUM CHLORIDE 0.65% NASAL SPRAY 44 ML BTL NASAL PRN (09:25)
[2017-09-05] MEDS ORDERED: LORazepam 0.5 MG TAB PO PRN (09:25)
[2017-09-05] MEDS ORDERED: metFORMIN 500 MG TAB PO SCH (09:30)
[2017-09-05] MEDS ORDERED: LISINOPRIL 20 MG TAB PO SCH (09:30)
[2017-09-05] MEDS ORDERED: LEVOTHYROXINE 100 MCG TAB PO SCH (09:30)
[2017-09-05] MEDS ORDERED: METOPROLOL TARTRATE 25 MG TAB PO SCH (09:30)
[2017-09-05 10:31] LABS: Creatine Kinase 54 U/L (30-135)
[2017-09-05 10:41] LABS: Creatine Kinase MB 1.4 ng/mL (0.0-2.4); Troponin I <0.012 ng/mL (0.000-0.034)
[2017-09-05 12:11] LABS: Glucose,Whole Blood 163 mg/dL (75-99)
[2017-09-05] MEDS ORDERED: HYDROCHLOROTHIAZIDE 12.5 MG CAP PO SCH (12:45)
--- NOTE | 2017-09-05 12:56 | P.CRDCN ---
History of Present Illness Consult date: 09/05/17 History of present illness: Mrs. Holder is a pleasant 47-year-old female past medical history significant for hypertension, diabetes mellitus, SVT s/p successful ablation with Dr. Zurita, fibromyalgia, dyslipidemia, hypothyroidism, sleep apnea, panic disorder, anxiety and gastroesophageal reflux disease. She denies history of CAD. We have been asked to see her in consultation for complaints of chest pain. She states last night around 0200 in the morning she began feeling a sharp pain in the precordial region that radiated into her left axilla. This was associated with shortness of breath, nausea, light headed sensation and diaphoresis. The pain lasted approximately 2-3 minutes and went away on its own along with all the associated symptoms. She continued to have episodes that were intermittent in nature with no specific aggravating factors. Upon arrival to ED her blood pressure was elevated 199/96 however she states she hadn't taken her BP meds yesterday. She has struggled in the past with uncontrolled blood pressure at times as well. EKG reveals sinus mechanism with PVC's and non-specific changes. Chest xray is negative for an acute cardiopulmonary process. Laboratory data reviewed, react enzymes negative 2, potassium 4.0, magnesium 1.7. Current cardiac medications include Lopressor 25 mg daily and lisinopril 20 mg daily. Most recent stress test performed November 2016 was a dobutamine stress echo was negative for stress-induced ischemia. Most recent echocardiogram performed October 2016 reveals preserved left ventricular systolic function with ejection fraction 55-60%. Review of Systems At the time of my exam: CONSTITUTIONAL: Denies fever. Denies chills. EYES: Denies blurred vision. Denies vision changes. Denies eye pain. EARS, NOSE, MOUTH & THROAT: Denies headache. Denies sore throat. Denies ear pain. CARDIOVASCULAR: Denies chest pain. Denies shortness of breath. Denies orthopnea. Denies PND. Denies palpitations. RESPIRATORY: Denies cough. GASTROINTESTINAL: Denies abdominal pain. Denies diarrhea. Denies constipation. Denies nausea. Denies vomiting. MUSCULOSKELETAL: Denies myalgias. INTEGUMENTARY: Denies pruitis. Denies rash. NEUROLOGIC: Denies numbness. Denies tingling. Denies weakness. PSYCHIATRIC: Denies anxiety. Denies depression. ENDOCRINE: Denies fatigue. Denies weight change. Denies polydipsia. Denies polyurina. GENITOURINARY: Denies burning, hematuria or urgency with micturation. HEMATOLOGIC: Denies history of anemia. Denies bleeding. Past Medical History Past Medical History: Diabetes Mellitus, Fibromyalgia, GERD/Reflux, Hyperlipidemia, Hypertension, Osteoarthritis (OA), Seizure Disorder, Supraventricular Tachycardia (SVT), Thyroid Disorder Additional Past Medical History / Comment(s): Severe allergies, PT STATES IN 1994 PTWAS HAD TOXEMIA WAS GIVEN DEMEROL AND WENT INTO A CARDIAC ARREST (COMA 21 days), was having seizures and had 2ND CARDIAC ARREST 2000 ( COMA 3-5 DAYS), NIDDM type II, SVT, SLEEP APNEA( NO MACHINE), STATES LAST SEIZURE 2 YEARS AGO, arthritis low back and hips, PANCREATITIS, colitis, intermittent vertigo, hypothyroid. History of Any Multi-Drug Resistant Organisms: None Reported Past Surgical History: Cardiac Ablation, Section, Cholecystectomy, Hernia Repair, Tubal Ligation Additional Past Surgical History / Comment(s): Umbilical hernia repair. Past Anesthesia/Blood Transfusion Reactions: Motion Sickness Additional Past Anesthesia/Blood Transfusion Reaction / Comment(s): CLAUSTERPHOBIA, Smoking Status: Former smoker - Past Family History Father Family Medical History: Myocardial Infarction ([place]) Additional Family Medical History / Comment(s): AGE 45 FROM [place] Mother Family Medical History: No Reported History Additional Family Medical History / Comment(s): NORMAL-NO PROBLEMS Medications and Allergies Home Medications Medication Instructions Recorded Confirmed Type metFORMIN HCL [Glucophage] 500 mg PO QAM 09/08/14 09/05/17 History Levothyroxine Sodium [Synthroid] 300 mcg PO QAM 06/27/16 09/05/17 History Sodium Chloride [[place]] 1 spray EA NOSTRIL BID PRN 03/23/17 09/05/17 History LORazepam [Ativan] 0.5 mg PO DAILY PRN 06/27/17 09/05/17 History Lisinopril [Zestril] 20 mg PO DAILY 06/27/17 09/05/17 History Albuterol Inhaler [Ventolin Hfa 1 - 2 puff INHALATION Q4HR PRN #1 07/27/1709/05 Rx Inhaler] inhaler HYDROcodone/APAP 5-325MG [[place] 1 tab PO TID PRN 07/27/17 09/05/17 History 5-325] Metoprolol Tartrate [Lopressor] 25 mg PO DAILY 07/27/17 09/05/17 History Allergies Allergy/AdvReac Type Severity Reaction Status Date / Time codeine Allergy Severe Cardiac Verified 09/05/17 07:27 Arrest meperidine HCl [From Demerol] Allergy Severe Cardiac Verified 09/05/17 07:27 Arrest morphine Allergy Severe Caridac Verified 09/05/17 07:27 Arrest adhesive tape Allergy Rash/Hives Verified 09/05/17 07:27 celery Allergy Oral Verified 09/05/17 07:27 Numbness cinnamon Allergy Anaphylaxis Verified 09/05/17 07:27 diphenhydramine HCl Allergy Anaphylaxis Verified 09/05/17 07:27 [From Benadryl] eucalyptus Allergy Anaphylaxis Verified 09/05/17 07:27 [From [place] Cough Drops] menthol Allergy Anaphylaxis Verified 09/05/17 07:27 [From [place] Cough Drops] naproxen sodium [From Aleve] Allergy Rash/Hives Verified 09/05/17 07:27 nitrofurantoin Allergy Unknown Verified 09/05/17 07:27 macrocrystalline [From Macrodantin] Sulfa (Sulfonamide Allergy Rash/Hives Verified 09/05/17 07:27 Antibiotics) ciprofloxacin [From Cipro] AdvReac Abdominal Verified 09/05/17 07:27 Pain ciprofloxacin HCl AdvReac Abdominal Verified 09/05/17 07:27 [From Cipro] Pain multivitamin Allergy Intermediate Rash/Hives Uncoded 09/05/17 03:56 car exhaust AdvReac Mild Nausea & Uncoded 09/05/17 03:56 Vomiting Physical Exam Vitals: Vital Signs Temp Pulse Pulse Resp BP BP Pulse Ox 09/05/17 11:49 97.9 F 87 18 157/71 96 09/05/17 08:36 97.6 F 86 18 158/80 98 09/05/17 08:06 97.4 F L 85 17 161/74 99 09/05/17 06:29 87 20 142/63 99 09/05/17 05:23 91 20 131/68 99 09/05/17 04:20 18 09/05/17 03:52 97.5 F L 97 18 199/96 100 Intake and Output 09/04/17 09/05/17 09/05/17 22:59 06:59 14:59 Other: Weight 99.79 kg 110.1 kg Blood pressure 157/71 heart rate 87 afebrile maintaining oxygen saturation on room air GENERAL: This is a 47-year-old female in no apparent distress at the time of my examination. Obese. HEENT: Head is atraumatic, normocephalic. Pupils are equal, round. Sclerae anicteric. Conjunctivae are clear. Mucous membranes of the mouth are moist. Neck is supple. There is no jugular venous distention. No carotid bruit is heard. LUNGS: Clear to auscultation no wheezes, rales or rhonchi. No chest wall tenderness is noted on palpation or with deep breathing. HEART: Regular rate and rhythm without murmurs, rubs or gallops. S1 and S2 heard. ABDOMEN: Soft, nontender. Bowel sounds are heard. No organomegaly noted. EXTREMITIES: No evidence of peripheral edema and no calf tenderness noted. VASCULAR: Radial and dorsalis pedis pulses palpated, no evidence of clubbing. NEUROLOGIC: Patient is awake, alert and oriented x3. Results 09/05/17 04:11 09/05/17 04:11 Cardiac Enzymes 09/05/17 09/05/17 09/05/17 Range/Units 04:11 04:11 09:22 AST 21 (14-36) U/L CK-MB (CK-2) 1.8 1.4 (0.0-2.4) ng/mL Troponin I <0.012 <0.012 (0.000-0.034) ng/mL Coagulation 09/05/17 Range/Units 04:11 PT 9.3 (9.0-12.0) sec APTT 22.1 (22.0-30.0) sec CBC 09/05/17 Range/Units 04:11 WBC 7.2 (3.8-10.6) k/uL RBC 4.50 (3.80-5.40) m/uL Hgb 12.6 (11.4-16.0) gm/dL Hct 39.0 (34.0-46.0) % Plt Count 224 (150-450) k/uL Comprehensive Metabolic Panel 09/05/17 Range/Units 04:11 Sodium 137 (137-145) mmol/L Potassium 4.0 (3.5-5.1) mmol/L Chloride 99 (98-107) mmol/L Carbon Dioxide 26 (22-30) mmol/L BUN 19 H (7-17) mg/dL Creatinine 0.80 (0.52-1.04) mg/dL Glucose 175 H (74-99) mg/dL Calcium 9.4 (8.4-10.2) mg/dL AST 21 (14-36) U/L ALT 26 (9-52) U/L Alkaline Phosphatase 118 (38-126) U/L Total Protein 6.8 (6.3-8.2) g/dL Albumin 4.0 (3.5-5.0) g/dL Current Medications Generic Name Dose Route Start Last Admin Trade Name Freq PRN Reason Stop Dose Admin Hydrocodone Bitart/Acetaminophen 1 each 09/05/17 09:25 09/05/17 11:38 [place] 5-325 PO 1 each TID PRN Administration Pain Albuterol Sulfate 2.5 mg 09/05/17 09:25 Ventolin Nebulized INHALATION RT-Q4H PRN Shortness Of Breath Hydrochlorothiazide 12.5 mg 09/05/17 12:45 Hydrodiuril PO DAILY SABINE Levothyroxine Sodium 300 mcg 09/05/17 09:30 09/05/17 11:38 Synthroid PO 300 mcg QAM@0630 SABINE Administration Lisinopril 20 mg 09/05/17 09:30 09/05/17 11:38 Zestril PO 20 mg DAILY SABINE Administration Lorazepam 0.5 mg 09/05/17 09:25 Ativan PO DAILY PRN ANXIETY Metformin HCl 500 mg 09/05/17 09:30 09/05/17 11:39 Glucophage PO 500 mg W/BRKFST SABINE Administration Metoprolol Tartrate 25 mg 09/05/17 09:30 09/05/17 11:38 Lopressor PO 25 mg DAILY SABINE Administration Nitroglycerin 0.4 mg 09/05/17 07:05 Nitrostat SUBLINGUAL Q5M PRN Chest Pain Ondansetron HCl 4 mg 09/05/17 09:25 Zofran IVP Q6HR PRN Nausea And Vomiting Sodium Chloride 1 spray 09/05/17 09:25 [place] NASAL BID PRN Congestion Intake and Output 09/04/17 09/05/17 09/05/17 22:59 06:59 14:59 Other: Weight 99.79 kg 110.1 kg Patient Weight 09/06/17 06:59 Weight 110.1 kg 09/05/17 04:11 09/05/17 04:11 Assessment and Plan Assessment: ASSESSMENT 1. Chest pain, atypical. No EKG evidence of acute ischemia, cardiac enzymes negative x2 and recent normal stress test. 2. Hypertension, uncontrolled 3. History of SVT with successful ablation 4. History of anxiety and panic disorder 5. Obesity, BMI 43.0 PLAN Continue to obtain serial cardiac enzymes for a total of 3 to rule out an acute coronary event. Add hydrochlorothiazide to her daily regimen as well as norvasc 5 mg at bedtime for optimal blood pressure control. Continue to monitor her blood pressure for the next few hours and if third cardiac enzyme is negative she should be able to go home tonight. Follow up with Dr. Zurita in 3-4 weeks. Lifestyle modifications discussed as well as strict medication compliance. Thank you kindly for this consultation. Nurse Practitioner note has been reviewed, I agree with a documented findings and plan of care. Patient was seen and examined.
[2017-09-05 16:05] VITALS: BP 123/71; PULSE 78; TEMP 97.8
[2017-09-05 16:31] LABS: Creatine Kinase 49 U/L (30-135)
[2017-09-05 16:44] LABS: Creatine Kinase MB 1.4 ng/mL (0.0-2.4); Troponin I <0.012 ng/mL (0.000-0.034)
[2017-09-05 17:54] LABS: Glucose,Whole Blood 171 mg/dL (75-99)
[2017-09-05] MEDS ORDERED: amLODIPine 5 MG TAB PO SCH (21:00)
[2017-09-06] MEDS ORDERED: ASPIRIN 325 MG TAB PO SCH (09:00)
[2017-09-06] MEDS ORDERED: LISINOPRIL-HCTZ 20-12.5 MG 1 EACH TAB PO SCH (09:00)
--- NOTE | 2017-10-15 18:13 | HP ---
HISTORY AND PHYSICAL CHIEF COMPLAINT: 47-year-old white female, aching in the left axilla, sharp, constant pain, moderately severe, traveling down. She wanted the pain evaluated by senior linux engineer to rule out myocardial infarction at which time she was admitted. Moderate severity quality, aching, constant, relieved by nothing. MEDICATIONS: Home medications: 1. Metformin. 2. Synthroid. 3. Ativan. 4. [place]. 5. Lopressor. ALLERGIES: CODEINE, MEPERIDINE, MORPHINE. PAST MEDICAL HISTORY: Seizures, sleep apnea, history of cardiac ablation, , cholecystectomy and hernia repair. FAMILY HISTORY: Father with cancer, myocardial infarction. Mother no problems. PHYSICAL EXAM: Temperature 97.5, respiratory rate 18 to 20, blood pressure 130s to 190s over 60s to 70s. Blood pressure is 160s to 140s over 60s 70s. LUNGS: Clear. Gastroenterology: Soft. Hematology: Negative Homans. Psych: Fair mood and effect. ASSESSMENT: 1. Atypical chest pain, rule out myocardial infarction. 2. Multiple medical problems include multiple sclerosis, gastroparesis, chronic pain syndrome, fibromyalgia, hypothyroidism. Please see further orders. Rule out myocardial infarction. Cardiology is consulted. MMODL / IJN: [id number] /
--- NOTE | 2017-10-15 19:07 | DS ---
DISCHARGE SUMMARY SUBJECTIVE: 47-year-old white female admitted with atypical chest pain. She was ruled out for myocardial infarction, sent home in stable condition to follow up as an outpatient. Cleared by Cardiology. DISCHARGE DIAGNOSIS: 1. Atypical chest pain. 2. Hypertension, needs to be controlled. 3. Supraventricular tachycardia, successful ablation. 4. Anxiety. 5. Obesity. MEDICATIONS: Please see list. Norvasc 5 mg at nighttime will be added to the regimen. Follow up as outpatient in 3-[address] Oliva. MMSHASTAL / DAVIDN: [id number] /
== END 2017-09-05 18:33 | disposition home or self-care (01) ==
LOC: EC 03:50 → 3OBS 07:07
PROVIDERS: ADMIT Family Medicine; ATTEND Family Medicine
DX: R07.89 Other chest pain (principal); I10 Essential (primary) hypertension; I47.1 Supraventricular tachycardia; G35 Multiple sclerosis; E11.43 Type 2 diabetes mellitus with diabetic autonomic (poly)neuropathy; K31.84 Gastroparesis; G89.4 Chronic pain syndrome; M79.7 Fibromyalgia; K21.9 Gastro-esophageal reflux disease without esophagitis; G40.909 Epilepsy, unspecified, not intractable, without status epilepticus; E78.5 Hyperlipidemia, unspecified; M19.90 Unspecified osteoarthritis, unspecified site; G47.30 Sleep apnea, unspecified; M16.0 Bilateral primary osteoarthritis of hip; M47.9 Spondylosis, unspecified; F41.0 Panic disorder [episodic paroxysmal anxiety]; E03.9 Hypothyroidism, unspecified; Z68.41 Body mass index [BMI] 40.0-44.9, adult; E66.9 Obesity, unspecified; Z79.899 Other long term (current) drug therapy; Z79.84 Long term (current) use of oral hypoglycemic drugs; Z79.890 Hormone replacement therapy; Z88.6 Allergy status to analgesic agent; Z88.1 Allergy status to other antibiotic agents; Z88.2 Allergy status to sulfonamides; Z88.8 Allergy status to other drugs, medicaments and biological substances; Z91.018 Allergy to other foods; Z91.048 Other nonmedicinal substance allergy status; Z87.891 Personal history of nicotine dependence; Z86.74 Personal history of sudden cardiac arrest; Z86.79 Personal history of other diseases of the circulatory system; Z87.19 Personal history of other diseases of the digestive system; Z88.5 Allergy status to narcotic agent; Z90.49 Acquired absence of other specified parts of digestive tract; Z82.49 Family history of ischemic heart disease and other diseases of the circulatory system; Z80.9 Family history of malignant neoplasm, unspecified
CPT/HCPCS: 99285 ×2; 36415; 93005; 85379; 80053; 82550; 82553; 83735; 84484; 85025; 85610; 85730; 71046; G0378

== ENCOUNTER 2018-01-10 01:37 | Observation (INO) | payer OTHER ==
[2018-01-10] MEDS ORDERED: NITROGLYCERIN SL TABS 0.4 MG TAB SUBLINGUAL STA ×3 (02:18)
[2018-01-10] MEDS ORDERED: ASPIRIN 81 MG PO STA (02:18)
--- NOTE | 2018-01-10 02:21 | ED ---
General Adult HPI - General Chief complaint: Chest Pain Stated complaint: CHEST PAIN Time Seen by Provider: 01/10/18 02:05 Source: patient, RN notes reviewed Mode of arrival: wheelchair Limitations: no limitations - History of Present Illness Initial comments: Patient is a pleasant 47-year-old female presenting to the emergency department chest discomfort. Onset of symptoms was an hour or 2 ago. Discomfort was more severe however is only moderate at this point. Discomfort feels like tightness. Discomfort does radiate somewhat towards the left shoulder. Patient has some mild associated dyspnea and lightheadedness. No nausea. No diaphoresis. Patient did have similar symptoms several years ago associated with hypertension. No leg pain or leg swelling. The - Related Data Home Medications Medication Instructions Recorded Confirmed metFORMIN HCL [Glucophage] 500 mg PO QAM 09/08/14 01/10/18 Levothyroxine Sodium [Synthroid] 300 mcg PO QAM 06/27/16 01/10/18 Sodium Chloride [[place]] 1 spray EA NOSTRIL BID PRN 03/23/17 01/10/18 LORazepam [Ativan] 0.5 mg PO DAILY PRN 06/27/17 01/10/18 HYDROcodone/APAP 5-325MG [[place] 1 tab PO TID PRN 07/27/17 01/10/18 5-325] Metoprolol Tartrate [Lopressor] 25 mg PO DAILY 07/27/17 01/10/18 Previous Rx's Medication Instructions Recorded Albuterol Inhaler [Ventolin Hfa 1 - 2 puff INHALATION Q4HR PRN #1 07/27/17 Inhaler] inhaler Lisinopril-Hctz 20-12.5 mg 1 each PO DAILY #30 tab 09/05/17 [Zestoretic 20-12.5] amLODIPine [Norvasc] 5 mg PO HS #30 tab 09/05/17 Allergies Allergy/AdvReac Type Severity Reaction Status Date / Time codeine Allergy Severe Cardiac Verified 01/10/18 01:42 Arrest meperidine HCl [From Demerol] Allergy Severe Cardiac Verified 01/10/18 01:42 Arrest morphine Allergy Severe Caridac Verified 01/10/18 01:42 Arrest adhesive tape Allergy Rash/Hives Verified 01/10/18 01:42 celery Allergy Oral Verified 01/10/18 01:42 Numbness cinnamon Allergy Anaphylaxis Verified 01/10/18 01:42 diphenhydramine HCl Allergy Anaphylaxis Verified 01/10/18 01:42 [From Benadryl] eucalyptus Allergy Anaphylaxis Verified 01/10/18 01:42 [From [place] Cough Drops] menthol Allergy Anaphylaxis Verified 01/10/18 01:42 [From [place] Cough Drops] naproxen sodium [From Aleve] Allergy Rash/Hives Verified 01/10/18 01:42 nitrofurantoin Allergy Unknown Verified 01/10/18 01:42 macrocrystalline [From Macrodantin] Sulfa (Sulfonamide Allergy Rash/Hives Verified 01/10/18 01:42 Antibiotics) ciprofloxacin [From Cipro] AdvReac Abdominal Verified 01/10/18 01:42 Pain ciprofloxacin HCl AdvReac Abdominal Verified 01/10/18 01:42 [From Cipro] Pain multivitamin Allergy Intermediate Rash/Hives Uncoded 01/10/18 01:42 car exhaust AdvReac Mild Nausea & Uncoded 01/10/18 01:42 Vomiting Review of Systems ROS Statement: Those systems with pertinent positive or pertinent negative responses have been documented in the HPI. ROS Other: All systems not noted in ROS Statement are negative. Constitutional: Denies: fever Eyes: Denies: eye pain ENT: Denies: ear pain Respiratory: Denies: cough Cardiovascular: Reports: chest pain Endocrine: Denies: fatigue Gastrointestinal: Denies: vomiting Genitourinary: Denies: dysuria Musculoskeletal: Denies: back pain Skin: Denies: rash Neurological: Denies: weakness Past Medical History Past Medical History: Diabetes Mellitus, Fibromyalgia, GERD/Reflux, Hyperlipidemia, Hypertension, Osteoarthritis (OA), Seizure Disorder, Supraventricular Tachycardia (SVT), Thyroid Disorder Additional Past Medical History / Comment(s): Severe allergies, PT STATES IN 1994 PTWAS HAD TOXEMIA WAS GIVEN DEMEROL AND WENT INTO A CARDIAC ARREST (COMA 21 days), was having seizures and had 2ND CARDIAC ARREST 2000 ( COMA 3-5 DAYS), SVT, SLEEP APNEA( NO MACHINE), STATES LAST SEIZURE 1 YEAR AGO, arthritis low back and hips, PANCREATITIS, colitis. History of Any Multi-Drug Resistant Organisms: None Reported Past Surgical History: Cardiac Ablation, Section, Cholecystectomy, Hernia Repair, Tubal Ligation Additional Past Surgical History / Comment(s): Umbilical hernia repair. Past Anesthesia/Blood Transfusion Reactions: Motion Sickness Additional Past Anesthesia/Blood Transfusion Reaction / Comment(s): CLAUSTERPHOBIA, Past Psychological History: Anxiety, Panic Disorder Smoking Status: Former smoker Past Alcohol Use History: Rare Past Drug Use History: None Reported - Past Family History Father Family Medical History: Cancer, Myocardial Infarction ([place]) Additional Family Medical History / Comment(s): AGE 45 FROM [place] Mother Family Medical History: No Reported History Additional Family Medical History / Comment(s): NORMAL-NO PROBLEMS General Exam Limitations: no limitations General appearance: alert, in no apparent distress Head exam: Present: atraumatic Eye exam: Present: normal appearance, PERRL ENT exam: Present: normal oropharynx Neck exam: Present: normal inspection Respiratory exam: Present: normal lung sounds bilaterally. Absent: chest wall tenderness Cardiovascular Exam: Present: regular rate, normal rhythm Expanded Peripheral pulses: 2+: Radial (R), Radial (L), Dorsalis Pedis (R), Dorsalis Pedis (L) GI/Abdominal exam: Present: soft. Absent: distended, tenderness, guarding, rebound, rigid Extremities exam: Present: normal inspection. Absent: pedal edema, calf tenderness Neurological exam: Present: alert Psychiatric exam: Present: normal affect, normal mood Skin exam: Present: normal color Course Vital Signs 01/10/18 01/10/18 01/10/18 01:39 02:27 02:52 Temperature 98.5 F Pulse Rate 88 89 Respiratory 20 18 16 Rate Blood Pressure 175/76 162/74 O2 Sat by Pulse 98 98 Oximetry 01/10/18 01/10/18 02:59 03:02 Temperature Pulse Rate 90 92 Respiratory 16 16 Rate Blood Pressure 148/66 146/67 O2 Sat by Pulse 96 97 Oximetry EKG Findings - EKG Comments: EKG Findings:: Normal sinus rhythm 85. W[place] 148. QRS 76. QT 372. QTC 442. Normal axis. Normal QRS. No acute ST change. Medical Decision Making - Medical Decision Making Patient reexamined and somewhat further improved. Discomfort is mild at this time. Patient updated on results and plan. Case was discussed in detail with Dr. Oliva, who will admit his patient. - Lab Data Result diagrams: 01/10/18 02:20 01/10/18 02:20 Lab Results 01/10/18 01/10/1818 Range/Units 02:20 02:20 02:20 WBC 5.7 (3.8-10.6) k/uL RBC 4.17 (3.80-5.40) m/uL Hgb 12.4 (11.4-16.0) gm/dL Hct 36.6 (34.0-46.0) % MCV 87.7 (80.0-100.0) fL MCH 29.7 (25.0-35.0) pg MCHC 33.8 (31.0-37.0) g/dL RDW 13.7 (11.5-15.5) % Plt Count 219 (150-450) k/uL Neutrophils % 67 % Lymphocytes % 25 % Monocytes % 3 % Eosinophils % 2 % Basophils % 1 % Neutrophils # 3.8 (1.3-7.7) k/uL Lymphocytes # 1.5 (1.0-4.8) k/uL Monocytes # 0.2 (0-1.0) k/uL Eosinophils # 0.1 (0-0.7) k/uL Basophils # 0.0 (0-0.2) k/uL PT (9.0-12.0) sec INR (<1.2) APTT (22.0-30.0) sec Sodium 139 (137-145) mmol/L Potassium 4.0 (3.5-5.1) mmol/L Chloride 103 (98-107) mmol/L Carbon Dioxide 25 (22-30) mmol/L Anion Gap 11 mmol/L BUN 18 H (7-17) mg/dL Creatinine 0.90 (0.52-1.04) mg/dL Est GFR (CKD-EPI)AfAm 88 (>60 ml/min/1.73 sqM) Est GFR (CKD-EPI)NonAf 76 (>60 ml/min/1.73 sqM) Glucose 158 H (74-99) mg/dL Calcium 9.3 (8.4-10.2) mg/dL Magnesium 1.4 L (1.6-2.3) mg/dL Total Bilirubin 0.3 (0.2-1.3) mg/dL AST 18 (14-36) U/L ALT 31 (9-52) U/L Alkaline Phosphatase 109 (38-126) U/L Total Creatine Kinase 61 (30-135) U/L CK-MB (CK-2) 2.2 (0.0-2.4) ng/mL CK-MB (CK-2) Rel Index 3.6 Troponin I <0.012 (0.000-0.034) ng/mL Total Protein 6.4 (6.3-8.2) g/dL Albumin 3.8 (3.5-5.0) g/dL Urine Color Urine Appearance (Clear) Urine pH (5.0-8.0) Ur Specific [place] (1.001-1.035) Urine Protein (Negative) Urine Glucose (UA) (Negative) Urine Ketones (Negative) Urine Blood (Negative) Urine Nitrite (Negative) Urine Bilirubin (Negative) Urine Urobilinogen (<2.0) mg/dL Ur Leukocyte Esterase (Negative) Urine RBC (0-5) /hpf Urine WBC (0-5) /hpf Urine WBC Clumps (None) /hpf Ur Squamous Epith Cells (0-4) /hpf Urine Bacteria (None) /hpf Hyaline Casts (0-2) /lpf Urine Mucus (None) /hpf 01/10/18 01/10/18 Range/Units 02:20 02:55 WBC (3.8-10.6) k/uL RBC (3.80-5.40) m/uL Hgb (11.4-16.0) gm/dL Hct (34.0-46.0) % MCV (80.0-100.0) fL MCH (25.0-35.0) pg MCHC (31.0-37.0) g/dL RDW (11.5-15.5) % Plt Count (150-450) k/uL Neutrophils % % Lymphocytes % % Monocytes % % Eosinophils % % Basophils % % Neutrophils # (1.3-7.7) k/uL Lymphocytes # (1.0-4.8) k/uL Monocytes # (0-1.0) k/uL Eosinophils # (0-0.7) k/uL Basophils # (0-0.2) k/uL PT 9.4 (9.0-12.0) sec INR 0.9 (<1.2) APTT 22.1 (22.0-30.0) sec Sodium (137-145) mmol/L Potassium (3.5-5.1) mmol/L Chloride (98-107) mmol/L Carbon Dioxide (22-30) mmol/L Anion Gap mmol/L BUN (7-17) mg/dL Creatinine (0.52-1.04) mg/dL Est GFR (CKD-EPI)AfAm (>60 ml/min/1.73 sqM) Est GFR (CKD-EPI)NonAf (>60 ml/min/1.73 sqM) Glucose (74-99) mg/dL Calcium (8.4-10.2) mg/dL Magnesium (1.6-2.3) mg/dL Total Bilirubin (0.2-1.3) mg/dL AST (14-36) U/L ALT (9-52) U/L Alkaline Phosphatase (38-126) U/L Total Creatine Kinase (30-135) U/L CK-MB (CK-2) (0.0-2.4) ng/mL CK-MB (CK-2) Rel Index Troponin I (0.000-0.034) ng/mL Total Protein (6.3-8.2) g/dL Albumin (3.5-5.0) g/dL Urine Color Yellow Urine Appearance Cloudy H (Clear) Urine pH 5.5 (5.0-8.0) Ur Specific [place] 1.021 (1.001-1.035) Urine Protein 1+ H (Negative) Urine Glucose (UA) Negative (Negative) Urine Ketones Negative (Negative) Urine Blood Moderate H (Negative) Urine Nitrite Positive H (Negative) Urine Bilirubin Negative (Negative) Urine Urobilinogen <2.0 (<2.0) mg/dL Ur Leukocyte Esterase Large H (Negative) Urine RBC 38 H (0-5) /hpf Urine WBC 108 H (0-5) /hpf Urine WBC Clumps Few H (None) /hpf Ur Squamous Epith Cells 6 H (0-4) /hpf Urine Bacteria Few H (None) /hpf Hyaline Casts 7 H (0-2) /lpf Urine Mucus Rare H (None) /hpf - Radiology Data Radiology results: image reviewed (Chest x-ray shows no acute process) Disposition Clinical Impression: Chest pain Disposition: ADMITTED IP TO THIS HOSP Is patient prescribed a controlled substance at d/c from ED?: No Referrals: Og Oliva MD [Primary Care Provider] - 1-2 days Decision Time: 03:27
[2018-01-10 02:42] LABS: Basophils % (A) 1 %; Eosinophils # (A) 0.1 k/uL (0-0.7); Eosinophils % (A) 2 %; HCT 36.6 % (34.0-46.0); HGB 12.4 gm/dL (11.4-16.0); Lymphocytes # (A) 1.5 k/uL (1.0-4.8); Lymphocytes % (A) 25 %; MCH 29.7 pg (25.0-35.0); MCHC 33.8 g/dL (31.0-37.0); MCV 87.7 fL (80.0-100.0); Mean Platelet Volume 6.6; Monocytes # (A) 0.2 k/uL (0-1.0); Monocytes % (A) 3 %; Neutrophils # (A) 3.8 k/uL (1.3-7.7); Neutrophils % (A) 67 %; Platelet Count 219 k/uL (150-450); RBC 4.17 m/uL (3.80-5.40); RDW 13.7 % (11.5-15.5); WBC 5.7 k/uL (3.8-10.6)
--- NOTE | 2018-01-10 02:42 | XR ---
EXAMINATION TYPE: XR chest 2V DATE OF EXAM: 01/10/2018 COMPARISON: 09/05/2017 HISTORY: Chest pain TECHNIQUE: Frontal and lateral views of the chest are obtained. FINDINGS: Heart and mediastinum are normal. Lungs are clear. Diaphragm is normal. Bony thorax appear s normal. IMPRESSION: Normal chest
[2018-01-10 02:46] LABS: Albumin 3.8 g/dL (3.5-5.0); Calcium 9.3 mg/dL (8.4-10.2); Magnesium 1.4 mg/dL (1.6-2.3); Total Bilirubin 0.3 mg/dL (0.2-1.3); Total Protein 6.4 g/dL (6.3-8.2)
[2018-01-10] MEDS ORDERED: MAGNESIUM OXIDE 400 MG TAB PO STA (02:54)
[2018-01-10 02:57] LABS: Creatine Kinase 61 U/L (30-135)
[2018-01-10 02:59] LABS: INR 0.9 (<1.2); Partial Thromboplastin Time 22.1 sec (22.0-30.0); Prothrombin Time 9.4 sec (9.0-12.0)
[2018-01-10 03:07] LABS: Appearance,Urine Cloudy (Clear); Bacteria,Urine Few /hpf; Bilirubin,Urine Negative (Negative); Blood,Urine Moderate (Negative); Color,Urine Yellow; Glucose,Urine (UA) Negative (Negative); Hyaline Casts,Urine 7 /lpf (0-2); Ketones,Urine Negative (Negative); Leukocyte Esterase,Urine Large (Negative); Mucus,Urine Rare /hpf; Nitrite,Urine Positive (Negative); PH, Urine 5.5 (5.0-8.0); Protein,Urine 1+ (Negative); RBC,Urine 38 /hpf (0-5); Specific Gravity,Urine 1.021 (1.001-1.035); Squamous Epithelial Cell,Urine 6 /hpf (0-4); Urobilinogen,Urine <2.0 mg/dL (<2.0); WBC,Urine 108 /hpf (0-5)
[2018-01-10 03:08] LABS: Creatine Kinase MB 2.2 ng/mL (0.0-2.4); Troponin I <0.012 ng/mL (0.000-0.034)
[2018-01-10] MEDS ORDERED: NITROGLYCERIN SL TABS 0.4 MG TAB SUBLINGUAL PRN (03:29)
[2018-01-10] MEDS ORDERED: CEPHALEXIN 500 MG CAP PO SCH (05:00)
[2018-01-10] MEDS ORDERED: NITROGLYCERIN OINT 1 INCH/GM PACKET TOPICAL SCH (06:00)
[2018-01-10] MEDS ORDERED: ACETAMINOPHEN TAB 325 MG TAB PO STA (06:07)
[2018-01-10] MEDS ORDERED: ALBUTEROL NEBULIZED 2.5 MG/3 ML INHALATION PRN (06:43)
[2018-01-10] MEDS ORDERED: HYDROcodone/APAP 5-325MG 1 EACH TAB PO PRN (06:44)
[2018-01-10] MEDS ORDERED: LORazepam 0.5 MG TAB PO PRN (06:44)
--- NOTE | 2018-01-10 07:33 | HP ---
HISTORY AND PHYSICAL CHIEF COMPLAINT: A 47-year-old white female with chest pain. HISTORY OF PRESENT ILLNESS: This 47-year-old white female presents to the emergency room with chest discomfort, severe to moderate pain, feels like tightness radiates towards the left shoulder. Mild dyspnea and lightheadedness. No nausea. She had similar symptoms before, similar with elevated hypertension. No leg pain or leg swelling. No tachypnea, tachycardia or . MEDICATIONS: 1. Metformin 500 daily. 2. Synthroid 300 mcg daily. 3. [place] nasal spray daily. 4. Ativan 0.5 mg daily. 5. [place] 05/325 t.i.d. 6. Lopressor 25 daily. 7. Albuterol inhaler 2 puffs q.4 hours p.r.n. 8. Lisinopril hydrochlorothiazide 20/12.5 one daily. 9. Norvasc 5 mg at bedtime. ALLERGIES: Allergies are to CODEINE, DEMEROL, MORPHINE, ADHESIVE TAPE, CELERY, CINNAMON, BENADRYL, EUCALYPTUS, MENTHOL, ALEVE, SULFA, CIPRO, MULTIVITAMIN, CAR EXHAUST. REVIEW OF SYSTEMS: Fourteen point review of systems negative except for mentioned in HPI. PAST MEDICAL HISTORY: Diabetes mellitus, fibromyalgia, GERD, dyslipidemia, hypertension, osteoarthritis, seizure disorder, SVT, hypothyroidism, history of seizures, cardiac arrest secondary to possible seizures, sleep apnea, pancreatitis, colitis, arthritis in low back and hips, cardiac ablation, , cholecystectomy, hernia repair, tubal ligation, umbilical hernia repair. Anxiety, panic disorder. Former smoker. Rare alcohol. No illicit drugs. FAMILY HISTORY: Father cancer, myocardial infarction. Mother . PHYSICAL EXAM: Vital signs stable. Afebrile. GENERAL: Alert and oriented x3. HEENT: Normocephalic, atraumatic. OPHTHALMOLOGIC: Pupils equal, round, reactive to light and accommodation. ENT: External ear canals within normal limits. NECK: Supple. No mass. RESPIRATORY: Normal lung sounds. No chest wall tenderness. CARDIOVASCULAR: Regular rate and rhythm. No murmurs, rubs or gallops. PERIPHERAL PULSES: 2+ dorsalis pedis and posterior tibial, radial. GI: Soft, nontender. EXTREMITIES: Normal to inspection. NEUROLOGIC: Alert and orient x3. PSYCH: Fair mood and affect. Temp 98.5, pulse rate 88 to 89, respiratory rate 16 to 20, blood pressure is 160s to 170s over 74 to 76. EKG shows sinus rhythm. White count 5.7, hemoglobin 12.4. BUN 18, creatinine 0.9. ASSESSMENT: 1. Atypical chest pain, rule out myocardial infarction. Cardiology is consulted. 2. Apparently she has a large urinary tract infection. She will be placed on IV antibiotics. 3. Diabetes mellitus. 4. Hypothyroidism. 5. Obesity. 6. Hypertension. Current treatments, home medicine will be given. MMODL / IJN: [id number] /
[2018-01-10] MEDS ORDERED: LEVOTHYROXINE 100 MCG TAB PO SCH (08:00)
[2018-01-10] MEDS ORDERED: DOBUTamine DRIP for NUC MED 500 MG in DEXTROSE/WATER 1 250ML.BAG IV ONE (08:55)
[2018-01-10] MEDS ORDERED: metFORMIN 500 MG TAB PO SCH (09:00)
[2018-01-10] MEDS ORDERED: cefTRIAXone IN SWFI 1,000 MG/10 ML SYRINGE IVP SCH (09:00)
[2018-01-10] MEDS ORDERED: METOPROLOL TARTRATE 25 MG TAB PO SCH (09:00)
[2018-01-10 09:17] LABS: Creatine Kinase 51 U/L (30-135)
--- NOTE | 2018-01-10 09:24 | CONS ---
CONSULTATION CHIEF COMPLAINT: Chest pain. Nora is a 47-year-old lady with history of hypertension, mtn-ezvnbvo-vzmshocyr diabetes and COPD who presented to hospital complaining of chest discomfort. She describes it as a sharp precordial pain mild intensity that she describes as a tightness that radiated to her shoulder. There was mild dyspnea associated with this. She has gradually become chest pain free and at the time of my evaluation, she is free of chest pain. EKG does not reveal ischemic changes. She has had 1 set of troponin that is negative. The patient was in the hospital a few months ago and apparently had chest pain at that time and was evaluated by my associate, Dr. August Diaz. Her symptomatology is very similar. The patient usually gets chest discomfort when her blood pressures are poorly controlled. The patient has known SVT and has had ablation in the past and sees Dr. Zurita. She also has fibromyalgia. The patient had a dobutamine stress echo in November of 2016 that was negative for ischemia. I will obtain another set of troponin and unless there is another more recent stress test that the patient describes she did about 4 months ago I am going to repeat a stress test on her and if that is negative discharge her home. PAST MEDICAL HISTORY: Significant for paroxysmal SVT, status post ablation, hypothyroidism, COPD, hypertension, ddl-[id number] diabetes. MEDICATIONS: Medications at home included Norvasc 5 q. daily, Lopressor 25 mg daily, Antivert, lisinopril 20 q. daily, Ativan, Synthroid, [place], albuterol. ALLERGIES: The patient has multiple drug allergies including CODEINE, DEMEROL, MORPHINE, BENADRYL, ALEVE, CIPRO. FAMILY HISTORY: Significant for coronary artery disease in her father who was both a smoker and an alcoholic. REVIEW OF SYSTEMS: HEENT is unremarkable. CARDIAC: As described above. RESPIRATORY: Negative. GI: Negative. GENITOURINARY: Negative. ALLERGY/IMMUNOLOGICAL: Negative. SKIN: Negative. MUSCULOSKELETAL: Negative. ENDOCRINE: Negative. HEMATOLOGICAL: Negative. CONSTITUTIONAL: Negative. ONCOLOGICAL: Negative. CONSTITUTIONAL: Negative. Rest of the system review is not relevant. PHYSICAL EXAMINATION: Comfortable at rest. Vital signs are stable. There is no jugular venous distention. Carotid upstroke is normal. There is no bruit. Chest exam reveals good air entry bilaterally. Heart exam reveals first and second heart sounds. No gallop. No murmur. No rub. Abdomen is soft, nontender. Examination of extremities did not reveal edema. Peripheral pulses are felt. ASSESSMENT: 1. Nonspecific chest pain. 2. Hypertension. 3. Paroxysmal supraventricular tachycardia, status post ablation. PLAN: I am going to obtain another set of troponin. If that is negative, patient will undergo a dobutamine echo tomorrow morning. She will also have an echocardiogram. If these look good she will be discharged home. If there is a problem, we can consider cardiac catheterization on her. I talked to her about risk factor modification. MMODL / IJN: [id number] /
[2018-01-10 09:30] LABS: Creatine Kinase MB 2.2 ng/mL (0.0-2.4); Troponin I <0.012 ng/mL (0.000-0.034)
[2018-01-10] MEDS: LISINOPRIL-HCTZ 20-12.5 MG 1 EACH TAB PO SCH (10:01)
[2018-01-10] MEDS ORDERED: ONDANSETRON 4 MG/2 ML VIAL IVP PRN (10:24)
[2018-01-10 10:55] LABS: Cholesterol 199 mg/dL (<200); HDL Cholesterol 31 mg/dL (40-60)
[2018-01-10 11:07] LABS: Triglycerides 992 mg/dL (<150)
[2018-01-10] MEDS ORDERED: ATROPINE SULFATE 0.1 MG/ML 10ML SYRINGE ONE (11:07)
--- NOTE | 2018-01-10 11:08 | ECHOF ---
Referral Reason:cp MEASUREMENTS -------- HEIGHT: 162.6 cm WEIGHT: 108.9 kg BP: RVIDd: 2.8 cm (< 3.3) IVSd: 1.1 cm (0.6 - 1.1) LVIDd: 4.5 cm (3.9 - 5.3) LVPWd: 1.3 cm (0.6 - 1.1) IVSs: 1.4 cm LVIDs: 3.2 cm LVPWs: 1.5 cm LA Diam: 3.3 cm (2.7 - 3.8) Ao Diam: 2.8 cm (2.0 - 3.7) AV Cusp: 2.0 cm (1.5 - 2.6) LA Diam: 3.7 cm (2.7 - 3.8) MV EXCURSION: 13.189 mm (> 18.000) MV EF SLOPE: 80 mm/s (70 - 150) EPSS: 0.6 cm MV E Jase: 0.60 m/s MV DecT: 312 ms MV A Jase: 0.93 m/s MV E/A Ratio: 0.65 FINDINGS -------- Sinus rhythm. This was a technically good study. LV size, wall thickness and systolic function are normal, with an EF greater than 55%. The left nita tricular size is normal. The right ventricle is normal in size. The left atrial size is normal. The right atrial size is normal. The aortic valve is trileaflet, and appears structurally normal. No aortic stenosis or regurgitation. Mild mitral annular calcification present. Mild mitral regurgitation is present. Mild tricuspid regurgitation present. There is no evidence of pulmonary hypertension. The right v entricular systolic pressure, as measured by Doppler, is {RVSP}. There is no pulmonic regurgitation present. The aortic root size is normal. Echo free space represents a pericardial fat pad. CONCLUSIONS -------- 1. LV size, wall thickness and systolic function are normal, with an EF greater than 55%. 2. The left ventricular size is normal. 3. The right ventricle is normal in size. 4. The left atrial size is normal. 5. The right atrial size is normal. 6. The aortic valve is trileaflet, and appears structurally normal. No aortic stenosis or regurgitati on. 7. Mild mitral annular calcification present. 8. Mild mitral regurgitation is present. 9. Mild tricuspid regurgitation present. 10. There is no evidence of pulmonary hypertension. 11. The right ventricular systolic pressure, as measured by Doppler, is {RVSP}. 12. There is no pulmonic regurgitation present. 13. The aortic root size is normal. 14. Echo free space represents a pericardial fat pad. MERCHANDISE MANAGER: Flora Alvarado RDCS
--- NOTE | 2018-01-10 11:48 | ECHOS ---
STRESS ECHOCARDIOGRAM DOBUTAMINE STRESS ECHO DATE OF SERVICE: 01/10/2018. INDICATIONS: Chest pain. MEDICATIONS: BASELINE HEART RATE: 91. BASELINE BLOOD PRESSURE: 157/87. MAXIMUM HEART RATE: 143. MAXIMUM BLOOD PRESSURE: 215/72. 85% MPHR: 146. 100% MPHR: 172. METS: MAXIMUM STAGE REACHED: TOTAL EXERCISE TIME: CLINICAL INFORMATION: Baseline EKG shows sinus rhythm, normal axis, normal intervals. Patient was given intravenous dobutamine over a period of 13 minutes as per protocol. She also received 1 mg of atropine following which the patient attained 83% of predicted maximal heart rate without chest pain or diagnostic ST-segment depression. Baseline echo shows normal left ventricular size, wall motion and systolic function. Post dobutamine infusion, there is normal hyperdynamic response of all segments of myocardium noted. CONCLUSIONS: 1. Negative stress test by EKG criteria. 2. Negative dobutamine echo. MMODL / IJN: [id number] /
[2018-01-10 14:12] VITALS: BP 131/75; RESP 18
[2018-01-10 14:56] LABS: Creatine Kinase 52 U/L (30-135)
[2018-01-10 15:08] LABS: Creatine Kinase MB 1.9 ng/mL (0.0-2.4); Troponin I <0.012 ng/mL (0.000-0.034)
[2018-01-10 16:14] VITALS: PULSE 77; TEMP 98
[2018-01-10] MEDS ORDERED: amLODIPine 5 MG TAB PO SCH (21:00)
[2018-01-11] MEDS ORDERED: ASPIRIN 325 MG TAB PO SCH (09:00)
== END 2018-01-10 16:15 | disposition home or self-care (01) ==
LOC: EC 01:37 → 3OBS 03:29
PROVIDERS: ADMIT Family Medicine; ATTEND Family Medicine
DX: R07.89 Other chest pain (principal); R07.2 Precordial pain; R42 Dizziness and giddiness; I10 Essential (primary) hypertension; E11.9 Type 2 diabetes mellitus without complications; M79.7 Fibromyalgia; K21.9 Gastro-esophageal reflux disease without esophagitis; E78.5 Hyperlipidemia, unspecified; J44.9 Chronic obstructive pulmonary disease, unspecified; G40.909 Epilepsy, unspecified, not intractable, without status epilepticus; I47.1 Supraventricular tachycardia; E03.9 Hypothyroidism, unspecified; G47.30 Sleep apnea, unspecified; M16.0 Bilateral primary osteoarthritis of hip; M47.9 Spondylosis, unspecified; Z90.49 Acquired absence of other specified parts of digestive tract; F41.9 Anxiety disorder, unspecified; F41.0 Panic disorder [episodic paroxysmal anxiety]; Z86.74 Personal history of sudden cardiac arrest; Z79.890 Hormone replacement therapy; Z79.899 Other long term (current) drug therapy; Z79.84 Long term (current) use of oral hypoglycemic drugs; Z91.09 Other allergy status, other than to drugs and biological substances; Z88.6 Allergy status to analgesic agent; Z88.1 Allergy status to other antibiotic agents; Z88.5 Allergy status to narcotic agent; Z88.2 Allergy status to sulfonamides; Z91.048 Other nonmedicinal substance allergy status; Z91.018 Allergy to other foods; Z88.8 Allergy status to other drugs, medicaments and biological substances; Z79.891 Long term (current) use of opiate analgesic; E66.9 Obesity, unspecified; Z68.41 Body mass index [BMI] 40.0-44.9, adult; Z87.891 Personal history of nicotine dependence; Z80.9 Family history of malignant neoplasm, unspecified; Z82.49 Family history of ischemic heart disease and other diseases of the circulatory system; Z81.1 Family history of alcohol abuse and dependence
CPT/HCPCS: 99285; 96374 ×2; 36415; 93005; 93306; 93351; 80061; 80053; 82550; 82553; 83735; 84484; 85025; 85610; 85730; 81001; 87086; 87077; 87186; 71046; G0378; J1250; J0461; J0696

== ENCOUNTER 2018-01-22 18:06 | Observation (INO) | payer OTHER ==
--- NOTE | 2018-01-22 19:07 | ED ---
General Adult HPI - General Chief complaint: Shortness of Breath Stated complaint: DIff Breathing Time Seen by Provider: 01/22/18 18:35 Source: patient, RN notes reviewed, old records reviewed Mode of arrival: ambulatory Limitations: no limitations - History of Present Illness Initial comments: This is a 39-year-old female to the ER for evaluation of chest pain today. Patient has known history of heart disease. Chest pain started 4 hours prior to arrival. Patient's complaining of heaviness and shortness of breath patient is well-known to this facility for chest pain and shortness of breath. Patient states she is having pain is going to her back left-sided chest pain. May that she has had before he is unsure recent cause. Patient has no recent travel history no fevers. - Related Data Home Medications Medication Instructions Recorded Confirmed metFORMIN HCL [Glucophage] 500 mg PO DAILY 09/08/14 01/22/18 Levothyroxine Sodium [Synthroid] 300 mcg PO QAM 06/27/16 01/22/18 Sodium Chloride [[place]] 1 spray EA NOSTRIL BID PRN 03/23/17 01/22/18 LORazepam [Ativan] 0.5 mg PO DAILY PRN 06/27/17 01/22/18 HYDROcodone/APAP 5-325MG [[place] 1 tab PO TID PRN 07/27/17 01/22/18 5-325] Metoprolol Tartrate [Lopressor] 25 mg PO BID 07/27/17 01/22/18 Albuterol Inhaler [Ventolin Hfa 1 - 2 puff INHALATION RT-Q6H PRN 01/10/18 Inhaler] Ibuprofen [Motrin] 600 mg PO TID 01/10/18 01/22/18 Lisinopril [Zestril] 20 mg PO BID 01/10/18 01/22/18 Meclizine [Antivert] 25 mg PO Q8H PRN 01/10/18 01/22/18 Previous Rx's Medication Instructions Recorded amLODIPine [Norvasc] 5 mg PO HS #30 tab 09/05/17 Allergies Allergy/AdvReac Type Severity Reaction Status Date / Time codeine Allergy Severe Cardiac Verified 01/22/18 19:08 Arrest meperidine HCl [From Demerol] Allergy Severe Cardiac Verified 01/22/18 19:08 Arrest morphine Allergy Severe Caridac Verified 01/22/18 19:08 Arrest adhesive tape Allergy Rash/Hives Verified 01/22/18 19:08 celery Allergy Oral Verified 01/22/18 19:08 Numbness cinnamon Allergy Anaphylaxis Verified 01/22/18 19:08 diphenhydramine HCl Allergy Anaphylaxis Verified 01/22/18 19:08 [From Benadryl] eucalyptus Allergy Anaphylaxis Verified 01/22/18 19:08 [From Arthur Cough Drops] menthol Allergy Anaphylaxis Verified 01/22/18 19:08 [From [place] Cough Drops] naproxen sodium [From Aleve] Allergy Rash/Hives Verified 01/22/18 19:08 nitrofurantoin Allergy Unknown Verified 01/22/18 19:08 macrocrystalline [From Macrodantin] Sulfa (Sulfonamide Allergy Rash/Hives Verified 01/22/18 19:08 Antibiotics) ciprofloxacin [From Cipro] AdvReac Abdominal Verified 01/22/18 19:08 Pain ciprofloxacin HCl AdvReac Abdominal Verified 01/22/18 19:08 [From Cipro] Pain multivitamin Allergy Intermediate Rash/Hives Uncoded 01/22/18 18:32 car exhaust AdvReac Mild Nausea & Uncoded 01/22/18 18:32 Vomiting Review of Systems ROS Statement: Those systems with pertinent positive or pertinent negative responses have been documented in the HPI. ROS Other: All systems not noted in ROS Statement are negative. Past Medical History Past Medical History: Diabetes Mellitus, Fibromyalgia, GERD/Reflux, Hyperlipidemia, Hypertension, Osteoarthritis (OA), Seizure Disorder, Supraventricular Tachycardia (SVT), Thyroid Disorder Additional Past Medical History / Comment(s): Severe allergies, PT STATES IN 1994 PTWAS HAD TOXEMIA WAS GIVEN DEMEROL AND WENT INTO A CARDIAC ARREST (COMA 21 days), was having seizures and had 2ND CARDIAC ARREST 2000 ( COMA 3-5 DAYS), SVT, SLEEP APNEA( NO MACHINE), STATES LAST SEIZURE 1 YEAR AGO, arthritis low back and hips, PANCREATITIS, colitis. History of Any Multi-Drug Resistant Organisms: None Reported Past Surgical History: Cardiac Ablation, Section, Cholecystectomy, Hernia Repair, Tubal Ligation Additional Past Surgical History / Comment(s): Umbilical hernia repair. Past Anesthesia/Blood Transfusion Reactions: Motion Sickness Additional Past Anesthesia/Blood Transfusion Reaction / Comment(s): CLAUSTERPHOBIA, Past Psychological History: Anxiety, Panic Disorder Smoking Status: Former smoker Past Alcohol Use History: Rare Past Drug Use History: None Reported - Past Family History Father Family Medical History: Cancer, Myocardial Infarction ([place]) Additional Family Medical History / Comment(s): AGE 45 FROM [place] Mother Family Medical History: No Reported History Additional Family Medical History / Comment(s): NORMAL-NO PROBLEMS General Exam Limitations: no limitations General appearance: alert, in no apparent distress Head exam: Present: atraumatic, normocephalic, normal inspection Eye exam: Present: normal appearance, PERRL, EOMI. Absent: scleral icterus, conjunctival injection, periorbital swelling ENT exam: Present: normal exam, mucous membranes moist Neck exam: Present: normal inspection. Absent: tenderness, meningismus, lymphadenopathy Respiratory exam: Present: normal lung sounds bilaterally. Absent: respiratory distress, wheezes, rales, rhonchi, stridor Cardiovascular Exam: Present: regular rate, normal rhythm, normal heart sounds. Absent: systolic murmur, diastolic murmur, rubs, gallop, clicks GI/Abdominal exam: Present: soft, normal bowel sounds. Absent: distended, tenderness, guarding, rebound, rigid Extremities exam: Present: normal inspection, full ROM, normal capillary refill. Absent: tenderness, pedal edema, joint swelling, calf tenderness Back exam: Present: normal inspection Neurological exam: Present: alert, oriented X3, CN II-XII intact Psychiatric exam: Present: normal affect, normal mood Skin exam: Present: warm, dry, intact, normal color. Absent: rash Course Vital Signs 01/22/18 01/22/18 01/22/18 18:29 19:35 21:33 Temperature 98.1 F Pulse Rate 80 83 86 Respiratory 22 16 16 Rate Blood Pressure 139/78 152/67 137/66 O2 Sat by Pulse 97 99 98 Oximetry 01/22/18 22:51 Temperature Pulse Rate 87 Respiratory 16 Rate Blood Pressure 137/65 O2 Sat by Pulse 94 L Oximetry - Reevaluation(s) Reevaluation #1: 01/22/18 20:41 Medical records and multiple prior stress tests, echo are reviewed EKG Findings - EKG Comments: EKG Findings:: EKG shows sinus rhythm rate of 70, OR 150, QRS 76, QTc 442 Medical Decision Making - Medical Decision Making 39 female the ER was significant chest pain. Patient be admitted for cardiology evaluation - Lab Data Result diagrams: 01/22/18 19:02 01/22/18 19:02 Lab Results 01/22/18 01/22/18 01/22/18 Range/Units 19:02 19:02 19:02 WBC 6.4 (3.8-10.6) k/uL RBC 4.33 (3.80-5.40) m/uL Hgb 13.0 (11.4-16.0) gm/dL Hct 37.6 (34.0-46.0) % MCV 86.8 (80.0-100.0) fL MCH 30.0 (25.0-35.0) pg MCHC 34.5 (31.0-37.0) g/dL RDW 13.5 (11.5-15.5) % Plt Count 189 (150-450) k/uL Neutrophils % 68 % Lymphocytes % 25 % Monocytes % 3 % Eosinophils % 2 % Basophils % 0 % Neutrophils # 4.4 (1.3-7.7) k/uL Lymphocytes # 1.6 (1.0-4.8) k/uL Monocytes # 0.2 (0-1.0) k/uL Eosinophils # 0.2 (0-0.7) k/uL Basophils # 0.0 (0-0.2) k/uL PT (9.0-12.0) sec INR (<1.2) APTT (22.0-30.0) sec Sodium 138 (137-145) mmol/L Potassium 4.3 (3.5-5.1) mmol/L Chloride 104 (98-107) mmol/L Carbon Dioxide 24 (22-30) mmol/L Anion Gap 10 mmol/L BUN 14 (7-17) mg/dL Creatinine 0.60 (0.52-1.04) mg/dL Est GFR (CKD-EPI)AfAm >90 (>60 ml/min/1.73 sqM) Est GFR (CKD-EPI)NonAf >90 (>60 ml/min/1.73 sqM) Glucose 173 H (74-99) mg/dL Calcium 9.3 (8.4-10.2) mg/dL Magnesium 1.5 L (1.6-2.3) mg/dL Total Bilirubin 0.4 (0.2-1.3) mg/dL AST 23 (14-36) U/L ALT 30 (9-52) U/L Alkaline Phosphatase 93 (38-126) U/L Total Creatine Kinase 81 (30-135) U/L CK-MB (CK-2) 3.0 H* (0.0-2.4) ng/mL CK-MB (CK-2) Rel Index 3.7 Troponin I <0.012 (0.000-0.034) ng/mL Total Protein 6.3 (6.3-8.2) g/dL Albumin 3.8 (3.5-5.0) g/dL 01/22/18 Range/Units 19:02 WBC (3.8-10.6) k/uL RBC (3.80-5.40) m/uL Hgb (11.4-16.0) gm/dL Hct (34.0-46.0) % MCV (80.0-100.0) fL MCH (25.0-35.0) pg MCHC (31.0-37.0) g/dL RDW (11.5-15.5) % Plt Count (150-450) k/uL Neutrophils % % Lymphocytes % % Monocytes % % Eosinophils % % Basophils % % Neutrophils # (1.3-7.7) k/uL Lymphocytes # (1.0-4.8) k/uL Monocytes # (0-1.0) k/uL Eosinophils # (0-0.7) k/uL Basophils # (0-0.2) k/uL PT 9.5 (9.0-12.0) sec INR 1.0 (<1.2) APTT 22.2 (22.0-30.0) sec Sodium (137-145) mmol/L Potassium (3.5-5.1) mmol/L Chloride (98-107) mmol/L Carbon Dioxide (22-30) mmol/L Anion Gap mmol/L BUN (7-17) mg/dL Creatinine (0.52-1.04) mg/dL Est GFR (CKD-EPI)AfAm (>60 ml/min/1.73 sqM) Est GFR (CKD-EPI)NonAf (>60 ml/min/1.73 sqM) Glucose (74-99) mg/dL Calcium (8.4-10.2) mg/dL Magnesium (1.6-2.3) mg/dL Total Bilirubin (0.2-1.3) mg/dL AST (14-36) U/L ALT (9-52) U/L Alkaline Phosphatase (38-126) U/L Total Creatine Kinase (30-135) U/L CK-MB (CK-2) (0.0-2.4) ng/mL CK-MB (CK-2) Rel Index Troponin I (0.000-0.034) ng/mL Total Protein (6.3-8.2) g/dL Albumin (3.5-5.0) g/dL - Radiology Data Radiology results: report reviewed (CTA chest abdomen pelvis negative for acute disease), image reviewed Critical Care Time Critical Care Time: Yes Total Critical Care Time: 31 Disposition Clinical Impression: Chest pain Disposition: ADMITTED IP TO THIS [facility] Condition: Good Is patient prescribed a controlled substance at d/c from ED?: No
--- NOTE | 2018-01-22 19:14 | XR ---
EXAMINATION TYPE: XR chest 2V DATE OF EXAM: 01/22/2018 COMPARISON: 01/10/2018 HISTORY: Short of breath TECHNIQUE: Frontal and lateral views of the chest are obtained. FINDINGS: Heart and mediastinum are normal. Lungs are clear. Diaphragm is normal. Bony thorax appear s normal. IMPRESSION: Normal chest. No change.
[2018-01-22] MEDS ORDERED: SODIUM CHLORIDE 0.9% 1,000 ML IV STA (19:23)
[2018-01-22] MEDS ORDERED: HYDROmorphone 0.5 MG/0.5 ML SYRINGE IVP STA (19:24)
[2018-01-22 19:36] LABS: Basophils % (A) 0 %; Eosinophils # (A) 0.2 k/uL (0-0.7); Eosinophils % (A) 2 %; HCT 37.6 % (34.0-46.0); Lymphocytes # (A) 1.6 k/uL (1.0-4.8); Lymphocytes % (A) 25 %; MCHC 34.5 g/dL (31.0-37.0); MCV 86.8 fL (80.0-100.0); Mean Platelet Volume 6.7; Monocytes # (A) 0.2 k/uL (0-1.0); Monocytes % (A) 3 %; Neutrophils # (A) 4.4 k/uL (1.3-7.7); Neutrophils % (A) 68 %; Platelet Count 189 k/uL (150-450); RBC 4.33 m/uL (3.80-5.40); RDW 13.5 % (11.5-15.5); WBC 6.4 k/uL (3.8-10.6)
[2018-01-22 19:39] LABS: ALT 30 U/L (9-52); AST 23 U/L (14-36); Albumin 3.8 g/dL (3.5-5.0); Alkaline Phosphatase 93 U/L (38-126); Anion Gap 10 mmol/L; Blood Urea Nitrogen 14 mg/dL (7-17); Calcium 9.3 mg/dL (8.4-10.2); Carbon Dioxide 24 mmol/L (22-30); Chloride 104 mmol/L (98-107); Glucose 173 mg/dL (74-99); Magnesium 1.5 mg/dL (1.6-2.3); Potassium 4.3 mmol/L (3.5-5.1); Sodium 138 mmol/L (137-145); Total Bilirubin 0.4 mg/dL (0.2-1.3); Total Protein 6.3 g/dL (6.3-8.2)
[2018-01-22 19:41] LABS: Partial Thromboplastin Time 22.2 sec (22.0-30.0); Prothrombin Time 9.5 sec (9.0-12.0)
[2018-01-22 19:42] LABS: Creatine Kinase 81 U/L (30-135)
[2018-01-22 19:55] LABS: Troponin I <0.012 ng/mL (0.000-0.034)
[2018-01-22] MEDS ORDERED: LORazepam 2 MG/ML INJ IV STA (20:20)
--- NOTE | 2018-01-22 21:15 | CT ---
EXAMINATION TYPE: CT abdomen pelvis w con DATE OF EXAM: 01/22/2018 COMPARISON: 01/04/2017 HISTORY: Difficulty breathing, chest pressure CT DLP: 1490.3 mGycm Automated exposure control for dose reduction was used. TECHNIQUE: Helical acquisition of images was performed from the lung bases through the pelvis. CONTRAST: Performed without Oral Contrast and with IV Contrast, patient injected with 100 mL of Isovue 370. FINDINGS: Lung bases are clear. There is no pleural effusion. Heart size is normal. Liver spleen pancreas appear normal. There are clips from cholecystectomy. Bile ducts are not dilated . There is no adrenal mass. Kidneys show satisfactory contrast opacification. There is no hydronephro sis. There is no retroperitoneal adenopathy. Appendix appears normal. Uterus is anteverted. Bladder a ppears normal. There is no pelvic mass. There is no intestinal wall thickening. There are no dilated loops. There is no sign of ascites or free air. Bony structures appear intact. IMPRESSION: NEGATIVE CT SCAN OF THE ABDOMEN PELVIS. NO CHANGE COMPARED TO OLD EXAM.
--- NOTE | 2018-01-22 21:18 | CT ---
EXAMINATION TYPE: CT angio chest DATE OF EXAM: 01/22/2018 9:07 PM COMPARISON: 10/25/2014 HISTORY: Difficulty breathing, chest pressure CT DLP: 556.3 mGycm Automated exposure control for dose reduction was used. CONTRAST: CTA scan of the thorax is performed with IV Contrast, patient injected with 100 mL of Isovue 370, pul monary embolism protocol. There are 3-D post processed images.. FINDINGS: There is some reticular density in the anterior segment left upper lobe. The other lung watson are cl ear. There is no pleural effusion. Heart size is normal. There is normal contrast opacification of th e pulmonary arteries. There are no filling defects. There is no mediastinal adenopathy. Thoracic aort a appears normal without evidence of aneurysm or dissection. The bony structures appear intact. IMPRESSION: NORMAL CT ANGIOGRAM OF THE CHEST. NO EVIDENCE OF PULMONARY EMBOLISM. MINIMAL ANTERIOR LEFT UPPER LOBE PLEURAL AND PULMONARY DENSITY CONSISTENT WITH SCARRING.
[2018-01-23] MEDS ORDERED: HYDROmorphone 1 MG/ML 1 ML SYRINGE IVP PRN (00:28)
[2018-01-23] MEDS ORDERED: NITROGLYCERIN SL TABS 0.4 MG TAB SUBLINGUAL PRN ×2 (00:28→11:03)
[2018-01-23] MEDS ORDERED: HYDROcodone/APAP 5-325MG 1 EACH TAB PO PRN (01:06)
[2018-01-23] MEDS ORDERED: MECLIZINE 25 MG TAB PO PRN (01:06)
[2018-01-23] MEDS ORDERED: ALBUTEROL NEBULIZED 2.5 MG/3 ML INHALATION PRN (01:08)
[2018-01-23] MEDS ORDERED: ONDANSETRON 4 MG/2 ML VIAL IVP PRN (01:09)
[2018-01-23] MEDS: METOPROLOL TARTRATE 25 MG TAB PO SCH ×3 (01:55→21:33)
[2018-01-23] MEDS: LORazepam 0.5 MG TAB PO PRN (01:55)
[2018-01-23] MEDS: LISINOPRIL 20 MG TAB PO SCH ×3 (01:56→21:33)
[2018-01-23] MEDS: amLODIPine 5 MG TAB PO SCH ×2 (01:56→21:33)
[2018-01-23 02:21] VITALS: BMI 42.5
[2018-01-23 02:37] LABS: Creatine Kinase 57 U/L (30-135)
[2018-01-23 02:48] LABS: Troponin I <0.012 ng/mL (0.000-0.034)
[2018-01-23 02:52] LABS: Creatine Kinase MB 2.5 ng/mL (0.0-2.4)
[2018-01-23 05:43] LABS: Glucose,Whole Blood 201 mg/dL (75-99)
[2018-01-23 07:41] LABS: Creatine Kinase 46 U/L (30-135)
[2018-01-23] MEDS: LEVOTHYROXINE 100 MCG TAB PO SCH (07:42)
[2018-01-23 07:53] LABS: Troponin I <0.012 ng/mL (0.000-0.034)
[2018-01-23] MEDS ORDERED: ATORVASTATIN 80 MG TAB PO SCH (09:00)
[2018-01-23] MEDS ORDERED: METOPROLOL TARTRATE 25 MG TAB PO SCH (09:00)
[2018-01-23] MEDS ORDERED: metFORMIN 500 MG TAB PO SCH (09:00)
--- NOTE | 2018-01-23 09:22 | P.CRDCN ---
History of Present Illness Consult date: 01/23/18 Requesting physician: Og Oliva Consult reason: chest pain Chief complaint: Chest pain History of present illness: This is a pleasant 47-year-old female who follows regularly with Dr. Iraheta in the office. She has a known history of hypertension, diabetes, SVT status post successful ablation, fibromyalgia, hyperlipidemia, hypothyroidism, sleep apnea, anxiety, and GERD. She was recently admitted to the hospital earlier this month with chest discomfort, she underwent a dobutamine stress echo which was negative for any reversible ischemia. An echocardiogram with Doppler study was also performed on that admission which revealed a normal left ventricular systolic function. Prior to this, patient was admitted to the hospital in August of this year, she came with symptoms of chest discomfort at that time, it was noted that she had elevated blood pressure , medication adjustments were made and the patient was discharged home. Patient has had other admissions with chest pain as well, in November 2016 she underwent a dobutamine stress echo which was negative for any reversible ischemia. Patient presents to the hospital again on this occasion with symptoms of chest discomfort. She states that she was picking peaches, felt a heavy feeling in the center of her chest which radiated through to her back and underneath the shoulder blade on her right side, she also became quite short of breath. She went in the house to peel the peaches, became very short of breath , turned the air conditioning on in her bedroom and sat down for a while, states that she started to feel better, but shortly thereafter again the chest discomfort with radiation to the back and shoulders started and she became quite short of breath. For this reason she came back to the hospital for further evaluation. Chest x-ray on admission was normal. Skin of the abdomen and pelvis was performed which was negative. CTA of the chest was also performed which revealed a normal CT angiogram of the chest with no evidence of pulmonary embolism. EKG on admission showed a normal sinus rhythm with T wave inversion noted in the anterior leads. Subsequent EKG showed normal sinus rhythm with some improvement in the T wave inversion in the anterior leads. She 's noted to have an occasional PVC. Upon review of multiple prior EKGs, patient has been noted at times to have T-wave inversion in the anterior lateral leads. Her blood pressure on admission 140/70 with a heart rate in the 80s, 97% on room air. Blood pressure this morning 124/60 with a heart rate in the 80s, 94% on room air. On this most recent admission and in her admission in August, patient was noted to be hypertensive and it was felt that her chest discomfort may be secondary to hypertension. On this admission, her blood pressure has been stable. At the time of my examination this morning, she denies any chest discomfort. Past Medical History Past Medical History: Diabetes Mellitus, Fibromyalgia, GERD/Reflux, Hyperlipidemia, Hypertension, Osteoarthritis (OA), Seizure Disorder, Supraventricular Tachycardia (SVT), Thyroid Disorder Additional Past Medical History / Comment(s): Severe allergies, PT STATES IN 1994 PTWAS HAD TOXEMIA WAS GIVEN DEMEROL AND WENT INTO A CARDIAC ARREST (COMA 21 days), was having seizures and had 2ND CARDIAC ARREST 2000 ( COMA 3-5 DAYS), SVT, SLEEP APNEA( NO MACHINE), STATES LAST SEIZURE 1 YEAR AGO, arthritis low back and hips, PANCREATITIS, colitis. History of Any Multi-Drug Resistant Organisms: None Reported Past Surgical History: Cardiac Ablation, Section, Cholecystectomy, Hernia Repair, Tubal Ligation Additional Past Surgical History / Comment(s): Umbilical hernia repair. Past Anesthesia/Blood Transfusion Reactions: Motion Sickness Additional Past Anesthesia/Blood Transfusion Reaction / Comment(s): CLAUSTERPHOBIA, Past Psychological History: Anxiety, Panic Disorder Additional Psychological History / Comment(s): Lives with spouse/daughter and 2 granddaughters. TAKES CARE OF HER 21 yr old DAUGHTER WHO HAS CEREBAL PALSEY. Does not drive, family takes to appts. Ran out of diabetic strips, lancets and states she needs a new battery for her glucometer so she hasn't been testing lately. PT states meds for anxiety work well. Smoking Status: Former smoker Past Alcohol Use History: Rare Additional Past Alcohol Use History / Comment(s): STARTED SMOKING AT AGE 13- SMOKED 1/2 PPD, QUIT IN 1994 Past Drug Use History: None Reported - Past Family History Father Family Medical History: Cancer, Myocardial Infarction ([place]) Additional Family Medical History / Comment(s): AGE 45 FROM [place] Mother Family Medical History: No Reported History Additional Family Medical History / Comment(s): NORMAL-NO PROBLEMS Medications and Allergies Home Medications Medication Instructions Recorded Confirmed Type metFORMIN HCL [Glucophage] 500 mg PO DAILY 09/08/14 01/22/18 History Levothyroxine Sodium [Synthroid] 300 mcg PO QAM 06/27/16 01/22/18 History Sodium Chloride [[place]] 1 spray EA NOSTRIL BID PRN 03/23/17 01/22/18 History LORazepam [Ativan] 0.5 mg PO DAILY PRN 06/27/17 01/22/18 History HYDROcodone/APAP 5-325MG [[place] 1 tab PO TID PRN 07/27/17 01/22/18 History 5-325] Metoprolol Tartrate [Lopressor] 25 mg PO BID 07/27/17 01/22/18 History amLODIPine [Norvasc] 5 mg PO HS #30 tab 09/05/17 01/22/18 Rx Albuterol Inhaler [Ventolin Hfa 1 - 2 puff INHALATION RT-Q6H PRN 01/10/18 History Inhaler] Ibuprofen [Motrin] 600 mg PO TID 01/10/18 01/22/18 History Lisinopril [Zestril] 20 mg PO BID 01/10/18 01/22/18 History Meclizine [Antivert] 25 mg PO Q8H PRN 01/10/18 01/22/18 History Allergies Allergy/AdvReac Type Severity Reaction Status Date / Time codeine Allergy Severe Cardiac Verified 01/22/18 19:08 Arrest meperidine HCl [From Demerol] Allergy Severe Cardiac Verified 01/22/18 19:08 Arrest morphine Allergy Severe Caridac Verified 01/22/18 19:08 Arrest adhesive tape Allergy Rash/Hives Verified 01/22/18 19:08 celery Allergy Oral Verified 01/22/18 19:08 Numbness cinnamon Allergy Anaphylaxis Verified 01/22/18 19:08 diphenhydramine HCl Allergy Anaphylaxis Verified 01/22/18 19:08 [From Benadryl] eucalyptus Allergy Anaphylaxis Verified 01/22/18 19:08 [From [place] Cough Drops] menthol Allergy Anaphylaxis Verified 01/22/18 19:08 [From [place] Cough Drops] naproxen sodium [From Aleve] Allergy Rash/Hives Verified 01/22/18 19:08 nitrofurantoin Allergy Unknown Verified 01/22/18 19:08 macrocrystalline [From Macrodantin] Sulfa (Sulfonamide Allergy Rash/Hives Verified 01/22/18 19:08 Antibiotics) ciprofloxacin [From Cipro] AdvReac Abdominal Verified 01/22/18 19:08 Pain ciprofloxacin HCl AdvReac Abdominal Verified 01/22/18 19:08 [From Cipro] Pain multivitamin Allergy Intermediate Rash/Hives Uncoded 01/22/18 18:32 car exhaust AdvReac Mild Nausea & Uncoded 01/22/18 18:32 Vomiting Physical Exam Vitals: Vital Signs Temp Pulse Pulse Resp BP BP Pulse Ox 01/23/18 07:46 98.1 F 94 16 124/69 94 L 01/23/18 04:00 97.4 F L 87 16 126/82 97 01/23/18 01:30 97.1 F L 87 18 155/78 97 01/22/18 22:51 87 16 137/65 94 L 01/22/18 21:33 86 16 137/66 98 01/22/18 19:35 83 16 152/67 99 01/22/18 18:29 98.1 F 80 22 139/78 97 Intake and Output 01/22/18 01/23/18 01/23/18 22:59 06:59 14:59 Other: # Voids 1 Weight 109.86 kg 108.8 kg PHYSICAL EXAMINATION: GENERAL: 47-year-old female in no acute distress at the time of my examination HEENT: Head is atraumatic, normocephalic. Pupils equal, round. Sclera anicteric. Conjunctiva are clear. Mucous membranes of the mouth are moist. Neck is supple. There is no elevated jugular venous pressure.] bruit is heard. HEART EXAMINATION: Heart S1, S2 normal. No murmur or gallop heard. CHEST EXAMINATION: Lungs are clear to auscultation and precussion. No chest wall tenderness is noted on palpation or with deep breathing. ABDOMEN: Soft, nontender. Bowel sounds are heard. No organomegaly noted. EXTREMITIES: 2+ peripheral pulses with no evidence of peripheral edema and no calf tenderness noted. NEUROLOGIC patient is awake, alert and oriented ?-3. . Results 01/22/18 19:02 01/22/18 19:02 Cardiac Enzymes 01/22/18 01/22/18 01/23/18 Range/Units 19:02 19:02 01:26 AST 23 (14-36) U/L CK-MB (CK-2) 3.0 H* 2.5 H* (0.0-2.4) ng/mL Troponin I <0.012 <0.012 (0.000-0.034) ng/mL 01/23/18 Range/Units 06:30 AST (14-36) U/L CK-MB (CK-2) 2.0 (0.0-2.4) ng/mL Troponin I <0.012 (0.000-0.034) ng/mL Coagulation 01/22/18 Range/Units 19:02 PT 9.5 (9.0-12.0) sec APTT 22.2 (22.0-30.0) sec CBC 01/22/18 Range/Units 19:02 WBC 6.4 (3.8-10.6) k/uL RBC 4.33 (3.80-5.40) m/uL Hgb 13.0 (11.4-16.0) gm/dL Hct 37.6 (34.0-46.0) % Plt Count 189 (150-450) k/uL Comprehensive Metabolic Panel 01/22/18 Range/Units 19:02 Sodium 138 (137-145) mmol/L Potassium 4.3 (3.5-5.1) mmol/L Chloride 104 (98-107) mmol/L Carbon Dioxide 24 (22-30) mmol/L BUN 14 (7-17) mg/dL Creatinine 0.60 (0.52-1.04) mg/dL Glucose 173 H (74-99) mg/dL Calcium 9.3 (8.4-10.2) mg/dL AST 23 (14-36) U/L ALT 30 (9-52) U/L Alkaline Phosphatase 93 (38-126) U/L Total Protein 6.3 (6.3-8.2) g/dL Albumin 3.8 (3.5-5.0) g/dL Current Medications Generic Name Dose Route Start Last Admin Trade Name Freq PRN Reason Stop Dose Admin Hydrocodone Bitart/Acetaminophen 1 each 01/23/18 01:06 [place] 5-325 PO TID PRN MODERATE Pain Albuterol Sulfate 2.5 mg 01/23/18 01:08 Ventolin Nebulized INHALATION RT-Q6H PRN Shortness Of Breath Amlodipine Besylate 5 mg 01/23/18 01:07 01/23/18 01:56 Norvasc PO 5 mg HS SABINE Administration Aspirin 325 mg 01/24/18 09:00 Aspirin PO DAILY [facility] Atorvastatin Calcium 80 mg 01/23/18 09:00 01/23/18 07:42 Lipitor PO 80 mg DAILY SABINE Administration Hydromorphone HCl 1 mg 01/23/18 00:28 Dilaudid IVP Q4HR PRN SEVERE Pain Ibuprofen 600 mg 01/23/18 09:00 Motrin PO TID [facility] Levothyroxine Sodium 300 mcg 01/23/18 06:30 01/23/18 07:42 Synthroid PO 300 mcg QAM@0630 [facility] Administration Lisinopril 20 mg 01/23/18 01:15 01/23/18 07:42 Zestril PO 20 mg BID [facility] Administration Lorazepam 0.5 mg 01/23/18 01:06 01/23/18 01:55 Ativan PO 0.5 mg DAILY PRN Administration ANXIETY Meclizine HCl 25 mg 01/23/18 01:06 Antivert PO Q8H PRN Vertigo Metformin HCl 500 mg 01/23/18 09:00 01/23/18 07:42 Glucophage PO 500 mg DAILY [facility] Administration Metoprolol Tartrate 25 mg 01/23/18 01:15 01/23/18 07:42 Lopressor PO 25 mg BID [facility] Administration Nitroglycerin 0.4 mg 01/23/18 00:28 Nitrostat SUBLINGUAL Q5M PRN Chest Pain Ondansetron HCl 4 mg 01/23/18 01:09 Zofran IVP Q6HR PRN Nausea And Vomiting Intake and Output 01/22/18 01/23/18 01/23/18 22:59 06:59 14:59 Other: # Voids 1 Weight 109.86 kg 108.8 kg 01/22/18 19:02 01/22/18 19:02 EKG Interpretations (text) EKG shows normal sinus rhythm with T wave inversion noted in the anterior leads. Assessment and Plan Plan: Assessment and plan #1 chest pain, with atypical features. Troponins negative 3. Recent dobutamine echo performed earlier this month negative for reversible ischemia. EKG shows normal sinus rhythm with anterior T wave inversion noted. #2 hypertension #3 diabetes #4 hyperlipidemia #5 obesity #6 hypothyroidism Plan Patient had a recent echocardiogram with Doppler study performed earlier this month which revealed a normal left ventricular systolic function. We will not repeat her echo on this admission. In view of the fact that the patient has had multiple readmissions with chest discomfort, there are minor EKG changes noted, she does have significant risk factors, patient has been advised that she may need to undergo cardiac catheterization to rule out underlying coronary artery disease. The risks and the benefits were explained to her in detail. Further recommendations to follow. DNP note has been reviewed, I agree with a documented findings and plan of care. Patient was seen and examined.
[2018-01-23] MEDS: IBUPROFEN 600 MG TAB PO SCH ×3 (09:32→21:33)
--- NOTE | 2018-01-23 10:04 | HP ---
HISTORY AND PHYSICAL SUBJECTIVE: This 47-year-old white female, known history of heart disease, complaining of having shortness of breath and some chest pain. She had a CAT scan of the chest and abdomen, which were normal in the emergency room. She was admitted to rule out myocardial infarction. MEDICATIONS: Home medication include: 1. Metformin 500 mg daily. 2. Synthroid 300 mcg daily. 3. Ativan 0.5 p.r.n. 4. [place] 5/325 t.i.d. 5. Lopressor 25 b.i.d. 6. Albuterol 2 puffs q.6 hours p.r.n. 7. Motrin 600 t.i.d. 8. Zestril 20 mg b.i.d. 9. Antivert 25 mg q.8 p.r.n. ALLERGIES: Allergies are to CODEINE, MEPERIDINE, MORPHINE, ADHESIVE TAPE, CELERY, CINNAMON, BENADRYL, EUCALYPTUS, MENTHOL, NAPROSYN, NITROFURANTOIN, SULFA, CIPRO, MULTIVITAMIN, CAR EXHAUST. REVIEW OF SYSTEMS: Fourteen point review of systems negative except for mentioned in HPI. PAST MEDICAL HISTORY: Diabetes mellitus, fibromyalgia, GERD, dyslipidemia, hypertension, osteoarthritis, seizure disorder, SVT, hypothyroidism, cardiac ablation, C-sections, cholecystectomy, hernia repair, tubal ligation, anxiety, panic disorder, claustrophobia, motion sickness. FAMILY HISTORY: Father had myocardial infarction. Mother is okay. PHYSICAL EXAM: Vital signs reviewed. HEENT: Normocephalic, atraumatic. Pupils equal, round, reactive to light and accommodation. ENDOCRINE: BMI is over 30. CARDIOVASCULAR: S1, S2. LUNGS: Wheezes at the bases. Soft, nontender. No mass. No organomegaly. EXTREMITIES: No cyanosis, clubbing, edema. PSYCH: Fair mood and affect. Temp 98.1, pulse 80 to 86, respiratory 16 to 22, blood pressure is 137 to 150s over 60s to 70s, O2 of 97% to 99% on room air. ASSESSMENT: Atypical chest pain, rule out myocardial infarction. Await for cardiology consultation prior to patient being discharged home. If cleared by Cardiology, she will be able to be discharged home. MMODL / IJN: [id number] /
[2018-01-23] MEDS ORDERED: SODIUM CHLORIDE 0.9% 1,000 ML in EMPTY BAG 1 BAG IV ONE (11:03)
[2018-01-23] MEDS ORDERED: ALPRAZolam 0.5 MG TAB PO PRN (11:03)
[2018-01-23] MEDS ORDERED: ALPRAZolam 0.25 MG TAB PO PRN (11:03)
[2018-01-23 12:28] LABS: Glucose,Whole Blood 183 mg/dL (75-99)
[2018-01-23 17:25] LABS: Glucose,Whole Blood 221 mg/dL (75-99)
[2018-01-23 20:48] LABS: Glucose,Whole Blood 263 mg/dL (75-99)
[2018-01-24] MEDS: LORazepam 0.5 MG TAB PO PRN (00:24)
[2018-01-24 01:53] LABS: Cholesterol 181 mg/dL (<200); HDL Cholesterol 29 mg/dL (40-60)
[2018-01-24 02:19] LABS: Triglycerides 832 mg/dL (<150)
[2018-01-24 05:48] LABS: Glucose,Whole Blood 159 mg/dL (75-99)
[2018-01-24] MEDS: INSULIN ASPART 100 UNIT/ML 1 ML 10 ML VIAL SQ SCH ×4 (06:07→22:32)
[2018-01-24] MEDS: amLODIPine 5 MG TAB PO SCH (06:08)
[2018-01-24] MEDS: LEVOTHYROXINE 100 MCG TAB PO SCH (06:08)
[2018-01-24] MEDS: LISINOPRIL 20 MG TAB PO SCH ×2 (06:09→22:31)
[2018-01-24] MEDS: METOPROLOL TARTRATE 25 MG TAB PO SCH ×2 (06:09→22:31)
[2018-01-24] MEDS ORDERED: ASPIRIN 325 MG TAB PO ONE (09:00)
[2018-01-24] MEDS ORDERED: ATORVASTATIN 80 MG TAB PO ONE (09:00)
[2018-01-24] MEDS: IBUPROFEN 600 MG TAB PO SCH ×3 (09:14→22:31)
[2018-01-24 11:58] LABS: Glucose,Whole Blood 174 mg/dL (75-99)
[2018-01-24] MEDS ORDERED: MIDAZOLAM 2 MG/2 ML VIAL ONE (13:45)
[2018-01-24] MEDS: MIDAZOLAM 2 MG/2 ML VIAL IV ONE ×2 (13:47→13:59)
[2018-01-24] MEDS ORDERED: LIDOCAINE 1% INJ 10MG/ML (20 ML MDV) ONE (13:50)
[2018-01-24] MEDS ORDERED: fentaNYL (PF) 50 MCG/ML 2 ML AMP ONE (13:59)
[2018-01-24] MEDS ORDERED: fentaNYL (PF) 50 MCG/ML 2 ML AMP IV ONE (14:00)
[2018-01-24] MEDS ORDERED: IV FLUID CONTINUATION 1,000 ML IV ONE (14:06)
[2018-01-24] MEDS ORDERED: LIDOCAINE 2% INJ 20 MG/ML SQ ONE (14:06)
[2018-01-24] MEDS ORDERED: IOPAMIDOL-370 125ML BTL INJ ONE (14:26)
[2018-01-24] MEDS ORDERED: RX INFO: IV CONTRAST WAS GIVEN 1 EACH MISC MISCELLANE PRN (14:44)
--- NOTE | 2018-01-24 15:23 | CC ---
CARDIAC CATHETERIZATION REPORT Mrs Holder is a 47-year-old female, who was admitted with prolonged episode of chest discomfort suggestive of unstable angina syndrome. The patient also has a history of diabetes. In view of the multiple risk factors, patient was advised further evaluation with cardiac catheterization for definitive diagnosis. PROCEDURE: The right groin is prepped and draped in the usual manner and the skin was infiltrated with 2% Xylocaine. The right femoral artery was entered using Seldinger technique, a #6-[place] sheath was placed in. Selective coronary angiography was then performed in multiple projections and the left ventricular pressures were obtained. Patient tolerated the procedure well. Moderate sedation was used. Total sedation time was 20 minutes. HEMODYNAMICS: Left ventricular end-diastolic pressure is 8-10 mmHg prior to angiography. No gradient is noted across the aortic valve. SELECTIVE CORONARY ANGIOGRAPHY: Left main coronary artery is normally patent. LAD is a good caliber blood vessel and there is a small size diagonal branch. LAD and its branches are normal. Circumflex coronary artery is a good caliber blood vessel and there is a good size obtuse marginal branch. Circumflex coronary artery branches are normal. The right coronary artery is a good caliber blood vessel and gives rise to a small size PDA branch. Right coronary artery and its branches are normal. FINAL IMPRESSION: 1. This study reveals normal coronary arteries. 2. Left ventricular end-diastolic pressure is normal. RECOMMENDATION: Continue medical treatment. MMODL / IJN: [id number] /
[2018-01-24] MEDS: HYDROcodone/APAP 5-325MG 1 EACH TAB PO PRN ×2 (15:34→22:31)
[2018-01-24 16:48] LABS: Glucose,Whole Blood 168 mg/dL (75-99)
[2018-01-24] MEDS: SODIUM CHLORIDE 0.9% 1,000 ML IV SCH (17:37)
[2018-01-24 20:55] LABS: Glucose,Whole Blood 237 mg/dL (75-99)
--- NOTE | 2018-01-24 23:38 | PN ---
PROGRESS NOTE DATE OF SERVICE: 01/24/2018. SUBJECTIVE: This is a white female who is going to have a cardiac catheterization today. Possible discharge post cardiac catheterization if it is normal. She has had recurrent multiple chest pains. She is being treated for spasm at this time. OBJECTIVE: Cardiovascular: S1 and S2. Lungs clear. GI soft. Hematology negative [place]. ASSESSMENT: Atypical chest pain, costochondritis. Continue current treatment. Follow up in the next 24 to 48 hours for possible discharge. MMODL / IJN: [id number] /
[2018-01-25 05:21] VITALS: RESP 18
[2018-01-25] MEDS: SODIUM CHLORIDE 0.9% 1,000 ML IV SCH (05:21)
[2018-01-25 06:20] LABS: Glucose,Whole Blood 154 mg/dL (75-99)
[2018-01-25] MEDS: INSULIN ASPART 100 UNIT/ML 1 ML 10 ML VIAL SQ SCH ×2 (06:46→12:27)
[2018-01-25] MEDS: LEVOTHYROXINE 100 MCG TAB PO SCH (06:48)
[2018-01-25] MEDS: HYDROcodone/APAP 5-325MG 1 EACH TAB PO PRN ×2 (06:51→12:31)
[2018-01-25] MEDS: IBUPROFEN 600 MG TAB PO SCH (08:26)
[2018-01-25] MEDS: METOPROLOL TARTRATE 25 MG TAB PO SCH (08:27)
[2018-01-25] MEDS: LISINOPRIL 20 MG TAB PO SCH (08:27)
[2018-01-25] MEDS ORDERED: ASPIRIN 325 MG TAB PO SCH (09:00)
[2018-01-25] MEDS ORDERED: ATORVASTATIN 80 MG TAB PO SCH (09:00)
--- NOTE | 2018-01-25 11:19 | P.PN ---
Subjective Progress Note Date: 01/25/18 This is a pleasant 47-year-old female who follows regularly with Dr. Iraheta in the office. She has a known history of hypertension, diabetes, SVT status post successful ablation, fibromyalgia, hyperlipidemia, hypothyroidism, sleep apnea, anxiety, and GERD. She was recently admitted to the hospital earlier this month with chest discomfort, she underwent a dobutamine stress echo which was negative for any reversible ischemia. An echocardiogram with Doppler study was also performed on that admission which revealed a normal left ventricular systolic function. Prior to this, patient was admitted to the hospital in August of this year, she came with symptoms of chest discomfort at that time, it was noted that she had elevated blood pressure , medication adjustments were made and the patient was discharged home. Patient has had other admissions with chest pain as well, in November 2016 she underwent a dobutamine stress echo which was negative for any reversible ischemia. Patient presents to the hospital again on this occasion with symptoms of chest discomfort. She states that she was picking peaches, felt a heavy feeling in the center of her chest which radiated through to her back and underneath the shoulder blade on her right side, she also became quite short of breath. She went in the house to peel the peaches, became very short of breath , turned the air conditioning on in her bedroom and sat down for a while, states that she started to feel better, but shortly thereafter again the chest discomfort with radiation to the back and shoulders started and she became quite short of breath. For this reason she came back to the hospital for further evaluation. Chest x-ray on admission was normal. Skin of the abdomen and pelvis was performed which was negative. CTA of the chest was also performed which revealed a normal CT angiogram of the chest with no evidence of pulmonary embolism. EKG on admission showed a normal sinus rhythm with T wave inversion noted in the anterior leads. Subsequent EKG showed normal sinus rhythm with some improvement in the T wave inversion in the anterior leads. She 's noted to have an occasional PVC. Upon review of multiple prior EKGs, patient has been noted at times to have T-wave inversion in the anterior lateral leads. Her blood pressure on admission 140/70 with a heart rate in the 80s, 97% on room air. Blood pressure this morning 124/60 with a heart rate in the 80s, 94% on room air. On this most recent admission and in her admission in August, patient was noted to be hypertensive and it was felt that her chest discomfort may be secondary to hypertension. On this admission, her blood pressure has been stable. At the time of my examination this morning, she denies any chest discomfort. 01/25/2018 Patient underwent a cardiac catheterization yesterday which did not reveal any obstructive coronary artery disease. She was seen and examined this morning, complaining of mild headache, denies any chest pain no difficulty in breathing. Hemodynamically she stable. Objective - Vital Signs Vital signs: Vital Signs Temp 97.8 F 01/25/18 08:00 Pulse 85 01/25/18 08:00 Resp 18 01/25/18 08:00 BP 124/59 01/25/18 08:00 Pulse Ox 95 01/25/18 08:00 Intake & Output 01/24/18 01/25/18 01/25/18 18:59 06:59 18:59 Intake Total 305 Output Total 1400 Balance -1095 Weight 109.5 kg Intake: IV 75 Oral 230 Output: Urine 1400 Other: Voiding Method Toilet Toilet # Voids 1 1 # Bowel Movements 1 - Exam PHYSICAL EXAMINATION: GENERAL: 47-year-old female in no acute distress at the time of my examination HEENT: Head is atraumatic, normocephalic. Pupils equal, round. Sclera anicteric. Conjunctiva are clear. Mucous membranes of the mouth are moist. Neck is supple. There is no elevated jugular venous pressure.] bruit is heard. HEART EXAMINATION: Heart S1, S2 normal. No murmur or gallop heard. CHEST EXAMINATION: Lungs are clear to auscultation and precussion. No chest wall tenderness is noted on palpation or with deep breathing. ABDOMEN: Soft, nontender. Bowel sounds are heard. No organomegaly noted. Right groin soft, no evidence of any hematoma. EXTREMITIES: 2+ peripheral pulses with no evidence of peripheral edema and no calf tenderness noted. NEUROLOGIC patient is awake, alert and oriented ?-3. - Labs CBC & Chem 7: 01/22/18 19:02 01/22/18 19:02 Labs: Abnormal Lab Results - Last 24 Hours (Table) 01/24/18 01/24/18 01/24/18 Range/Units 11:53 16:45 20:51 POC Glucose (mg/dL) 174 H 168 H 237 H (75-99) mg/dL 01/25/18 Range/Units 06:18 POC Glucose (mg/dL) 154 H (75-99) mg/dL Assessment and Plan Plan: Assessment and plan #1 chest pain, with atypical features. Troponins negative 3. Recent dobutamine echo performed earlier this month negative for reversible ischemia. EKG shows normal sinus rhythm with anterior T wave inversion noted. #2 hypertension #3 diabetes #4 hyperlipidemia #5 obesity #6 hypothyroidism Plan The patient underwent a cardiac catheterization yesterday that did not reveal any significant obstructive coronary artery disease. From cardiology's perspective, she may be able to be discharged home today. A follow-up appointment will be made with Dr. VC Servin in the office post discharge. DNP note has been reviewed, I agree with a documented findings and plan of care. Patient was seen and examined.
[2018-01-25 11:40] LABS: Glucose,Whole Blood 201 mg/dL (75-99)
[2018-01-25 15:01] VITALS: TEMP 98.4
[2018-01-25 15:43] VITALS: BP 135/65; PULSE 80
== END 2018-01-25 16:30 | disposition home or self-care (01) ==
LOC: EC 18:06 → 6SEL 01-23 00:29
PROVIDERS: ADMIT Family Medicine; ATTEND Family Medicine
DX: R07.89 Other chest pain (principal); M94.0 Chondrocostal junction syndrome [Tietze]; I10 Essential (primary) hypertension; M79.7 Fibromyalgia; K21.9 Gastro-esophageal reflux disease without esophagitis; G40.909 Epilepsy, unspecified, not intractable, without status epilepticus; E78.5 Hyperlipidemia, unspecified; E11.9 Type 2 diabetes mellitus without complications; I49.3 Ventricular premature depolarization; R51 Headache; E03.9 Hypothyroidism, unspecified; G47.30 Sleep apnea, unspecified; M16.0 Bilateral primary osteoarthritis of hip; M46.96 Unspecified inflammatory spondylopathy, lumbar region; F40.240 Claustrophobia; F41.0 Panic disorder [episodic paroxysmal anxiety]; E66.9 Obesity, unspecified; Z68.41 Body mass index [BMI] 40.0-44.9, adult; F41.9 Anxiety disorder, unspecified; Z79.84 Long term (current) use of oral hypoglycemic drugs; Z79.899 Other long term (current) drug therapy; Z79.890 Hormone replacement therapy; Z79.1 Long term (current) use of non-steroidal anti-inflammatories (NSAID); Z88.6 Allergy status to analgesic agent; Z88.1 Allergy status to other antibiotic agents; Z88.5 Allergy status to narcotic agent; Z88.2 Allergy status to sulfonamides; Z88.8 Allergy status to other drugs, medicaments and biological substances; Z91.018 Allergy to other foods; Z91.048 Other nonmedicinal substance allergy status; Z86.74 Personal history of sudden cardiac arrest; Z87.19 Personal history of other diseases of the digestive system; Z86.79 Personal history of other diseases of the circulatory system; Z90.49 Acquired absence of other specified parts of digestive tract; Z87.891 Personal history of nicotine dependence; Z82.49 Family history of ischemic heart disease and other diseases of the circulatory system; Z80.9 Family history of malignant neoplasm, unspecified
CPT/HCPCS: 99291 ×2; 96374 ×2; 96375 ×2; 96361 ×3; 99152; 36415; 93005; 93458; 80061; 80053; 82550 ×2; 82553 ×2; 83735; 84484 ×2; 85025; 85610; 85730; 71046; 71275; 74177; G0378 ×3; C1760; C1894; C1769; J2001; J2250; J2060; J3010; J1170; Q9967 ×2

== ENCOUNTER 2018-07-15 17:08 | Emergency (ER) | payer OTHER ==
[2018-07-15 17:13] VITALS: RESP 18
[2018-07-15] MEDS ORDERED: KETOROLAC 30 MG/ML 1 ML VIAL IVP STA ×2 (17:27→19:07)
[2018-07-15] MEDS ORDERED: ASPIRIN 81 MG PO STA (17:27)
--- NOTE | 2018-07-15 17:32 | ED ---
Chest Pain HPI - General Chief Complaint: Chest Pain Stated Complaint: Chest Pain Time Seen by Provider: 07/15/18 17:15 Source: patient, RN notes reviewed Mode of arrival: ambulatory Limitations: no limitations - History of Present Illness Initial Comments: This is a 48-year-old female who presents with complaints of the onset of retrosternal chest pain it radiates to her back and started around 3 PM when she woke up she states she states that sharp does get worse with deep breathing and movements. She denies any fevers chills nausea vomiting phlegm production she is a nonsmoker. She does states she had a cardiac cath done this past January apparently was negative for acute findings. No other complaints she denies any trauma any heavy lifting or overhead work or other things did precipitate chest pain. No palpitations reported. MD Complaint: chest pain - Related Data Home Medications Medication Instructions Recorded Confirmed metFORMIN HCL [Glucophage] 500 mg PO DAILY 09/08/14 01/22/18 Levothyroxine Sodium [Synthroid] 300 mcg PO QAM 06/27/16 01/22/18 Sodium Chloride [[place]] 1 spray EA NOSTRIL BID PRN 03/23/17 01/22/18 LORazepam [Ativan] 0.5 mg PO DAILY PRN 06/27/17 01/22/18 HYDROcodone/APAP 5-325MG [Inter[place] 1 tab PO TID PRN 07/27/17 01/22/18 5-325] Metoprolol Tartrate [Lopressor] 25 mg PO BID 07/27/17 01/22/18 Albuterol Inhaler [Ventolin Hfa 1 - 2 puff INHALATION RT-Q6H PRN 01/10/18 Inhaler] Ibuprofen [Motrin] 600 mg PO TID 01/10/18 01/22/18 Lisinopril [Zestril] 20 mg PO BID 01/10/18 01/22/18 Meclizine [Antivert] 25 mg PO Q8H PRN 01/10/18 01/22/18 Previous Rx's Medication Instructions Recorded amLODIPine [Norvasc] 5 mg PO HS #30 tab 09/05/17 Cyclobenzaprine [Flexeril] 10 mg PO TID #14 tab 07/15/18 Ibuprofen 800 mg PO Q6HR PRN #20 tablet 07/15/18 predniSONE 20 mg PO BID #10 tab 07/15/18 Allergies Allergy/AdvReac Type Severity Reaction Status Date / Time codeine Allergy Severe Cardiac Verified 07/15/18 17:13 Arrest meperidine HCl [From Demerol] Allergy Severe Cardiac Verified 07/15/18 17:13 Arrest morphine Allergy Severe Caridac Verified 07/15/18 17:13 Arrest adhesive tape Allergy Rash/Hives Verified 07/15/18 17:13 celery Allergy Oral Verified 07/15/18 17:13 Numbness cinnamon Allergy Anaphylaxis Verified 07/15/18 17:13 diphenhydramine HCl Allergy Anaphylaxis Verified 07/15/18 17:13 [From Benadryl] eucalyptus Allergy Anaphylaxis Verified 07/15/18 17:13 [From [place] Cough Drops] menthol Allergy Anaphylaxis Verified 07/15/18 17:13 [From [place] Cough Drops] naproxen sodium [From Aleve] Allergy Rash/Hives Verified 07/15/18 17:13 nitrofurantoin Allergy Unknown Verified 07/15/18 17:13 macrocrystalline [From Macrodantin] Sulfa (Sulfonamide Allergy Rash/Hives Verified 07/15/18 17:13 Antibiotics) ciprofloxacin [From Cipro] AdvReac Abdominal Verified 07/15/18 17:13 Pain ciprofloxacin HCl AdvReac Abdominal Verified 07/15/18 17:13 [From Cipro] Pain multivitamin Allergy Intermediate Rash/Hives Uncoded 07/15/18 17:13 car exhaust AdvReac Mild Nausea & Uncoded 07/15/18 17:13 Vomiting Review of Systems ROS Statement: Those systems with pertinent positive or pertinent negative responses have been documented in the HPI. ROS Other: All systems not noted in ROS Statement are negative. EKG Findings - EKG Results: EKG: interpreted by ERMD, sinus rhythm (EKG shows sinus rhythm of 76. Interval 154 QRS duration 78 QT since QTC 388/436 nonspecific T-wave configuration this is compared with EKG dated showing very similar configuration.) Past Medical History Past Medical History: Diabetes Mellitus, Fibromyalgia, GERD/Reflux, Hyperlipidemia, Hypertension, Myocardial Infarction ([place]), Osteoarthritis (OA), Seizure Disorder, Supraventricular Tachycardia (SVT), Thyroid Disorder Additional Past Medical History / Comment(s): Severe allergies, PT STATES IN 1994 PTWAS HAD TOXEMIA WAS GIVEN DEMEROL AND WENT INTO A CARDIAC ARREST (COMA 21 days), was having seizures and had 2ND CARDIAC ARREST 2000 ( COMA 3-5 DAYS), SVT, SLEEP APNEA( NO MACHINE), STATES LAST SEIZURE 1 YEAR AGO, arthritis low back and hips, PANCREATITIS, colitis. History of Any Multi-Drug Resistant Organisms: None Reported Past Surgical History: Cardiac Ablation, Section, Cholecystectomy, Hernia Repair, Tubal Ligation Additional Past Surgical History / Comment(s): Umbilical hernia repair. Past Anesthesia/Blood Transfusion Reactions: Motion Sickness Additional Past Anesthesia/Blood Transfusion Reaction / Comment(s): CLAUSTERPHOBIA, Past Psychological History: Anxiety, Panic Disorder Smoking Status: Former smoker Past Alcohol Use History: Rare Past Drug Use History: None Reported - Past Family History Father Family Medical History: Cancer, Myocardial Infarction ([place]) Additional Family Medical History / Comment(s): AGE 45 FROM [place] Mother Family Medical History: No Reported History Additional Family Medical History / Comment(s): NORMAL-NO PROBLEMS General Exam - General Exam Comments Initial Comments: This is a well-developed well-nourished awake alert oriented 3 female Limitations: no limitations General appearance: alert, anxious Head exam: Present: atraumatic, normocephalic, normal inspection Eye exam: Present: normal appearance, PERRL, EOMI. Absent: scleral icterus, conjunctival injection, periorbital swelling ENT exam: Present: normal exam, mucous membranes moist Neck exam: Present: normal inspection. Absent: tenderness, meningismus, lymphadenopathy Respiratory exam: Present: normal lung sounds bilaterally. Absent: respiratory distress, wheezes, rales, rhonchi, stridor Cardiovascular Exam: Present: regular rate, normal rhythm, normal heart sounds. Absent: systolic murmur, diastolic murmur, rubs, gallop, clicks GI/Abdominal exam: Present: soft, normal bowel sounds. Absent: distended, tenderness, guarding, rebound, rigid Extremities exam: Present: normal inspection, full ROM, normal capillary refill. Absent: tenderness, pedal edema, joint swelling, calf tenderness Back exam: Present: normal inspection Neurological exam: Present: alert, oriented X3, CN II-XII intact Psychiatric exam: Present: normal affect, normal mood Skin exam: Present: warm, dry, intact, normal color. 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 There is some tenderness on palpation of the chest wall Chest Pain MDM - MDM I did review the imaging and report no acute findings. EKG showed no changes x- rays are clear the presentation is consistent with costochondritis/S wall pain. Patient will be discharged on appropriate medication Disposition Clinical Impression: Chest wall syndrome, Costalchondritis Disposition: HOME SELF-CARE Condition: Good Instructions (If sedation given, give patient instructions): Costochondritis ( ED) Prescriptions: Cyclobenzaprine [Flexeril] 10 mg PO TID #14 tab Ibuprofen 800 mg PO Q6HR PRN #20 tablet PRN Reason: Pain predniSONE 20 mg PO BID #10 tab Is patient prescribed a controlled substance at d/c from ED?: No Referrals: Og Oliva MD [Primary Care Provider] - 1-2 days
[2018-07-15 17:45] LABS: Basophils % (A) 0 %; Eosinophils # (A) 0.2 k/uL (0-0.7); Eosinophils % (A) 4 %; HCT 36.9 % (34.0-46.0); HGB 12.2 gm/dL (11.4-16.0); Lymphocytes # (A) 1.8 k/uL (1.0-4.8); Lymphocytes % (A) 31 %; MCH 29.5 pg (25.0-35.0); MCHC 32.9 g/dL (31.0-37.0); MCV 89.7 fL (80.0-100.0); Mean Platelet Volume 6.4; Monocytes # (A) 0.2 k/uL (0-1.0); Monocytes % (A) 3 %; Neutrophils # (A) 3.5 k/uL (1.3-7.7); Neutrophils % (A) 61 %; Platelet Count 201 k/uL (150-450); RBC 4.12 m/uL (3.80-5.40); RDW 13.3 % (11.5-15.5); WBC 5.8 k/uL (3.8-10.6)
[2018-07-15 17:58] LABS: ALT 25 U/L (9-52); AST 28 U/L (14-36); Albumin 3.4 g/dL (3.5-5.0); Alkaline Phosphatase 97 U/L (38-126); Anion Gap 9 mmol/L; Blood Urea Nitrogen 15 mg/dL (7-17); Calcium 8.6 mg/dL (8.4-10.2); Carbon Dioxide 25 mmol/L (22-30); Chloride 104 mmol/L (98-107); Glucose 209 mg/dL (74-99); Magnesium 1.6 mg/dL (1.6-2.3); Potassium 4.6 mmol/L (3.5-5.1); Sodium 138 mmol/L (137-145); Total Bilirubin 0.6 mg/dL (0.2-1.3); Total Protein 6.2 g/dL (6.3-8.2)
[2018-07-15 18:08] LABS: Creatine Kinase 59 U/L (30-135)
[2018-07-15 18:09] LABS: D-Dimer 0.49 mg/L FEU (<0.60); INR 0.9 (<1.2)
[2018-07-15 18:10] LABS: Prothrombin Time 9.6 sec (9.0-12.0)
[2018-07-15 18:21] LABS: Creatine Kinase MB 2.6 ng/mL (0.0-2.4); Troponin I <0.012 ng/mL (0.000-0.034)
--- NOTE | 2018-07-15 18:31 | XR ---
EXAMINATION TYPE: XR chest 2V DATE OF EXAM: 07/15/2018 COMPARISON: 01/22/2018 HISTORY: Chest pain TECHNIQUE: Frontal and lateral views of the chest are obtained. FINDINGS: Heart and mediastinum are normal. Lungs are clear. Diaphragm is normal. Bony thorax appear s normal. IMPRESSION: Normal chest. No change.
[2018-07-15 18:47] LABS: Partial Thromboplastin Time 21.5 sec (22.0-30.0)
[2018-07-15] MEDS ORDERED: methylPREDNISolone SOD SUCCI 125 MG/2 ML VIAL IV STA (19:07)
[2018-07-15 20:43] VITALS: BP 122/65; PULSE 72; TEMP 98.2
== END 2018-07-15 20:00 | disposition home or self-care (01) ==
LOC: EC 17:08
DX: M94.0 Chondrocostal junction syndrome [Tietze] (principal); E11.9 Type 2 diabetes mellitus without complications; I10 Essential (primary) hypertension; I25.2 Old myocardial infarction; I47.1 Supraventricular tachycardia; G47.30 Sleep apnea, unspecified; E07.9 Disorder of thyroid, unspecified; Z87.19 Personal history of other diseases of the digestive system; Z98.890 Other specified postprocedural states; Z87.891 Personal history of nicotine dependence; Z86.74 Personal history of sudden cardiac arrest; Z82.49 Family history of ischemic heart disease and other diseases of the circulatory system; Z79.84 Long term (current) use of oral hypoglycemic drugs; Z79.890 Hormone replacement therapy; Z79.899 Other long term (current) drug therapy; Z88.5 Allergy status to narcotic agent; Z91.048 Other nonmedicinal substance allergy status; Z91.018 Allergy to other foods; Z88.8 Allergy status to other drugs, medicaments and biological substances; Z88.6 Allergy status to analgesic agent; Z88.2 Allergy status to sulfonamides; Z88.1 Allergy status to other antibiotic agents
CPT/HCPCS: 36415; 93005; 85379; 83880; 80053; 82550; 82553; 83735; 84484; 85025; 85610; 85730; 71046; 99285; 96374; 96375; 96376; J2930; J1885

== ENCOUNTER 2018-09-03 13:37 | Emergency (ER) | payer OTHER ==
[2018-09-03 14:15] VITALS: RESP 18
[2018-09-03] MEDS ORDERED: KETOROLAC 30 MG/ML 1 ML VIAL IM STA (14:47)
--- NOTE | 2018-09-03 15:51 | CT ---
EXAMINATION TYPE: CT lumbar spine wo con DATE OF EXAM: 09/03/2018 COMPARISON: None HISTORY: Right leg and low back pain. CT DLP: 1359 mGycm CONTRAST: None TECHNIQUE: CT of the lumbar spine is performed on a spiral scan at 3 mm thick sections. Reconstructed images are performed in the coronal and sagittal planes. FINDINGS: T12-L1: No focal disc herniation or significant disc bulge is evident. No spinal canal stenosis or neural foraminal stenosis is present. L1-L2: No focal disc herniation or significant disc bulge is evident. No spinal canal stenosis or n eural foraminal stenosis is present L2-L3: No focal disc herniation or significant disc bulge is evident. No spinal canal stenosis or n eural foraminal stenosis is present L3-L4: Mild disc bulging is anterior thecal sac flattening. No AP spinal canal stenosis or neural for aminal stenosis is present. L4-L5: Mild disc bulge has mild to moderate anterior thecal sac compression. No AP spinal canal steno sis is present. Left neural foramen is patent. The right neural foramen has some narrowing due to spu rring. Disc space narrowing is present. L5-S1: No focal disc herniation or significant disc bulge is evident. No spinal canal stenosis or n eural foraminal stenosis is present Vertebral alignment appears normal. IMPRESSION: 1. Mild disc bulging L3-4 L4-5 with anterior thecal sac compression. 2. Right foraminal narrowing due to osseous spurring and disc bulge right L4-5.
[2018-09-03 15:54] LABS: Anion Gap 10 mmol/L; Blood Urea Nitrogen 15 mg/dL (7-17); Calcium 9.1 mg/dL (8.4-10.2); Carbon Dioxide 25 mmol/L (22-30); Chloride 101 mmol/L (98-107); Glucose 345 mg/dL (74-99); Magnesium 1.5 mg/dL (1.6-2.3); Potassium 4.3 mmol/L (3.5-5.1); Sodium 136 mmol/L (137-145)
[2018-09-03 15:57] LABS: Basophils % (A) 0 %; Eosinophils # (A) 0.2 k/uL (0-0.7); Eosinophils % (A) 4 %; HCT 37.4 % (34.0-46.0); HGB 12.5 gm/dL (11.4-16.0); Lymphocytes # (A) 1.5 k/uL (1.0-4.8); Lymphocytes % (A) 33 %; MCH 29.7 pg (25.0-35.0); MCHC 33.3 g/dL (31.0-37.0); Mean Platelet Volume 6.9; Monocytes # (A) 0.1 k/uL (0-1.0); Monocytes % (A) 3 %; Neutrophils # (A) 2.7 k/uL (1.3-7.7); Neutrophils % (A) 58 %; Platelet Count 169 k/uL (150-450); RDW 14.5 % (11.5-15.5); WBC 4.6 k/uL (3.8-10.6)
--- NOTE | 2018-09-03 16:42 | US ---
EXAMINATION TYPE: US venous doppler duplex LE RT DATE OF EXAM: 09/03/2018 4:24 PM COMPARISON: NONE CLINICAL HISTORY: Pain. Right leg pain SIDE PERFORMED: Right TECHNIQUE: The lower extremity deep venous system is examined utilizing real time linear array sonog arnaud with graded compression, doppler sonography and color-flow sonography. VESSELS IMAGED: External Iliac Vein (EIV) Common Femoral Vein Deep Femoral Vein Greater Saphenous Vein * Femoral Vein Popliteal Vein Small Saphenous Vein * Proximal Calf Veins (* superficial vessels) FINDINGS: Grayscale, color doppler, spectral doppler imaging performed of the deep veins of the lowe r extremities. There is normal flow, compressibility, vascular waveforms. IMPRESSION: Negative for DVT, right lower extremity.
[2018-09-03] MEDS ORDERED: HYDROcodone/APAP 10-325MG 1 EACH TAB PO ONE (17:30)
[2018-09-03] MEDS ORDERED: MAGNESIUM OXIDE 400 MG TAB PO STA (17:59)
--- NOTE | 2018-09-03 18:02 | ED ---
General Adult HPI - General Chief complaint: Extremity Problem,Nontraumatic Stated complaint: Rt leg pain Time Seen by Provider: 09/03/18 14:20 Source: patient Mode of arrival: ambulatory Limitations: no limitations - History of Present Illness Initial comments: Patient is a 48-year-old female who presents to the emergency department with complaint of right lower extremity pain. The pain has been going on for several weeks. She has seen her primary care physician who is sending her for physical therapy. States she takes [place] and gabapentin for chronic pain and neuropathy in her feet. Admits that the pain in her right lower extremity has been getting progressively worse. She describes it as a shooting pain which starts in her thigh and radiates down to her foot. She denies back pain. She also admits to increasing calf pain. Denies any calf swelling. No history of DVTs or PEs. No family history of blood clotting disorders. Denies any recent surgery or prolonged immobility. Does admit that she had recent trauma when she had a slip and fall approximate one month ago. She was not evaluated for the fall. She denies any bowel or bladder retention or incontinence. Denies saddle anesthesia. Denies any weakness in her lower extremity. She has been ambulatory with pain. When her [place] didn't fully help alleviate her symptoms she came to the emergency room for further evaluation. She denies any fevers or chills. No history of IVDA. No history of cancer. Denies any pain in her upper extremities. No cervical or thoracic back pain. There are no other alleviating, precipitating or modifying factors - Related Data Home Medications Medication Instructions Recorded Confirmed metFORMIN HCL [Glucophage] 500 mg PO DAILY 09/08/14 09/03/18 Levothyroxine Sodium [Synthroid] 300 mcg PO DAILY 06/27/16 09/03/18 Metoprolol Tartrate [Lopressor] 25 mg PO BID 07/27/17 09/03/18 Lisinopril [Zestril] 20 mg PO BID 01/10/18 09/03/18 Gabapentin [Neurontin] 300 mg PO HS 07/15/18 09/03/18 Venlafaxine HCl ER [Effexor Xr] 37.5 mg PO BID 07/15/18 09/03/18 HYDROcodone/APAP 5-325MG [[place] 1 tab PO Q4HR PRN 09/03/18 09/03/18 5-325] Previous Rx's Medication Instructions Recorded amLODIPine [Norvasc] 5 mg PO HS #30 tab 09/05/17 Ibuprofen 800 mg PO Q6HR PRN #20 tablet 07/15/18 Cyclobenzaprine [Flexeril] 10 mg PO TID PRN #15 tab 09/03/18 predniSONE 20 mg PO BID #10 tab 09/03/18 Allergies Allergy/AdvReac Type Severity Reaction Status Date / Time codeine Allergy Severe Cardiac Verified 09/03/18 17:59 Arrest meperidine HCl [From Demerol] Allergy Severe Cardiac Verified 09/03/18 17:59 Arrest morphine Allergy Severe Caridac Verified 09/03/18 17:59 Arrest adhesive tape Allergy Rash/Hives Verified 09/03/18 17:59 celery Allergy Oral Verified 09/03/18 17:59 Numbness cinnamon Allergy Anaphylaxis Verified 09/03/18 17:59 diphenhydramine HCl Allergy Anaphylaxis Verified 09/03/18 17:59 [From Benadryl] eucalyptus Allergy Anaphylaxis Verified 09/03/18 17:59 [From [place] Cough Drops] menthol Allergy Anaphylaxis Verified 09/03/18 17:59 [From [place] Cough Drops] naproxen sodium [From Aleve] Allergy Rash/Hives Verified 09/03/18 17:59 nitrofurantoin Allergy Unknown Verified 09/03/18 17:59 macrocrystalline [From Macrodantin] Sulfa (Sulfonamide Allergy Rash/Hives Verified 09/03/18 17:59 Antibiotics) ciprofloxacin [From Cipro] AdvReac Abdominal Verified 09/03/18 17:59 Pain ciprofloxacin HCl AdvReac Abdominal Verified 09/03/18 17:59 [From Cipro] Pain multivitamin Allergy Intermediate Rash/Hives Uncoded 09/03/18 17:59 car exhaust AdvReac Mild Nausea & Uncoded 09/03/18 17:59 Vomiting Review of Systems ROS Statement: Those systems with pertinent positive or pertinent negative responses have been documented in the HPI. ROS Other: All systems not noted in ROS Statement are negative. Past Medical History Past Medical History: Diabetes Mellitus, Fibromyalgia, GERD/Reflux, Hyperlipidemia, Hypertension, Myocardial Infarction ([place]), Osteoarthritis (OA), Seizure Disorder, Supraventricular Tachycardia (SVT), Thyroid Disorder Additional Past Medical History / Comment(s): Severe allergies, PT STATES IN 1994 PTWAS HAD TOXEMIA WAS GIVEN DEMEROL AND WENT INTO A CARDIAC ARREST (COMA 21 days), was having seizures and had 2ND CARDIAC ARREST 2000 (COMA 3-5 DAYS), SVT, SLEEP APNEA( NO MACHINE), STATES LAST SEIZURE 1 YEAR AGO, arthritis low back and hips, PANCREATITIS, colitis. History of Any Multi-Drug Resistant Organisms: None Reported Past Surgical History: Cardiac Ablation, Section, Cholecystectomy, Hernia Repair, Tubal Ligation Additional Past Surgical History / Comment(s): Umbilical hernia repair. Past Anesthesia/Blood Transfusion Reactions: Motion Sickness Additional Past Anesthesia/Blood Transfusion Reaction / Comment(s): CLAUSTERPHOBIA, Past Psychological History: Anxiety, Panic Disorder Smoking Status: Former smoker Past Alcohol Use History: Rare Past Drug Use History: None Reported - Past Family History Father Family Medical History: Cancer, Myocardial Infarction ([place]) Additional Family Medical History / Comment(s): AGE 45 FROM [place] Mother Family Medical History: No Reported History Additional Family Medical History / Comment(s): NORMAL-NO PROBLEMS General Exam Limitations: no limitations General appearance: alert, in no apparent distress Head exam: Present: atraumatic, normocephalic, normal inspection Eye exam: Present: normal appearance, PERRL, EOMI. Absent: scleral icterus, conjunctival injection, periorbital swelling ENT exam: Present: normal exam, mucous membranes moist Neck exam: Present: normal inspection. Absent: tenderness, meningismus, lymphadenopathy Respiratory exam: Present: normal lung sounds bilaterally. Absent: respiratory distress, wheezes, rales, rhonchi, stridor Cardiovascular Exam: Present: regular rate, normal rhythm, normal heart sounds. Absent: systolic murmur, diastolic murmur, rubs, gallop, clicks GI/Abdominal exam: Present: soft, normal bowel sounds. Absent: distended, tenderness, guarding, rebound, rigid Extremities exam: Present: normal inspection, normal capillary refill, calf tenderness, other (The patient has a positive straight leg raise on the right. She does have tenderness to palpation of the right calf. No cyanosis of the right lower trauma. She does have bilateral 5/5 muscle strength in the hip flexors, knee extensors, ankle and great toe dorsiflexors and plantarflexors. Symmetric Achilles and patellar reflexes. 2+ dorsalis pedis and posterior tibial pulses ). Absent: tenderness, pedal edema, joint swelling Back exam: Present: normal inspection Neurological exam: Present: alert, oriented X3, CN II-XII intact Psychiatric exam: Present: normal affect, normal mood Skin exam: Present: warm, dry, intact, normal color. Absent: rash Course Vital Signs 09/03/18 09/03/18 09/03/18 14:11 17:42 19:10 Temperature 97.8 F 98.0 F Pulse Rate 105 H 94 93 Respiratory 18 18 18 Rate Blood Pressure 152/78 144/66 160/74 O2 Sat by Pulse 97 97 96 Oximetry Medical Decision Making - Medical Decision Making The patient was seen by myself. I did recommend a Doppler of the right lower extremity do to her calf pain. Also recommended a CT of the patient's lumbar spine because of her radicular symptoms. The patient is given a [place] 10/325 mg for her pain. Upon return of the results I did discuss them with the patient. Lower extremity Doppler was negative. Laboratory studies had been obtained and the patient's magnesium was 1.4. I did replace her with 400 mg. I did recommend to the patient that she take magnesium supplementation for the next several days and have recheck of her magnesium level by her primary care physician. She is also informed of her elevated blood sugars. She must follow- up with her primary care physician for further management of her diabetes. The patient's CT of her lumbar spine did show significant disc herniation at L3-L4 and L4-L5. There is mild thecal compression. Patient also had bone spurring and disc bulge at L4-L5 on the right. Because of this I did recommend that the patient follow up with Dr. Osorio. The patient will be discharged from the hospital and be given a course of prednisone for her radicular symptoms. She is instructed not to take any NSAIDs with the steroids. I also provided the patient with prescription for Flexeril. Side effect profile of medications were discussed with the patient. She is to follow-up with her primary care physician within 2 days. She has any new or worsening symptoms she should return to the emergency room. Patient was in agreement to plan and discharged home in any ambulatory stable condition - Differential Diagnosis Lumbar radiculopathy, herniated disc - Lab Data Result diagrams: 09/03/18 15:20 09/03/18 15:20 Lab Results 09/03/18 09/03/18 Range/Units 15:20 15:20 WBC 4.6 (3.8-10.6) k/uL RBC 4.20 (3.80-5.40) m/uL Hgb 12.5 (11.4-16.0) gm/dL Hct 37.4 (34.0-46.0) % MCV 89.0 (80.0-100.0) fL MCH 29.7 (25.0-35.0) pg MCHC 33.3 (31.0-37.0) g/dL RDW 14.5 (11.5-15.5) % Plt Count 169 (150-450) k/uL Neutrophils % 58 % Lymphocytes % 33 % Monocytes % 3 % Eosinophils % 4 % Basophils % 0 % Neutrophils # 2.7 (1.3-7.7) k/uL Lymphocytes # 1.5 (1.0-4.8) k/uL Monocytes # 0.1 (0-1.0) k/uL Eosinophils # 0.2 (0-0.7) k/uL Basophils # 0.0 (0-0.2) k/uL Sodium 136 L (137-145) mmol/L Potassium 4.3 (3.5-5.1) mmol/L Chloride 101 (98-107) mmol/L Carbon Dioxide 25 (22-30) mmol/L Anion Gap 10 mmol/L BUN 15 (7-17) mg/dL Creatinine 0.50 L (0.52-1.04) mg/dL Est GFR (CKD-EPI)AfAm >90 (>60 ml/min/1.73 sqM) Est GFR (CKD-EPI)NonAf >90 (>60 ml/min/1.73 sqM) Glucose 345 H (74-99) mg/dL Calcium 9.1 (8.4-10.2) mg/dL Magnesium 1.5 L (1.6-2.3) mg/dL - Radiology Data Radiology results: report reviewed Venous duplex of the lower extremity reveals no DVT. CT of the patient's lumbar spine demonstrates L3-L4 and L4-L5 disc bulge with mild thecal compression. There is also a bone spur and disc bulge at L4-L5 on the right Disposition Clinical Impression: Herniated disc, Lumbar radiculopathy, right Disposition: HOME SELF-CARE Condition: Good Instructions (If sedation given, give patient instructions): Lumbar Disc Herniation (ED) Additional Instructions: Please follow-up with your primary care physician within 2 days. You will need an MRI of your lumbar spine. Do not lift anything greater than 10 pounds. Use a heating pad to the site for 20 minutes, 4 times a day. Return to the emergency department for any new or worsening symptoms Prescriptions: Cyclobenzaprine [Flexeril] 10 mg PO TID PRN #15 tab PRN Reason: Muscle Spasm predniSONE 20 mg PO BID #10 tab Is patient prescribed a controlled substance at d/c from ED?: No Referrals: Og Oliva MD [Primary Care Provider] - 1-2 days Roland Humphries DO [Doctor of Osteopathic Medicine] - 1-2 days Time of Disposition: 18:52
[2018-09-03 19:25] VITALS: BP 160/74; PULSE 93; TEMP 98
== END 2018-09-03 19:20 | disposition home or self-care (01) ==
LOC: EC 13:37
DX: M51.16 Intervertebral disc disorders with radiculopathy, lumbar region (principal); M79.661 Pain in right lower leg; E11.40 Type 2 diabetes mellitus with diabetic neuropathy, unspecified; M79.7 Fibromyalgia; I10 Essential (primary) hypertension; I25.2 Old myocardial infarction; F41.9 Anxiety disorder, unspecified; G40.909 Epilepsy, unspecified, not intractable, without status epilepticus; E07.9 Disorder of thyroid, unspecified; Z87.19 Personal history of other diseases of the digestive system; Z86.74 Personal history of sudden cardiac arrest; Z87.891 Personal history of nicotine dependence; Z90.49 Acquired absence of other specified parts of digestive tract; Z98.51 Tubal ligation status; Z98.890 Other specified postprocedural states; Z79.84 Long term (current) use of oral hypoglycemic drugs; Z79.890 Hormone replacement therapy; Z79.899 Other long term (current) drug therapy; Z88.1 Allergy status to other antibiotic agents; Z88.2 Allergy status to sulfonamides; Z88.5 Allergy status to narcotic agent; Z88.6 Allergy status to analgesic agent; Z88.8 Allergy status to other drugs, medicaments and biological substances; Z91.018 Allergy to other foods; Z91.048 Other nonmedicinal substance allergy status
CPT/HCPCS: 36415; 80048; 83735; 85025; 93971; 72131; 99284; 96372; J1885

== ENCOUNTER 2018-09-12 11:20 | Observation (INO) | payer OTHER ==
[2018-09-12] MEDS ORDERED: NITROGLYCERIN OINT 1 INCH/GM PACKET TOPICAL STA (11:52)
[2018-09-12] MEDS ORDERED: ASPIRIN 81 MG PO STA (11:52)
--- NOTE | 2018-09-12 11:56 | ED ---
General Adult HPI - General Chief complaint: Chest Pain Stated complaint: chest pain Time Seen by Provider: 09/12/18 11:30 Source: patient, RN notes reviewed Mode of arrival: wheelchair Limitations: no limitations - History of Present Illness Initial comments: This is a 48-year-old female presents emergency Department complaining of chest pain. Patient states sharp in nature but it radiates down into her armpit. Patient states she's also very short of breath with it and he has become very lightheaded and sweaty. Patient was at her doctor's office and he sent her into the hospital to be admitted. Patient denies any ulcer or cough. Patient denies any palpitations. Patient denies any headache patient denies numbness weakness. Patient denies any abdominal pain patient denies nausea vomiting diarrhea. Patient denies any swelling to legs or calf tenderness. Patient denies any syncopal or near syncopal episode. Patient states the chest pain is still ongoing. - Related Data Home Medications Medication Instructions Recorded Confirmed metFORMIN HCL [Glucophage] 500 mg PO DAILY 09/08/14 09/12/18 Levothyroxine Sodium [Synthroid] 300 mcg PO DAILY 06/27/16 09/12/18 Metoprolol Tartrate [Lopressor] 25 mg PO BID 07/27/17 09/12/18 Lisinopril [Zestril] 20 mg PO BID 01/10/18 09/12/18 Gabapentin [Neurontin] 300 mg PO HS 07/15/18 09/12/18 Venlafaxine HCl ER [Effexor Xr] 37.5 mg PO BID 07/15/18 09/12/18 HYDROcodone/APAP 5-325MG [[place] 1 tab PO Q4HR PRN 09/03/18 09/12/18 5-325] Fluticasone Nasal [place] [Flonase 1 spray EA NOSTRIL DAILY 09/12/18 09/12/18 Nasal [place]] Omeprazole 20 mg PO DAILY 09/12/18 09/12/18 predniSONE 20 mg PO HS 09/12/18 09/12/18 Previous Rx's Medication Instructions Recorded amLODIPine [Norvasc] 5 mg PO HS #30 tab 09/05/17 Cyclobenzaprine [Flexeril] 10 mg PO TID PRN #15 tab 09/03/18 Allergies Allergy/AdvReac Type Severity Reaction Status Date / Time codeine Allergy Severe Cardiac Verified 09/12/18 12:40 Arrest meperidine HCl [From Demerol] Allergy Severe Cardiac Verified 09/12/18 12:40 Arrest morphine Allergy Severe Caridac Verified 09/12/18 12:40 Arrest adhesive tape Allergy Rash/Hives Verified 09/12/18 12:40 celery Allergy Oral Verified 09/12/18 12:40 Numbness cinnamon Allergy Anaphylaxis Verified 09/12/18 12:40 diphenhydramine HCl Allergy Anaphylaxis Verified 09/12/18 12:40 [From Benadryl] eucalyptus Allergy Anaphylaxis Verified 09/12/18 12:40 [From [place] Cough Drops] menthol Allergy Anaphylaxis Verified 09/12/18 12:40 [From [place] Cough Drops] naproxen sodium [From Aleve] Allergy Rash/Hives Verified 09/12/18 12:40 nitrofurantoin Allergy Unknown Verified 09/12/18 12:40 macrocrystalline [From Macrodantin] Sulfa (Sulfonamide Allergy Rash/Hives Verified 09/12/18 12:40 Antibiotics) ciprofloxacin [From Cipro] AdvReac Abdominal Verified 09/12/18 12:40 Pain ciprofloxacin HCl AdvReac Abdominal Verified 09/12/18 12:40 [From Cipro] Pain multivitamin Allergy Intermediate Rash/Hives Uncoded 09/12/18 11:31 car exhaust AdvReac Mild Nausea & Uncoded 09/12/18 11:31 Vomiting Review of Systems ROS Statement: Those systems with pertinent positive or pertinent negative responses have been documented in the HPI. ROS Other: All systems not noted in ROS Statement are negative. Past Medical History Past Medical History: Diabetes Mellitus, Fibromyalgia, GERD/Reflux, Hyperlipidemia, Hypertension, Myocardial Infarction ([place]), Osteoarthritis (OA), Seizure Disorder, Supraventricular Tachycardia (SVT), Thyroid Disorder Additional Past Medical History / Comment(s): Severe allergies, PT STATES IN 1994 PTWAS HAD TOXEMIA WAS GIVEN DEMEROL AND WENT INTO A CARDIAC ARREST (COMA 21 days), was having seizures and had 2ND CARDIAC ARREST 2000 (COMA 3-5 DAYS), SVT, SLEEP APNEA( NO MACHINE), STATES LAST SEIZURE 1 YEAR AGO, arthritis low back and hips, PANCREATITIS, colitis. History of Any Multi-Drug Resistant Organisms: None Reported Past Surgical History: Cardiac Ablation, Section, Cholecystectomy, Hernia Repair, Tubal Ligation Additional Past Surgical History / Comment(s): Umbilical hernia repair. Past Anesthesia/Blood Transfusion Reactions: Motion Sickness Additional Past Anesthesia/Blood Transfusion Reaction / Comment(s): CLAUSTERPHOBIA, Past Psychological History: Anxiety, Panic Disorder Smoking Status: Former smoker Past Alcohol Use History: Rare Past Drug Use History: None Reported - Past Family History Father Family Medical History: Cancer, Myocardial Infarction ([place]) Additional Family Medical History / Comment(s): AGE 45 FROM [place] Mother Family Medical History: No Reported History Additional Family Medical History / Comment(s): NORMAL-NO PROBLEMS General Exam - General Exam Comments Initial Comments: GENERAL: Patient is well-developed and well-nourished. Patient is nontoxic and well- hydrated and is in mild distress. ENT: Neck is soft and supple. No significant lymphadenopathy is noted. Oropharynx is clear. Moist mucous membranes. Neck has full range of motion without eliciting any pain. EYES: The sclera were anicteric and conjunctiva were pink and moist. Extraocular movements were intact and pupils were equal round and reactive to light. Eyelids were unremarkable. PULMONARY: Unlabored respirations. Good breath sounds bilaterally. No audible rales rhonchi or wheezing was noted. CARDIOVASCULAR: There is a regular rate and rhythm without any murmurs gallops or rubs. ABDOMEN: Soft and nontender with normal bowel sounds. No palpable organomegaly was noted. There is no palpable pulsatile mass. SKIN: Skin is clear with no lesions or rashes and otherwise unremarkable. NEUROLOGIC: Patient is alert and oriented x3. Cranial nerves II through XII are grossly intact. Motor and sensory are also intact. Normal speech, volume and content. Symmetrical smile. MUSCULOSKELETAL: Normal extremities with adequate strength and full range of motion. No lower extremity swelling or edema. No calf tenderness. LYMPHATICS: No significant lymphadenopathy is noted PSYCHIATRIC: Normal psychiatric evaluation. Limitations: no limitations Course Vital Signs 09/12/18 11:28 Temperature 97.5 F L Pulse Rate 105 H Respiratory 18 Rate Blood Pressure 149/82 O2 Sat by Pulse 98 Oximetry Medical Decision Making - Medical Decision Making EKG shows sinus rhythm with occasional PAC at a rate of 99 bpm MA interval is 144 QRS is 70 QT interval 352 QTC is 451. Patient's EKG shows no ST segment elevation or depression or T wave abnormalities are noted. Chest x-ray shows no acute abnormality. I started the patient heparin for unstable angina. I spoke with Dr. Oliva he agreed to admit the patient admitted the patient I wrote admitting orders. I consult cardiology. I continued heparin and aspirin Nitropaste on the floor. I spoke with the patient about her results and she was feeling much improved. - Lab Data Result diagrams: 09/12/18 11:50 09/12/18 11:50 Lab Results 09/12/18 09/12/18 09/12/18 Range/Units 11:50 11:50 11:50 WBC 6.9 (3.8-10.6) k/uL RBC 4.69 (3.80-5.40) m/uL Hgb 13.8 (11.4-16.0) gm/dL Hct 41.0 (34.0-46.0) % MCV 87.5 (80.0-100.0) fL MCH 29.5 (25.0-35.0) pg MCHC 33.7 (31.0-37.0) g/dL RDW 14.0 (11.5-15.5) % Plt Count 227 (150-450) k/uL Neutrophils % 62 % Lymphocytes % 29 % Monocytes % 4 % Eosinophils % 3 % Basophils % 1 % Neutrophils # 4.3 (1.3-7.7) k/uL Lymphocytes # 2.0 (1.0-4.8) k/uL Monocytes # 0.3 (0-1.0) k/uL Eosinophils # 0.2 (0-0.7) k/uL Basophils # 0.0 (0-0.2) k/uL PT 9.4 (9.0-12.0) sec INR 0.8 (<1.2) APTT 22.2 (22.0-30.0) sec Sodium 134 L (137-145) mmol/L Potassium 4.2 (3.5-5.1) mmol/L Chloride 100 (98-107) mmol/L Carbon Dioxide 23 (22-30) mmol/L Anion Gap 11 mmol/L BUN 13 (7-17) mg/dL Creatinine 0.49 L (0.52-1.04) mg/dL Est GFR (CKD-EPI)AfAm >90 (>60 ml/min/1.73 sqM) Est GFR (CKD-EPI)NonAf >90 (>60 ml/min/1.73 sqM) Glucose 264 H (74-99) mg/dL Calcium 9.3 (8.4-10.2) mg/dL Magnesium 1.5 L (1.6-2.3) mg/dL Total Bilirubin 0.6 (0.2-1.3) mg/dL AST 17 (14-36) U/L ALT 34 (9-52) U/L Alkaline Phosphatase 132 H (38-126) U/L Troponin I (0.000-0.034) ng/mL Total Protein 6.7 (6.3-8.2) g/dL Albumin 3.8 (3.5-5.0) g/dL 09/12/18 Range/Units 11:50 WBC (3.8-10.6) k/uL RBC (3.80-5.40) m/uL Hgb (11.4-16.0) gm/dL Hct (34.0-46.0) % MCV (80.0-100.0) fL MCH (25.0-35.0) pg MCHC (31.0-37.0) g/dL RDW (11.5-15.5) % Plt Count (150-450) k/uL Neutrophils % % Lymphocytes % % Monocytes % % Eosinophils % % Basophils % % Neutrophils # (1.3-7.7) k/uL Lymphocytes # (1.0-4.8) k/uL Monocytes # (0-1.0) k/uL Eosinophils # (0-0.7) k/uL Basophils # (0-0.2) k/uL PT (9.0-12.0) sec INR (<1.2) APTT (22.0-30.0) sec Sodium (137-145) mmol/L Potassium (3.5-5.1) mmol/L Chloride (98-107) mmol/L Carbon Dioxide (22-30) mmol/L Anion Gap mmol/L BUN (7-17) mg/dL Creatinine (0.52-1.04) mg/dL Est GFR (CKD-EPI)AfAm (>60 ml/min/1.73 sqM) Est GFR (CKD-EPI)NonAf (>60 ml/min/1.73 sqM) Glucose (74-99) mg/dL Calcium (8.4-10.2) mg/dL Magnesium (1.6-2.3) mg/dL Total Bilirubin (0.2-1.3) mg/dL AST (14-36) U/L ALT (9-52) U/L Alkaline Phosphatase (38-126) U/L Troponin I <0.012 (0.000-0.034) ng/mL Total Protein (6.3-8.2) g/dL Albumin (3.5-5.0) g/dL Critical Care Time Critical Care Time: Yes Total Critical Care Time: 35 Disposition Clinical Impression: Unstable angina Disposition: ADMITTED IP TO THIS HOSP Referrals: Og Oliva MD [Primary Care Provider] - 1-2 days Time of Disposition: 12:53
[2018-09-12 12:14] LABS: Basophils % (A) 1 %; Eosinophils # (A) 0.2 k/uL (0-0.7); Eosinophils % (A) 3 %; HGB 13.8 gm/dL (11.4-16.0); Lymphocytes % (A) 29 %; MCH 29.5 pg (25.0-35.0); MCHC 33.7 g/dL (31.0-37.0); MCV 87.5 fL (80.0-100.0); Mean Platelet Volume 6.8; Monocytes # (A) 0.3 k/uL (0-1.0); Monocytes % (A) 4 %; Neutrophils # (A) 4.3 k/uL (1.3-7.7); Neutrophils % (A) 62 %; Platelet Count 227 k/uL (150-450); RBC 4.69 m/uL (3.80-5.40); WBC 6.9 k/uL (3.8-10.6)
[2018-09-12 12:17] LABS: ALT 34 U/L (9-52); AST 17 U/L (14-36); Albumin 3.8 g/dL (3.5-5.0); Alkaline Phosphatase 132 U/L (38-126); Anion Gap 11 mmol/L; Blood Urea Nitrogen 13 mg/dL (7-17); Calcium 9.3 mg/dL (8.4-10.2); Carbon Dioxide 23 mmol/L (22-30); Chloride 100 mmol/L (98-107); Glucose 264 mg/dL (74-99); Magnesium 1.5 mg/dL (1.6-2.3); Potassium 4.2 mmol/L (3.5-5.1); Sodium 134 mmol/L (137-145); Total Bilirubin 0.6 mg/dL (0.2-1.3); Total Protein 6.7 g/dL (6.3-8.2)
--- NOTE | 2018-09-12 12:18 | XR ---
EXAMINATION TYPE: XR chest 2V DATE OF EXAM: 09/12/2018 COMPARISON: 07/15/2018 TECHNIQUE: PA and lateral views submitted. HISTORY: Chest pain FINDINGS: The lungs are clear and there is no pneumothorax, pleural effusion, or focal pneumonia. No overt fa ilure. Hypertrophic change of the spine. IMPRESSION: 1. No acute process.
[2018-09-12 12:21] LABS: INR 0.8 (<1.2); Partial Thromboplastin Time 22.2 sec (22.0-30.0); Prothrombin Time 9.4 sec (9.0-12.0)
[2018-09-12] MEDS ORDERED: HEPARIN SODIUM,PORCINE 5,000 UNIT/ML 1 ML VIAL IV ONE (12:51)
[2018-09-12] MEDS ORDERED: NITROGLYCERIN SL TABS 0.4 MG TAB SUBLINGUAL PRN (12:55)
[2018-09-12] MEDS ORDERED: HEPARIN SOD,PORK IN 0.45% NACL 25,000 UNIT in 0.45% NACL 1 250ML.BAG IV SCH (13:00)
[2018-09-12] MEDS ORDERED: CYCLOBENZAPRINE 10 MG TAB PO PRN (14:03)
[2018-09-12] MEDS ORDERED: HYDROcodone/APAP 5-325MG 1 EACH TAB PO PRN (14:03)
[2018-09-12 16:46] LABS: Glucose,Whole Blood 224 mg/dL (75-99)
[2018-09-12 20:06] LABS: Glucose,Whole Blood 304 mg/dL (75-99)
[2018-09-12 20:38] LABS: T4, Free (Free Thyroxine) 2.64 ng/dL (0.78-2.19)
[2018-09-12] MEDS ORDERED: predniSONE 20 MG TAB PO SCH (21:00)
[2018-09-12] MEDS ORDERED: amLODIPine 5 MG TAB PO SCH (21:00)
[2018-09-12] MEDS: METOPROLOL TARTRATE 25 MG TAB PO SCH (21:33)
[2018-09-12] MEDS: NITROGLYCERIN OINT 1 INCH/GM PACKET TOPICAL SCH ×2 (21:33→23:21)
[2018-09-12] MEDS: GABAPENTIN 300 MG CAP PO SCH (21:34)
[2018-09-12] MEDS: VENLAFAXINE HCL ER 37.5 MG CAP PO SCH (21:34)
[2018-09-12] MEDS: LISINOPRIL 20 MG TAB PO SCH (21:34)
[2018-09-12] MEDS: HEPARIN SODIUM,PORCINE 5,000 UNIT/ML 1 ML VIAL IV PRN (21:36)
[2018-09-12] MEDS: INSULIN ASPART (NovoLOG) 100 UNIT/ML VIAL SQ SCH (21:37)
[2018-09-13 01:15] LABS: Hemoglobin A1C 8.9 % (4.0-6.0)
[2018-09-13] MEDS: HEPARIN SODIUM,PORCINE 5,000 UNIT/ML 1 ML VIAL IV PRN (04:31)
[2018-09-13] MEDS: NITROGLYCERIN OINT 1 INCH/GM PACKET TOPICAL SCH (04:44)
[2018-09-13 04:51] LABS: Cholesterol 218 mg/dL (<200); HDL Cholesterol 39 mg/dL (40-60)
[2018-09-13] MEDS ORDERED: LEVOTHYROXINE 100 MCG TAB PO SCH (06:30)
[2018-09-13 06:52] LABS: Glucose,Whole Blood 283 mg/dL (75-99)
[2018-09-13 07:01] LABS: Triglycerides 3228 mg/dL (<150)
[2018-09-13] MEDS ORDERED: INSULIN ASPART (NovoLOG) 100 UNIT/ML VIAL SQ SCH (07:30)
[2018-09-13] MEDS ORDERED: PANTOPRAZOLE 40 MG TABLET PO SCH (07:30)
[2018-09-13 07:52] VITALS: RESP 18
[2018-09-13] MEDS: INSULIN ASPART (NovoLOG) 100 UNIT/ML VIAL SQ SCH ×2 (08:58→12:35)
[2018-09-13] MEDS ORDERED: FLUTICASONE 50MCG/SPRAY NASAL 16GM EA NOSTRIL SCH (09:00)
[2018-09-13] MEDS ORDERED: ASPIRIN 325 MG TAB PO SCH (09:00)
[2018-09-13] MEDS ORDERED: metFORMIN 500 MG TAB PO SCH (09:00)
[2018-09-13] MEDS: VENLAFAXINE HCL ER 37.5 MG CAP PO SCH (10:35)
[2018-09-13] MEDS: LISINOPRIL 20 MG TAB PO SCH (10:35)
[2018-09-13] MEDS: METOPROLOL TARTRATE 25 MG TAB PO SCH (10:35)
[2018-09-13 11:46] LABS: Glucose,Whole Blood 204 mg/dL (75-99)
[2018-09-13 12:17] VITALS: TEMP 97.7
--- NOTE | 2018-09-13 12:31 | P.CRDCN ---
History of Present Illness History of present illness: This is a pleasant 48-year-old female past medical history significant for hypothyroidism, diabetes mellitus, hypertension, dyslipidemia, SVT status post ablation, fibromyalgia and gastroesophageal reflux disease. She follows in the office with Dr. Whitlock. We have asked to see her in consultation for symptoms of chest discomfort. She states she was sitting in her primary care physician's office yesterday when she had sudden intense sharp stabbing pain in the left precordial region. There is no radiation to the arm, back, neck or jaw. She did feel associated palpitations and shortness of breath. Her symptoms came on around 9:00 the morning and lasted until approximately 2 PM. Ultimately subsided on their own she was in the hospital with no specific alleviating factor. She is seen and examined resting comfortably laying flat in bed in no acute distress. She denies any further symptoms of chest discomfort since it subsided yesterday. She denies associated nausea, vomiting, dizziness or diaphoresis. She underwent cardiac catheterization in January 2018 that was negative for obstructive coronary artery disease. Echocardiogram obtained at that time revealed preserved left ventricular systolic function with ejection fraction 55%. EKG reveals sinus mechanism with occasional PVCs noted. No ST or T-wave abnormalities. Chest x-ray is negative for an acute cardiopulmonary process. Laboratory data reviewed, triglycerides 3228, cardiac enzymes negative 3, WBC 6.9, hemoglobin 13.8, platelets 227, d-dimer 0.39, sodium 134, his potassium 4.2, creatinine 0.49, hemoglobin A1c 8.9, TSH less than 0.015, free T4 2.64. Current cardiac medications include lisinopril 20 mg twice a day, Lopressor 25 mg twice a day and amlodipine 5 mg daily. At the time of my exam: CONSTITUTIONAL: Denies fever. Denies chills. EYES: Denies blurred vision. Denies vision changes. Denies eye pain. EARS, NOSE, MOUTH & THROAT: Denies headache. Denies sore throat. Denies ear pain. CARDIOVASCULAR: Denies chest pain. Denies shortness of breath. Denies orthopnea. Denies PND. Denies palpitations. RESPIRATORY: Denies cough. GASTROINTESTINAL: Denies abdominal pain. Denies diarrhea. Denies constipation. Denies nausea. Denies vomiting. MUSCULOSKELETAL: Denies myalgias. INTEGUMENTARY: Denies pruitis. Denies rash. NEUROLOGIC: Denies numbness. Denies tingling. Denies weakness. PSYCHIATRIC: Denies anxiety. Denies depression. ENDOCRINE: Denies fatigue. Denies weight change. Denies polydipsia. Denies polyurina. GENITOURINARY: Denies burning, hematuria or urgency with micturation. HEMATOLOGIC: Denies history of anemia. Denies bleeding. Blood pressure 119/64 heart rate 95 afebrile maintaining oxygen saturation on room air GENERAL: This is a 48-year-old female in no apparent distress at the time of my examination. Obese. HEENT: Head is atraumatic, normocephalic. Pupils are equal, round. Sclerae anicteric. Conjunctivae are clear. Mucous membranes of the mouth are moist. Neck is supple. There is no jugular venous distention. No carotid bruit is heard. LUNGS: Clear to auscultation no wheezes, rales or rhonchi. No chest wall tenderness is noted on palpation or with deep breathing. HEART: Regular rate and rhythm without murmurs, rubs or gallops. S1 and S2 heard. ABDOMEN: Soft, nontender. Bowel sounds are heard. No organomegaly noted. EXTREMITIES: No evidence of peripheral edema and no calf tenderness noted. VASCULAR: Radial and dorsalis pedis pulses palpated, no evidence of clubbing. NEUROLOGIC: Patient is awake, alert and oriented x3. ASSESSMENT Chest pain, atypical for angina. An acute coronary event has been ruled out. Recent normal cardiac catheterization. Hypertension Dyslipidemia Severe hypertriglyceridemia Gastroesophageal reflux disease Diabetes mellitus History of SVT status post ablation Obesity, BMI 43 Fibromyalgia History of pancreatitis in the past PLAN An acute coronary event has been ruled out. Her symptoms are not suggestive of angina. Recent cardiac catheterization reveals no evidence of obstructive coronary artery disease. Stable from a cardiac perspective. Follow-up with Dr. Whitlock upon discharge. Primary Team to manage thyroid abnormalities. Recommend fenofibrate 160 daily for lowering of triglycerides. Thank you kindly for this consultation Nurse Practitioner note has been reviewed, I agree with a documented findings and plan of care. Patient was seen and examined. Past Medical History Past Medical History: Diabetes Mellitus, Fibromyalgia, GERD/Reflux, Hyperlipidemia, Hypertension, Myocardial Infarction ([place]), Osteoarthritis (OA), Seizure Disorder, Supraventricular Tachycardia (SVT), Thyroid Disorder Additional Past Medical History / Comment(s): Severe allergies, PT STATES IN 1994 PTWAS HAD TOXEMIA WAS GIVEN DEMEROL AND WENT INTO A CARDIAC ARREST (COMA 21 days), was having seizures and had 2ND CARDIAC ARREST 2000 (COMA 3-5 DAYS), SVT, SLEEP APNEA( NO MACHINE), STATES LAST SEIZURE 1 YEAR AGO, arthritis low back and hips, PANCREATITIS, colitis, heart cath done Jan 2018- no stents currently. Last Myocardial Infarction Date:: . History of Any Multi-Drug Resistant Organisms: None Reported Past Surgical History: Cardiac Ablation, Section, Cholecystectomy, Hernia Repair, Tubal Ligation Additional Past Surgical History / Comment(s): Umbilical hernia repair. Past Anesthesia/Blood Transfusion Reactions: Motion Sickness Additional Past Anesthesia/Blood Transfusion Reaction / Comment(s): CLAUSTERPHOBIA, Past Psychological History: Anxiety, Panic Disorder Additional Psychological History / Comment(s): Lives with spouse/son. Does not drive, family takes to appts. PT states meds for anxiety work well. Smoking Status: Former smoker Past Alcohol Use History: Rare Additional Past Alcohol Use History / Comment(s): STARTED SMOKING AT AGE 13- SMOKED 1/2 PPD, QUIT IN 1994 Past Drug Use History: None Reported - Past Family History Father Family Medical History: Cancer, Myocardial Infarction ([place]) Additional Family Medical History / Comment(s): AGE 45 FROM [place] Mother Family Medical History: No Reported History Additional Family Medical History / Comment(s): NORMAL-NO PROBLEMS Medications and Allergies Home Medications Medication Instructions Recorded Confirmed Type metFORMIN HCL [Glucophage] 500 mg PO DAILY 09/08/14 09/12/18 History Levothyroxine Sodium [Synthroid] 300 mcg PO DAILY 06/27/16 09/12/18 History Metoprolol Tartrate [Lopressor] 25 mg PO BID 07/27/17 09/12/18 History amLODIPine [Norvasc] 5 mg PO HS #30 tab 09/05/17 09/12/18 Rx Lisinopril [Zestril] 20 mg PO BID 01/10/18 09/12/18 History Gabapentin [Neurontin] 300 mg PO HS 07/15/18 09/12/18 History Venlafaxine HCl ER [Effexor Xr] 37.5 mg PO BID 07/15/18 09/12/18 History Cyclobenzaprine [Flexeril] 10 mg PO TID PRN #15 tab 09/03/18 09/12/18 Rx HYDROcodone/APAP 5-325MG [[place] 1 tab PO Q4HR PRN 09/03/18 09/12/18 History 5-325] Fluticasone Nasal [place] [Flonase 1 spray EA NOSTRIL DAILY 09/12/18 09/12/18 History Nasal [place]] Omeprazole 20 mg PO DAILY 09/12/18 09/12/18 History predniSONE 20 mg PO HS 09/12/18 09/12/18 History Allergies Allergy/AdvReac Type Severity Reaction Status Date / Time codeine Allergy Severe Cardiac Verified 09/12/18 12:40 Arrest meperidine HCl [From Demerol] Allergy Severe Cardiac Verified 09/12/18 12:40 Arrest morphine Allergy Severe Caridac Verified 09/12/18 12:40 Arrest adhesive tape Allergy Rash/Hives Verified 09/12/18 12:40 celery Allergy Oral Verified 09/12/18 12:40 Numbness cinnamon Allergy Anaphylaxis Verified 09/12/18 12:40 diphenhydramine HCl Allergy Anaphylaxis Verified 09/12/18 12:40 [From Benadryl] eucalyptus Allergy Anaphylaxis Verified 09/12/18 12:40 [From [place] Cough Drops] menthol Allergy Anaphylaxis Verified 09/12/18 12:40 [From [place] Cough Drops] naproxen sodium [From Aleve] Allergy Rash/Hives Verified 09/12/18 12:40 nitrofurantoin Allergy Unknown Verified 09/12/18 12:40 macrocrystalline [From Macrodantin] Sulfa (Sulfonamide Allergy Rash/Hives Verified 09/12/18 12:40 Antibiotics) ciprofloxacin [From Cipro] AdvReac Abdominal Verified 09/12/18 12:40 Pain ciprofloxacin HCl AdvReac Abdominal Verified 09/12/18 12:40 [From Cipro] Pain multivitamin Allergy Intermediate Rash/Hives Uncoded 09/12/18 11:31 car exhaust AdvReac Mild Nausea & Uncoded 09/12/18 11:31 Vomiting Physical Exam Vitals: Vital Signs Temp Pulse Pulse Pulse Resp BP BP 09/13/18 07:25 97.5 F L 80 18 142/82 09/13/18 03:44 97.9 F 83 14 141/83 09/13/18 03:42 15 09/12/18 23:55 98.0 F 76 15 124/79 09/12/18 23:48 15 09/12/18 20:00 15 09/12/18 18:48 98.2 F 77 15 117/65 09/12/18 16:00 97.6 F 103 H 18 140/77 09/12/18 14:35 98.1 F 109 H 18 141/81 09/12/18 13:30 98 17 126/72 09/12/18 13:00 90 8 L 139/75 09/12/18 12:30 96 12 137/80 09/12/18 12:00 95 19 134/78 09/12/18 11:28 97.5 F L 105 H 18 149/82 Pulse Ox 09/13/18 07:25 95 09/13/18 03:44 99 09/13/18 03:42 09/12/18 23:55 98 09/12/18 23:48 09/12/18 20:00 09/12/18 18:48 99 09/12/18 16:00 97 09/12/18 14:35 97 09/12/18 13:30 93 L 09/12/18 13:00 96 09/12/18 12:30 95 09/12/18 12:00 95 09/12/18 11:28 98 Intake and Output 09/12/18 09/13/18 09/13/18 22:59 06:59 14:59 Intake Total 523.333 89.332 Balance 523.333 89.332 Intake: Intake, IV Titration 79.333 89.332 Amount Heparin Sod,Pork in 0.45% 79.333 89.332 NaCl 25,000 unit In 0.45 % NaCl 1 250ml.bag @ 8.89 UNITS/KG/HR 10 mls/hr IV .Q24H [facility] Rx#:[id number] Oral 444 [id number] Other: Voiding Method Toilet Toilet # Voids 1 1 Results 09/12/18 11:50 09/12/18 11:50 Cardiac Enzymes 09/12/18 09/12/18 09/12/18 Range/Units 11:50 11:50 17:08 AST 17 (14-36) U/L Troponin I <0.012 <0.012 (0.000-0.034) ng/mL 09/12/18 Range/Units 23:34 AST (14-36) U/L Troponin I <0.012 (0.000-0.034) ng/mL Coagulation 09/12/18 09/12/18 09/13/18 Range/Units 11:50 19:44 03:22 PT 9.4 (9.0-12.0) sec APTT 22.2 25.4 35.7 H (22.0-30.0) sec Lipids 09/13/18 Range/Units 03:22 Triglycerides 3228 H (<150) mg/dL Cholesterol 218 H (<200) mg/dL HDL Cholesterol 39 L (40-60) mg/dL CBC 09/12/18 Range/Units 11:50 WBC 6.9 (3.8-10.6) k/uL RBC 4.69 (3.80-5.40) m/uL Hgb 13.8 (11.4-16.0) gm/dL Hct 41.0 (34.0-46.0) % Plt Count 227 (150-450) k/uL Comprehensive Metabolic Panel 09/12/18 Range/Units 11:50 Sodium 134 L (137-145) mmol/L Potassium 4.2 (3.5-5.1) mmol/L Chloride 100 (98-107) mmol/L Carbon Dioxide 23 (22-30) mmol/L BUN 13 (7-17) mg/dL Creatinine 0.49 L (0.52-1.04) mg/dL Glucose 264 H (74-99) mg/dL Calcium 9.3 (8.4-10.2) mg/dL AST 17 (14-36) U/L ALT 34 (9-52) U/L Alkaline Phosphatase 132 H (38-126) U/L Total Protein 6.7 (6.3-8.2) g/dL Albumin 3.8 (3.5-5.0) g/dL Current Medications Generic Name Dose Route Start Last Admin Trade Name Freq PRN Reason Stop Dose Admin Hydrocodone Bitart/Acetaminophen 1 each 09/12/18 14:03 09/13/18 04:36 [place] 5-325 PO 1 each Q4HR PRN Administration Pain Amlodipine Besylate 5 mg 09/12/18 21:00 09/12/18 21:34 Norvasc PO 5 mg HS SABINE Administration Aspirin 325 mg 09/13/18 09:00 Aspirin PO DAILY [facility] Cyclobenzaprine HCl 10 mg 09/12/18 14:03 09/12/18 21:49 Flexeril PO 10 mg TID PRN Administration Muscle Spasm Fluticasone Propionate 1 spray 09/13/18 09:00 Flonase Nasal [place] EA NOSTRIL DAILY [facility] Gabapentin 300 mg 09/12/18 21:00 09/12/18 21:34 Neurontin PO 300 mg HS SABINE Administration Heparin Sodium (Porcine) 0 unit 09/12/18 19:44 09/13/18 04:31 Heparin IV 4,000 unit PER PROTOCOL PRN Administration Low PTT Protocol Heparin Sodium/Sodium Chloride 250 mls @ 10 mls/hr 09/12/18 13:00 09/13/18 04:32 25,000 unit/ Sodium Chloride IV 14.82 units/kg/hr .Q24H SABNIE 16.671 mls/hr Titration Protocol 8.89 UNITS/KG/HR Insulin Aspart 0 unit 09/12/18 21:22 09/12/18 21:37 Novolog SQ 8 unit ACHS SABINE Administration Protocol Levothyroxine Sodium 300 mcg 09/13/18 06:30 09/13/18 04:43 Synthroid PO 300 mcg 0630 SABINE Administration Lisinopril 20 mg 09/12/18 21:00 09/12/18 21:34 Zestril PO 20 mg BID SABINE Administration Metoprolol Tartrate 25 mg 09/12/18 21:00 09/12/18 21:33 Lopressor PO 25 mg BID [facility] Administration Nitroglycerin 1 inch 09/12/18 18:00 09/13/18 04:44 Nitro-Bid Oint TOPICAL Not Given Q6HR [facility] Nitroglycerin 0.4 mg 09/12/18 12:55 Nitrostat SUBLINGUAL Q5M PRN Chest Pain Pantoprazole Sodium 40 mg 09/13/18 07:30 Protonix PO AC-BRKFST [facility] Prednisone 20 mg 09/12/18 21:00 09/12/18 23:37 PO 20 mg HS [facility] Administration Venlafaxine HCl 37.5 mg 09/12/18 21:00 09/12/18 21:34 Effexor Xr PO 37.5 mg BID SABINE Administration Intake and Output 09/12/18 09/13/18 09/13/18 22:59 06:59 14:59 Intake Total 523.333 89.332 Balance 523.333 89.332 Intake: Intake, IV Titration 79.333 89.332 Amount Heparin Sod,Pork in 0.45% 79.333 89.332 NaCl 25,000 unit In 0.45 % NaCl 1 250ml.bag @ 8.89 UNITS/KG/HR 10 mls/hr IV .Q24H [facility] Rx#:[id number] Oral [id number] 0 Other: Voiding Method Toilet Toilet # Voids 1 1 09/12/18 11:50 09/12/18 11:50
--- NOTE | 2018-09-13 12:33 | HP ---
HISTORY AND PHYSICAL CHIEF COMPLAINT: A 48-year-old white female who presents with chest pain. Abnormal EKG. She was admitted to the hospital for cardiac workup due to her chest pain. She has had recurrent chest pain. History of heart disease. No syncope. She is diabetic, has high blood pressure, anxiety, neuropathy, depression. HOME MEDICATIONS: 1. Omeprazole. 2. Prednisone. 3. Neurontin. 4. Synthroid 300 mcg daily. 5. Metformin 500 daily. 6. Lopressor 25 b.i.d. 7. Zestril 520 b.i.d. 8. Neurontin 300 at night. 9. Effexor XR 37 b.i.d. ALLERGIES: DEMEROL, CODEINE, MORPHINE, ADHESIVE, CAR EXHAUST, MULTIVITAMIN, CIPRO, SULFAS, NITROFURANTOIN. A 14-point review of systems negative except for as mentioned in HPI. PAST MEDICAL HISTORY: Diabetes mellitus, fibromyalgia, hypertension, dyslipidemia, coronary artery disease, osteoarthritis, seizures, SVT, hypothyroidism, toxemia in with cardiac arrest in 1994, history of cardiac ablation, , hernia repair, tubal ligation. FAMILY HISTORY: Father cancer, myocardial infarction. Mother negative. PHYSICAL EXAM: Well-developed, well-nourished white female, well hydrated. She is sitting up. She appears to be quite anxious on Psych exam. Lungs are good air flow. CARDIAC: Regular rate and rhythm. OPHTHALMOLOGIC: Pupils equal and reactive to light and accommodation. NEUROLOGIC: Cranial nerves are intact. LYMPHOCYTES: No lymphadenopathy. SKIN: No rash, excoriation, bruises. Temp 97.5, pulse 105, respiratory rate 16 to 18, blood pressure 149/80, O2 is 98% on room air. Chest x-ray is negative. ASSESSMENT: 1. Unstable angina. Wait for cardiac workup. 2. Hypothyroidism. 3. Anxiety, chronic panic attacks. 4. Chronic neuropathy. 5. Obesity. 6. Diabetes mellitus. Please see further orders in the chart, await for Cardiac recommendations. MMODL / IJN: [id number] /
[2018-09-13] MEDS ORDERED: FENOFIBRATE 160 MG TAB PO SCH (12:45)
[2018-09-13 15:30] VITALS: BP 133/69; PULSE 93
[2018-09-13 16:27] LABS: Glucose,Whole Blood 226 mg/dL (75-99)
[2018-09-13] MEDS: GABAPENTIN 300 MG CAP PO SCH (17:39)
[2018-09-14] MEDS ORDERED: LEVOTHYROXINE 100 MCG TAB PO SCH (06:30)
--- NOTE | 2018-09-25 22:54 | DS ---
DISCHARGE SUMMARY DATE OF ADMISSION: 09/12/2018 DATE OF DISCHARGE: 09/13/2018 DISCHARGE MEDICATIONS: 1. Metformin 500 mg daily. 2. Synthroid 200 mcg daily. 3. Lopressor 25 b.i.d. 4. Norvasc 5 mg daily. 5. Zestril 20 mg b.i.d. 6. Effexor XR 37.5 mg b.i.d. 7. Neurontin 300 at bedtime. 8. [place] 5/325 q.4 hours p.r.n. 9. Flexeril 10 mg t.i.d. for 5 days. 10.Nasonex nasal spray. 11.Omeprazole 20 mg daily. 12.Prednisone 20 mg daily. 13.Fenofibrate 160 mg daily. 14.Aspirin 325 mg daily. 15.Nitroglycerin sublingually p.r.n. CONDITION: Stable. PROGNOSIS: Guarded. Ambulate as tolerated. HOSPITAL COURSE OF EVENTS: White female came to the hospital with atypical chest pain suspicious for musculoskeletal pain. Cardiology saw the patient and cleared her for discharge, as she was ruled out for any significant cardiopulmonary findings. She will follow up as an outpatient. MMODL / IJN: [id number] /
== END 2018-09-13 17:40 | disposition home or self-care (01) ==
LOC: EC 11:20 → 1SOBS 12:59
PROVIDERS: ADMIT Family Medicine; ATTEND Family Medicine
DX: R07.89 Other chest pain (principal); R61 Generalized hyperhidrosis; R42 Dizziness and giddiness; R00.2 Palpitations; R06.02 Shortness of breath; I10 Essential (primary) hypertension; E11.40 Type 2 diabetes mellitus with diabetic neuropathy, unspecified; M79.7 Fibromyalgia; E03.9 Hypothyroidism, unspecified; K21.9 Gastro-esophageal reflux disease without esophagitis; G40.909 Epilepsy, unspecified, not intractable, without status epilepticus; E78.5 Hyperlipidemia, unspecified; I47.1 Supraventricular tachycardia; M46.90 Unspecified inflammatory spondylopathy, site unspecified; M13.852 Other specified arthritis, left hip; M13.851 Other specified arthritis, right hip; F40.240 Claustrophobia; F41.0 Panic disorder [episodic paroxysmal anxiety]; F41.9 Anxiety disorder, unspecified; E78.1 Pure hyperglyceridemia; Z68.41 Body mass index [BMI] 40.0-44.9, adult; E66.9 Obesity, unspecified; F32.9 Major depressive disorder, single episode, unspecified; I25.110 Atherosclerotic heart disease of native coronary artery with unstable angina pectoris; I25.2 Old myocardial infarction; Z87.19 Personal history of other diseases of the digestive system; Z90.49 Acquired absence of other specified parts of digestive tract; Z98.51 Tubal ligation status; Z87.891 Personal history of nicotine dependence; Z86.74 Personal history of sudden cardiac arrest; Z79.84 Long term (current) use of oral hypoglycemic drugs; Z79.890 Hormone replacement therapy; Z79.899 Other long term (current) drug therapy; Z79.52 Long term (current) use of systemic steroids; Z88.1 Allergy status to other antibiotic agents; Z88.2 Allergy status to sulfonamides; Z88.5 Allergy status to narcotic agent; Z88.6 Allergy status to analgesic agent; Z88.8 Allergy status to other drugs, medicaments and biological substances; Z91.018 Allergy to other foods; Z91.048 Other nonmedicinal substance allergy status; Z82.49 Family history of ischemic heart disease and other diseases of the circulatory system; Z80.9 Family history of malignant neoplasm, unspecified
CPT/HCPCS: 96366 ×2; 96376 ×3; 96365; 99291; 36415; 93005; 85379; 84439; 80061; 80053; 84443; 83735; 84484; 85025; 85610; 85730 ×2; 83036; 71046; G0378 ×2; J1644 ×3; J7512

== ENCOUNTER 2018-12-25 12:16 | Observation (INO) | payer OTHER ==
--- NOTE | 2018-12-25 12:44 | ED ---
General Adult HPI <Adi Chavira - Last Filed: 12/25/18 14:45> - General Source: patient, RN notes reviewed Mode of arrival: ambulatory Limitations: no limitations <Calixto Baer - Last Filed: 12/25/18 15:10> - General Chief complaint: Chest Pain Stated complaint: CHEST PAIN, Hx HEART PROBLEMS Time Seen by Provider: 12/25/18 12:32 - History of Present Illness Initial comments: Nora is a 48-year-old female presented for left-sided sharp chest pain radiating to the left shoulder as well as the left side of the neck x 7 hours. Patient states this started this morning while she was lying down. States she has been short of breath on and off since yesterday. Patient also admits to diaphoresis at times that comes and goes over the past 2 days. Patient denies exertional activity worsening these symptoms. Patient denies any pleuritic chest pain. Patient is a smoker currently. Patient did have a father who at 45 from a cardiac event. Patient states she has been in cardiac arrest twice, once after a seizure and once from receiving Demerol. Patient denies any heart attacks. Patient does admit to hypertension, hyperlipidemia.Patient has no other complaints at this time including abdominal pain, nausea or vomiting, headache, or visual changes. (Calixto Baer) - Related Data Home Medications Medication Instructions Recorded Confirmed metFORMIN HCL [Glucophage] 500 mg PO DAILY 09/08/14 12/25/18 Metoprolol Tartrate [Lopressor] 25 mg PO BID 07/27/17 12/25/18 Gabapentin [Neurontin] 300 mg PO HS 07/15/18 12/25/18 HYDROcodone/APAP 5-325MG [[place] 1 tab PO Q4HR PRN 09/03/18 12/25/18 5-325] Fluticasone Nasal [place] [Flonase 1 spray EA NOSTRIL DAILY 09/12/18 12/25/18 Nasal [place]] Omeprazole 20 mg PO DAILY 09/12/18 12/25/18 predniSONE 20 mg PO HS 09/12/18 12/25/18 Lisinopril-Hctz 20-12.5 mg 1 tab PO DAILY 12/25/18 12/25/18 [Zestoretic 20-12.5] Venlafaxine HCl [Effexor] 75 mg PO BID 12/25/18 12/25/18 Previous Rx's Medication Instructions Recorded amLODIPine [Norvasc] 5 mg PO HS #30 tab 09/05/17 Cyclobenzaprine [Flexeril] 10 mg PO TID PRN #15 tab 09/03/18 Aspirin 325 mg PO DAILY tab 09/13/18 Fenofibrate [Lofibra] 160 mg PO DAILY #90 tab 09/13/18 Levothyroxine Sodium [Synthroid] 200 mcg PO DAILY@0630 tab 09/13/18 Nitroglycerin Sl Tabs [Nitrostat] 0.4 mg SUBLINGUAL Q5M PRN tab 09/13/18 Allergies Allergy/AdvReac Type Severity Reaction Status Date / Time codeine Allergy Severe Cardiac Verified 12/25/18 12:36 Arrest meperidine HCl [From Demerol] Allergy Severe Cardiac Verified 12/25/18 12:36 Arrest morphine Allergy Severe Caridac Verified 12/25/18 12:36 Arrest adhesive tape Allergy Rash/Hives Verified 12/25/18 12:36 celery Allergy Oral Verified 12/25/18 12:36 Numbness cinnamon Allergy Anaphylaxis Verified 12/25/18 12:36 diphenhydramine HCl Allergy Anaphylaxis Verified 12/25/18 12:36 [From Benadryl] eucalyptus Allergy Anaphylaxis Verified 12/25/18 12:36 [From [place] Cough Drops] menthol Allergy Anaphylaxis Verified 12/25/18 12:36 [From [place] Cough Drops] naproxen sodium [From Aleve] Allergy Rash/Hives Verified 12/25/18 12:36 nitrofurantoin Allergy Unknown Verified 12/25/18 12:36 macrocrystalline [From Macrodantin] Sulfa (Sulfonamide Allergy Rash/Hives Verified 12/25/18 12:36 Antibiotics) ciprofloxacin [From Cipro] AdvReac Abdominal Verified 12/25/18 12:36 Pain ciprofloxacin HCl AdvReac Abdominal Verified 12/25/18 12:36 [From Cipro] Pain multivitamin Allergy Intermediate Rash/Hives Uncoded 12/25/18 12:24 car exhaust AdvReac Mild Nausea & Uncoded 12/25/18 12:24 Vomiting Review of Systems ROS Other: All systems not noted in ROS Statement are negative. <Adi Chavira - Last Filed: 12/25/18 14:45> ROS Other: All systems not noted in ROS Statement are negative. <Calixto Baer P - Last Filed: 12/25/18 15:10> ROS Statement: Those systems with pertinent positive or pertinent negative responses have been documented in the HPI. Past Medical History Past Medical History: Diabetes Mellitus, Fibromyalgia, GERD/Reflux, Hyperlipidemia, Hypertension, Myocardial Infarction ([place]), Osteoarthritis (OA), Seizure Disorder, Supraventricular Tachycardia (SVT), Thyroid Disorder Additional Past Medical History / Comment(s): Severe allergies, PT STATES IN 1994 PTWAS HAD TOXEMIA WAS GIVEN DEMEROL AND WENT INTO A CARDIAC ARREST (COMA 21 days), was having seizures and had 2ND CARDIAC ARREST 2000 (COMA 3-5 DAYS), SVT, SLEEP APNEA( NO MACHINE), STATES LAST SEIZURE 1 YEAR AGO, arthritis low back and hips, PANCREATITIS, colitis, heart cath done Jan 2018- no stents currently. Last Myocardial Infarction Date:: . History of Any Multi-Drug Resistant Organisms: None Reported Past Surgical History: Cardiac Ablation, Section, Cholecystectomy, Hernia Repair, Tubal Ligation Additional Past Surgical History / Comment(s): Umbilical hernia repair. Past Anesthesia/Blood Transfusion Reactions: Motion Sickness Additional Past Anesthesia/Blood Transfusion Reaction / Comment(s): CLAUSTERPHOBIA, Past Psychological History: Anxiety, Panic Disorder Smoking Status: Former smoker Past Alcohol Use History: Rare Past Drug Use History: None Reported - Past Family History Father Family Medical History: Cancer, Myocardial Infarction ([place]) Additional Family Medical History / Comment(s): AGE 45 FROM [place] Mother Family Medical History: No Reported History Additional Family Medical History / Comment(s): NORMAL-NO PROBLEMS <Calixto Baer P - Last Filed: 12/25/18 15:10> General Exam Limitations: no limitations General appearance: alert, in no apparent distress Head exam: Present: atraumatic, normocephalic, normal inspection Eye exam: Present: normal appearance, PERRL, EOMI. Absent: scleral icterus, conjunctival injection, periorbital swelling ENT exam: Present: normal exam, mucous membranes moist Neck exam: Present: normal inspection, full ROM. Absent: tenderness, meningismus, lymphadenopathy Respiratory exam: Present: normal lung sounds bilaterally. Absent: respiratory distress, wheezes, rales, rhonchi, stridor Cardiovascular Exam: Present: regular rate, normal rhythm, normal heart sounds. Absent: systolic murmur, diastolic murmur, rubs, gallop, clicks GI/Abdominal exam: Present: soft, normal bowel sounds. Absent: distended, tenderness, guarding, rebound, rigid Extremities exam: Present: normal capillary refill (Radial pulses 2+ and equal bilaterally) Neurological exam: Present: alert, oriented X3, CN II-XII intact Psychiatric exam: Present: normal affect, normal mood <Calixto Baer - Last Filed: 12/25/18 15:10> Course <Calixto Baer - Last Filed: 12/25/18 15:10> Vital Signs 12/25/18 12/25/18 12:21 13:30 Temperature 97.6 F Pulse Rate 75 Pulse Rate [ 72 Art Consultant ] Respiratory 22 18 Rate Blood Pressure 146/85 O2 Sat by Pulse 99 Oximetry - Reevaluation(s) Reevaluation #1: 12/25/18 12:44 Patient underwent cardiac catheterization in January 2018 that was negative for obstructive coronary artery disease. Echocardiogram obtained at that time revealed preserved left ventricular systolic function with ejection fraction of 55%. Patient was admitted in 3 months ago for just being cleared by cardiology. (Calixto Baer) Reevaluation #2: 12/25/18 12:56 Discussed smoking history and cessation for greater than 3 minutes. (Calixto Baer) EKG Findings - EKG Comments: EKG Findings:: Sinus rhythm, ventricular rate 78, RI interval 154, QTc 456, PAC noted <Calixto Baer - Last Filed: 12/25/18 15:10> Medical Decision Making - Lab Data Result diagrams: 12/25/18 13:15 12/25/18 13:15 <Adi Chavira - Last Filed: 12/25/18 14:45> - Lab Data Result diagrams: 12/25/18 13:15 12/25/18 13:15 <Calixto Baer - Last Filed: 12/25/18 15:10> - Medical Decision Making The patient was seen and examined. All diagnostics were reviewed. Case will be discussed with medicine in the near future and patient will be admitted as a short stay. Case was discussed with the PA and I agree with the findings as documented. (Adi Chavira) 48-year-old female presents to the emergency department for chest pain 7 hours. Sharp and radiating to the shoulder and neck with some shortness of breath and diaphoresis. Patient does have new T-wave inversions of V2 V3 compared to old EKG from 09/12/2018. Patient received a negative heart cath and echo last March. Patient is high risk with history of hyperlipidemia, hypertension, positive family history, positive smoking history. Labs are unremarkable. Troponin is negative. On reevaluation patient's pain has resolved. However given EKG changes and history patient will be heparinized and admitted for serial troponin and cardiology consult. (Calixto Baer) - Lab Data Lab Results 12/25/18 12/25/18 12/25/18 Range/Units 13:15 13:15 13:15 WBC 5.6 (3.8-10.6) k/uL RBC 4.41 (3.80-5.40) m/uL Hgb 12.8 (11.4-16.0) gm/dL Hct 38.1 (34.0-46.0) % MCV 86.4 (80.0-100.0) fL MCH 29.1 (25.0-35.0) pg MCHC 33.7 (31.0-37.0) g/dL RDW 14.8 (11.5-15.5) % Plt Count 200 (150-450) k/uL Neutrophils % 54 % Lymphocytes % 37 % Monocytes % 4 % Eosinophils % 3 % Basophils % 1 % Neutrophils # 3.0 (1.3-7.7) k/uL Lymphocytes # 2.1 (1.0-4.8) k/uL Monocytes # 0.2 (0-1.0) k/uL Eosinophils # 0.2 (0-0.7) k/uL Basophils # 0.0 (0-0.2) k/uL PT 9.5 (9.0-12.0) sec INR 0.9 (<1.2) APTT 19.4 L (22.0-30.0) sec D-Dimer 0.44 (<0.60) mg/L FEU Sodium 138 (137-145) mmol/L Potassium 4.3 (3.5-5.1) mmol/L Chloride 104 (98-107) mmol/L Carbon Dioxide 23 (22-30) mmol/L Anion Gap 11 mmol/L BUN 15 (7-17) mg/dL Creatinine 0.68 (0.52-1.04) mg/dL Est GFR (CKD-EPI)AfAm >90 (>60 ml/min/1.73 sqM) Est GFR (CKD-EPI)NonAf >90 (>60 ml/min/1.73 sqM) Glucose 181 H (74-99) mg/dL Calcium 9.1 (8.4-10.2) mg/dL Magnesium 1.7 (1.6-2.3) mg/dL Total Bilirubin 0.5 (0.2-1.3) mg/dL AST 32 (14-36) U/L ALT 26 (9-52) U/L Alkaline Phosphatase 80 (38-126) U/L Troponin I (0.000-0.034) ng/mL NT-Pro-B Natriuret Pep pg/mL Total Protein 6.6 (6.3-8.2) g/dL Albumin 3.9 (3.5-5.0) g/dL 12/25/18 12/25/18 Range/Units 13:15 13:15 WBC (3.8-10.6) k/uL RBC (3.80-5.40) m/uL Hgb (11.4-16.0) gm/dL Hct (34.0-46.0) % MCV (80.0-100.0) fL MCH (25.0-35.0) pg MCHC (31.0-37.0) g/dL RDW (11.5-15.5) % Plt Count (150-450) k/uL Neutrophils % % Lymphocytes % % Monocytes % % Eosinophils % % Basophils % % Neutrophils # (1.3-7.7) k/uL Lymphocytes # (1.0-4.8) k/uL Monocytes # (0-1.0) k/uL Eosinophils # (0-0.7) k/uL Basophils # (0-0.2) k/uL PT (9.0-12.0) sec INR (<1.2) APTT (22.0-30.0) sec D-Dimer (<0.60) mg/L FEU Sodium (137-145) mmol/L Potassium (3.5-5.1) mmol/L Chloride (98-107) mmol/L Carbon Dioxide (22-30) mmol/L Anion Gap mmol/L BUN (7-17) mg/dL Creatinine (0.52-1.04) mg/dL Est GFR (CKD-EPI)AfAm (>60 ml/min/1.73 sqM) Est GFR (CKD-EPI)NonAf (>60 ml/min/1.73 sqM) Glucose (74-99) mg/dL Calcium (8.4-10.2) mg/dL Magnesium (1.6-2.3) mg/dL Total Bilirubin (0.2-1.3) mg/dL AST (14-36) U/L ALT (9-52) U/L Alkaline Phosphatase (38-126) U/L Troponin I <0.012 (0.000-0.034) ng/mL NT-Pro-B Natriuret Pep 121 pg/mL Total Protein (6.3-8.2) g/dL Albumin (3.5-5.0) g/dL Disposition <Adi Chavira - Last Filed: 12/25/18 14:45> Is patient prescribed a controlled substance at d/c from ED?: No Time of Disposition: 15:09 <Calixto Baer - Last Filed: 12/25/18 15:10> Clinical Impression: Chest pain Disposition: ADMITTED IP TO THIS HOSP Condition: Good Instructions (If sedation given, give patient instructions): Chest Pain (ED) Referrals: Og Oliva MD [Primary Care Provider] - 1-2 days
[2018-12-25] MEDS ORDERED: ASPIRIN 81 MG PO STA (12:53)
[2018-12-25] MEDS ORDERED: SODIUM CHLORIDE 0.9% 500 ML 500 ML IV STA (12:53)
[2018-12-25 13:35] LABS: Basophils % (A) 1 %; Eosinophils # (A) 0.2 k/uL (0-0.7); Eosinophils % (A) 3 %; HCT 38.1 % (34.0-46.0); HGB 12.8 gm/dL (11.4-16.0); Lymphocytes # (A) 2.1 k/uL (1.0-4.8); Lymphocytes % (A) 37 %; MCH 29.1 pg (25.0-35.0); MCHC 33.7 g/dL (31.0-37.0); MCV 86.4 fL (80.0-100.0); Mean Platelet Volume 7.1; Monocytes # (A) 0.2 k/uL (0-1.0); Monocytes % (A) 4 %; Neutrophils % (A) 54 %; Platelet Count 200 k/uL (150-450); RBC 4.41 m/uL (3.80-5.40); RDW 14.8 % (11.5-15.5); WBC 5.6 k/uL (3.8-10.6)
[2018-12-25 13:48] LABS: ALT 26 U/L (9-52); AST 32 U/L (14-36); African American GFR (CKD) >90 (>60 ml/min/1.73 sqM); Albumin 3.9 g/dL (3.5-5.0); Alkaline Phosphatase 80 U/L (38-126); Anion Gap 11 mmol/L; Blood Urea Nitrogen 15 mg/dL (7-17); Calcium 9.1 mg/dL (8.4-10.2); Carbon Dioxide 23 mmol/L (22-30); Chloride 104 mmol/L (98-107); Glucose 181 mg/dL (74-99); Magnesium 1.7 mg/dL (1.6-2.3); Potassium 4.3 mmol/L (3.5-5.1); Sodium 138 mmol/L (137-145); Total Bilirubin 0.5 mg/dL (0.2-1.3); Total Protein 6.6 g/dL (6.3-8.2)
--- NOTE | 2018-12-25 14:09 | XR ---
EXAMINATION TYPE: XR chest 2V DATE OF EXAM: 12/25/2018 COMPARISON: Prior chest x-ray 09/12/2018 HISTORY: Chest pain TECHNIQUE: Frontal and lateral views of the chest are obtained. FINDINGS: There is no focal air space opacity, pleural effusion, or pneumothorax seen. The cardiac silhouette size is within normal limits. The osseous structures are intact. There are overlying car diac leads. IMPRESSION: No acute cardiopulmonary process.
[2018-12-25 14:23] LABS: D-Dimer 0.44 mg/L FEU (<0.60); INR 0.9 (<1.2); Prothrombin Time 9.5 sec (9.0-12.0)
[2018-12-25 14:25] LABS: Partial Thromboplastin Time 19.4 sec (22.0-30.0)
[2018-12-25] MEDS ORDERED: NITROGLYCERIN SL TABS 0.4 MG TAB SUBLINGUAL PRN ×2 (15:06→16:29)
[2018-12-25] MEDS ORDERED: HEPARIN SODIUM,PORCINE 5,000 UNIT/ML 1 ML VIAL IV ONE (15:08)
[2018-12-25] MEDS ORDERED: HEPARIN SODIUM,PORCINE 5,000 UNIT/ML 1 ML VIAL IV PRN (15:08)
[2018-12-25] MEDS ORDERED: HEPARIN SOD,PORK IN 0.45% NACL 25,000 UNIT in 0.45% NACL 1 250ML.BAG IV SCH (15:15)
[2018-12-25 16:23] VITALS: BMI 42.5
[2018-12-25] MEDS ORDERED: CYCLOBENZAPRINE 10 MG TAB PO PRN (16:29)
[2018-12-25 16:51] LABS: Glucose,Whole Blood 165 mg/dL (75-99)
[2018-12-25] MEDS: INSULIN ASPART (NovoLOG) 100 UNIT/ML VIAL SQ SCH ×2 (17:18→20:27)
[2018-12-25 18:40] LABS: T4, Free (Free Thyroxine) 2.32 ng/dL (0.78-2.19)
[2018-12-25 19:37] VITALS: RESP 16
[2018-12-25] MEDS: VENLAFAXINE HCL 75 MG TAB PO SCH (20:21)
[2018-12-25] MEDS: METOPROLOL TARTRATE 25 MG TAB PO SCH (20:21)
[2018-12-25 20:26] LABS: Glucose,Whole Blood 259 mg/dL (75-99)
[2018-12-25] MEDS ORDERED: busPIRone HCl 10 MG TAB PO SCH (21:00)
[2018-12-25] MEDS ORDERED: predniSONE 20 MG TAB PO SCH (21:00)
[2018-12-25] MEDS ORDERED: GABAPENTIN 300 MG CAP PO SCH (21:00)
[2018-12-25] MEDS ORDERED: amLODIPine 5 MG TAB PO SCH (21:00)
--- NOTE | 2018-12-25 23:16 | HP ---
HISTORY AND PHYSICAL CHIEF COMPLAINT: This patient is a 48-year-old white female coming in with atypical chest pain. Pain in the left shoulder and the neck for 7 hours, worse with lying down, shortness of breath since yesterday, diaphoresis, radiating to under her left armpit. Currently smokes. She is admitted with a myocardial infarction with a history of hypertension, dyslipidemia. HOME MEDICATIONS: 1. Metformin 500 daily. 2. Lopressor 25 b.i.d. 3. Neurontin 300 daily. 4. [place] 5/325 q.4 hours p.r.n. 5. Flonase nasal spray daily. 6. Omeprazole 20 mg daily. 7. Lisinopril/hydrochlorothiazide 1 tablet daily. 8. Prednisone 20 mg daily. 9. Effexor 75 b.i.d. ALLERGIES: 1. CODEINE. 2. MEPERIDINE. 3. MORPHINE. 4. ADHESIVE TAPE. 5. CELERY. 6. CINNAMON. 7. BENADRYL. 8. MENTH[place]. 9. SULFA. 10.CIPRO. 11.MULTIVITAMIN. PAST MEDICAL HISTORY: 1. Diabetes mellitus. 2. Fibromyalgia. 3. GERD. 4. Dyslipidemia. 5. Hypertension. 6. Osteoarthritis. 7. Seizure disorder. 8. Myocardial infarction. 9. SVT. 10.Hypothyroidism. PAST SURGICAL HISTORY: 1. Cardiac ablation. 2. . 3. Cholecystectomy. 4. Hernia repair. 5. Tubal ligation. SOCIAL HISTORY: Anxiety, depression. Former smoker. FAMILY HISTORY: Father with cancer, myocardial infarction. Mother negative. PHYSICAL EXAMINATION: Vital signs reviewed. Blood pressure 146/85, oxygen saturation 99%, pulse 70 to 75, temperature 97.6. CARDIOVASCULAR: S1, S2. LUNGS: Clear. GI: Soft. ENDOCRINE: BMI is over 40. HEMATOLOGY: Negative Homans. VASCULAR: Normal dorsalis pedis, posterior tibial, radial pulses. NECK: Supple. ASSESSMENT: 1. Atypical chest pain. 2. Diabetes. 3. Hypertension. 4. Hypothyroidism. 5. Rule out myocardial infarction. Cardiology consult. Possible stress test. D-dimer to rule out PE. MMODL / IJN: [id number] /
[2018-12-26 05:37] LABS: Basophils % (A) 0 %; Eosinophils # (A) 0.1 k/uL (0-0.7); Eosinophils % (A) 3 %; HCT 38.1 % (34.0-46.0); HGB 13.2 gm/dL (11.4-16.0); Lymphocytes # (A) 1.9 k/uL (1.0-4.8); Lymphocytes % (A) 39 %; MCH 30.3 pg (25.0-35.0); MCHC 34.5 g/dL (31.0-37.0); MCV 87.6 fL (80.0-100.0); Mean Platelet Volume 6.6; Monocytes # (A) 0.1 k/uL (0-1.0); Monocytes % (A) 2 %; Neutrophils # (A) 2.6 k/uL (1.3-7.7); Neutrophils % (A) 54 %; Platelet Count 194 k/uL (150-450); RBC 4.35 m/uL (3.80-5.40); RDW 14.7 % (11.5-15.5); WBC 4.9 k/uL (3.8-10.6)
[2018-12-26 05:48] LABS: HDL Cholesterol 29 mg/dL (40-60); INR 0.9 (<1.2); Partial Thromboplastin Time 28.2 sec (22.0-30.0); Prothrombin Time 9.8 sec (9.0-12.0)
[2018-12-26] MEDS: HYDROcodone/APAP 5-325MG 1 EACH TAB PO PRN ×2 (05:51→11:01)
[2018-12-26 06:14] LABS: Cholesterol 199 mg/dL (<200); Triglycerides 2540 mg/dL (<150)
[2018-12-26] MEDS ORDERED: LEVOTHYROXINE 75 MCG TAB PO SCH (06:30)
[2018-12-26] MEDS ORDERED: LEVOTHYROXINE 100 MCG TAB PO SCH (06:30)
[2018-12-26 06:59] LABS: Glucose,Whole Blood 192 mg/dL (75-99)
[2018-12-26] MEDS ORDERED: PANTOPRAZOLE 40 MG TABLET PO SCH (07:30)
[2018-12-26 08:09] VITALS: PULSE 75
[2018-12-26] MEDS ORDERED: FENOFIBRATE 160 MG TAB PO SCH (09:00)
[2018-12-26] MEDS ORDERED: ASPIRIN 325 MG TAB PO SCH ×2 (09:00)
[2018-12-26] MEDS ORDERED: LISINOPRIL-HCTZ 20-12.5 MG 1 EACH TAB PO SCH (09:00)
[2018-12-26] MEDS ORDERED: FLUTICASONE 50MCG/SPRAY NASAL 16GM EA NOSTRIL SCH (09:00)
[2018-12-26] MEDS ORDERED: metFORMIN 500 MG TAB PO SCH (09:00)
[2018-12-26] MEDS: INSULIN ASPART (NovoLOG) 100 UNIT/ML VIAL SQ SCH ×2 (10:44→12:24)
[2018-12-26] MEDS: METOPROLOL TARTRATE 25 MG TAB PO SCH (11:40)
[2018-12-26] MEDS: VENLAFAXINE HCL 75 MG TAB PO SCH (11:41)
[2018-12-26 11:54] LABS: Glucose,Whole Blood 162 mg/dL (75-99)
[2018-12-26 12:24] VITALS: BP 148/84; TEMP 98.2
[2018-12-26 12:37] LABS: Hemoglobin A1C 8.5 % (4.0-6.0)
--- NOTE | 2018-12-26 13:55 | P.CRDCN ---
History of Present Illness History of present illness: This is a pleasant 48-year-old female past medical history significant for SVT status post ablation in 2015, hypertension, dyslipidemia, diabetes mellitus, fibromyalgia and gastroesophageal reflux disease. She has no prior history of coronary artery disease. We have been asked him in consultation for chest pain. She follows in the office with Dr. Whitlock. She states she woke up yesterday morning around 0500 with a sharp pain in the left precordial region with radiation into the left axilla at times. This lasted persistently all day until around noon time when she decided to come to the hospital for evaluation. She denies radiation down the arm, into the back, neck or jaw. She states she has chronic shortness of breath and has not noticed an increase, no palpitations, nausea, vomiting or diaphoresis. She is seen and examined resting comfortably in no acute distress. She underwent cardiac catheterization in January 2018 revealing normal coronary arteries with no evidence of obstructive disease. EKG reveals sinus mechanism with T-wave inversions in the anterior leads. Consistent with previous EKG, no acute changes. Telemetry tracings are unremarkable. Chest x-ray is negative for an acute cardiopulmonary process. Laboratory data reviewed, WBC 4.9, hemoglobin 13.2, platelets 194, d-dimer 0.44, sodium 138, potassium 4.3, creatinine 0.68, cardiac enzymes negative 3, triglycerides 2540, proBNP 121, TSH less than 0.015 with a free T4 of 2.32. Current cardiac medications include aspirin 325 mg daily, fenofibrate 160 mg daily, Lopressor 25 mg twice a day, amlodipine 5 mg daily. Most recent echocardiogram obtained January 2018 reveals preserved LV systolic function with ejection fraction 55%. At the time of my exam: CONSTITUTIONAL: Denies fever. Denies chills. EYES: Denies blurred vision. Denies vision changes. Denies eye pain. EARS, NOSE, MOUTH & THROAT: Denies headache. Denies sore throat. Denies ear pain. CARDIOVASCULAR: Denies chest pain. Denies shortness of breath. Denies orthopnea. Denies PND. Denies palpitations. RESPIRATORY: Denies cough. GASTROINTESTINAL: Denies abdominal pain. Denies diarrhea. Denies constipation. Denies nausea. Denies vomiting. MUSCULOSKELETAL: Denies myalgias. INTEGUMENTARY: Denies pruitis. Denies rash. NEUROLOGIC: Denies numbness. Denies tingling. Denies weakness. PSYCHIATRIC: Denies anxiety. Denies depression. ENDOCRINE: Denies fatigue. Denies weight change. Denies polydipsia. Denies polyurina. GENITOURINARY: Denies burning, hematuria or urgency with micturation. HEMATOLOGIC: Denies history of anemia. Denies bleeding. Blood pressure 148/84 heart rate 75 afebrile maintaining oxygen saturation on room air GENERAL: This is a 48-year-old female in no apparent distress at the time of my examination. HEENT: Head is atraumatic, normocephalic. Pupils are equal, round. Sclerae anicteric. Conjunctivae are clear. Mucous membranes of the mouth are moist. Neck is supple. There is no jugular venous distention. No carotid bruit is heard. LUNGS: Clear to auscultation no wheezes, rales or rhonchi. No chest wall tenderness is noted on palpation or with deep breathing. HEART: Regular rate and rhythm without murmurs, rubs or gallops. S1 and S2 heard. ABDOMEN: Soft, nontender. Bowel sounds are heard. No organomegaly noted. EXTREMITIES: No evidence of peripheral edema and no calf tenderness noted. VASCULAR: Radial and dorsalis pedis pulses palpated, no evidence of clubbing. NEUROLOGIC: Patient is awake, alert and oriented x3. ASSESSMENT Chest pain, atypical for angina. An acute coronary event has been ruled out. Recent normal catheterization. Chest pain resolved. Hypertension History of SVT status post ablation in 2014 Hypertriglyceridemia Diabetes mellitus Gastroesophageal reflux disease Fibromyalgia PLAN Acute coronary event has been ruled out. Recent cardiac catheterization revealing normal coronary arteries. Symptoms possibly related to gastroesophageal reflux disease. Thyroid management per primary care team. Follow-up with Dr. Whitlock upon discharge. Thank you kindly for this consultation. Nurse Practitioner note has been reviewed, I agree with a documented findings and plan of care. Patient was seen and examined. 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 Neuropathy. Last Myocardial Infarction Date:: . History of Any Multi-Drug Resistant Organisms: None Reported Past Surgical History: Cardiac Ablation, Section, Cholecystectomy, Hernia Repair, Tubal Ligation Additional Past Surgical History / Comment(s): Umbilical hernia repair. Past Anesthesia/Blood Transfusion Reactions: Motion Sickness Additional Past Anesthesia/Blood Transfusion Reaction / Comment(s): CLAUSTERPHOBIA, Past Psychological History: Anxiety, Panic Disorder Additional Psychological History / Comment(s): Lives with spouse/son. Does not drive, family takes to appts. PT states meds for anxiety work well. Smoking Status: Former smoker Past Alcohol Use History: Rare Additional Past Alcohol Use History / Comment(s): STARTED SMOKING AT AGE 13- SMOKED 1/2 PPD, QUIT IN 1994 Past Drug Use History: None Reported - Past Family History Father Family Medical History: Cancer, Myocardial Infarction ([place]) Additional Family Medical History / Comment(s): AGE 45 FROM [place] Mother Family Medical History: No Reported History Additional Family Medical History / Comment(s): NORMAL-NO PROBLEMS Medications and Allergies Home Medications Medication Instructions Recorded Confirmed Type metFORMIN HCL [Glucophage] 500 mg PO DAILY 09/08/14 12/25/18 History Metoprolol Tartrate [Lopressor] 25 mg PO BID 07/27/17 12/25/18 History amLODIPine [Norvasc] 5 mg PO HS #30 tab 09/05/17 12/25/18 Rx Gabapentin [Neurontin] 300 mg PO HS 07/15/18 12/25/18 History Cyclobenzaprine [Flexeril] 10 mg PO TID PRN #15 tab 09/03/18 12/25/18 Rx HYDROcodone/APAP 5-325MG [[place] 1 tab PO Q4HR PRN 09/03/18 12/25/18 History 5-325] Fluticasone Nasal [place] [Flonase 1 spray EA NOSTRIL DAILY 09/12/18 12/25/18 History Nasal [place]] Omeprazole 20 mg PO DAILY 09/12/18 12/25/18 History predniSONE 20 mg PO HS 09/12/18 12/25/18 History Aspirin 325 mg PO DAILY tab 09/13/18 12/25/18 Rx Fenofibrate [Lofibra] 160 mg PO DAILY #90 tab 09/13/18 12/25/18 Rx Nitroglycerin Sl Tabs [Nitrostat] 0.4 mg SUBLINGUAL Q5M PRN tab 09/13/18 12/25/18 Rx Venlafaxine HCl [Effexor] 75 mg PO BID 12/25/18 12/25/18 History busPIRone HCl [Buspar] 10 mg PO HS 12/25/18 12/25/18 History Levothyroxine Sodium [Synthroid] 150 mcg PO DAILY@0630 #60 tab 12/26/18 Rx Allergies Allergy/AdvReac Type Severity Reaction Status Date / Time codeine Allergy Severe Cardiac Verified 12/25/18 12:36 Arrest meperidine HCl [From Demerol] Allergy Severe Cardiac Verified 12/25/18 12:36 Arrest morphine Allergy Severe Caridac Verified 12/25/18 12:36 Arrest adhesive tape Allergy Rash/Hives Verified 12/25/18 12:36 celery Allergy Oral Verified 12/25/18 12:36 Numbness cinnamon Allergy Anaphylaxis Verified 12/25/18 12:36 diphenhydramine HCl Allergy Anaphylaxis Verified 12/25/18 12:36 [From Benadryl] eucalyptus Allergy Anaphylaxis Verified 12/25/18 12:36 [From [place] Cough Drops] menthol Allergy Anaphylaxis Verified 12/25/18 12:36 [From [place] Cough Drops] naproxen sodium [From Aleve] Allergy Rash/Hives Verified 12/25/18 12:36 nitrofurantoin Allergy Unknown Verified 12/25/18 12:36 macrocrystalline [From Macrodantin] Sulfa (Sulfonamide Allergy Rash/Hives Verified 12/25/18 12:36 Antibiotics) ciprofloxacin [From Cipro] AdvReac Abdominal Verified 12/25/18 12:36 Pain ciprofloxacin HCl AdvReac Abdominal Verified 12/25/18 12:36 [From Cipro] Pain multivitamin Allergy Intermediate Rash/Hives Uncoded 12/25/18 12:24 car exhaust AdvReac Mild Nausea & Uncoded 12/25/18 12:24 Vomiting Physical Exam Vitals: Vital Signs Temp Pulse Pulse Pulse Resp BP BP 12/26/18 12:00 98.2 F 75 148/84 12/26/18 08:00 98.1 F 75 16 119/76 12/26/18 03:26 97.8 F 71 16 129/70 12/26/18 03:16 16 12/26/18 00:00 16 12/25/18 23:46 97.7 F 72 16 104/63 12/25/18 20:00 16 12/25/18 19:36 98.1 F 84 16 109/70 12/25/18 16:15 98.1 F 70 17 114/67 12/25/18 16:00 17 12/25/18 15:58 98.5 F 72 16 137/78 12/25/18 15:00 98.6 F 76 18 139/71 12/25/18 14:00 74 20 129/82 Pulse Ox 12/26/18 12:00 98 12/26/18 08:00 97 12/26/18 03:26 96 12/26/18 03:16 12/26/18 00:00 12/25/18 23:46 98 12/25/18 20:00 12/25/18 19:36 98 12/25/18 16:15 97 12/25/18 16:00 12/25/18 15:58 98 12/25/18 15:00 97 12/25/18 14:00 98 Intake and Output 12/25/18 12/26/18 12/26/18 22:59 06:59 14:59 Intake Total 240 172.230 200 Balance 240 172.230 200 Intake: Intake, IV Titration 172.230 Amount Heparin Sod,Pork in 0.45% 172.230 NaCl 25,000 unit In 0.45 % NaCl 1 250ml.bag @ 9.2 UNITS/KG/HR 10.015 mls/hr IV .Q24H [facility] Rx#: [id number] Oral 240 200 Other: Voiding Method Toilet Toilet Toilet # Voids 1 1 Results 12/26/18 05:25 12/25/18 13:15 Cardiac Enzymes 12/25/18 12/25/18 12/25/18 Range/Units 13:15 13:15 19:19 AST 32 (14-36) U/L Troponin I <0.012 <0.012 (0.000-0.034) ng/mL 12/26/18 Range/Units 01:17 AST (14-36) U/L Troponin I <0.012 (0.000-0.034) ng/mL Coagulation 12/25/18 12/25/18 12/26/18 Range/Units 13:15 21:17 05:25 PT 9.5 9.8 (9.0-12.0) sec APTT 19.4 L 26.6 28.2 (22.0-30.0) sec Lipids 12/26/18 Range/Units 05:25 Triglycerides 2540 H (<150) mg/dL Cholesterol 199 (<200) mg/dL HDL Cholesterol 29 L (40-60) mg/dL CBC 12/26/18 Range/Units 05:25 WBC 4.9 (3.8-10.6) k/uL RBC 4.35 (3.80-5.40) m/uL Hgb 13.2 (11.4-16.0) gm/dL Hct 38.1 (34.0-46.0) % Plt Count 194 (150-450) k/uL Comprehensive Metabolic Panel 12/25/18 Range/Units 13:15 Sodium 138 (137-145) mmol/L Potassium 4.3 (3.5-5.1) mmol/L Chloride 104 (98-107) mmol/L Carbon Dioxide 23 (22-30) mmol/L BUN 15 (7-17) mg/dL Creatinine 0.68 (0.52-1.04) mg/dL Glucose 181 H (74-99) mg/dL Calcium 9.1 (8.4-10.2) mg/dL AST 32 (14-36) U/L ALT 26 (9-52) U/L Alkaline Phosphatase 80 (38-126) U/L Total Protein 6.6 (6.3-8.2) g/dL Albumin 3.9 (3.5-5.0) g/dL Current Medications Generic Name Dose Route Start Last Admin Trade Name Freq PRN Reason Stop Dose Admin Hydrocodone Bitart/Acetaminophen 1 each 12/25/18 16:29 12/26/18 11:01 [place] 5-325 PO 1 each Q4HR PRN Administration Pain Amlodipine Besylate 5 mg 12/25/18 21:00 12/25/18 20:21 Norvasc PO 5 mg HS SABINE Administration Aspirin 325 mg 12/26/18 09:00 12/26/18 11:40 Aspirin PO 325 mg DAILY SABINE Administration Buspirone HCl 10 mg 12/25/18 21:00 12/25/18 20:21 Buspar PO 10 mg HS SABINE Administration Cyclobenzaprine HCl 10 mg 12/25/18 16:29 Flexeril PO TID PRN Muscle Spasm Fenofibrate 160 mg 12/26/18 09:00 12/26/18 11:41 Lofibra PO 160 mg DAILY SABINE Administration Fluticasone Propionate 1 spray 12/26/18 09:00 12/26/18 11:41 Flonase Nasal [place] EA NOSTRIL Not Given DAILY SABINE Gabapentin 300 mg 12/25/18 21:00 12/25/18 20:21 Neurontin PO 300 mg HS SABINE Administration Heparin Sodium (Porcine) 0 unit 12/25/18 15:08 Heparin IV PER PROTOCOL PRN Low PTT Protocol Heparin Sodium/Sodium Chloride 250 mls @ 10.015 mls/hr 12/25/18 15:15 12/26/18 06:34 25,000 unit/ Sodium Chloride IV 15.2 units/kg/hr .Q24H SABINE 16.547 mls/hr Titration Protocol 9.2 UNITS/KG/HR Insulin Aspart 0 unit 12/25/18 17:30 12/26/18 12:24 Novolog SQ 2 unit ACHS SABINE Administration Protocol Levothyroxine Sodium 150 mcg 12/26/18 06:30 12/26/18 05:52 Synthroid PO 150 mcg DAILY@0630 SABINE Administration Metformin HCl 500 mg 12/26/18 09:00 12/26/18 11:40 Glucophage PO 500 mg DAILY SABINE Administration Metoprolol Tartrate 25 mg 12/25/18 21:00 12/26/18 11:40 Lopressor PO 25 mg BID SABINE Administration Nitroglycerin 0.4 mg 12/25/18 15:06 Nitrostat SUBLINGUAL Q5M PRN Chest Pain Pantoprazole Sodium 40 mg 12/26/18 07:30 12/26/18 11:40 Protonix PO 40 mg [id number]-[id number] SABINE Administration Venlafaxine HCl 75 mg 12/25/18 21:00 12/26/18 11:41 Effexor PO 75 mg BID SABINE Administration Intake and Output 12/25/18 12/26/18 12/26/18 22:59 06:59 14:59 Intake Total 240 172.230 200 Balance 240 172.230 200 Intake: Intake, IV Titration 172.230 Amount Heparin Sod,Pork in 0.45% 172.230 NaCl 25,000 unit In 0.45 % NaCl 1 250ml.bag @ 9.2 UNITS/KG/HR 10.015 mls/hr IV .Q24H [facility] Rx#: [id number] Oral 240 200 Other: Voiding Method Toilet Toilet Toilet # Voids 1 1 12/26/18 05:25 12/25/18 13:15
--- NOTE | 2018-12-27 16:49 | P.DS ---
Providers Date of admission: 12/25/18 15:06 Expected date of discharge: 12/26/18 Attending physician: Og Oliva Consults: 12/25/18 15:06 Consult Physician Urgent Consulting Provider: [facility] Consult Reason/Comments: CP, UA Do you want consulting provider notified?: Yes [facility] care [facility] Course: Final Diagnoses: -Atypical chest pain, [place] ruled out- recent cardiac catheterization revealing normal coronary arteries as per cardiology -Hypertriglyceridemia -History of SVT status post ablation 2014 -Diabetes mellitus -Hypothyroidism, supra therapeutic levels; Levo-thyroxine dose decreased -Morbid obesity, BMI 42.5 -Gastroesophageal reflux disease Hospital course: This is a 48-year-old female admitted with atypical chest pain of the left shoulder and neck time times 7 hours worsened by lying down because of new by shortness of breath, diaphoresis in a patient who continues to smoke. Troponin 2540, which is a decrease from September 3327, when she was started on fenofibrate. TSH less than 0.015, free T4 2 0.32, levothyroxine dose decreased. D-dimer negative. Evaluated by cardiology with acute coronary event ruled out. Significant clinical improvement. Cleared by cardiology for discharge. Patient is being discharged home in a stable condition with guarded prognosis. Exam: Gen.: Alert and oriented 3, no acute distress CV: Regular S1 and S2 Lungs: Clear ABD: Soft, nontender, positive bowel sounds Neuro: No focal deficit The impression and plan of care has been dictated as directed. : I performed a history and examination of this patient, discussed the same with the dictator. I agree with the dictator's note ,documented as a scribe. Any additional findings or plans will be noted. Time taken: 35 minutes Patient Condition at Discharge: Stable Plan - Discharge Summary Discharge Rx Participant: No New Discharge Prescriptions: New Levothyroxine Sodium [Synthroid] 150 mcg PO DAILY@0630 #60 tab Furosemide [Lasix] 10 mg PO DAILY #30 tab Continue metFORMIN HCL [Glucophage] 500 mg PO DAILY Metoprolol Tartrate [Lopressor] 25 mg PO BID amLODIPine [Norvasc] 5 mg PO HS #30 tab Gabapentin [Neurontin] 300 mg PO HS HYDROcodone/APAP 5-325MG [[place] 5-325] 1 tab PO Q4HR PRN PRN Reason: Pain Cyclobenzaprine [Flexeril] 10 mg PO TID PRN #15 tab PRN Reason: Muscle Spasm Fluticasone Nasal [place] [Flonase Nasal [place]] 1 spray EA NOSTRIL DAILY Omeprazole 20 mg PO DAILY predniSONE 20 mg PO HS Fenofibrate [Lofibra] 160 mg PO DAILY #90 tab Aspirin 325 mg PO DAILY tab Nitroglycerin Sl Tabs [Nitrostat] 0.4 mg SUBLINGUAL Q5M PRN tab PRN Reason: Chest Pain Venlafaxine HCl [Effexor] 75 mg PO BID busPIRone HCl [Buspar] 10 mg PO HS Discontinued Levothyroxine Sodium [Synthroid] 200 mcg PO DAILY@0630 tab Discharge Medication List metFORMIN HCL [Glucophage] 500 mg PO DAILY 09/08/14 [History] Metoprolol Tartrate [Lopressor] 25 mg PO BID 07/27/17 [History] amLODIPine [Norvasc] 5 mg PO HS #30 tab 09/05/17 [Rx] Gabapentin [Neurontin] 300 mg PO HS 07/15/18 [History] Cyclobenzaprine [Flexeril] 10 mg PO TID PRN #15 tab 09/03/18 [Rx] HYDROcodone/APAP 5-325MG [[place] 5-325] 1 tab PO Q4HR PRN 09/03/18 [History] Fluticasone Nasal [place] [Flonase Nasal [place]] 1 spray EA NOSTRIL DAILY 09/12/18 [History] Omeprazole 20 mg PO DAILY 09/12/18 [History] predniSONE 20 mg PO HS 09/12/18 [History] Aspirin 325 mg PO DAILY tab 09/13/18 [Rx] Fenofibrate [Lofibra] 160 mg PO DAILY #90 tab 09/13/18 [Rx] Nitroglycerin Sl Tabs [Nitrostat] 0.4 mg SUBLINGUAL Q5M PRN tab 09/13/18 [Rx] Venlafaxine HCl [Effexor] 75 mg PO BID 12/25/18 [History] busPIRone HCl [Buspar] 10 mg PO HS 12/25/18 [History] Furosemide [Lasix] 10 mg PO DAILY #30 tab 12/26/18 [Rx] Levothyroxine Sodium [Synthroid] 150 mcg PO DAILY@0630 #60 tab 12/26/18 [Rx] Follow up Appointment(s)/Referral(s): Og Oliva MD [Primary Care Provider] - 12/28/18 Alejandro Whitlock MD [STAFF PHYSICIAN] - 2 Weeks Ambulatory/Diagnostic Orders: Complete Blood Count w/diff [LAB.AMB] Time Frame: 3 Days, Location: None Selected Patient Instructions/Handouts: Chest Pain (ED) Activity/Diet/Wound Care/Special Instructions: Confirm cardiology follow-up appointment prior to discharge. Recheck TSH/Free T4 in 3 mths with PCP r/t Dose change. Discharge Disposition: HOME SELF-CARE
== END 2018-12-26 13:52 | disposition home or self-care (01) ==
LOC: EC 12:16 → 1SOBS 15:06
PROVIDERS: ADMIT Family Medicine; ATTEND Family Medicine
DX: R07.89 Other chest pain (principal); R06.02 Shortness of breath; R61 Generalized hyperhidrosis; I10 Essential (primary) hypertension; E78.5 Hyperlipidemia, unspecified; M79.7 Fibromyalgia; I47.1 Supraventricular tachycardia; K21.9 Gastro-esophageal reflux disease without esophagitis; G40.909 Epilepsy, unspecified, not intractable, without status epilepticus; E11.40 Type 2 diabetes mellitus with diabetic neuropathy, unspecified; E03.9 Hypothyroidism, unspecified; M19.90 Unspecified osteoarthritis, unspecified site; G47.30 Sleep apnea, unspecified; M46.96 Unspecified inflammatory spondylopathy, lumbar region; M16.0 Bilateral primary osteoarthritis of hip; F40.240 Claustrophobia; F41.0 Panic disorder [episodic paroxysmal anxiety]; F32.9 Major depressive disorder, single episode, unspecified; E78.1 Pure hyperglyceridemia; E66.01 Morbid (severe) obesity due to excess calories; Z68.41 Body mass index [BMI] 40.0-44.9, adult; F17.210 Nicotine dependence, cigarettes, uncomplicated; Z79.890 Hormone replacement therapy; Z79.84 Long term (current) use of oral hypoglycemic drugs; Z79.899 Other long term (current) drug therapy; Z79.891 Long term (current) use of opiate analgesic; Z79.52 Long term (current) use of systemic steroids; I25.2 Old myocardial infarction; Z79.82 Long term (current) use of aspirin; Z88.6 Allergy status to analgesic agent; Z88.1 Allergy status to other antibiotic agents; Z88.5 Allergy status to narcotic agent; Z88.2 Allergy status to sulfonamides; Z88.8 Allergy status to other drugs, medicaments and biological substances; Z91.018 Allergy to other foods; Z91.048 Other nonmedicinal substance allergy status; Z90.49 Acquired absence of other specified parts of digestive tract; Z98.51 Tubal ligation status; Z86.74 Personal history of sudden cardiac arrest; Z82.49 Family history of ischemic heart disease and other diseases of the circulatory system; Z80.9 Family history of malignant neoplasm, unspecified
CPT/HCPCS: 96366 ×2; 96376; 96361; 96365; 99285; 36415; 93005; 85379; 84439; 83880; 80061; 80053; 84443; 83735; 84484 ×2; 85025 ×2; 85610 ×2; 85730 ×2; 83036; 71046; G0378 ×2; J1644 ×2

== ENCOUNTER 2019-10-23 21:21 | Emergency (ER) | payer OTHER ==
[2019-10-23 21:31] VITALS: BP 135/83; PULSE 96; RESP 20; TEMP 98.2
[2019-10-23] MEDS ORDERED: DEXAMETHASONE SOD PHOSPHATE 10 MG/ML 1 ML VIAL IM STA (22:02)
--- NOTE | 2019-10-23 22:05 | ED ---
General Adult HPI - General Chief complaint: Allergic Reaction Stated complaint: Allergic Reaction Time Seen by Provider: 10/23/19 21:56 Source: patient Mode of arrival: ambulatory Limitations: no limitations - History of Present Illness Initial comments: Dictation was produced using [employer] dictation software. please excuse any grammatical, word or spelling errors. This patient was cared for during a federal and state declared state of emergency secondary to Covid 19 Chief Complaint: 49-year-old female presents with ALLERGIC reaction to cinnamon. History of Present Illness: Patient is a 49-year-old female she states that she accidentally drank a shot of cinnamon containing alcohol. She states that since then she's felt some scratchiness to her throat. She denies any throat swelling or sensation of her throat closing. She states that this occurred approximately 2 hours prior to arrival. Patient has multiple ALLERGIES including eucalyptus, menthol, Benadryl, celery. Denies any shortness of breath. No abdominal pain. No rash. The ROS documented in this emergency department record has been reviewed and confirmed by me. Those systems with pertinent positive or negative responses have been documented in the HPI. All other systems are other negative and/or noncontributory. PHYSICAL EXAM: General Impression: Alert and oriented x3, not in acute distress HEENT: Normocephalic atraumatic, extra-ocular movements intact, pupils equal and reactive to light bilaterally, mucous membranes moist. Cardiovascular: Heart regular rate and rhythm Chest: Able to complete full sentences, no retractions, no tachypnea Abdomen: abdomen soft, non-tender, non-distended, no organomegaly Musculoskeletal: Pulses present and equal in all extremities, no peripheral edema Motor: no focal deficits noted Neurological: CN II-XII grossly intact, no focal motor or sensory deficits noted Skin: Intact with no visualized rashes Psych: Normal affect and mood ED course: 49 yo female presents with mild ALLERGIC reaction. Patient given IM shot of Decadron. No concern for anaphylaxis at this time or angioedema. Patient states that she is ALLERGIC to Benadryl. As upon arrival are within acceptable limits. Patient will be discharged. - Related Data Home Medications Medication Instructions Recorded Confirmed metFORMIN HCL [Glucophage] 500 mg PO DAILY 09/08/14 12/25/18 Metoprolol Tartrate [Lopressor] 25 mg PO BID 07/27/17 12/25/18 Gabapentin [Neurontin] 300 mg PO HS 07/15/18 12/25/18 HYDROcodone/APAP 5-325MG [[place] 1 tab PO Q4HR PRN 09/03/18 12/25/18 5-325] Fluticasone Nasal [place] [Flonase 1 spray EA NOSTRIL DAILY 09/12/18 12/25/18 Nasal [place]] Omeprazole 20 mg PO DAILY 09/12/18 12/25/18 predniSONE [Deltasone] 20 mg PO HS 09/12/18 12/25/18 Venlafaxine HCl [Effexor] 75 mg PO BID 12/25/18 12/25/18 busPIRone HCl [Buspar] 10 mg PO HS 12/25/18 12/25/18 Previous Rx's Medication Instructions Recorded amLODIPine [Norvasc] 5 mg PO HS #30 tab 09/05/17 Cyclobenzaprine [Flexeril] 10 mg PO TID PRN #15 tab 09/03/18 Aspirin 325 mg PO DAILY tab 09/13/18 Fenofibrate [Lofibra] 160 mg PO DAILY #90 tab 09/13/18 Nitroglycerin Sl Tabs [Nitrostat] 0.4 mg SUBLINGUAL Q5M PRN tab 09/13/18 Furosemide [Lasix] 10 mg PO DAILY #30 tab 12/26/18 Levothyroxine Sodium [Synthroid] 150 mcg PO DAILY@0630 #60 tab 12/26/18 Allergies Allergy/AdvReac Type Severity Reaction Status Date / Time codeine Allergy Severe Cardiac Verified 10/23/19 21:31 Arrest meperidine HCl [From Demerol] Allergy Severe Cardiac Verified 10/23/19 21:31 Arrest morphine Allergy Severe Caridac Verified 10/23/19 21:31 Arrest adhesive tape Allergy Rash/Hives Verified 10/23/19 21:31 celery Allergy Oral Verified 10/23/19 21:31 Numbness cinnamon Allergy Anaphylaxis Verified 10/23/19 21:31 diphenhydramine HCl Allergy Anaphylaxis Verified 10/23/19 21:31 [From Benadryl] eucalyptus Allergy Anaphylaxis Verified 10/23/19 21:31 [From [place] Cough Drops] menthol Allergy Anaphylaxis Verified 10/23/19 21:31 [From [place] Cough Drops] naproxen sodium [From Aleve] Allergy Rash/Hives Verified 10/23/19 21:31 nitrofurantoin Allergy Unknown Verified 10/23/19 21:31 macrocrystalline [From Macrodantin] Sulfa (Sulfonamide Allergy Rash/Hives Verified 10/23/19 21:31 Antibiotics) ciprofloxacin [From Cipro] AdvReac Abdominal Verified 10/23/19 21:31 Pain ciprofloxacin HCl AdvReac Abdominal Verified 10/23/19 21:31 [From Cipro] Pain multivitamin Allergy Intermediate Rash/Hives Uncoded 10/23/19 21:31 car exhaust AdvReac Mild Nausea & Uncoded 10/23/19 21:31 Vomiting Review of Systems ROS Statement: Those systems with pertinent positive or pertinent negative responses have been documented in the HPI. ROS Other: All systems not noted in ROS Statement are negative. 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 Neuropathy. Last Myocardial Infarction Date:: . History of Any Multi-Drug Resistant Organisms: None Reported Past Surgical History: Cardiac Ablation, Section, Cholecystectomy, Hernia Repair, Tubal Ligation Additional Past Surgical History / Comment(s): Umbilical hernia repair. Past Anesthesia/Blood Transfusion Reactions: Motion Sickness Additional Past Anesthesia/Blood Transfusion Reaction / Comment(s): CLAUSTERPHOBIA, Past Psychological History: Anxiety, Panic Disorder Smoking Status: Former smoker Past Alcohol Use History: Rare Past Drug Use History: None Reported - Past Family History Father Family Medical History: Cancer, Myocardial Infarction ([place]) Additional Family Medical History / Comment(s): AGE 45 FROM [place] Mother Family Medical History: No Reported History Additional Family Medical History / Comment(s): NORMAL-NO PROBLEMS General Exam Limitations: no limitations Course Vital Signs 05/13/20 21:27 Temperature 98.2 F Pulse Rate 96 Respiratory 20 Rate Blood Pressure 135/83 O2 Sat by Pulse 97 Oximetry Disposition Clinical Impression: Allergic reaction Disposition: HOME SELF-CARE Condition: Good Instructions (If sedation given, give patient instructions): Food Allergy (ED) Is patient prescribed a controlled substance at d/c from ED?: No Referrals: Og Oliva MD [Primary Care Provider] - 1-2 days Time of Disposition: 22:05
== END 2019-10-23 22:19 | disposition home or self-care (01) ==
LOC: EC 21:21
DX: T78.49XA Other allergy, initial encounter (principal); F41.9 Anxiety disorder, unspecified; F41.0 Panic disorder [episodic paroxysmal anxiety]; M79.7 Fibromyalgia; K21.9 Gastro-esophageal reflux disease without esophagitis; I25.2 Old myocardial infarction; G40.909 Epilepsy, unspecified, not intractable, without status epilepticus; E11.40 Type 2 diabetes mellitus with diabetic neuropathy, unspecified; Z79.84 Long term (current) use of oral hypoglycemic drugs; Z79.899 Other long term (current) drug therapy; Z79.52 Long term (current) use of systemic steroids; Z87.891 Personal history of nicotine dependence; Z88.8 Allergy status to other drugs, medicaments and biological substances; Z88.1 Allergy status to other antibiotic agents; Z88.2 Allergy status to sulfonamides; Z88.3 Allergy status to other anti-infective agents; Z88.6 Allergy status to analgesic agent; Z88.5 Allergy status to narcotic agent; Z91.048 Other nonmedicinal substance allergy status; Z91.018 Allergy to other foods; Z87.19 Personal history of other diseases of the digestive system; Z90.49 Acquired absence of other specified parts of digestive tract; Z86.74 Personal history of sudden cardiac arrest; Z95.5 Presence of coronary angioplasty implant and graft
CPT/HCPCS: 96372; 99283; J1100

== ENCOUNTER 2020-01-13 19:58 | Emergency (ER) | payer OTHER ==
[2020-01-13 20:44] LABS: Basophils % (A) 0 %; Eosinophils # (A) 0.3 k/uL (0-0.7); Eosinophils % (A) 4 %; HCT 35.1 % (34.0-46.0); HGB 11.3 gm/dL (11.4-16.0); Hypochromasia Slight; Lymphocytes # (A) 1.5 k/uL (1.0-4.8); Lymphocytes % (A) 23 %; MCH 28.2 pg (25.0-35.0); MCHC 32.3 g/dL (31.0-37.0); MCV 87.3 fL (80.0-100.0); Monocytes # (A) 0.2 k/uL (0-1.0); Monocytes % (A) 3 %; Neutrophils # (A) 4.4 k/uL (1.3-7.7); Neutrophils % (A) 69 %; Platelet Count 251 k/uL (150-450); RBC 4.02 m/uL (3.80-5.40); RDW 13.9 % (11.5-15.5); WBC 6.4 k/uL (3.8-10.6)
--- NOTE | 2020-01-13 20:48 | ED ---
General Adult HPI - General Chief complaint: Vaginal Bleeding Stated complaint: Vaginal Bleeding Time Seen by Provider: 01/13/20 20:07 Source: patient, RN notes reviewed Mode of arrival: ambulatory Limitations: no limitations - History of Present Illness Initial comments: 49-year-old female with a past medical history of diabetes mellitus, fibromyalgia, GERD, hyperlipidemia, hypertension presents to the emergency room for a chief complaint of vaginal bleeding. Patient states she has had vaginal bleeding now for about 3 weeks. States that for the past 2 days it has been even heavier. Patient reports that she does still have periods. Patient states they have been more sporadic. States earlier this year she went three months without a period. Patient states she called her primary care doctor who said she is to follow up with [facility]. patient reports she did attempt to call around and was told they are only seeing patients at this time. Patient reports that her primary told her they will set this up for her at her next mamm ogram which she is due for. Patient has no other complaints at this time including shortness of breath, chest pain, abdominal pain, nausea or vomiting, headache, or visual changes. - Related Data Home Medications Medication Instructions Recorded Confirmed metFORMIN HCL [Glucophage] 500 mg PO DAILY 09/08/14 12/25/18 Metoprolol Tartrate [Lopressor] 25 mg PO BID 07/27/17 12/25/18 Gabapentin [Neurontin] 300 mg PO HS 07/15/18 12/25/18 HYDROcodone/APAP 5-325MG [[place] 1 tab PO Q4HR PRN 09/03/18 12/25/18 5-325] Fluticasone Nasal [place] [Flonase 1 spray EA NOSTRIL DAILY 09/12/18 12/25/18 Nasal [place]] Omeprazole 20 mg PO DAILY 09/12/18 12/25/18 predniSONE [Deltasone] 20 mg PO HS 09/12/18 12/25/18 Venlafaxine HCl [Effexor] 75 mg PO BID 12/25/18 12/25/18 busPIRone HCl [Buspar] 10 mg PO HS 12/25/18 12/25/18 Previous Rx's Medication Instructions Recorded amLODIPine [Norvasc] 5 mg PO HS #30 tab 09/05/17 Cyclobenzaprine [Flexeril] 10 mg PO TID PRN #15 tab 09/03/18 Aspirin 325 mg PO DAILY tab 09/13/18 Fenofibrate [Lofibra] 160 mg PO DAILY #90 tab 09/13/18 Nitroglycerin Sl Tabs [Nitrostat] 0.4 mg SUBLINGUAL Q5M PRN tab 09/13/18 Furosemide [Lasix] 10 mg PO DAILY #30 tab 12/26/18 Levothyroxine Sodium [Synthroid] 150 mcg PO DAILY@0630 #60 tab 12/26/18 Allergies Allergy/AdvReac Type Severity Reaction Status Date / Time codeine Allergy Severe Cardiac Verified 01/13/20 20:03 Arrest meperidine HCl [From Demerol] Allergy Severe Cardiac Verified 01/13/20 20:03 Arrest morphine Allergy Severe Caridac Verified 01/13/20 20:03 Arrest adhesive tape Allergy Rash/Hives Verified 01/13/20 20:03 celery Allergy Oral Verified 01/13/20 20:03 Numbness cinnamon Allergy Anaphylaxis Verified 01/13/20 20:03 diphenhydramine HCl Allergy Anaphylaxis Verified 01/13/20 20:03 [From Benadryl] eucalyptus Allergy Anaphylaxis Verified 01/13/20 20:03 [From [place] Cough Drops] menthol Allergy Anaphylaxis Verified 01/13/20 20:03 [From [place] Cough Drops] naproxen sodium [From Aleve] Allergy Rash/Hives Verified 01/13/20 20:03 nitrofurantoin Allergy Unknown Verified 01/13/20 20:03 macrocrystalline [From Macrodantin] Sulfa (Sulfonamide Allergy Rash/Hives Verified 01/13/20 20:03 Antibiotics) ciprofloxacin [From Cipro] AdvReac Abdominal Verified 01/13/20 20:03 Pain ciprofloxacin HCl AdvReac Abdominal Verified 01/13/20 20:03 [From Cipro] Pain multivitamin Allergy Intermediate Rash/Hives Uncoded 01/13/20 20:03 car exhaust AdvReac Mild Nausea & Uncoded 01/13/20 20:03 Vomiting Review of Systems ROS Statement: Those systems with pertinent positive or pertinent negative responses have been documented in the HPI. ROS Other: All systems not noted in ROS Statement are negative. Past Medical History Past Medical History: Diabetes Mellitus, Fibromyalgia, GERD/Reflux, Hyperlipidemia, Hypertension, Myocardial Infarction ([place]), Osteoarthritis (OA), Seizure Disorder, Supraventricular Tachycardia (SVT), Thyroid Disorder Additional Past Medical History / Comment(s): Severe allergies, PT STATES IN 1994 PTWAS HAD TOXEMIA WAS GIVEN DEMEROL AND WENT INTO A CARDIAC ARREST (COMA 21 days), was having seizures and had 2ND CARDIAC ARREST 2000 (COMA 3-5 DAYS), SVT, SLEEP APNEA( NO MACHINE), STATES LAST SEIZURE 1 YEAR AGO, arthritis low back and hips, PANCREATITIS, colitis, heart cath done Jan 2018- no stents currently. Neuropathy. Last Myocardial Infarction Date:: . History of Any Multi-Drug Resistant Organisms: None Reported Past Surgical History: Cardiac Ablation, Section, Cholecystectomy, Hernia Repair, Tubal Ligation Additional Past Surgical History / Comment(s): Umbilical hernia repair. Past Anesthesia/Blood Transfusion Reactions: Motion Sickness Additional Past Anesthesia/Blood Transfusion Reaction / Comment(s): CLAUSTERPHOBIA, Past Psychological History: Anxiety, Panic Disorder Past Alcohol Use History: Rare Past Drug Use History: None Reported - Past Family History Father Family Medical History: Cancer, Myocardial Infarction ([place]) Additional Family Medical History / Comment(s): AGE 45 FROM [place] Mother Family Medical History: No Reported History Additional Family Medical History / Comment(s): NORMAL-NO PROBLEMS General Exam Limitations: no limitations General appearance: alert, in no apparent distress Head exam: Present: atraumatic, normocephalic, normal inspection Eye exam: Present: normal appearance, PERRL, EOMI. Absent: scleral icterus, conjunctival injection, periorbital swelling ENT exam: Present: normal exam, mucous membranes moist Neck exam: Present: normal inspection, full ROM. Absent: tenderness, meningismus, lymphadenopathy Respiratory exam: Present: normal lung sounds bilaterally. Absent: respiratory distress, wheezes, rales, rhonchi, stridor Cardiovascular Exam: Present: regular rate, normal rhythm, normal heart sounds. Absent: systolic murmur, diastolic murmur, rubs, gallop, clicks GI/Abdominal exam: Present: soft, normal bowel sounds. Absent: distended, tenderness, guarding, rebound, rigid External exam: Present: normal external exam, other (Shawn, tech present for exam). Absent: erythema, swelling, lesions, lacerations, ecchymosis Speculum exam: Present: normal speculum exam, vaginal bleeding (minor vaginal bleeding noted). Absent: erythema, vaginal discharge, cervical discharge, foreign body, tissue, laceration By manual exam: Present: normal by manual exam. Absent: cervical motion tenderness, adnexal tenderness, adnexal mass, uterine enlargement, uterine tenderness Course Vital Signs 01/13/20 01/13/20 20:00 21:44 Temperature 98.1 F 98.9 F Pulse Rate 98 89 Respiratory 16 19 Rate Blood Pressure 150/75 126/75 O2 Sat by Pulse 97 98 Oximetry Medical Decision Making - Medical Decision Making Vitals are stable. CBC is unremarkable. Hemoglobin stable at 11.3. CMP unremarkable. Urinalysis does show 182 red blood cells with 44 white blood cells. No dysuria. This will be cultured. Transvaginal ultrasound shows no evidence of endometrial mass. There are numerous cervical cysts and ovaries are not seen. She also has an enlarged and heterogeneous uterus. Patient reports that she is not able to follow up because [facility] are only seeing patients at this time. Dr. Magdaleno did speak with Dr. Tate who stated his office is seeing non patient said she can try to call the office to make an appointment. - Lab Data Result diagrams: 01/13/20 20:08 01/13/20 20:08 Lab Results 01/13/20 01/13/20 01/13/20 Range/Units 20:08 20:08 20:08 WBC 6.4 (3.8-10.6) k/uL RBC 4.02 (3.80-5.40) m/uL Hgb 11.3 L (11.4-16.0) gm/dL Hct 35.1 (34.0-46.0) % MCV 87.3 (80.0-100.0) fL MCH 28.2 (25.0-35.0) pg MCHC 32.3 (31.0-37.0) g/dL RDW 13.9 (11.5-15.5) % Plt Count 251 (150-450) k/uL Neutrophils % 69 % Lymphocytes % 23 % Monocytes % 3 % Eosinophils % 4 % Basophils % 0 % Neutrophils # 4.4 (1.3-7.7) k/uL Lymphocytes # 1.5 (1.0-4.8) k/uL Monocytes # 0.2 (0-1.0) k/uL Eosinophils # 0.3 (0-0.7) k/uL Basophils # 0.0 (0-0.2) k/uL Hypochromasia Slight PT 9.3 (9.0-12.0) sec INR 0.9 (<1.2) APTT 21.9 L (22.0-30.0) sec Sodium 137 (137-145) mmol/L Potassium 4.4 (3.5-5.1) mmol/L Chloride 101 (98-107) mmol/L Carbon Dioxide 25 (22-30) mmol/L Anion Gap 11 mmol/L BUN 10 (7-17) mg/dL Creatinine 0.59 (0.52-1.04) mg/dL Est GFR (CKD-EPI)AfAm >90 (>60 ml/min/1.73 sqM) Est GFR (CKD-EPI)NonAf >90 (>60 ml/min/1.73 sqM) Glucose 176 H (74-99) mg/dL Calcium 8.9 (8.4-10.2) mg/dL Total Bilirubin 0.3 (0.2-1.3) mg/dL AST 21 (14-36) U/L ALT 17 (4-34) U/L Alkaline Phosphatase 121 (38-126) U/L Total Protein 6.4 (6.3-8.2) g/dL Albumin 3.8 (3.5-5.0) g/dL Urine Color Urine Appearance (Clear) Urine pH (5.0-8.0) Ur Specific [place] (1.001-1.035) Urine Protein (Negative) Urine Glucose (UA) (Negative) Urine Ketones (Negative) Urine Blood (Negative) Urine Nitrite (Negative) Urine Bilirubin (Negative) Urine Urobilinogen (<2.0) mg/dL Ur Leukocyte Esterase (Negative) Urine RBC (0-5) /hpf Urine WBC (0-5) /hpf Urine Mucus (None) /hpf Urine HCG, Qual (Not Detectd) Blood Type Recheck Bld Type Recheck Status Spec Expiration Date 01/13/20 01/13/20 01/13/20 Range/Units 20:31 20:31 20:33 WBC (3.8-10.6) k/uL RBC (3.80-5.40) m/uL Hgb (11.4-16.0) gm/dL Hct (34.0-46.0) % MCV (80.0-100.0) fL MCH (25.0-35.0) pg MCHC (31.0-37.0) g/dL RDW (11.5-15.5) % Plt Count (150-450) k/uL Neutrophils % % Lymphocytes % % Monocytes % % Eosinophils % % Basophils % % Neutrophils # (1.3-7.7) k/uL Lymphocytes # (1.0-4.8) k/uL Monocytes # (0-1.0) k/uL Eosinophils # (0-0.7) k/uL Basophils # (0-0.2) k/uL Hypochromasia PT (9.0-12.0) sec INR (<1.2) APTT (22.0-30.0) sec Sodium (137-145) mmol/L Potassium (3.5-5.1) mmol/L Chloride (98-107) mmol/L Carbon Dioxide (22-30) mmol/L Anion Gap mmol/L BUN (7-17) mg/dL Creatinine (0.52-1.04) mg/dL Est GFR (CKD-EPI)AfAm (>60 ml/min/1.73 sqM) Est GFR (CKD-EPI)NonAf (>60 ml/min/1.73 sqM) Glucose (74-99) mg/dL Calcium (8.4-10.2) mg/dL Total Bilirubin (0.2-1.3) mg/dL AST (14-36) U/L ALT (4-34) U/L Alkaline Phosphatase (38-126) U/L Total Protein (6.3-8.2) g/dL Albumin (3.5-5.0) g/dL Urine Color Dark Red Urine Appearance Turbid H (Clear) Urine pH 5.5 (5.0-8.0) Ur Specific [place] 1.030 (1.001-1.035) Urine Protein 2+ H (Negative) Urine Glucose (UA) Negative (Negative) Urine Ketones 1+ H (Negative) Urine Blood Large H (Negative) Urine Nitrite Negative (Negative) Urine Bilirubin Negative (Negative) Urine Urobilinogen <2.0 (<2.0) mg/dL Ur Leukocyte Esterase Moderate H (Negative) Urine RBC >182 H (0-5) /hpf Urine WBC 44 H (0-5) /hpf Urine Mucus Occasional H (None) /hpf Urine HCG, Qual Not Detected (Not Detectd) Blood Type Recheck No Previous Record Bld Type Recheck Status CABO Indicated Spec Expiration Date 01/16/2020 - 2332 Disposition Clinical Impression: Vaginal bleeding Disposition: HOME SELF-CARE Condition: Good Instructions (If sedation given, give patient instructions): Dysfunctional Uterine Bleeding (ED) Additional Instructions: please follow up with your doctor in one to 2 days. Follow-up with primary care as well. If you have any worsening symptoms return to the emergency room. Is patient prescribed a controlled substance at d/c from ED?: No Referrals: Og Oliva MD [Primary Care Provider] - 1-2 days Jairo Osborn MD [STAFF PHYSICIAN] - 1-2 days Time of Disposition: 22:45
[2020-01-13 20:50] LABS: ALT 17 U/L (4-34); AST 21 U/L (14-36); African American GFR (CKD) >90 (>60 ml/min/1.73 sqM); Albumin 3.8 g/dL (3.5-5.0); Alkaline Phosphatase 121 U/L (38-126); Anion Gap 11 mmol/L; Blood Urea Nitrogen 10 mg/dL (7-17); Calcium 8.9 mg/dL (8.4-10.2); Carbon Dioxide 25 mmol/L (22-30); Chloride 101 mmol/L (98-107); Glucose 176 mg/dL (74-99); Non-African American GFR(CKD) >90 (>60 ml/min/1.73 sqM); Potassium 4.4 mmol/L (3.5-5.1); Sodium 137 mmol/L (137-145); Total Bilirubin 0.3 mg/dL (0.2-1.3); Total Protein 6.4 g/dL (6.3-8.2)
[2020-01-13 21:13] LABS: INR 0.9 (<1.2); Prothrombin Time 9.3 sec (9.0-12.0)
[2020-01-13 21:17] LABS: Partial Thromboplastin Time 21.9 sec (22.0-30.0)
[2020-01-13 21:25] LABS: Appearance,Urine Turbid (Clear); Bilirubin,Urine Negative (Negative); Blood,Urine Large (Negative); Color,Urine Dark Red; Glucose,Urine (UA) Negative (Negative); Ketones,Urine 1+ (Negative); Leukocyte Esterase,Urine Moderate (Negative); Mucus,Urine Occasional /hpf; Nitrite,Urine Negative (Negative); PH, Urine 5.5 (5.0-8.0); Protein,Urine 2+ (Negative); RBC,Urine >182 /hpf (0-5); Urobilinogen,Urine <2.0 mg/dL (<2.0); WBC,Urine 44 /hpf (0-5)
--- NOTE | 2020-01-13 21:46 | US ---
EXAMINATION TYPE: US transvaginal DATE OF EXAM: 01/13/2020 COMPARISON: CT 2018 CLINICAL HISTORY: pain. Pain and bleeding x 6 weeks. Hx , tubal ligation, stillborn, miscarr iage. LMP unknown. . TECHNIQUE: Transvaginal (TV). Transabdominal sonographic images of the pelvis were acquired. Date of LMP: Unknown EXAM MEASUREMENTS: Uterus: 12.1 x 8.1 x 6.9 cm Endometrial Stripe: Not well defined, limited. Right Ovary: Not visualized Left Ovary: Not visualized 1. Uterus: Anteverted. Possible anteflexed cervix. Uterus appears enlarged and heterogeneous. Multi ple anechoic areas seen in cervix. Largest measures: 1.7 x 1.8 x 1.0 cm. 2. Endometrium: Not well defined. 5. Bilateral Adnexa: Appear wnl 6. Posterior cul-de-sac: Appears wnl IMPRESSION: No evidence of endometrial mass. Numerous cervical cysts. Ovaries are not seen.
[2020-01-13 21:47] VITALS: TEMP 98.9
[2020-01-13] MEDS ORDERED: KETOROLAC 30 MG/ML 1 ML VIAL IVP STA (21:48)
[2020-01-13] MEDS ORDERED: HYDROcodone/APAP 5-325MG 1 EACH TAB PO STA (22:41)
[2020-01-13 22:49] VITALS: BP 136/81; PULSE 92; RESP 17
== END 2020-01-13 23:00 | disposition home or self-care (01) ==
LOC: EC 19:58
DX: N93.9 Abnormal uterine and vaginal bleeding, unspecified (principal); N88.8 Other specified noninflammatory disorders of cervix uteri; E11.9 Type 2 diabetes mellitus without complications; I10 Essential (primary) hypertension; K21.9 Gastro-esophageal reflux disease without esophagitis; E78.5 Hyperlipidemia, unspecified; I25.2 Old myocardial infarction; F41.0 Panic disorder [episodic paroxysmal anxiety]; Z79.51 Long term (current) use of inhaled steroids; Z79.899 Other long term (current) drug therapy; Z79.84 Long term (current) use of oral hypoglycemic drugs
CPT/HCPCS: 36415; 86900; 86901; 80053; 85025; 85610; 85730; 86850; 81001; 81025; 87086; 76830; 99284; 96374; J1885

== ENCOUNTER 2021-01-21 16:44 | Observation (INO) | payer BC, OTHER ==
[2021-01-21] MEDS ORDERED: HYDROmorphone 0.5 MG/0.5 ML SYRINGE IVP STA ×2 (17:28→19:25)
[2021-01-21 17:29] LABS: Anisocytosis Slight; Basophils % (A) 0 %; Eosinophils # (A) 0.3 k/uL (0-0.7); Eosinophils % (A) 3 %; HCT 36.6 % (34.0-46.0); HGB 11.2 gm/dL (11.4-16.0); Hypochromasia Marked; Lymphocytes % (A) 23 %; MCH 23.6 pg (25.0-35.0); MCHC 30.5 g/dL (31.0-37.0); MCV 77.5 fL (80.0-100.0); Mean Platelet Volume 7.4; Microcytosis Slight; Monocytes # (A) 0.3 k/uL (0-1.0); Monocytes % (A) 4 %; Neutrophils % (A) 69 %; Platelet Count 298 k/uL (150-450); Poikilocytosis Slight; RBC 4.72 m/uL (3.80-5.40); RDW 16.9 % (11.5-15.5); WBC 8.7 k/uL (3.8-10.6)
--- NOTE | 2021-01-21 17:30 | ED ---
General Adult HPI - General Chief complaint: Chest Pain Stated complaint: SOB, Abdominal Pain, Chest Pain Time Seen by Provider: 01/21/21 16:59 Source: patient Mode of arrival: ambulatory Limitations: no limitations - History of Present Illness Initial comments: Dictation was produced using [employer]en [employer] dictation software. please excuse any grammatical, word or spelling errors. Chief Complaint: 50-year-old female presents to the emergency department for left-sided flank pain and chest pain History of Present Illness: 50-year-old female she has multiple comorbidities including cardiac arrest, SVT. Patient states that this why she woke up with left-sided flank pain. He states that the pain as sharp started to travel up her left flank and now radiates into her left chest. Patient has history of myocardial infarction. She describes the pain as sharp. Is not pressure. No associated diaphoresis or nausea. Denies any nausea. She mentions that she has a history of neuropathy. The ROS documented in this emergency department record has been reviewed and confirmed by me. Those systems with pertinent positive or negative responses have been documented in the HPI. All other systems are other negative and/or noncontributory. PHYSICAL EXAM: General Impression: Alert and oriented x3, not in acute distress HEENT: Normocephalic atraumatic, extra-ocular movements intact, pupils equal and reactive to light bilaterally, mucous membranes moist. Cardiovascular: Heart regular rate and rhythm Chest: Able to complete full sentences, no retractions, no tachypnea Abdomen: abdomen soft, non-tender, non-distended, no organomegaly Musculoskeletal: Pulses present and equal in all extremities, no peripheral edema Motor: no focal deficits noted Neurological: CN II-XII grossly intact, no focal motor or sensory deficits noted Skin: Intact with no visualized rashes Psych: Normal affect and mood ED course: 50-year-old female presents to the emergency department for left- sided flank pain and left-sided chest pain. Her pain is very atypical for acute coronary syndrome given that is sharp and not associated with diaphoresis or nausea. She however has significant cardiac comorbidities. Vital signs upon arrival are within acceptable limits. Laboratory evaluation obtained. CBC, coag panel, metabolic panel is within acceptable limits. Chest x-ray is nonacute. Patient reevaluated at bedside front of a similar condition. Concerning patient's cardiac history she would benefit from observation admission for serial troponins and cardiac monitoring. Patient given aspirin. Case discussed with Dr. Oliva who is willing to accept patients care. EKG interpretation: Ventricular rate 80, normal sinus rhythm,. Interval 154, QRS 76, QTC 438. No ND prolongation, no QTC prolongation, no ST or T-wave changes noted. EKG compared to 12/25/2018 showing no changes. Overall, this EKG is unremarkable - Related Data Home Medications Medication Instructions Recorded Confirmed Metoprolol Tartrate [Lopressor] 25 mg PO BID 07/27/17 01/21/21 Venlafaxine HCl [Effexor] 75 mg PO BID 12/25/18 01/21/21 busPIRone HCl [Buspar] 10 mg PO DAILY 12/25/18 01/21/21 Atorvastatin [Lipitor] 40 mg PO HS 01/21/21 01/21/21 Furosemide [Lasix] 20 mg PO DAILY 01/21/21 01/21/21 Gabapentin 600 mg PO BID 01/21/21 01/21/21 Hydrocodone/Acetaminophen [[place] 1 tab PO BID 01/21/21 01/21/21 7.5-325] Ibuprofen [Motrin] 600 mg PO TID 01/21/21 01/21/21 Ranitidine HCl 150 mg PO DAILY 01/21/21 01/21/21 Repaglinide 1 mg PO BID 01/21/21 01/21/21 metFORMIN HCL [Glucophage] 1,000 mg PO BID 01/21/21 01/21/21 rOPINIRole HCL [Requip] 1 mg PO HS 01/21/21 01/21/21 sitaGLIPtin PHOSPHATE [Januvia] 100 mg PO DAILY 01/21/21 01/21/21 Previous Rx's Medication Instructions Recorded amLODIPine [Norvasc] 5 mg PO HS #30 tab 09/05/17 Levothyroxine Sodium [Synthroid] 150 mcg PO DAILY@0630 #60 tab 12/26/18 Allergies Allergy/AdvReac Type Severity Reaction Status Date / Time codeine Allergy Severe Cardiac Verified 01/21/21 18:03 Arrest meperidine HCl [From Demerol] Allergy Severe Cardiac Verified 01/21/21 18:03 Arrest morphine Allergy Severe Caridac Verified 01/21/21 18:03 Arrest adhesive tape Allergy Rash/Hives Verified 01/21/21 18:03 celery Allergy Oral Verified 01/21/21 18:03 Numbness cinnamon Allergy Anaphylaxis Verified 01/21/21 18:03 diphenhydramine HCl Allergy Anaphylaxis Verified 01/21/21 18:03 [From Benadryl] eucalyptus Allergy Anaphylaxis Verified 01/21/21 18:03 [From [place] Cough Drops] menthol Allergy Anaphylaxis Verified 01/21/21 18:03 [From [place] Cough Drops] naproxen sodium [From Aleve] Allergy Rash/Hives Verified 01/21/21 18:03 nitrofurantoin Allergy Unknown Verified 01/21/21 18:03 macrocrystalline [From Macrodantin] Sulfa (Sulfonamide Allergy Rash/Hives Verified 01/21/21 18:03 Antibiotics) ciprofloxacin [From Cipro] AdvReac Abdominal Verified 01/21/21 18:03 Pain ciprofloxacin HCl AdvReac Abdominal Verified 01/21/21 18:03 [From Cipro] Pain multivitamin Allergy Intermediate Rash/Hives Uncoded 01/21/21 18:03 car exhaust AdvReac Mild Nausea & Uncoded 01/21/21 18:03 Vomiting Review of Systems ROS Statement: Those systems with pertinent positive or pertinent negative responses have been documented in the HPI. ROS Other: All systems not noted in ROS Statement are negative. Past Medical History Past Medical History: Diabetes Mellitus, Fibromyalgia, GERD/Reflux, Hyperlipidemia, Hypertension, Myocardial Infarction ([place]), Osteoarthritis (OA), Seizure Disorder, Supraventricular Tachycardia (SVT), Thyroid Disorder Additional Past Medical History / Comment(s): Severe allergies, PT STATES IN 1994 PTWAS HAD TOXEMIA WAS GIVEN DEMEROL AND WENT INTO A CARDIAC ARREST (COMA 21 days), was having seizures and had 2ND CARDIAC ARREST 2000 (COMA 3-5 DAYS), SVT, SLEEP APNEA( NO MACHINE), STATES LAST SEIZURE 1 YEAR AGO, arthritis low back and hips, PANCREATITIS, colitis, heart cath done Jan 2018- no stents currently. Neuropathy. Last Myocardial Infarction Date:: . History of Any Multi-Drug Resistant Organisms: None Reported Past Surgical History: Cardiac Ablation, Section, Cholecystectomy, Hernia Repair, Tubal Ligation Additional Past Surgical History / Comment(s): Umbilical hernia repair. Past Anesthesia/Blood Transfusion Reactions: Motion Sickness Additional Past Anesthesia/Blood Transfusion Reaction / Comment(s): CLAUSTERPHOBIA, Past Psychological History: Anxiety, Panic Disorder Smoking Status: Former smoker Past Alcohol Use History: Occasional Past Drug Use History: None Reported - Past Family History Father Family Medical History: Cancer, Myocardial Infarction ([place]) Additional Family Medical History / Comment(s): AGE 45 FROM [place] Mother Family Medical History: No Reported History Additional Family Medical History / Comment(s): NORMAL-NO PROBLEMS General Exam Limitations: no limitations Course Vital Signs 01/21/21 01/21/21 01/21/21 16:50 18:00 19:15 Temperature 97.6 F Pulse Rate 86 77 82 Respiratory 17 18 18 Rate Blood Pressure 117/75 119/61 131/78 O2 Sat by Pulse 96 94 L 95 Oximetry Medical Decision Making - Lab Data Result diagrams: 01/21/21 17:18 01/21/21 17:18 Lab Results 01/21/21 01/21/21 01/21/21 Range/Units 17:18 17:18 17:18 WBC 8.7 (3.8-10.6) k/uL RBC 4.72 (3.80-5.40) m/uL Hgb 11.2 L (11.4-16.0) gm/dL Hct 36.6 (34.0-46.0) % MCV 77.5 L (80.0-100.0) fL MCH 23.6 L (25.0-35.0) pg MCHC 30.5 L (31.0-37.0) g/dL RDW 16.9 H (11.5-15.5) % Plt Count 298 (150-450) k/uL MPV 7.4 Neutrophils % 69 % Lymphocytes % 23 % Monocytes % 4 % Eosinophils % 3 % Basophils % 0 % Neutrophils # 6.0 (1.3-7.7) k/uL Lymphocytes # 2.0 (1.0-4.8) k/uL Monocytes # 0.3 (0-1.0) k/uL Eosinophils # 0.3 (0-0.7) k/uL Basophils # 0.0 (0-0.2) k/uL Hypochromasia Marked Poikilocytosis Slight Anisocytosis Slight Microcytosis Slight PT 9.4 (9.0-12.0) sec INR 0.9 (<1.2) APTT 22.0 (22.0-30.0) sec Sodium 137 (137-145) mmol/L Potassium 4.3 (3.5-5.1) mmol/L Chloride 98 (98-107) mmol/L Carbon Dioxide 26 (22-30) mmol/L Anion Gap 13 mmol/L BUN 13 (7-17) mg/dL Creatinine 0.86 (0.52-1.04) mg/dL Est GFR (CKD-EPI)AfAm >90 (>60 ml/min/1.73 sqM) Est GFR (CKD-EPI)NonAf 79 (>60 ml/min/1.73 sqM) Glucose 160 H (74-99) mg/dL Calcium 9.6 (8.4-10.2) mg/dL Magnesium 1.8 (1.6-2.3) mg/dL Total Bilirubin 0.3 (0.2-1.3) mg/dL AST 24 (14-36) U/L ALT 20 (4-34) U/L Alkaline Phosphatase 134 H (38-126) U/L Troponin I (0.000-0.034) ng/mL NT-Pro-B Natriuret Pep pg/mL Total Protein 7.0 (6.3-8.2) g/dL Albumin 4.4 (3.5-5.0) g/dL 01/21/21 01/21/21 Range/Units 17:18 17:18 WBC (3.8-10.6) k/uL RBC (3.80-5.40) m/uL Hgb (11.4-16.0) gm/dL Hct (34.0-46.0) % MCV (80.0-100.0) fL MCH (25.0-35.0) pg MCHC (31.0-37.0) g/dL RDW (11.5-15.5) % Plt Count (150-450) k/uL MPV Neutrophils % % Lymphocytes % % Monocytes % % Eosinophils % % Basophils % % Neutrophils # (1.3-7.7) k/uL Lymphocytes # (1.0-4.8) k/uL Monocytes # (0-1.0) k/uL Eosinophils # (0-0.7) k/uL Basophils # (0-0.2) k/uL Hypochromasia Poikilocytosis Anisocytosis Microcytosis PT (9.0-12.0) sec INR (<1.2) APTT (22.0-30.0) sec Sodium (137-145) mmol/L Potassium (3.5-5.1) mmol/L Chloride (98-107) mmol/L Carbon Dioxide (22-30) mmol/L Anion Gap mmol/L BUN (7-17) mg/dL Creatinine (0.52-1.04) mg/dL Est GFR (CKD-EPI)AfAm (>60 ml/min/1.73 sqM) Est GFR (CKD-EPI)NonAf (>60 ml/min/1.73 sqM) Glucose (74-99) mg/dL Calcium (8.4-10.2) mg/dL Magnesium (1.6-2.3) mg/dL Total Bilirubin (0.2-1.3) mg/dL AST (14-36) U/L ALT (4-34) U/L Alkaline Phosphatase (38-126) U/L Troponin I <0.012 (0.000-0.034) ng/mL NT-Pro-B Natriuret Pep 29 pg/mL Total Protein (6.3-8.2) g/dL Albumin (3.5-5.0) g/dL Disposition Clinical Impression: Chest pain Disposition: ADMITTED IP TO THIS HOSP Condition: Fair Referrals: Og Oliva MD [Primary Care Provider] - 1-2 days
[2021-01-21 17:37] LABS: ALT 20 U/L (4-34); AST 24 U/L (14-36); African American GFR (CKD) >90 (>60 ml/min/1.73 sqM); Albumin 4.4 g/dL (3.5-5.0); Alkaline Phosphatase 134 U/L (38-126); Anion Gap 13 mmol/L; Blood Urea Nitrogen 13 mg/dL (7-17); Calcium 9.6 mg/dL (8.4-10.2); Carbon Dioxide 26 mmol/L (22-30); Chloride 98 mmol/L (98-107); Glucose 160 mg/dL (74-99); Magnesium 1.8 mg/dL (1.6-2.3); Non-African American GFR(CKD) 79 (>60 ml/min/1.73 sqM); Potassium 4.3 mmol/L (3.5-5.1); Sodium 137 mmol/L (137-145); Total Bilirubin 0.3 mg/dL (0.2-1.3)
[2021-01-21 17:45] LABS: INR 0.9 (<1.2); Prothrombin Time 9.4 sec (9.0-12.0)
--- NOTE | 2021-01-21 18:23 | XR ---
EXAMINATION TYPE: XR chest 2V DATE OF EXAM: 01/21/2021 COMPARISON: 12/25/2018 HISTORY: Chest pain TECHNIQUE: Frontal and lateral views of the chest are obtained. FINDINGS: There is no focal air space opacity, pleural effusion, or pneumothorax seen. The cardiac silhouette size is within normal limits. The osseous structures are intact. IMPRESSION: No acute cardiopulmonary process.
[2021-01-21] MEDS ORDERED: NITROGLYCERIN SL TABS 0.4 MG TAB SUBLINGUAL PRN (19:28)
[2021-01-21] MEDS ORDERED: ASPIRIN 81 MG PO STA (19:28)
[2021-01-21 21:32] LABS: Appearance,Urine Cloudy (Clear); Bilirubin,Urine Negative (Negative); Blood,Urine Trace (Negative); Color,Urine Yellow; Glucose,Urine (UA) 4+ (Negative); Ketones,Urine Negative (Negative); Leukocyte Esterase,Urine Negative (Negative); Mucus,Urine Rare /hpf; Nitrite,Urine Negative (Negative); Protein,Urine Negative (Negative); RBC,Urine 1 /hpf (0-5); Specific Gravity,Urine 1.019 (1.001-1.035); Squamous Epithelial Cell,Urine 4 /hpf (0-4); Urobilinogen,Urine <2.0 mg/dL (<2.0); WBC,Urine 2 /hpf (0-5)
[2021-01-22 01:19] LABS: Glucose,Whole Blood 201 mg/dL (75-99)
[2021-01-22] MEDS: LEVOTHYROXINE 75 MCG TAB PO SCH (05:53)
[2021-01-22] MEDS: LINAGLIPTIN 5 MG TABLET PO SCH (08:04)
[2021-01-22] MEDS: METOPROLOL TARTRATE 25 MG TAB PO SCH ×2 (08:05→20:50)
[2021-01-22] MEDS: REPAGLINIDE 1 MG TAB PO SCH ×2 (08:05→20:50)
[2021-01-22] MEDS: GABAPENTIN 300 MG CAP PO SCH ×2 (08:38→20:51)
[2021-01-22] MEDS: VENLAFAXINE HCL 75 MG TAB PO SCH ×2 (08:38→20:50)
[2021-01-22] MEDS: HYDROcodone/APAP 7.5-325MG 1 EACH TAB PO SCH ×2 (08:38→20:50)
[2021-01-22] MEDS: busPIRone HCl 10 MG TAB PO SCH (08:39)
[2021-01-22] MEDS: FUROSEMIDE 20 MG TAB PO SCH (08:39)
[2021-01-22] MEDS ORDERED: ASPIRIN 325 MG TAB PO SCH (09:00)
--- NOTE | 2021-01-22 10:03 | P.CRDCN ---
History of Present Illness Consult date: 01/22/21 History of present illness: HISTORY OF PRESENT ILLNESS: This is a 50-year-old female with a past medical history significant for SVT with previous ablation, hypertension, hyperlipidemia, and diabetes mellitus. Patient follows in the office with Chinyere but has not been seen in the office since September 2018. We have been asked to see the patient in consultation for pain. Patient examined at the bedside. Patient states 2 days ago she was having some nausea and dizziness. This resolved the following day. However yesterday she developed low back pain. She states she then started having pain in the left upper part of her chest. She describes the pain as a sharp pain that only lasted for a few seconds and then would go away. She denied having any shortness of breath. She denied any nausea or vomiting yesterday. She denied dizziness or lightheadedness. Denied having any diaphoresis. She states these pains occurred on and off for approximately 10 hours yesterday. At the time of examination, patient denies any chest pain or pressure. The patient does report a family history of coronary artery disease and states her dad had a heart attack and and when he was in his 40s. EKG reveals sinus mechanism with T-wave inversions in anterior leads, similar to EKG in December 2018 Chest xray negative for acute process Laboratory data: WBC 8.7. Hemoglobin 11.2. Platelet count 298. D-dimer 0.39. Sodium 137. Potassium 4.3. BUN 13. Creatinine 0.86. ProBNP 29. Troponin negative 3. Current home cardiac medications include amlodipine 5 mg at night, atorvastatin 40 mg at night, metoprolol tartrate 25 mg twice a day, Lasix 20 mg daily Most recent echocardiogram obtained in January 2018 revealed ejection fraction greater than 55%. Mild mitral regurgitation. Mild tricuspid regurgitation. Cardiac catheterization history: January 2018 revealing normal coronary arteries and normal left ventricular end-diastolic pressures REVIEW OF SYSTEMS: At the time of my exam: CONSTITUTIONAL: Denies fever or chills. HEENT: Denies blurred vision, vision changes, or eye pain. Denies hemoptysis CARDIOVASCULAR: Denies chest pain. Denies orthopnea. Denies PND. Denies palpitations RESPIRATORY: Denies shortness of breath. GASTROINTESTINAL: Denies abdominal pain. Denies nausea or vomiting. HEMATOLOGIC: Denies bleeding disorders. GENITOURINARY: Denies any blood in urine. SKIN: Denies pruitis. Denies rash. PHYSICAL EXAM: VITAL SIGNS: Reviewed. GENERAL: Well-developed in no acute distress. HEENT: Head is normocephalic. Pupils are equal, round. Sclerae anicteric. Mucous membranes of the mouth are moist. Neck supple. No JVD or thyromegaly LUNGS: Respirations even and unlabored. Lungs essentially clear to auscultation bilaterally. HEART: Regular rate and rhythm. S1 and S2 heard. ABDOMEN: Soft. Nondistended. Nontender. EXTREMITIES: Normal range of motion. No clubbing or cyanosis. Peripheral pulses intact. No lower extremity edema NEUROLOGIC: Awake and alert. Oriented x 3. ASSESSMENT: Chest pain, atypical, troponin negative 3 History of SVT with previous ablation Hypertension Hyperlipidemia Diabetes mellitus Obesity: BMI 41.6 PLAN: An acute coronary event has been ruled out Obtain 2-D echo to assess cardiac structure and function Resume home cardiac medications Further recommendations pending patient course Discharge per medicine. Follow up with Dr. Whitlock outpatient. Nurse practitioner note has been reviewed by physician. Signing provider agrees with the documented findings, assessment, and plan of care. 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 Neuropathy. Last Myocardial Infarction Date:: Pt does not know. History of Any Multi-Drug Resistant Organisms: None Reported Past Surgical History: Cardiac Ablation, Section, Cholecystectomy, Hernia Repair, Tubal Ligation Additional Past Surgical History / Comment(s): Umbilical hernia repair. Past Anesthesia/Blood Transfusion Reactions: No Reported Reaction Additional Past Anesthesia/Blood Transfusion Reaction / Comment(s): CLAUSTERPHOBIA, Past Psychological History: Anxiety, Panic Disorder Smoking Status: Former smoker Past Alcohol Use History: Occasional Additional Past Alcohol Use History / Comment(s): STARTED SMOKING AT AGE 13- SMOKED 1/2 PPD, QUIT IN 1994 Past Drug Use History: None Reported - Past Family History Father Family Medical History: Cancer, Myocardial Infarction ([place]) Additional Family Medical History / Comment(s): AGE 45 FROM [place] Mother Family Medical History: No Reported History Additional Family Medical History / Comment(s): NORMAL-NO PROBLEMS Medications and Allergies Home Medications Medication Instructions Recorded Confirmed Type Metoprolol Tartrate [Lopressor] 25 mg PO BID 07/27/17 01/21/21 History amLODIPine [Norvasc] 5 mg PO HS #30 tab 09/05/17 01/21/21 Rx Venlafaxine HCl [Effexor] 75 mg PO BID 12/25/18 01/21/21 History busPIRone HCl [Buspar] 10 mg PO DAILY 12/25/18 01/21/21 History Levothyroxine Sodium [Synthroid] 150 mcg PO DAILY@0630 #60 tab 12/26/18 01/21/21 Rx Atorvastatin [Lipitor] 40 mg PO HS 01/21/21 01/21/21 History Furosemide [Lasix] 20 mg PO DAILY 01/21/21 01/21/21 History Gabapentin 600 mg PO BID 01/21/21 01/21/21 History Hydrocodone/Acetaminophen [Avery 1 tab PO BID 01/21/21 01/21/21 History 7.5-325] Ibuprofen [Motrin] 600 mg PO TID 01/21/21 01/21/21 History Ranitidine HCl 150 mg PO DAILY 01/21/21 01/21/21 History Repaglinide 1 mg PO BID 01/21/21 01/21/21 History metFORMIN HCL [Glucophage] 1,000 mg PO BID 01/21/21 01/21/21 History rOPINIRole HCL [Requip] 1 mg PO HS 01/21/21 01/21/21 History sitaGLIPtin PHOSPHATE [Januvia] 100 mg PO DAILY 01/21/21 01/21/21 History Allergies Allergy/AdvReac Type Severity Reaction Status Date / Time codeine Allergy Severe Cardiac Verified 01/21/21 18:03 Arrest meperidine HCl [From Demerol] Allergy Severe Cardiac Verified 01/21/21 18:03 Arrest morphine Allergy Severe Caridac Verified 01/21/21 18:03 Arrest adhesive tape Allergy Rash/Hives Verified 01/21/21 18:03 celery Allergy Oral Verified 01/21/21 18:03 Numbness cinnamon Allergy Anaphylaxis Verified 01/21/21 18:03 diphenhydramine HCl Allergy Anaphylaxis Verified 01/21/21 18:03 [From Benadryl] eucalyptus Allergy Anaphylaxis Verified 01/21/21 18:03 [From Clanton Cough Drops] menthol Allergy Anaphylaxis Verified 01/21/21 18:03 [From [place] Cough Drops] naproxen sodium [From Aleve] Allergy Rash/Hives Verified 01/21/21 18:03 nitrofurantoin Allergy Unknown Verified 01/21/21 18:03 macrocrystalline [From Macrodantin] Sulfa (Sulfonamide Allergy Rash/Hives Verified 01/21/21 18:03 Antibiotics) ciprofloxacin [From Cipro] AdvReac Abdominal Verified 01/21/21 18:03 Pain ciprofloxacin HCl AdvReac Abdominal Verified 01/21/21 18:03 [From Cipro] Pain multivitamin Allergy Intermediate Rash/Hives Uncoded 01/21/21 18:03 car exhaust AdvReac Mild Nausea & Uncoded 01/21/21 18:03 Vomiting Physical Exam Vitals: Vital Signs Temp Pulse Pulse Resp BP BP Pulse Ox 01/22/21 07:18 82 16 01/22/21 07:00 98.3 F 73 18 140/67 92 L 01/22/21 02:00 98.3 F 82 16 102/67 92 L 01/22/21 01:55 89 18 01/21/21 23:41 89 18 01/21/21 22:05 98.2 F 89 18 109/66 92 L 01/21/21 20:52 79 18 136/75 95 01/21/21 19:15 82 18 131/78 95 01/21/21 18:00 77 18 119/61 94 L 01/21/21 16:50 97.6 F 86 17 117/75 96 Intake and Output 01/21/21 01/22/21 01/22/21 22:59 06:59 14:59 Intake Total 0 Balance 0 Intake: Oral 0 Other: Voiding Method Toilet Toilet # Voids 1 2 Weight 106.594 kg Results 01/21/21 17:18 01/21/21 17:18 Cardiac Enzymes 01/21/21 01/21/2101/21/21 Range/Units 17:18 17:18 20:19 AST 24 (14-36) U/L Troponin I <0.012 <0.012 (0.000-0.034) ng/mL 01/21/21 Range/Units 23:18 AST (14-36) U/L Troponin I <0.012 (0.000-0.034) ng/mL Coagulation 01/21/21 Range/Units 17:18 PT 9.4 (9.0-12.0) sec APTT 22.0 (22.0-30.0) sec CBC 01/21/21 Range/Units 17:18 WBC 8.7 (3.8-10.6) k/uL RBC 4.72 (3.80-5.40) m/uL Hgb 11.2 L (11.4-16.0) gm/dL Hct 36.6 (34.0-46.0) % Plt Count 298 (150-450) k/uL Comprehensive Metabolic Panel 01/21/21 Range/Units 17:18 Sodium 137 (137-145) mmol/L Potassium 4.3 (3.5-5.1) mmol/L Chloride 98 (98-107) mmol/L Carbon Dioxide 26 (22-30) mmol/L BUN 13 (7-17) mg/dL Creatinine 0.86 (0.52-1.04) mg/dL Glucose 160 H (74-99) mg/dL Calcium 9.6 (8.4-10.2) mg/dL AST 24 (14-36) U/L ALT 20 (4-34) U/L Alkaline Phosphatase 134 H (38-126) U/L Total Protein 7.0 (6.3-8.2) g/dL Albumin 4.4 (3.5-5.0) g/dL Current Medications Generic Name Dose Route Start Last Admin Trade Name Freq PRN Reason Stop Dose Admin Hydrocodone Bitart/Acetaminophen 1 each 01/22/21 09:00 01/22/21 08:38 Hydrocodone/Apap 7.5-325mg 1 Each Tab PO 1 each BID SABINE Administration Amlodipine Besylate 5 mg 01/22/21 21:00 Amlodipine 5 Mg Tab PO HS SABINE Aspirin 325 mg 01/22/21 09:00 01/22/21 08:39 Aspirin 325 Mg Tab PO 325 mg DAILY SABINE Administration Atorvastatin Calcium 40 mg 01/22/21 21:00 Atorvastatin 40 Mg Tab PO HS SABINE Buspirone HCl 10 mg 01/22/21 09:00 01/22/21 08:39 Buspirone Hcl 10 Mg Tab PO 10 mg DAILY SABINE Administration Furosemide 20 mg 01/22/21 09:00 01/22/21 08:39 Furosemide 20 Mg Tab PO 20 mg DAILY SABINE Administration Gabapentin 600 mg 01/22/21 09:00 01/22/21 08:38 Gabapentin 300 Mg Cap PO 600 mg BID SABINE Administration Levothyroxine Sodium 150 mcg 01/22/21 06:30 01/22/21 05:53 Levothyroxine 75 Mcg Tab PO 150 mcg DAILY@0630 [facility] Administration Linagliptin 5 mg 01/22/21 09:00 01/22/21 08:04 Linagliptin 5 Mg Tablet PO Not Given DAILY [facility] Metoprolol Tartrate 25 mg 01/22/21 09:00 01/22/21 08:05 Metoprolol Tartrate 25 Mg Tab PO Not Given BID [facility] Nitroglycerin 0.4 mg 01/21/21 19:28 Nitroglycerin Sl Tabs 0.4 Mg Tab SUBLINGUAL Q5M PRN Chest Pain Repaglinide 1 mg 01/22/21 09:00 01/22/21 08:05 Repaglinide 1 Mg Tab PO Not Given BID [facility] Ropinirole HCl 1 mg 01/22/21 21:00 Ropinirole Hcl 1 Mg Tab PO HS [facility] Venlafaxine HCl 75 mg 01/22/21 09:00 01/22/21 08:38 Venlafaxine Hcl 75 Mg Tab PO 75 mg BID [facility] Administration Intake and Output 01/21/21 01/22/21 01/22/21 22:59 06:59 14:59 Intake Total 0 Balance 0 Intake: Oral 0 Other: Voiding Method Toilet Toilet # Voids 1 2 Weight 106.594 kg 01/21/21 17:18 01/21/21 17:18
[2021-01-22 10:22] LABS: Chol/HDL Ratio 3.74
[2021-01-22 10:23] LABS: % Iron Saturation 5.88 (12.00-45.00)
--- NOTE | 2021-01-22 11:37 | ECHOF ---
Referral Reason:chest pain MEASUREMENTS -------- HEIGHT: 160.0 cm WEIGHT: 106.6 kg BP: 102/67 RVIDd: 3.2 cm (< 3.3) IVSd: 1.2 cm (0.6 - 1.1) LVIDd: 4.2 cm (3.9 - 5.3) LVPWd: 1.1 cm (0.6 - 1.1) IVSs: 1.8 cm LVIDs: 2.4 cm LVPWs: 1.8 cm LA Diam: 3.4 cm (2.7 - 3.8) LAESV Index (A-L): 18.00 ml/m Ao Diam: 2.9 cm (2.0 - 3.7) AV Cusp: 1.9 cm (1.5 - 2.6) MV EXCURSION: 20.130 mm (> 18.000) MV EF SLOPE: 82 mm/s (70 - 150) EPSS: 0.7 cm MV E Jase: 0.68 m/s MV DecT: 341 ms MV A Jase: 0.72 m/s MV E/A Ratio: 0.94 FINDINGS -------- Sinus rhythm. This was a technically good study. The left ventricular size is normal. There is borderline concentric left ventricular hypertrophy. Overall left ventricular systolic function is normal with, an EF between 65 - 70 %. The right ventricle is normal in size. Normal LA size by volume 22+/-6 ml/m2. The right atrium is normal in size. Interatrial and interventricular septum intact. The aortic valve is trileaflet and appears structurally normal. The mitral valve is normal. The tricuspid valve appears structurally normal. Unable to estimate RVSP due to inadequate TR jet s pectral doppler profile. Trace/mild (physiologic) pulmonic regurgitation. The aortic root size is normal. Normal inferior vena cava with normal inspiratory collapse consistent with estimated right atrial pre ssure of 5 mmHg. There is no pericardial effusion. CONCLUSIONS -------- 1. The left ventricular size is normal. 2. There is borderline concentric left ventricular hypertrophy. 3. Overall left ventricular systolic function is normal with, an EF between 65 - 70 %. 4. The aortic valve is trileaflet and appears structurally normal. 5. Trace/mild (physiologic) pulmonic regurgitation. 6. There is no pericardial effusion. HIGHWAY COMMISSIONER: Breanne Cervantes RDCS
[2021-01-22] MEDS ORDERED: FERROUS SULFATE 325 MG TAB PO SCH (12:30)
--- NOTE | 2021-01-22 15:47 | HP ---
HISTORY AND PHYSICAL 50-year-old white female with history of SVT, cardiac ablation, hypertension, dyslipidemia, diabetes mellitus. Follows with Dr. Whitlock. Has not been seen in the office since September 2018. See the patient for chest pain today, sharp pain a few seconds come and go to the mid chest area. Denies any shortness of breath. Does have a history of asthma on inhalers at home. Does report a family history of heart disease in the family. EKG shows some T-wave inversions. Chest x-ray is negative. BNP is 229, creatinine 0.35, BUN 13. Home medicines include metoprolol 25 twice a day, Lasix 20 mg daily, atorvastatin 40 at night, amlodipine 5 at night. Echo showed mild mitral regurgitation and tricuspid regurgitation. Cardiac catheterization in 2018 was normal. 14-point review of systems otherwise is negative. No hemoptysis. No melena, hematochezia. Endocrine: She has been obese for many years. PHYSICAL EXAMINATION: Vital signs stable. She is in no acute distress. She is obese. BMI is over 40. LUNGS: Clear. Irregular cardiovascular S1, S2. ABDOMEN: Soft, nontender. EXTREMITIES: 2+ edema bilaterally. GENERALIZED obesity. NEUROLOGIC: Alert and oriented x3. Cranial nerves intact. ASSESSMENT: 1. Atypical chest pain. 2. History of supraventricular tachycardia with previous ablation. 3. Hypertension. 4. Dyslipidemia. 5. Diabetes mellitus. 6. Obesity. Cardiology will be consulted. We will do a D-dimer, rule out PE. Prognosis guarded. Do not suspect anything, possibly musculoskeletal pain, but we will have to do possibly a stress test. MMODL / IJN: [id number] /
[2021-01-22 19:21] VITALS: RESP 16
[2021-01-22] MEDS ORDERED: ATORVASTATIN 40 MG TAB PO SCH (21:00)
[2021-01-22] MEDS ORDERED: amLODIPine 5 MG TAB PO SCH (21:00)
[2021-01-23 02:07] VITALS: PULSE 73
[2021-01-23] MEDS: LEVOTHYROXINE 75 MCG TAB PO SCH (05:50)
[2021-01-23 07:56] VITALS: BP 106/66; TEMP 97.9
[2021-01-23] MEDS: GABAPENTIN 300 MG CAP PO SCH (08:27)
[2021-01-23] MEDS: HYDROcodone/APAP 7.5-325MG 1 EACH TAB PO SCH (08:27)
[2021-01-23] MEDS: METOPROLOL TARTRATE 25 MG TAB PO SCH (08:27)
[2021-01-23] MEDS: REPAGLINIDE 1 MG TAB PO SCH (08:27)
[2021-01-23] MEDS: FUROSEMIDE 20 MG TAB PO SCH (08:27)
[2021-01-23] MEDS: LINAGLIPTIN 5 MG TABLET PO SCH (08:28)
[2021-01-23] MEDS: busPIRone HCl 10 MG TAB PO SCH (08:28)
[2021-01-23] MEDS: VENLAFAXINE HCL 75 MG TAB PO SCH (08:28)
[2021-01-23] MEDS ORDERED: ASPIRIN 81 MG PO SCH (09:00)
--- NOTE | 2021-01-23 09:57 | P.PN ---
Subjective HISTORY OF PRESENT ILLNESS: This is a 50-year-old female with a past medical history significant for SVT with previous ablation, hypertension, hyperlipidemia, and diabetes mellitus. Patient follows in the office with Chinyere but has not been seen in the office since September 2018. We have been asked to see the patient in consultation for pain. Patient examined at the bedside. Patient states 2 days ago she was having some nausea and dizziness. This resolved the following day. However yesterday she developed low back pain. She states she then started having pain in the left upper part of her chest. She describes the pain as a sharp pain that only lasted for a few seconds and then would go away. She denied having any shortness of breath. She denied any nausea or vomiting yesterday. She denied dizziness or lightheadedness. Denied having any diaphoresis. She states these pains occurred on and off for approximately 10 hours yesterday. At the time of examination, patient denies any chest pain or pressure. The patient does report a family history of coronary artery disease and states her dad had a heart attack and and when he was in his 40s. 01/23 Patient seen and examined. Patient denies any further chest discomfort. She's been walking up to the bathroom without any difficulty. No shortness breath. Echocardiogram from yesterday shows preserved ejection fraction 55-60%. PHYSICAL EXAM: VITAL SIGNS: Reviewed. GENERAL: Well-developed in no acute distress. HEENT: Head is normocephalic. Pupils are equal, round. Sclerae anicteric. Mucous membranes of the mouth are moist. Neck supple. No JVD or thyromegaly LUNGS: Respirations even and unlabored. Lungs essentially clear to auscultation bilaterally. HEART: Regular rate and rhythm. S1 and S2 heard. ABDOMEN: Soft. Nondistended. Nontender. EXTREMITIES: Normal range of motion. No clubbing or cyanosis. Peripheral pulses intact. No lower extremity edema NEUROLOGIC: Awake and alert. Oriented x 3. ASSESSMENT: Chest pain, atypical, troponin negative 3 History of SVT with previous ablation Hypertension Hyperlipidemia Diabetes mellitus Obesity: BMI 41.6 PLAN: Chest pain is atypical and has improved. Acute coronary syndrome has been ruled out. Echocardiogram with preserved ejection fraction. No further workup from a cardiology standpoint. Patient cleared for discharge. Objective - Vital Signs Vital signs: Vital Signs Temp 97.9 F 01/23/21 07:00 Pulse 73 01/23/21 07:00 Resp 16 01/23/21 07:00 BP 106/66 01/23/21 07:00 Pulse Ox 91 L 01/23/21 07:00 Intake & Output 01/22/21 01/23/21 01/23/21 18:59 06:59 18:59 Intake Total 237 1160 Balance 237 1160 Intake: Oral 237 1160 Other: Voiding Method Toilet Toilet # Voids 2 1 - Labs CBC & Chem 7: 01/21/21 17:18 01/21/21 17:18 Labs: Abnormal Lab Results - Last 24 Hours (Table) 01/21/21 01/21/21 Range/Units 18:32 23:18 Iron 28 L (50-170) ug/dL TIBC 476 H (228-460) ug/dL % Saturation 5.88 L (12.00-45.00) Triglycerides 428.0 H (0.0-149.0) mg/dL HDL Cholesterol 38.0 L (40.0-60.0) mg/dL
== END 2021-01-23 12:00 | disposition home or self-care (01) ==
LOC: EC 16:44 → 6NMEDSUR 19:28
PROVIDERS: ADMIT Family Medicine; ATTEND Family Medicine
DX: R07.89 Other chest pain (principal); I47.1 Supraventricular tachycardia; J45.909 Unspecified asthma, uncomplicated; Z86.74 Personal history of sudden cardiac arrest; I25.2 Old myocardial infarction; E11.42 Type 2 diabetes mellitus with diabetic polyneuropathy; E78.5 Hyperlipidemia, unspecified; I10 Essential (primary) hypertension; R10.9 Unspecified abdominal pain; G40.909 Epilepsy, unspecified, not intractable, without status epilepticus; M79.7 Fibromyalgia; M16.0 Bilateral primary osteoarthritis of hip; M47.816 Spondylosis without myelopathy or radiculopathy, lumbar region; I08.1 Rheumatic disorders of both mitral and tricuspid valves; K21.9 Gastro-esophageal reflux disease without esophagitis; E07.9 Disorder of thyroid, unspecified; E66.9 Obesity, unspecified; Z68.41 Body mass index [BMI] 40.0-44.9, adult; F40.240 Claustrophobia; G47.30 Sleep apnea, unspecified; Z79.84 Long term (current) use of oral hypoglycemic drugs; Z79.890 Hormone replacement therapy; Z79.1 Long term (current) use of non-steroidal anti-inflammatories (NSAID); Z79.891 Long term (current) use of opiate analgesic; Z79.899 Other long term (current) drug therapy; Z88.6 Allergy status to analgesic agent; Z88.1 Allergy status to other antibiotic agents; Z88.5 Allergy status to narcotic agent; Z88.2 Allergy status to sulfonamides; Z88.8 Allergy status to other drugs, medicaments and biological substances; Z91.018 Allergy to other foods; Z91.048 Other nonmedicinal substance allergy status; Z87.19 Personal history of other diseases of the digestive system; Z90.49 Acquired absence of other specified parts of digestive tract; Z98.51 Tubal ligation status; Z98.891 History of uterine scar from previous surgery; Z98.890 Other specified postprocedural states; F41.0 Panic disorder [episodic paroxysmal anxiety]; F41.9 Anxiety disorder, unspecified; Z87.891 Personal history of nicotine dependence; Z87.59 Personal history of other complications of pregnancy, childbirth and the puerperium; Z82.49 Family history of ischemic heart disease and other diseases of the circulatory system; Z80.9 Family history of malignant neoplasm, unspecified
CPT/HCPCS: 96376; 96374; 99285; 36415; 93005; 93306; 85379; 83880; 80061; 80053; 83540; 83550; 83735; 84484; 85025; 85610; 85730; 81001; 83721; 71046; G0378 ×3; J1170

== ENCOUNTER 2021-03-28 02:41 | Emergency (ER) | payer BC, OTHER ==
[2021-03-28 02:46] VITALS: TEMP 97.9
[2021-03-28] MEDS ORDERED: NITROGLYCERIN SL TABS 0.4 MG TAB SUBLINGUAL STA (03:09)
[2021-03-28] MEDS ORDERED: ASPIRIN 81 MG PO STA (03:09)
--- NOTE | 2021-03-28 03:20 | XR ---
EXAMINATION TYPE: XR chest 2V DATE OF EXAM: 03/28/2021 COMPARISON: 01/21/2021 HISTORY: Chest pain TECHNIQUE: 2 views FINDINGS: Heart and mediastinum are normal. Lungs are clear. Diaphragm is normal. Bony thorax appears normal. IMPRESSION: Normal chest. No change.
[2021-03-28 03:24] VITALS: RESP 20
[2021-03-28 03:34] LABS: Anisocytosis Slight; Basophils % (A) 0 %; Eosinophils # (A) 0.3 k/uL (0-0.7); Eosinophils % (A) 5 %; HCT 35.6 % (34.0-46.0); HGB 11.2 gm/dL (11.4-16.0); Hypochromasia Slight; Lymphocytes % (A) 33 %; MCH 25.4 pg (25.0-35.0); MCHC 31.4 g/dL (31.0-37.0); MCV 80.9 fL (80.0-100.0); Monocytes # (A) 0.2 k/uL (0-1.0); Monocytes % (A) 4 %; Neutrophils # (A) 3.5 k/uL (1.3-7.7); Neutrophils % (A) 57 %; Platelet Count 252 k/uL (150-450); RDW 17.4 % (11.5-15.5); WBC 6.2 k/uL (3.8-10.6)
[2021-03-28 03:35] LABS: Albumin 4.1 g/dL (3.5-5.0); Magnesium 1.5 mg/dL (1.6-2.3); Potassium 4.1 mmol/L (3.5-5.1); Total Bilirubin 0.4 mg/dL (0.2-1.3); Total Protein 6.8 g/dL (6.3-8.2)
[2021-03-28 04:01] LABS: INR 0.9 (<1.2); Partial Thromboplastin Time 22.2 sec (22.0-30.0); Prothrombin Time 9.5 sec (9.0-12.0)
[2021-03-28 04:08] VITALS: PULSE 74
--- NOTE | 2021-03-28 05:13 | ED ---
Chest Pain HPI - General Chief Complaint: Chest Pain Stated Complaint: Chest Pain Time Seen by Provider: 03/28/21 02:49 Source: patient Mode of arrival: ambulatory - History of Present Illness Initial Comments: This patient is a 50-year-old woman who presents with complaint of chest pain that she feels is been going on all day. She describes as being like a heartburn sensation. She states that she had no other symptoms but then this evening also had a little bit of shortness of breath. MD Complaint: chest pain -: hour(s) Onset: during rest Pain Location: substernal, left chest Pain Radiation: none Severity: moderate Quality: other Consistency: constant Improves With: nothing Worsens With: nothing Anginal Symptoms: dyspnea - Related Data Home Medications Medication Instructions Recorded Confirmed Metoprolol Tartrate [Lopressor] 25 mg PO BID 07/27/17 01/21/21 Venlafaxine HCl [Effexor] 75 mg PO BID 12/25/18 01/21/21 busPIRone HCl [Buspar] 10 mg PO DAILY 12/25/18 01/21/21 Atorvastatin [Lipitor] 40 mg PO HS 01/21/21 01/21/21 Furosemide [Lasix] 20 mg PO DAILY 01/21/21 01/21/21 Gabapentin 600 mg PO BID 01/21/21 01/21/21 Hydrocodone/Acetaminophen [[place] 1 tab PO BID 01/21/21 01/21/21 7.5-325] Ibuprofen [Motrin] 600 mg PO TID 01/21/21 01/21/21 Ranitidine HCl 150 mg PO DAILY 01/21/21 01/21/21 Repaglinide 1 mg PO BID 01/21/21 01/21/21 metFORMIN HCL [Glucophage] 1,000 mg PO BID 01/21/21 01/21/21 rOPINIRole HCL [Requip] 1 mg PO HS 01/21/21 01/21/21 sitaGLIPtin PHOSPHATE [Januvia] 100 mg PO DAILY 01/21/21 01/21/21 Previous Rx's Medication Instructions Recorded amLODIPine [Norvasc] 5 mg PO HS #30 tab 09/05/17 Levothyroxine Sodium [Synthroid] 150 mcg PO DAILY@0630 #60 tab 12/26/18 Aspirin 81 mg PO DAILY 90 Days #90 chew 01/23/21 Ferrous Sulfate [Iron (65 MG 325 mg PO W/LUNCH 90 Days #90 tab 01/23/21 Elemental)] Allergies Allergy/AdvReac Type Severity Reaction Status Date / Time codeine Allergy Severe Cardiac Verified 03/28/21 02:46 Arrest meperidine HCl [From Demerol] Allergy Severe Cardiac Verified 03/28/21 02:46 Arrest morphine Allergy Severe Caridac Verified 03/28/21 02:46 Arrest adhesive tape Allergy Rash/Hives Verified 03/28/21 02:46 celery Allergy Oral Verified 03/28/21 02:46 Numbness cinnamon Allergy Anaphylaxis Verified 03/28/21 02:46 diphenhydramine HCl Allergy Anaphylaxis Verified 03/28/21 02:46 [From Benadryl] eucalyptus Allergy Anaphylaxis Verified 03/28/21 02:46 [From [place] Cough Drops] menthol Allergy Anaphylaxis Verified 03/28/21 02:46 [From [place] Cough Drops] naproxen sodium [From Aleve] Allergy Rash/Hives Verified 03/28/21 02:46 nitrofurantoin Allergy Unknown Verified 03/28/21 02:46 macrocrystalline [From Macrodantin] Sulfa (Sulfonamide Allergy Rash/Hives Verified 03/28/21 02:46 Antibiotics) ciprofloxacin [From Cipro] AdvReac Abdominal Verified 03/28/21 02:46 Pain ciprofloxacin HCl AdvReac Abdominal Verified 03/28/21 02:46 [From Cipro] Pain multivitamin Allergy Intermediate Rash/Hives Uncoded 03/28/21 02:46 car exhaust AdvReac Mild Nausea & Uncoded 03/28/21 02:46 Vomiting Review of Systems ROS Statement: Those systems with pertinent positive or pertinent negative responses have been documented in the HPI. ROS Other: All systems not noted in ROS Statement are negative. Constitutional: Denies: fever, chills Respiratory: Reports: as per HPI, dyspnea. Denies: cough, wheezes Cardiovascular: Reports: as per HPI, chest pain. Denies: palpitations, orthopnea, edema, syncope Gastrointestinal: Denies: abdominal pain, nausea, vomiting, diarrhea Genitourinary: Denies: dysuria, hematuria Musculoskeletal: Denies: back pain Skin: Denies: rash Neurological: Denies: headache, weakness EKG Findings - EKG Results: EKG: interpreted by ERMD, sinus rhythm (Rate 83 bpm), normal axis, normal QRS - Blocks, [place], Hypertrophy, ST Abn: Repolarization changes or abnormalities: nonspecific abnormality, ST segment, and/or T wave Past Medical History Past Medical History: Diabetes Mellitus, Fibromyalgia, GERD/Reflux, Hyperlipidemia, Hypertension, Myocardial Infarction ([place]), Osteoarthritis (OA), Seizure Disorder, Supraventricular Tachycardia (SVT), Thyroid Disorder Additional Past Medical History / Comment(s): Severe allergies, PT STATES IN 1994 PTWAS HAD TOXEMIA WAS GIVEN DEMEROL AND WENT INTO A CARDIAC ARREST (COMA 21 days), was having seizures and had 2ND CARDIAC ARREST 2000 (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 Neuropathy. Last Myocardial Infarction Date:: Pt does not know. History of Any Multi-Drug Resistant Organisms: None Reported Past Surgical History: Cardiac Ablation, Section, Cholecystectomy, Hernia Repair, Tubal Ligation Additional Past Surgical History / Comment(s): Umbilical hernia repair. Past Anesthesia/Blood Transfusion Reactions: No Reported Reaction Additional Past Anesthesia/Blood Transfusion Reaction / Comment(s): CLAUSTERPHOBIA, Past Psychological History: Anxiety, Panic Disorder Smoking Status: Former smoker Past Alcohol Use History: Occasional Past Drug Use History: None Reported - Past Family History Father Family Medical History: Cancer, Myocardial Infarction ([place]) Additional Family Medical History / Comment(s): AGE 45 FROM [place] Mother Family Medical History: No Reported History Additional Family Medical History / Comment(s): NORMAL-NO PROBLEMS General Exam General appearance: alert, in no apparent distress Head exam: Present: atraumatic, normocephalic Eye exam: Present: normal appearance. Absent: scleral icterus, conjunctival injection ENT exam: Present: normal oropharynx Neck exam: Present: normal inspection, full ROM Respiratory exam: Present: normal lung sounds bilaterally. Absent: respiratory distress, wheezes, rales, rhonchi, stridor Cardiovascular Exam: Present: regular rate, normal rhythm, normal heart sounds. Absent: systolic murmur, diastolic murmur, rubs, gallop GI/Abdominal exam: Present: soft. Absent: distended, tenderness, guarding, rebound, rigid, mass Extremities exam: Present: normal inspection, normal capillary refill. Absent: pedal edema, calf tenderness Back exam: Present: normal inspection. Absent: CVA tenderness (R), CVA tenderness (L) Neurological exam: Present: alert Skin exam: Present: warm, dry, intact, normal color. Absent: rash Course Vital Signs 03/28/21 03/28/21 03/28/21 02:44 03:23 04:07 Temperature 97.9 F Pulse Rate 83 86 74 Respiratory 18 20 20 Rate Blood Pressure 148/86 135/61 127/74 O2 Sat by Pulse 97 97 95 Oximetry 03/28/21 05:17 Temperature Pulse Rate 74 Respiratory 20 Rate Blood Pressure 113/61 O2 Sat by Pulse 96 Oximetry Disposition Clinical Impression: Chest pain Disposition: HOME SELF-CARE Condition: Good Instructions (If sedation given, give patient instructions): Chest Pain (ED) Is patient prescribed a controlled substance at d/c from ED?: No Referrals: Og Oliva MD [Primary Care Provider] - 1-2 days
[2021-03-28 05:19] VITALS: BP 113/61
== END 2021-03-28 05:19 | disposition home or self-care (01) ==
LOC: EC 02:41
DX: R07.89 Other chest pain (principal); E11.40 Type 2 diabetes mellitus with diabetic neuropathy, unspecified; I10 Essential (primary) hypertension; I25.2 Old myocardial infarction; K21.9 Gastro-esophageal reflux disease without esophagitis; M79.7 Fibromyalgia; E78.5 Hyperlipidemia, unspecified; F41.9 Anxiety disorder, unspecified; G40.909 Epilepsy, unspecified, not intractable, without status epilepticus; Z79.84 Long term (current) use of oral hypoglycemic drugs; Z79.82 Long term (current) use of aspirin; Z79.1 Long term (current) use of non-steroidal anti-inflammatories (NSAID); Z87.891 Personal history of nicotine dependence; Z88.1 Allergy status to other antibiotic agents; Z88.2 Allergy status to sulfonamides; Z88.5 Allergy status to narcotic agent; Z88.6 Allergy status to analgesic agent; Z88.8 Allergy status to other drugs, medicaments and biological substances; Z90.49 Acquired absence of other specified parts of digestive tract; Z82.49 Family history of ischemic heart disease and other diseases of the circulatory system
CPT/HCPCS: 36415; 71046; 80053; 83735; 84484; 85025; 85610; 85730; 93005; 99285

== ENCOUNTER 2021-09-19 21:20 | Emergency (ER) | payer BC, OTHER ==
[2021-09-19 21:24] VITALS: RESP 18
[2021-09-19 22:09] LABS: Basophils # (A) 0.1 k/uL (0-0.2); Basophils % (A) 1 %; Eosinophils # (A) 0.2 k/uL (0-0.7); Eosinophils % (A) 3 %; HCT 43.1 % (34.0-46.0); HGB 13.1 gm/dL (11.4-16.0); Hypochromasia Slight; Lymphocytes # (A) 2.1 k/uL (1.0-4.8); Lymphocytes % (A) 28 %; MCH 26.1 pg (25.0-35.0); MCHC 30.5 g/dL (31.0-37.0); MCV 85.7 fL (80.0-100.0); Monocytes # (A) 0.3 k/uL (0-1.0); Monocytes % (A) 3 %; Neutrophils # (A) 4.8 k/uL (1.3-7.7); Neutrophils % (A) 64 %; Platelet Count 248 k/uL (150-450); RBC 5.03 m/uL (3.80-5.40); RDW 15.6 % (11.5-15.5); WBC 7.5 k/uL (3.8-10.6)
[2021-09-19 22:19] LABS: ALT 25 U/L (4-34); AST 26 U/L (14-36); African American GFR (CKD) >90 (>60 ml/min/1.73 sqM); Albumin 4.3 g/dL (3.5-5.0); Alkaline Phosphatase 118 U/L (38-126); Anion Gap 14 mmol/L; Blood Urea Nitrogen 12 mg/dL (7-17); Calcium 8.9 mg/dL (8.4-10.2); Carbon Dioxide 24 mmol/L (22-30); Chloride 97 mmol/L (98-107); Glucose 311 mg/dL (74-99); Magnesium 1.5 mg/dL (1.6-2.3); Non-African American GFR(CKD) 87 (>60 ml/min/1.73 sqM); Potassium 4.3 mmol/L (3.5-5.1); Sodium 135 mmol/L (137-145); Total Bilirubin 0.7 mg/dL (0.2-1.3); Total Protein 7.1 g/dL (6.3-8.2)
[2021-09-19 22:25] LABS: INR 0.9 (<1.2); Partial Thromboplastin Time 22.4 sec (22.0-30.0); Prothrombin Time 9.7 sec (9.0-12.0)
--- NOTE | 2021-09-19 22:58 | XR ---
EXAMINATION TYPE: XR chest 2V DATE OF EXAM: 09/19/2021 COMPARISON: 03/28/2021 HISTORY: Chest pain TECHNIQUE: 2 views FINDINGS: Heart is normal. Lungs are clear. Diaphragm is normal. Bony thorax appears normal. IMPRESSION: Normal chest. No change.
[2021-09-19] MEDS ORDERED: SODIUM CHLORIDE 0.9% 1,000 ML IV ONE (23:25)
--- NOTE | 2021-09-19 23:26 | ED ---
General Adult HPI - General Chief complaint: Chest Pain Stated complaint: Chest pain Time Seen by Provider: 09/19/21 23:23 Source: patient Mode of arrival: ambulatory Limitations: no limitations - History of Present Illness Initial comments: Patient presents to the ED complaining of having constant central chest pain radiating to her back for the past 6-1/2 hours or so. Patient states that her symptoms began while at rest. Patient also reports having "heartburn" for the past couple of days. Patient denies having any other symptoms or complaints. Patient denies trauma or injury, fever or chills, headache, focal numbness/weakness/neuro deficit, neck/arm/jaw pain, pleuritic pain, dyspnea, cough or cold symptoms, palpitations, dizziness, nausea/vomiting/diaphoresis, abdominal pain, bloody or melanotic stool, dysuria or urinary symptoms, decreas ed urine output, leg or calf swelling or pain, or any other symptoms or complaints. - Related Data Home Medications Medication Instructions Recorded Confirmed Metoprolol Tartrate [Lopressor] 25 mg PO BID 07/27/17 01/21/21 Venlafaxine HCl [Effexor] 75 mg PO BID 12/25/18 01/21/21 busPIRone HCl [Buspar] 10 mg PO DAILY 12/25/18 01/21/21 Atorvastatin [Lipitor] 40 mg PO HS 01/21/21 01/21/21 Furosemide [Lasix] 20 mg PO DAILY 01/21/21 01/21/21 Gabapentin 600 mg PO BID 01/21/21 01/21/21 Hydrocodone/Acetaminophen [[place] 1 tab PO BID 01/21/21 01/21/21 7.5-325] Ibuprofen [Motrin] 600 mg PO TID 01/21/21 01/21/21 Ranitidine HCl 150 mg PO DAILY 01/21/21 01/21/21 Repaglinide 1 mg PO BID 01/21/21 01/21/21 metFORMIN HCL [Glucophage] 1,000 mg PO BID 01/21/21 01/21/21 rOPINIRole HCL [Requip] 1 mg PO HS 01/21/21 01/21/21 sitaGLIPtin PHOSPHATE [Januvia] 100 mg PO DAILY 01/21/21 01/21/21 Previous Rx's Medication Instructions Recorded amLODIPine [Norvasc] 5 mg PO HS #30 tab 09/05/17 Levothyroxine Sodium [Synthroid] 150 mcg PO DAILY@0630 #60 tab 12/26/18 Aspirin 81 mg PO DAILY 90 Days #90 chew 01/23/21 Ferrous Sulfate [Iron (65 MG 325 mg PO W/LUNCH 90 Days #90 tab 01/23/21 Elemental)] Allergies Allergy/AdvReac Type Severity Reaction Status Date / Time codeine Allergy Severe Cardiac Verified 09/19/21 21:24 Arrest meperidine HCl [From Demerol] Allergy Severe Cardiac Verified 09/19/21 21:24 Arrest morphine Allergy Severe Caridac Verified 09/19/21 21:24 Arrest adhesive tape Allergy Rash/Hives Verified 09/19/21 21:24 celery Allergy Oral Verified 09/19/21 21:24 Numbness cinnamon Allergy Anaphylaxis Verified 09/19/21 21:24 diphenhydramine HCl Allergy Anaphylaxis Verified 09/19/21 21:24 [From Benadryl] eucalyptus Allergy Anaphylaxis Verified 09/19/21 21:24 [From [place] Cough Drops] menthol Allergy Anaphylaxis Verified 09/19/21 21:24 [From [place] Cough Drops] naproxen sodium [From Aleve] Allergy Rash/Hives Verified 09/19/21 21:24 nitrofurantoin Allergy Unknown Verified 09/19/21 21:24 macrocrystalline [From Macrodantin] Sulfa (Sulfonamide Allergy Rash/Hives Verified 09/19/21 21:24 Antibiotics) ciprofloxacin [From Cipro] AdvReac Abdominal Verified 09/19/21 21:24 Pain ciprofloxacin HCl AdvReac Abdominal Verified 09/19/21 21:24 [From Cipro] Pain multivitamin Allergy Intermediate Rash/Hives Uncoded 09/19/21 21:24 car exhaust AdvReac Mild Nausea & Uncoded 09/19/21 21:24 Vomiting Review of Systems ROS Statement: Those systems with pertinent positive or pertinent negative responses have been documented in the HPI. ROS Other: All systems not noted in ROS Statement are negative. Past Medical History Past Medical History: Diabetes Mellitus, Fibromyalgia, GERD/Reflux, Hyperlipidemia, Hypertension, Myocardial Infarction ([place]), Osteoarthritis ([place]), Seizure Disorder, Supraventricular Tachycardia (SVT), Thyroid Disorder Additional Past Medical History / Comment(s): Severe allergies, PT STATES IN 1994 PTWAS HAD TOXEMIA WAS GIVEN DEMEROL AND WENT INTO A CARDIAC ARREST (COMA 21 days), was having seizures and had 2ND CARDIAC ARREST 2000 (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 Neuropathy. Last Myocardial Infarction Date:: Pt does not know. History of Any Multi-Drug Resistant Organisms: None Reported Past Surgical History: Cardiac Ablation, Section, Cholecystectomy, He rnia Repair, Tubal Ligation Additional Past Surgical History / Comment(s): Umbilical hernia repair. Past Anesthesia/Blood Transfusion Reactions: No Reported Reaction Additional Past Anesthesia/Blood Transfusion Reaction / Comment(s): CLAUSTERPHOBIA, Past Psychological History: Anxiety, Panic Disorder Smoking Status: Former smoker Past Alcohol Use History: Occasional Past Drug Use History: None Reported - Past Family History Father Family Medical History: Cancer, Myocardial Infarction ([place]) Additional Family Medical History / Comment(s): AGE 45 FROM [place] Mother Family Medical History: No Reported History Additional Family Medical History / Comment(s): NORMAL-NO PROBLEMS General Exam Limitations: no limitations General appearance: alert, in no apparent distress Head exam: Present: atraumatic, normocephalic Eye exam: Present: normal appearance, EOMI ENT exam: Present: mucous membranes moist Neck exam: Present: other (Trachea is midline) Respiratory exam: Present: normal lung sounds bilaterally. Absent: respiratory distress, wheezes, rales, rhonchi, stridor, chest wall tenderness Cardiovascular Exam: Present: regular rate, normal rhythm, normal heart sounds, other (Normal radial pulses bilaterally) GI/Abdominal exam: Present: soft. Absent: distended, tenderness, guarding Extremities exam: Present: other (Negative Homans sign bilaterally). Absent: tenderness, pedal edema, calf tenderness Back exam: Absent: tenderness Neurological exam: Present: alert, oriented X3. Absent: motor sensory deficit Psychiatric exam: Present: normal affect, normal mood Skin exam: Present: warm, dry, intact, normal color Course Vital Signs 09/19/21 09/20/21 21:21 00:42 Temperature 98.1 F Pulse Rate 99 84 Respiratory 18 18 Rate Blood Pressure 124/81 130/65 O2 Sat by Pulse 96 97 Oximetry - Reevaluation(s) Reevaluation #1: 09/20/21 00:45 Patient states that her chest pain has improved with ED treatment, and she denies development of any new symptoms while in the ED. Patient's blood glucose has also improved with IV fluid hydration. Patient remains alert and breathing comfortably with a normal room air oxygen saturation. Patient is aware of her test results, and she feels comfortable being discharged home at this time. Patient was counseled about chest pain and hyperglycemia, and she was clearly explained return and follow-up instructions. Patient was instructed to have a low threshold for return to the emergency department should her symptoms worsen. Patient was also instructed to follow up closely with her primary care provider. Patient feels comfortable with this plan. EKG Findings - EKG Comments: EKG Findings:: Normal sinus rhythm, ventricular rate of 96 bpm, no ectopy, normal NM and QRS intervals, normal QT interval, normal axis, no ST or T-wave abnormality Medical Decision Making - Medical Decision Making Patient's EKG and chest x-ray are fairly unremarkable. Patient has had 2 negative troponins drawn about 2 hours apart while in the ED. Patient reports having heartburn for the past couple of days, and she reports improvement in her pain with the GI cocktail that was given to her in the ED. I suspect that the patient's pain may be secondary to GERD. Patient's blood glucose has improved with IV fluid hydration and ED. Patient is not acidotic, and she has a normal anion gap. I do not suspect an emergent medical condition at this time. Will d ischarge patient home at this time. Patient feels comfortable with this plan. - Lab Data Result diagrams: 09/19/21 21:59 09/19/21 21:59 Lab Results 09/19/21 09/19/21 09/19/21 Range/Units 21:59 21:59 21:59 WBC 7.5 (3.8-10.6) k/uL RBC 5.03 (3.80-5.40) m/uL Hgb 13.1 (11.4-16.0) gm/dL Hct 43.1 (34.0-46.0) % MCV 85.7 (80.0-100.0) fL MCH 26.1 (25.0-35.0) pg MCHC 30.5 L (31.0-37.0) g/dL RDW 15.6 H (11.5-15.5) % Plt Count 248 (150-450) k/uL MPV 7.0 Neutrophils % 64 % Lymphocytes % 28 % Monocytes % 3 % Eosinophils % 3 % Basophils % 1 % Neutrophils # 4.8 (1.3-7.7) k/uL Lymphocytes # 2.1 (1.0-4.8) k/uL Monocytes # 0.3 (0-1.0) k/uL Eosinophils # 0.2 (0-0.7) k/uL Basophils # 0.1 (0-0.2) k/uL Hypochromasia Slight PT 9.7 (9.0-12.0) sec INR 0.9 (<1.2) APTT 22.4 (22.0-30.0) sec Sodium 135 L (137-145) mmol/L Potassium 4.3 (3.5-5.1) mmol/L Chloride 97 L (98-107) mmol/L Carbon Dioxide 24 (22-30) mmol/L Anion Gap 14 mmol/L BUN 12 (7-17) mg/dL Creatinine 0.79 (0.52-1.04) mg/dL Est GFR (CKD-EPI)AfAm >90 (>60 ml/min/1.73 sqM) Est GFR (CKD-EPI)NonAf 87 (>60 ml/min/1.73 sqM) Glucose 311 H (74-99) mg/dL POC Glucose (mg/dL) (75-99) mg/dL POC Glu Fruit Buyer ID Calcium 8.9 (8.4-10.2) mg/dL Magnesium 1.5 L (1.6-2.3) mg/dL Total Bilirubin 0.7 (0.2-1.3) mg/dL AST 26 (14-36) U/L ALT 25 (4-34) U/L Alkaline Phosphatase 118 (38-126) U/L Troponin I (0.000-0.034) ng/mL Total Protein 7.1 (6.3-8.2) g/dL Albumin 4.3 (3.5-5.0) g/dL 09/19/21 09/19/21 09/20/21 Range/Units 21:59 23:51 00:40 WBC (3.8-10.6) k/uL RBC (3.80-5.40) m/uL Hgb (11.4-16.0) gm/dL Hct (34.0-46.0) % MCV (80.0-100.0) fL MCH (25.0-35.0) pg MCHC (31.0-37.0) g/dL RDW (11.5-15.5) % Plt Count (150-450) k/uL MPV Neutrophils % % Lymphocytes % % Monocytes % % Eosinophils % % Basophils % % Neutrophils # (1.3-7.7) k/uL Lymphocytes # (1.0-4.8) k/uL Monocytes # (0-1.0) k/uL Eosinophils # (0-0.7) k/uL Basophils # (0-0.2) k/uL Hypochromasia PT (9.0-12.0) sec INR (<1.2) APTT (22.0-30.0) sec Sodium (137-145) mmol/L Potassium (3.5-5.1) mmol/L Chloride (98-107) mmol/L Carbon Dioxide (22-30) mmol/L Anion Gap mmol/L BUN (7-17) mg/dL Creatinine (0.52-1.04) mg/dL Est GFR (CKD-EPI)AfAm (>60 ml/min/1.73 sqM) Est GFR (CKD-EPI)NonAf (>60 ml/min/1.73 sqM) Glucose (74-99) mg/dL POC Glucose (mg/dL) 254 H (75-99) mg/dL POC Glu Fruit Buyer ID Jake, Sera Calcium (8.4-10.2) mg/dL Magnesium (1.6-2.3) mg/dL Total Bilirubin (0.2-1.3) mg/dL AST (14-36) U/L ALT (4-34) U/L Alkaline Phosphatase (38-126) U/L Troponin I <0.012 <0.012 (0.000-0.034) ng/mL Total Protein (6.3-8.2) g/dL Albumin (3.5-5.0) g/dL - Radiology Data Chest x-ray: Normal chest. No change. Disposition Clinical Impression: Chest pain, Hyperglycemia Disposition: HOME SELF-CARE Condition: Stable Instructions (If sedation given, give patient instructions): Chest Pain (ED), Diabetic Hyperglycemia (ED) Additional Instructions: Return to the ER immediately should you develop new or worsening pain, shortness of breath, feeling dizzy or faint, vomiting, a fever, or new or worsening symptoms. Follow up closely with your primary care provider. Is patient prescribed a controlled substance at d/c from ED?: No Referrals: Og Oliva MD [Primary Care Provider] - 1-2 days Time of Disposition: 00:51
[2021-09-19] MEDS ORDERED: MAG HYDROX/AL HYDROX/SIMETH 30 ML, HYOSCYAMINE ELIXIR 10 ML, LIDOCAINE VISCOUS 2% 10 ML PO STA ×3 (23:31)
[2021-09-20 00:42] LABS: Glucose,Whole Blood 254 mg/dL (75-99)
[2021-09-20 00:43] VITALS: PULSE 84
[2021-09-20 01:05] VITALS: BP 135/68; TEMP 98.3
== END 2021-09-20 01:05 | disposition home or self-care (01) ==
LOC: EC 21:20
DX: R07.9 Chest pain, unspecified (principal); R73.9 Hyperglycemia, unspecified; I25.2 Old myocardial infarction; I10 Essential (primary) hypertension; Z88.5 Allergy status to narcotic agent; Z91.048 Other nonmedicinal substance allergy status; Z91.018 Allergy to other foods; Z88.8 Allergy status to other drugs, medicaments and biological substances; Z88.3 Allergy status to other anti-infective agents; Z88.2 Allergy status to sulfonamides; Z88.1 Allergy status to other antibiotic agents
CPT/HCPCS: 36415; 71046; 80053; 83735; 84484; 85025; 85610; 85730; 93005

== ENCOUNTER 2021-12-10 01:55 | Emergency (ER) | payer BC, OTHER ==
[2021-12-10 02:01] VITALS: TEMP 97.6
[2021-12-10] MEDS ORDERED: DEXAMETHASONE SOD PHOSPHATE 10 MG/ML 1 ML VIAL IM STA (02:24)
[2021-12-10] MEDS ORDERED: AMOXIC-POT CLAV 875-125MG 1 EACH TAB PO STA (02:24)
--- NOTE | 2021-12-10 02:26 | ED ---
ENT HPI - General Chief complaint: ENT Stated complaint: right side face swollen and pain Time Seen by Provider: 12/10/21 01:57 Source: patient, RN notes reviewed, old records reviewed Mode of arrival: ambulatory Limitations: no limitations - History of Present Illness Initial comments: This is a 51-year-old female presents today for evaluation of right-sided facial pain right-sided neck pain and swelling. No tooth pain no jaw pain currently bleeding drink without difficulty no recent fevers or other complaints. Patient states she woke that pain tonight MD complaint: other (Swelling of right side of throat and back) -: hour(s) Location: throat Severity: mild Severity scale (1-10): 3 Consistency: constant Improves with: none Worsens with: none Associated Symptoms: other (Neck is mildly swollen with pain) - Related Data Home Medications Medication Instructions Recorded Confirmed Metoprolol Tartrate [Lopressor] 25 mg PO BID 07/27/17 01/21/21 Venlafaxine HCl [Effexor] 75 mg PO BID 12/25/18 01/21/21 busPIRone HCl [Buspar] 10 mg PO DAILY 12/25/18 01/21/21 Atorvastatin [Lipitor] 40 mg PO HS 01/21/21 01/21/21 Furosemide [Lasix] 20 mg PO DAILY 01/21/21 01/21/21 Gabapentin 600 mg PO BID 01/21/21 01/21/21 Hydrocodone/Acetaminophen [[place] 1 tab PO BID 01/21/21 01/21/21 7.5-325] Ibuprofen [Motrin] 600 mg PO TID 01/21/21 01/21/21 Repaglinide 1 mg PO BID 01/21/21 01/21/21 metFORMIN HCL [Glucophage] 1,000 mg PO BID 01/21/21 01/21/21 rOPINIRole HCL [Requip] 1 mg PO HS 01/21/21 01/21/21 raNITIdine HCL [Zantac] 150 mg PO DAILY 01/21/21 01/21/21 sitaGLIPtin PHOSPHATE [Januvia] 100 mg PO DAILY 01/21/21 01/21/21 Previous Rx's Medication Instructions Recorded amLODIPine [Norvasc] 5 mg PO HS #30 tab 09/05/17 Levothyroxine Sodium [Synthroid] 150 mcg PO DAILY@0630 #60 tab 12/26/18 Aspirin 81 mg PO DAILY 90 Days #90 chew 01/23/21 Ferrous Sulfate [Iron (65 MG 325 mg PO W/LUNCH 90 Days #90 tab 01/23/21 Elemental)] Amoxic-Pot Clav 875-125Mg 1 tab PO BID 10 Days #20 tab 12/16/21 [Augmentin 875-125] Allergies Allergy/AdvReac Type Severity Reaction Status Date / Time codeine Allergy Severe Cardiac Verified 12/16/21 12:13 Arrest meperidine HCl [From Demerol] Allergy Severe Cardiac Verified 12/16/21 12:13 Arrest morphine Allergy Severe Caridac Verified 12/16/21 12:13 Arrest adhesive tape Allergy Rash/Hives Verified 12/16/21 12:13 celery Allergy Oral Verified 12/16/21 12:13 Numbness cinnamon Allergy Anaphylaxis Verified 12/16/21 12:13 diphenhydramine HCl Allergy Anaphylaxis Verified 12/16/21 12:13 [From Benadryl] eucalyptus Allergy Anaphylaxis Verified 12/16/21 12:13 [From [place] Cough Drops] menthol Allergy Anaphylaxis Verified 12/16/21 12:13 [From [place] Cough Drops] naproxen sodium [From Aleve] Allergy Rash/Hives Verified 12/16/21 12:13 nitrofurantoin Allergy Unknown Verified 12/16/21 12:13 macrocrystalline [From Macrodantin] Sulfa (Sulfonamide Allergy Rash/Hives Verified 12/16/21 12:13 Antibiotics) ciprofloxacin [From Cipro] AdvReac Abdominal Verified 12/16/21 12:13 Pain ciprofloxacin HCl AdvReac Abdominal Verified 12/16/21 12:13 [From Cipro] Pain multivitamin Allergy Intermediate Rash/Hives Uncoded 12/16/21 12:13 car exhaust AdvReac Mild Nausea & Uncoded 12/16/21 12:13 Vomiting Review of Systems ROS Statement: Those systems with pertinent positive or pertinent negative responses have been documented in the HPI. ROS Other: All systems not noted in ROS Statement are negative. Past Medical History Past Medical History: Diabetes Mellitus, Fibromyalgia, GERD/Reflux, Hyperlipidemia, Hypertension, Myocardial Infarction ([place]), Osteoarthritis (OA), Seizure Disorder, Supraventricular Tachycardia (SVT), Thyroid Disorder Additional Past Medical History / Comment(s): Severe allergies, PT STATES IN 1994 PTWAS HAD TOXEMIA WAS GIVEN DEMEROL AND WENT INTO A CARDIAC ARREST (COMA 21 days), was having seizures and had 2ND CARDIAC ARREST 2000 (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 Neuropathy. Last Myocardial Infarction Date:: Pt does not know. History of Any Multi-Drug Resistant Organisms: None Reported Past Surgical History: Cardiac Ablation, Section, Cholecystectomy, He rnia Repair, Tubal Ligation Additional Past Surgical History / Comment(s): Umbilical hernia repair. Past Anesthesia/Blood Transfusion Reactions: No Reported Reaction Additional Past Anesthesia/Blood Transfusion Reaction / Comment(s): CLAUSTERPHOBIA, Past Psychological History: Anxiety, Panic Disorder Smoking Status: Former smoker Past Alcohol Use History: Occasional Past Drug Use History: None Reported - Past Family History Father Family Medical History: Cancer, Myocardial Infarction ([place]) Additional Family Medical History / Comment(s): AGE 45 FROM [place] Mother Family Medical History: No Reported History Additional Family Medical History / Comment(s): NORMAL-NO PROBLEMS General Exam General appearance: alert, in no apparent distress Head exam: Present: atraumatic, normocephalic, normal inspection Eye exam: Present: normal appearance, PERRL, EOMI. Absent: scleral icterus, conjunctival injection, periorbital swelling ENT exam: Present: normal exam, mucous membranes moist Neck exam: Present: normal inspection. Absent: tenderness, meningismus, lymphadenopathy Respiratory exam: Present: normal lung sounds bilaterally. Absent: respiratory distress, wheezes, rales, rhonchi, stridor Cardiovascular Exam: Present: regular rate, normal rhythm, normal heart sounds. Absent: systolic murmur, diastolic murmur, rubs, gallop, clicks GI/Abdominal exam: Present: soft, normal bowel sounds. Absent: distended, tenderness, guarding, rebound, rigid Extremities exam: Present: normal inspection, full ROM, normal capillary refill. Absent: tenderness, pedal edema, joint swelling, calf tenderness Back exam: Present: normal inspection Neurological exam: Present: alert, oriented X3, CN II-XII intact Psychiatric exam: Present: normal affect, normal mood Skin exam: Present: warm, dry, intact, normal color. Absent: rash Course Vital Signs 12/10/21 12/10/21 01:57 05:56 Temperature 97.6 F Pulse Rate 87 80 Respiratory 18 16 Rate Blood Pressure 142/80 134/69 O2 Sat by Pulse 96 92 L Oximetry - Reevaluation(s) Reevaluation #1: 12/10/21 02:47 Medical record is reviewed Reevaluation #2: 12/10/21 Patient informed of results and questions answered Reevaluation #3: 12/10/21 Patient is improved here in the emergency department Medical Decision Making - Medical Decision Making 51 female to the emergency department for evaluation patient presents today for evaluation regards to facial swelling. Patient concern for mumps or measles. Patient's findings are negative here in the ER patient can be discharged home Disposition Clinical Impression: Facial swelling Disposition: HOME SELF-CARE Condition: Good Instructions (If sedation given, give patient instructions): Edema (ED) Is patient prescribed a controlled substance at d/c from ED?: No Referrals: Og Oliva MD [Primary Care Provider] - 1-2 days Time of Disposition: 05:10
--- NOTE | 2021-12-10 05:45 | CT ---
EXAM: CT Neck Without Intravenous Contrast CLINICAL HISTORY: ITS.REASON CT Reason: pain TECHNIQUE: Axial computed tomography images of the neck without intravenous contrast. CTDI is 10.4 mGy and DLP is 334.3 mGy-cm. This CT exam was performed using one or more of the following dose reduction techniques: automated exposure control, adjustment of the mA and/or kV according to patient size, and/or use of iterative reconstruction technique. COMPARISON: No relevant prior studies available. FINDINGS: Tonsils: No tonsillar enlargement. Larynx: Epiglottis is unremarkable. Airway: Aerodigestive tract is patent. Bones: No acute fracture. Upper lungs: Clear. IMPRESSION: No acute findings.
[2021-12-10 06:01] VITALS: BP 134/69; PULSE 80; RESP 16
== END 2021-12-10 06:01 | disposition home or self-care (01) ==
LOC: EC 01:55
DX: R22.0 Localized swelling, mass and lump, head (principal); E11.9 Type 2 diabetes mellitus without complications; K21.9 Gastro-esophageal reflux disease without esophagitis; Z79.83 Long term (current) use of bisphosphonates; E78.5 Hyperlipidemia, unspecified; I10 Essential (primary) hypertension; I25.2 Old myocardial infarction; Z88.5 Allergy status to narcotic agent; Z91.048 Other nonmedicinal substance allergy status; Z88.8 Allergy status to other drugs, medicaments and biological substances; Z88.3 Allergy status to other anti-infective agents; Z88.2 Allergy status to sulfonamides; Z87.891 Personal history of nicotine dependence
CPT/HCPCS: 70490; 99284; 96372; J1100

== ENCOUNTER 2021-12-16 12:00 | Emergency (ER) | payer OTHER ==
[2021-12-16 12:13] VITALS: BP 117/69; PULSE 75; RESP 18; TEMP 98.6
[2021-12-16] MEDS ORDERED: KETOROLAC 15 MG/ML 1 ML VIAL IM STA (13:08)
--- NOTE | 2021-12-16 13:22 | ED ---
General Adult HPI - General Chief complaint: Skin/Abscess/Foreign Body Stated complaint: bug bite Time Seen by Provider: 12/16/21 13:00 Source: patient, RN notes reviewed, old records reviewed Mode of arrival: ambulatory Limitations: no limitations - History of Present Illness Initial comments: This is a 51-year-old female who presents emergency Department with a lesion on her chin on the right side. Patient showed me pictures were started off as a small red area became more and more inflamed and then became necrotic in the center and very tender to touch around the rim of the necrosis. There does not appear to be any fluctuance. Patient does state it is tender. Patient states occasionally is a little bit of clear fluid. Patient denies any fever. - Related Data Home Medications Medication Instructions Recorded Confirmed Metoprolol Tartrate [Lopressor] 25 mg PO BID 07/27/17 01/21/21 Venlafaxine HCl [Effexor] 75 mg PO BID 12/25/18 01/21/21 busPIRone HCl [Buspar] 10 mg PO DAILY 12/25/18 01/21/21 Atorvastatin [Lipitor] 40 mg PO HS 01/21/21 01/21/21 Furosemide [Lasix] 20 mg PO DAILY 01/21/21 01/21/21 Gabapentin 600 mg PO BID 01/21/21 01/21/21 Hydrocodone/Acetaminophen [[place] 1 tab PO BID 01/21/21 01/21/21 7.5-325] Ibuprofen [Motrin] 600 mg PO TID 01/21/21 01/21/21 Repaglinide 1 mg PO BID 01/21/21 01/21/21 metFORMIN HCL [Glucophage] 1,000 mg PO BID 01/21/21 01/21/21 rOPINIRole HCL [Requip] 1 mg PO HS 01/21/21 01/21/21 raNITIdine HCL [Zantac] 150 mg PO DAILY 01/21/21 01/21/21 sitaGLIPtin PHOSPHATE [Januvia] 100 mg PO DAILY 01/21/21 01/21/21 Previous Rx's Medication Instructions Recorded amLODIPine [Norvasc] 5 mg PO HS #30 tab 09/05/17 Levothyroxine Sodium [Synthroid] 150 mcg PO DAILY@0630 #60 tab 12/26/18 Aspirin 81 mg PO DAILY 90 Days #90 chew 01/23/21 Ferrous Sulfate [Iron (65 MG 325 mg PO W/LUNCH 90 Days #90 tab 01/23/21 Elemental)] Amoxic-Pot Clav 875-125Mg 1 tab PO BID 10 Days #20 tab 12/16/21 [Augmentin 875-125] Allergies Allergy/AdvReac Type Severity Reaction Status Date / Time codeine Allergy Severe Cardiac Verified 12/16/21 12:13 Arrest meperidine HCl [From Demerol] Allergy Severe Cardiac Verified 12/16/21 12:13 Arrest morphine Allergy Severe Caridac Verified 12/16/21 12:13 Arrest adhesive tape Allergy Rash/Hives Verified 12/16/21 12:13 celery Allergy Oral Verified 12/16/21 12:13 Numbness cinnamon Allergy Anaphylaxis Verified 12/16/21 12:13 diphenhydramine HCl Allergy Anaphylaxis Verified 12/16/21 12:13 [From Benadryl] eucalyptus Allergy Anaphylaxis Verified 12/16/21 12:13 [From [place] Cough Drops] menthol Allergy Anaphylaxis Verified 12/16/21 12:13 [From [place] Cough Drops] naproxen sodium [From Aleve] Allergy Rash/Hives Verified 12/16/21 12:13 nitrofurantoin Allergy Unknown Verified 12/16/21 12:13 macrocrystalline [From Macrodantin] Sulfa (Sulfonamide Allergy Rash/Hives Verified 12/16/21 12:13 Antibiotics) ciprofloxacin [From Cipro] AdvReac Abdominal Verified 12/16/21 12:13 Pain ciprofloxacin HCl AdvReac Abdominal Verified 12/16/21 12:13 [From Cipro] Pain multivitamin Allergy Intermediate Rash/Hives Uncoded 12/16/21 12:13 car exhaust AdvReac Mild Nausea & Uncoded 12/16/21 12:13 Vomiting Review of Systems ROS Statement: Those systems with pertinent positive or pertinent negative responses have been documented in the HPI. ROS Other: All systems not noted in ROS Statement are negative. Past Medical History Past Medical History: Diabetes Mellitus, Fibromyalgia, GERD/Reflux, Hyperlipidemia, Hypertension, Myocardial Infarction ([place]), Osteoarthritis (OA), Seizure Disorder, Supraventricular Tachycardia (SVT), Thyroid Disorder Additional Past Medical History / Comment(s): Severe allergies, PT STATES IN 1994 PTWAS HAD TOXEMIA WAS GIVEN DEMEROL AND WENT INTO A CARDIAC ARREST (COMA 21 days), was having seizures and had 2ND CARDIAC ARREST 2000 (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 Neuropathy. Last Myocardial Infarction Date:: Pt does not know. History of Any Multi-Drug Resistant Organisms: None Reported Past Surgical History: Cardiac Ablation, Section, Cholecystectomy, Hernia Repair, Tubal Ligation Additional Past Surgical History / Comment(s): Umbilical hernia repair. Past Anesthesia/Blood Transfusion Reactions: No Reported Reaction Additional Past Anesthesia/Blood Transfusion Reaction / Comment(s): CLAUSTERPHOBIA, Past Psychological History: Anxiety, Panic Disorder Smoking Status: Former smoker Past Alcohol Use History: Occasional Past Drug Use History: None Reported - Past Family History Father Family Medical History: Cancer, Myocardial Infarction ([place]) Additional Family Medical History / Comment(s): AGE 45 FROM [place] Mother Family Medical History: No Reported History Additional Family Medical History / Comment(s): NORMAL-NO PROBLEMS General Exam - General Exam Comments Initial Comments: Took a picture of the lesion on the chin and I sent Dr. Perez via [employer]. He called and stated that he agreed with the idea of given the patient antibiotics and to have the patient follow-up with either ENT or plastics. Limitations: no limitations Course Vital Signs 12/16/21 12:09 Temperature 98.6 F Pulse Rate 75 Respiratory 18 Rate Blood Pressure 117/69 O2 Sat by Pulse 95 Oximetry Disposition Clinical Impression: Facial lesion Disposition: HOME SELF-CARE Condition: Good Prescriptions: Amoxic-Pot Clav 875-125Mg [Augmentin 875-125] 1 tab PO BID 10 Days #20 tab Is patient prescribed a controlled substance at d/c from ED?: No Referrals: Og Oliva MD [Primary Care Provider] - 1-2 days Time of Disposition: 13:21
== END 2021-12-16 13:30 | disposition home or self-care (01) ==
LOC: EC 12:00
DX: L98.8 Other specified disorders of the skin and subcutaneous tissue (principal); E11.9 Type 2 diabetes mellitus without complications; K21.9 Gastro-esophageal reflux disease without esophagitis; E78.5 Hyperlipidemia, unspecified; I10 Essential (primary) hypertension; I25.2 Old myocardial infarction; Z87.891 Personal history of nicotine dependence; Z79.83 Long term (current) use of bisphosphonates; Z88.5 Allergy status to narcotic agent; Z88.3 Allergy status to other anti-infective agents; Z88.2 Allergy status to sulfonamides; Z88.8 Allergy status to other drugs, medicaments and biological substances; Z91.018 Allergy to other foods; Z88.6 Allergy status to analgesic agent
CPT/HCPCS: 99283; 96372; J1885

== ENCOUNTER → 2022-06-02 | Outpatient (CLI) | payer BC, OTHER ==
--- NOTE | 2022-06-03 04:08 | XR ---
EXAMINATION TYPE: XR knee complete RT DATE OF EXAM: 06/02/2022 CLINICAL HISTORY: Fall injury with pain. Fracture of patella per order. TECHNIQUE: Three views of the right knee are obtained. COMPARISON: None. FINDINGS: There is no acute fracture/dislocation evident in right knee. Geds-mt-[id number] tricompartm ent joint space loss. There is small-size suprapatellar joint effusion. IMPRESSION: There is no acute fracture or dislocation in the right knee.
== END | disposition home or self-care (01) ==
LOC: RADXRMAIN 16:34
PROVIDERS: ATTEND Family Medicine
DX: S82.001A Unspecified fracture of right patella, initial encounter for closed fracture (principal)

== ENCOUNTER 2022-06-03 22:16 | Emergency (ER) | payer BC, OTHER ==
[2022-06-03 22:21] VITALS: TEMP 103
[2022-06-03] MEDS ORDERED: IBUPROFEN 800 MG TAB PO STA (22:34)
[2022-06-03 22:43] VITALS: RESP 20
[2022-06-03] MEDS ORDERED: ALBUTEROL NEBULIZED 2.5 MG/3 ML INHALATION STA (22:52)
[2022-06-03] MEDS ORDERED: FLUTICASONE 50MCG/SPRAY NASAL 16GM EA NOSTRIL ONE (23:00)
--- NOTE | 2022-06-03 23:34 | XR ---
EXAMINATION TYPE: XR chest 2V DATE OF EXAM: 06/03/2022 COMPARISON: 10/26/2021 HISTORY: Cough TECHNIQUE: FINDINGS: Heart is normal. Lungs are clear of consolidation. There are no hilar masses. Costophrenic angles are clear. Bony thorax is intact. There is subsegmental atelectasis in the left upper lobe. IMPRESSION: Mild subsegmental atelectasis. Normal heart.
--- NOTE | 2022-06-03 23:47 | ED ---
URI HPI - General Chief Complaint: Upper Respiratory Infection Stated Complaint: Fever,body aches Time Seen by Provider: 06/03/22 22:23 Source: patient Mode of arrival: wheelchair Limitations: no limitations - History of Present Illness Initial Comments: Patient is a 51-year-old female who presents to emergency department with a chief complaint of fever and body aches. Symptoms started this evening. Has not taken any pain or fever medication. Patient also reports dry cough, headache, congestion. Denies chest pain or shortness of breath. Denies history of COPD and asthma. Denies tobacco use. She did not get her influenza vaccine. - Related Data Home Medications Medication Instructions Recorded Confirmed Metoprolol Tartrate [Lopressor] 25 mg PO BID 07/27/17 01/21/21 Venlafaxine HCl [Effexor] 75 mg PO BID 12/25/18 01/21/21 busPIRone HCl [Buspar] 10 mg PO DAILY 12/25/18 01/21/21 Atorvastatin [Lipitor] 40 mg PO HS 01/21/21 01/21/21 Furosemide [Lasix] 20 mg PO DAILY 01/21/21 01/21/21 Gabapentin 600 mg PO BID 01/21/21 01/21/21 Hydrocodone/Acetaminophen [[place] 1 tab PO BID 01/21/21 01/21/21 7.5-325] Ibuprofen [Motrin] 600 mg PO TID 01/21/21 01/21/21 Repaglinide 1 mg PO BID 01/21/21 01/21/21 metFORMIN HCL [Glucophage] 1,000 mg PO BID 01/21/21 01/21/21 rOPINIRole HCL [Requip] 1 mg PO HS 01/21/21 01/21/21 raNITIdine HCL [Zantac] 150 mg PO DAILY 01/21/21 01/21/21 sitaGLIPtin PHOSPHATE [Januvia] 100 mg PO DAILY 01/21/21 01/21/21 Previous Rx's Medication Instructions Recorded amLODIPine [Norvasc] 5 mg PO HS #30 tab 09/05/17 Levothyroxine Sodium [Synthroid] 150 mcg PO DAILY@0630 #60 tab 12/26/18 Aspirin 81 mg PO DAILY 90 Days #90 chew 01/23/21 Ferrous Sulfate [Iron (65 MG 325 mg PO W/LUNCH 90 Days #90 tab 01/23/21 Elemental)] Amoxic-Pot Clav 875-125Mg 1 tab PO BID 10 Days #20 tab 12/16/21 [Augmentin 875-125] Ibuprofen [Motrin] 800 mg PO Q6HR #30 tab 06/03/22 Allergies Allergy/AdvReac Type Severity Reaction Status Date / Time codeine Allergy Severe Cardiac Verified 06/03/22 22:18 Arrest meperidine HCl [From Demerol] Allergy Severe Cardiac Verified 06/03/22 22:18 Arrest morphine Allergy Severe Caridac Verified 06/03/22 22:18 Arrest adhesive tape Allergy Rash/Hives Verified 06/03/22 22:18 celery Allergy Oral Verified 06/03/22 22:18 Numbness cinnamon Allergy Anaphylaxis Verified 06/03/22 22:18 diphenhydramine HCl Allergy Anaphylaxis Verified 06/03/22 22:18 [From Benadryl] eucalyptus Allergy Anaphylaxis Verified 06/03/22 22:18 [From [place] Cough Drops] menthol Allergy Anaphylaxis Verified 06/03/22 22:18 [From [place] Cough Drops] naproxen sodium [From Aleve] Allergy Rash/Hives Verified 06/03/22 22:18 nitrofurantoin Allergy Unknown Verified 06/03/22 22:18 macrocrystalline [From Macrodantin] Sulfa (Sulfonamide Allergy Rash/Hives Verified 06/03/22 22:18 Antibiotics) ciprofloxacin [From Cipro] AdvReac Abdominal Verified 06/03/22 22:18 Pain ciprofloxacin HCl AdvReac Abdominal Verified 06/03/22 22:18 [From Cipro] Pain multivitamin Allergy Intermediate Rash/Hives Uncoded 06/03/22 22:18 car exhaust AdvReac Mild Nausea & Uncoded 06/03/22 22:18 Vomiting Review of Systems ROS Statement: Those systems with pertinent positive or pertinent negative responses have been documented in the HPI. ROS Other: All systems not noted in ROS Statement are negative. Past Medical History Past Medical History: Diabetes Mellitus, Fibromyalgia, GERD/Reflux, Hyperl ipidemia, Hypertension, Myocardial Infarction ([place]), Osteoarthritis ([place]), Seizure Disorder, Supraventricular Tachycardia (SVT), Thyroid Disorder Additional Past Medical History / Comment(s): Severe allergies, PT STATES IN 1994 PTWAS HAD TOXEMIA WAS GIVEN DEMEROL AND WENT INTO A CARDIAC ARREST (COMA 21 days), was having seizures and had 2ND CARDIAC ARREST 2000 (C [place] 3-5 DAYS), SVT, SLEEP APNEA( NO MACHINE), last seizure date unknown, arthritis low back and hips, PANCREATITIS, colitis, heart cath done Jan 2018- no stents currently. Neuropathy. Last Myocardial Infarction Date:: Pt does not know. History of Any Multi-Drug Resistant Organisms: None Reported Past Surgical History: Cardiac Ablation, Section, Cholecystectomy, Hernia Repair, Tubal Ligation Additional Past Surgical History / Comment(s): Umbilical hernia repair. Past Anesthesia/Blood Transfusion Reactions: No Reported Reaction Additional Past Anesthesia/Blood Transfusion Reaction / Comment(s): CLAUSTERPHOBIA, Past Psychological History: Anxiety, Panic Disorder Smoking Status: Former smoker Past Alcohol Use History: Occasional Past Drug Use History: None Reported - Past Family History Father Family Medical History: Cancer, Myocardial Infarction ([place]) Additional Family Medical History / Comment(s): AGE 45 FROM [place] Mother Family Medical History: No Reported History Additional Family Medical History / Comment(s): NORMAL-NO PROBLEMS General Exam Limitations: no limitations Head exam: Present: atraumatic, normocephalic, normal inspection ENT exam: Present: normal oropharynx, TM's normal bilaterally Respiratory exam: Present: normal lung sounds bilaterally, wheezes (mild in upper lung [place]son). Absent: respiratory distress, rales, rhonchi, stridor Cardiovascular Exam: Present: normal rhythm, tachycardia, normal heart sounds. Absent: regular rate, systolic murmur, diastolic murmur, rubs, gallop, clicks Neurological exam: Present: alert, oriented X3, CN II-XII intact Psychiatric exam: Present: normal affect, normal mood Skin exam: Present: warm, dry, intact, normal color. Absent: rash Course Vital Signs 06/03/22 06/03/22 06/03/22 22:18 22:42 22:47 Temperature 103 F H Pulse Rate 109 H 110 H Respiratory 18 20 20 Rate Blood Pressure 115/63 149/81 O2 Sat by Pulse 91 L 93 L Oximetry 06/03/22 06/03/22 06/03/22 23:09 23:14 23:27 Temperature Pulse Rate 109 H 108 H 100 Respiratory 20 Rate Blood Pressure 120/68 O2 Sat by Pulse 96 Oximetry Medical Decision Making - Medical Decision Making Was pt. sent in by a medical professional or institution? @ -No Did you speak to anyone other than the patient for history? @ -no Did you review nursing and triage notes? @ -Yes Were old charts reviewed? @ -Yes, previous admissions for chest pain Differential Diagnosis? @ COVID-19, influenza, RSV, viral pneumonia, bacterial pneumonia EKG interpreted by me (3pts min.)? @ -[none] X-rays interpreted by me (1pt min.)? @ -[none] CT interpreted by me (1pt min.)? @ -[none] U/S interpreted by me (1pt. min.)? @ -[none] What testing was considered but not performed? (CT, X-rays, U/S, labs)? Why? @ Labs were considered, but not performed. Patient has symptoms consistent with upper respiratory infection. Labs will not change treatment plan What meds were considered but not given? Why? @ -[none] Did you discuss the management of the patient with other professionals? @ -No Did you reconcile home meds? @ -Not applicable. Was smoking cessation discussed for >3mins.? @ -Not applicable Was critical care preformed (if so, how long)? @ -No Were there social determinants of health that impacted care today? How? (Homelessness, low income, unemployed, alcoholism, drug addiction, transportation, low edu. Level, literacy, decrease access to med. care, custodial, rehab)? @ -No Was there de-escalation of care discussed even if they declined? (Discuss DNR or withdrawal of care, Hospice)? @ -No What co-morbidities impacted this encounter? (DM, HTN, Smoking, COPD, CAD, Cancer, CVA, Hep., AIDS, mental health diagnosis, sleep apnea, morbid obesity)? @ -Diabetes mellitus, hypertension, hyperlipidemia, myocardial infarction, obesity Was patient admitted / discharged? @ -Discharge Undiagnosed new problem with uncertain prognosis? @ -No Drug Therapy requiring intensive monitoring for toxicity (Heparin, Nitro, Insulin, Cardizem)? @ - no Were any procedures done? @ -[ No Diagnosis/symptom? @ -Influenza Acute, or Chronic, or Acute on Chronic? @ Acute Uncomplicated (without systemic symptoms) or Complicated (systemic symptoms)? @ -Uncomplicated Side effects of treatment? @ - No Exacerbation, Progression, or Severe Exacerbation] @ -Not applicable Poses a threat to life or bodily function? @ -No Patient positive influenza A. No abnormal lung sounds, no hypoxia, fever improved with Motrin. Will be discharged with Motrin prescription. Dr. Devi is my attending. - Lab Data Lab Results 06/03/22 Range/Units 22:37 Influenza Type A (PCR) Detected A (Not Detectd) Influenza Type B (PCR) Not Detected (Not Detectd) RSV (PCR) Not Detected (Not Detectd) SARS-CoV-2 (PCR) Not Detected (Not Detectd) Disposition Clinical Impression: Influenza, Cough, Body aches, Fever Disposition: HOME SELF-CARE Condition: Good Instructions (If sedation given, give patient instructions): Influenza (ED) Additional Instructions: Alternate Tylenol and Motrin every 3-4 hours for fever. The next dose will be Tylenol at 1:45 AM. Follow-up with primary care provider on Monday. Return to the emergency department if you experience new, concerning, or worsening symptoms. Is patient prescribed a controlled substance at d/c from ED?: No Referrals: Og Oliva MD [Primary Care Provider] - 1-2 days Time of Disposition: 23:56
[2022-06-04 00:25] VITALS: BP 94/40; PULSE 75
== END 2022-06-04 00:25 | disposition home or self-care (01) ==
LOC: EC 22:16
DX: J10.1 Influenza due to other identified influenza virus with other respiratory manifestations (principal); E11.9 Type 2 diabetes mellitus without complications; K21.9 Gastro-esophageal reflux disease without esophagitis; E78.5 Hyperlipidemia, unspecified; I10 Essential (primary) hypertension; I25.2 Old myocardial infarction; M19.90 Unspecified osteoarthritis, unspecified site; G40.909 Epilepsy, unspecified, not intractable, without status epilepticus; E07.9 Disorder of thyroid, unspecified; F41.9 Anxiety disorder, unspecified; Z87.891 Personal history of nicotine dependence; Z88.5 Allergy status to narcotic agent; Z91.048 Other nonmedicinal substance allergy status; Z88.2 Allergy status to sulfonamides; Z88.8 Allergy status to other drugs, medicaments and biological substances; Z20.822 Contact with and (suspected) exposure to COVID-19
CPT/HCPCS: 71046; 87636; 94640; 99283

== ENCOUNTER 2022-06-15 04:59 | Emergency (ER) | payer BC, OTHER ==
[2022-06-15] MEDS ORDERED: KETOROLAC 15 MG/ML 1 ML VIAL IM STA (06:27)
--- NOTE | 2022-06-15 06:48 | ED ---
General Adult HPI - General Chief complaint: Shortness of Breath Stated complaint: Chest pain Time Seen by Provider: 06/15/22 06:15 Source: patient, RN notes reviewed Mode of arrival: wheelchair Limitations: no limitations - History of Present Illness Initial comments: Patient is a 51-year-old female presented to the emergency room with c omplaints of chest wall pain that began yesterday that she reports she believes is secondary to severe cough that she has had since prior to . She was diagnosed with influenza on 06/04 and has had a persistent cough since that time. She reports that she the cough itself and deep breathing does not change the pain. She states that the pain was more severe last night but continues to persist mildly. She denies any shortness of breath not directly related to cough, lower extremity edema, orthopnea, diaphoresis, headache, or dizziness. She does have occasional nausea and fevers and chills but denies any at this time. In addition to her recent influenza diagnosis she has a past medical h istory significant for diabetes, hypertension, hyperlipidemia, CT, fibromyalgia, GERD, osteoarthritis, seizures, SVT and hypothyroidism. - Related Data Home Medications Medication Instructions Recorded Confirmed Metoprolol Tartrate [Lopressor] 25 mg PO BID 07/27/17 01/21/21 Venlafaxine HCl [Effexor] 75 mg PO BID 12/25/18 01/21/21 busPIRone HCl [Buspar] 10 mg PO DAILY 12/25/18 01/21/21 Atorvastatin [Lipitor] 40 mg PO HS 01/21/21 01/21/21 Furosemide [Lasix] 20 mg PO DAILY 01/21/21 01/21/21 Gabapentin 600 mg PO BID 01/21/21 01/21/21 Hydrocodone/Acetaminophen [Prole 1 tab PO BID 01/21/21 01/21/21 7.5-325] Ibuprofen [Motrin] 600 mg PO TID 01/21/21 01/21/21 Repaglinide 1 mg PO BID 01/21/21 01/21/21 metFORMIN HCL [Glucophage] 1,000 mg PO BID 01/21/21 01/21/21 rOPINIRole HCL [Requip] 1 mg PO HS 01/21/21 01/21/21 raNITIdine HCL [Zantac] 150 mg PO DAILY 01/21/21 01/21/21 sitaGLIPtin PHOSPHATE [Januvia] 100 mg PO DAILY 01/21/21 01/21/21 Previous Rx's Medication Instructions Recorded amLODIPine [Norvasc] 5 mg PO HS #30 tab 09/05/17 Levothyroxine Sodium [Synthroid] 150 mcg PO DAILY@0630 #60 tab 12/26/18 Aspirin 81 mg PO DAILY 90 Days #90 chew 01/23/21 Ferrous Sulfate [Iron (65 MG 325 mg PO W/LUNCH 90 Days #90 tab 01/23/21 Elemental)] Amoxic-Pot Clav 875-125Mg 1 tab PO BID 10 Days #20 tab 12/16/21 [Augmentin 875-125] Ibuprofen [Motrin] 800 mg PO Q6HR #30 tab 06/03/22 Allergies Allergy/AdvReac Type Severity Reaction Status Date / Time codeine Allergy Severe Cardiac Verified 06/15/22 05:06 Arrest meperidine HCl [From Demerol] Allergy Severe Cardiac Verified 06/15/22 05:06 Arrest morphine Allergy Severe Caridac Verified 06/15/22 05:06 Arrest adhesive tape Allergy Rash/Hives Verified 06/15/22 05:06 celery Allergy Oral Verified 06/15/22 05:06 Numbness cinnamon Allergy Anaphylaxis Verified 06/15/22 05:06 diphenhydramine HCl Allergy Anaphylaxis Verified 06/15/22 05:06 [From Benadryl] eucalyptus Allergy Anaphylaxis Verified 06/15/22 05:06 [From [place] Cough Drops] menthol Allergy Anaphylaxis Verified 06/15/22 05:06 [From [place] Cough Drops] naproxen sodium [From Aleve] Allergy Rash/Hives Verified 06/15/22 05:06 nitrofurantoin Allergy Unknown Verified 06/15/22 05:06 macrocrystalline [From Macrodantin] Sulfa (Sulfonamide Allergy Rash/Hives Verified 06/15/22 05:06 Antibiotics) ciprofloxacin [From Cipro] AdvReac Abdominal Verified 06/15/22 05:06 Pain ciprofloxacin HCl AdvReac Abdominal Verified 06/15/22 05:06 [From Cipro] Pain multivitamin Allergy Intermediate Rash/Hives Uncoded 06/15/22 05:06 car exhaust AdvReac Mild Nausea & Uncoded 06/15/22 05:06 Vomiting Review of Systems ROS Statement: Those systems with pertinent positive or pertinent negative responses have been documented in the HPI. ROS Other: All systems not noted in ROS Statement are negative. Past Medical History Past Medical History: Diabetes Mellitus, Fibromyalgia, GERD/Reflux, Hyperlipidemia, Hypertension, Myocardial Infarction (CT), Osteoarthritis (OA), Seizure Disorder, Supraventricular Tachycardia (SVT), Thyroid Disorder Additional Past Medical History / Comment(s): Severe allergies, PT STATES IN 1994 PTWAS HAD TOXEMIA WAS GIVEN DEMEROL AND WENT INTO A CARDIAC ARREST (COMA 21 days), was having seizures and had 2ND CARDIAC ARREST 2000 (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 Neuropathy. Last Myocardial Infarction Date:: Pt does not know. History of Any Multi-Drug Resistant Organisms: None Reported Past Surgical History: Cardiac Ablation, Section, Cholecystectomy, Hernia Repair, Tubal Ligation Additional Past Surgical History / Comment(s): Umbilical hernia repair. Past Anesthesia/Blood Transfusion Reactions: No Reported Reaction Additional Past Anesthesia/Blood Transfusion Reaction / Comment(s): CLAUSTERPHOBIA, Past Psychological History: Anxiety, Panic Disorder Smoking Status: Former smoker Past Alcohol Use History: Occasional Past Drug Use History: None Reported - Past Family History Father Family Medical History: Cancer, Myocardial Infarction ([place]) Additional Family Medical History / Comment(s): AGE 45 FROM [place] Mother Family Medical History: No Reported History Additional Family Medical History / Comment(s): NORMAL-NO PROBLEMS General Exam - General Exam Comments Initial Comments: GENERAL: No acute distress, obese. HEENT: Normocephalic, atraumatic. Pupils equal, round, reactive to light. Moist mucous membranes. LUNGS: No respiratory distress. Clear to auscultation, no adventitious sounds, no use of accessory muscles. No chest wall tenderness or reproducibility. HEART: Regular rate and rhythm without murmur, rub, or gallop. ABDOMEN: Normal bowel sounds. Soft, non-tender, non-distended. BACK: Normal inspection. EXTREMITIES: No edema. No tenderness. Moves all extremities. NEUROLOGIC: Alert & oriented x 3. CN II-XII grossly intact. PSYCHIATRIC: Normal affect and behavior. DERMATOLOGIC: Skin intact, without rashes or lesions noted. Limitations: no limitations Course Vital Signs 06/15/22 05:06 Temperature 98.5 F Pulse Rate 72 Respiratory 16 Rate Blood Pressure 126/82 O2 Sat by Pulse 97 Oximetry Medical Decision Making - Medical Decision Making Was pt. sent in by a medical professional or institution? @ -No Did you speak to anyone other than the patient for history? @ -No Did you review nursing and triage notes? @ -Yes and agree Were old charts reviewed? @ -Previous EKG and cardiac consult completed in 2020. Differential Diagnosis? @ -Differential Chest Pain: Stable Angina, Unstable Angina, STEMI, NSTEMI Aortic Dissection, Pneumothorax, Musculoskeletal, Esophageal Spasm GERD, Cholecystitis, Pancreatitis, Zoster, this is not meant to be an all-inclusive list. EKG interpreted by me (3pts min.)? @ -EKG interpreted by me demonstrates sinus rhythm, ventricular rate 73 bpm, [place] interval 175 ms QRS duration 83 ms, QT/QTC 400/426 most seconds, PRT axes 73, 29, 70 X-rays interpreted by me (1pt min.)? @ -Chest x-ray 2 view interpreted by me: No consolidation or infiltrate. No acute cardiopulmonary process. CT interpreted by me (1pt min.)? @ -None U/S interpreted by me (1pt. min.)? @ -None What testing was considered but not performed? (CT, X-rays, U/S, labs)? Why? @-No What meds were considered but not given? Why? @ -Aspirin considered but not given due to atypical description of chest pain Did you discuss the management of the patient with other professionals? @ -No Did you reconcile home meds? @ -Reviewed but not reconciled Was smoking cessation discussed for >3mins.? @ -No Was critical care preformed (if so, how long)? @ -No Were there social determinants of health that impacted care today? How? (Homelessness, low income, unemployed, alcoholism, drug addiction, trans portation, low edu. Level, literacy, decrease access to med. care, nursing home, rehab)? @ -No Was there de-escalation of care discussed even if they declined? (Discuss DNR or withdrawal of care, Hospice)? @ -No What co-morbidities impacted this encounter? (DM, HTN, Smoking, COPD, CAD, Cancer, CVA, Hep., AIDS, mental health diagnosis, sleep apnea, morbid obesity)? @ -Influenza Was patient admitted / discharged? @ -Patient reports chest pain and she believes is due to cough however chest pain is not reproducible and does not change with deep cough and she does not depict the chest pain well consequently workup for ACS completed with CBC, troponin, BMP EKG and chest x-ray. Chest x-ray normal and EKG sinus rhythm without acute changes both as indicated above. CBC normal. Troponin negative. BMP reveals slightly elevated glucose levels electrolytes stable. Pain improved with Toradol and patient resting comfortably. No indication for further diagnostic imaging or laboratory studies education regarding influenza progression and return parameters to the emergency room reviewed at length. Will discharge home in stable condition with follow-up with her primary care provider. Undiagnosed new problem with uncertain prognosis? @ -None Drug Therapy requiring intensive monitoring for toxicity (Heparin, Nitro, I nsulin, Cardizem)? @ -None Were any procedures done? @ -None Diagnosis/symptom? @ -Chest wall pain Acute, or Chronic, or Acute on Chronic? @ -Acute Uncomplicated (without systemic symptoms) or Complicated (systemic symptoms)? @ -Uncomplicated Side effects of treatment? @ -None Exacerbation, Progression, or Severe Exacerbation] @ -No Poses a threat to life or bodily function? @ -No Case discussed with Dr. Negro. - Lab Data Result diagrams: 06/15/22 08:24 06/15/22 08:24 Lab Results 06/15/22 06/15/22 06/15/22 Range/Units 08:24 08:24 08:24 WBC 5.9 (3.8-10.6) k/uL RBC 4.11 (3.80-5.40) m/uL Hgb 12.6 (11.4-16.0) gm/dL Hct 36.7 (34.0-46.0) % MCV 89.3 (80.0-100.0) fL MCH 30.6 (25.0-35.0) pg MCHC 34.2 (31.0-37.0) g/dL RDW 14.6 (11.5-15.5) % Plt Count 302 (150-450) k/uL MPV 7.6 Neutrophils % 55 % Lymphocytes % 36 % Monocytes % 4 % Eosinophils % 2 % Basophils % 1 % Neutrophils # 3.3 (1.3-7.7) k/uL Lymphocytes # 2.1 (1.0-4.8) k/uL Monocytes # 0.3 (0-1.0) k/uL Eosinophils # 0.1 (0-0.7) k/uL Basophils # 0.0 (0-0.2) k/uL Hypochromasia Slight Sodium 142 (137-145) mmol/L Potassium 4.3 (3.5-5.1) mmol/L Chloride 110 H (98-107) mmol/L Carbon Dioxide 24 (22-30) mmol/L Anion Gap 8 mmol/L BUN 18 H (7-17) mg/dL Creatinine 0.89 (0.52-1.04) mg/dL Est GFR (CKD-EPI)AfAm 86 (>60 ml/min/1.73 sqM) Est GFR (CKD-EPI)NonAf 75 (>60 ml/min/1.73 sqM) Glucose 184 H (74-99) mg/dL Calcium 8.8 (8.4-10.2) mg/dL Troponin I <0.012 (0.000-0.034) ng/mL - Radiology Data Radiology results: report reviewed, image reviewed Disposition Clinical Impression: Anterior chest wall pain Disposition: HOME SELF-CARE Condition: Stable Instructions (If sedation given, give patient instructions): Chest Pain (ED), Costochondritis (ED), Influenza (ED) Additional Instructions: Please continue symptomatic management of the flu. Utilize Tylenol or Motrin as needed for pain. Please follow-up with your primary care provider. Please return to the Emergency Department if symptoms worsen or any other concerns. Is patient prescribed a controlled substance at d/c from ED?: No Referrals: Og Oliva MD [Primary Care Provider] - 1-2 days Time of Disposition: 09:30
--- NOTE | 2022-06-15 08:09 | XR ---
EXAMINATION TYPE: XR chest 2V DATE OF EXAM: 06/15/2022 COMPARISON: 06/03/2022 INDICATION: Chest pain, cough TECHNIQUE: Frontal and lateral views of the chest are obtained. FINDINGS: The heart size is normal. The pulmonary vasculature is normal. The lungs are clear. IMPRESSION: 1. No acute pulmonary process.
[2022-06-15 08:37] LABS: Basophils % (A) 1 %; Eosinophils # (A) 0.1 k/uL (0-0.7); Eosinophils % (A) 2 %; HCT 36.7 % (34.0-46.0); HGB 12.6 gm/dL (11.4-16.0); Hypochromasia Slight; Lymphocytes # (A) 2.1 k/uL (1.0-4.8); Lymphocytes % (A) 36 %; MCH 30.6 pg (25.0-35.0); MCHC 34.2 g/dL (31.0-37.0); MCV 89.3 fL (80.0-100.0); Mean Platelet Volume 7.6; Monocytes # (A) 0.3 k/uL (0-1.0); Monocytes % (A) 4 %; Neutrophils # (A) 3.3 k/uL (1.3-7.7); Neutrophils % (A) 55 %; Platelet Count 302 k/uL (150-450); RBC 4.11 m/uL (3.80-5.40); RDW 14.6 % (11.5-15.5); WBC 5.9 k/uL (3.8-10.6)
[2022-06-15 08:45] LABS: Calcium 8.8 mg/dL (8.4-10.2); Potassium 4.3 mmol/L (3.5-5.1)
[2022-06-15 09:44] VITALS: BP 138/72; PULSE 74; RESP 18; TEMP 97.7
== END 2022-06-15 09:47 | disposition home or self-care (01) ==
LOC: EC 04:59
DX: R07.89 Other chest pain (principal); E11.9 Type 2 diabetes mellitus without complications; K21.9 Gastro-esophageal reflux disease without esophagitis; E78.5 Hyperlipidemia, unspecified; I10 Essential (primary) hypertension; I25.2 Old myocardial infarction; M19.90 Unspecified osteoarthritis, unspecified site; G40.909 Epilepsy, unspecified, not intractable, without status epilepticus; F41.9 Anxiety disorder, unspecified; Z87.891 Personal history of nicotine dependence; Z88.5 Allergy status to narcotic agent; Z91.048 Other nonmedicinal substance allergy status; Z88.2 Allergy status to sulfonamides; Z88.8 Allergy status to other drugs, medicaments and biological substances; Z79.84 Long term (current) use of oral hypoglycemic drugs; Z79.899 Other long term (current) drug therapy
CPT/HCPCS: 36415; 80048; 84484; 85025; 71046; 99285; 96372; J1885; 93005

== ENCOUNTER 2023-01-21 13:40 | Emergency (ER) | payer BC, OTHER ==
--- NOTE | 2023-01-21 14:35 | XR ---
EXAMINATION TYPE: XR chest 2V DATE OF EXAM: 01/21/2023 2:28 PM COMPARISON: Chest x-ray 06/15/2022 TECHNIQUE: XR chest 2V . CLINICAL INDICATION:Female, 52 years old with history of Chest Pain; FINDINGS: Lungs/Pleura: There is no evidence of pleural effusion, focal consolidation, or pneumothorax. Pulmonary vascularity: Unremarkable. Heart/mediastinum: Cardiomediastinal silhouette is unremarkable. Musculoskeletal: No acute osseous pathology. IMPRESSION: No acute cardiopulmonary disease/process.
[2023-01-21] MEDS ORDERED: KETOROLAC 15 MG/ML 1 ML VIAL IVP STA (14:37)
[2023-01-21 14:39] LABS: Basophils % (A) 0 %; Eosinophils # (A) 0.2 k/uL (0-0.7); Eosinophils % (A) 4 %; HCT 40.5 % (34.0-46.0); HGB 13.8 gm/dL (11.4-16.0); Lymphocytes # (A) 2.6 k/uL (1.0-4.8); Lymphocytes % (A) 44 %; MCH 31.6 pg (25.0-35.0); MCHC 34.1 g/dL (31.0-37.0); MCV 92.5 fL (80.0-100.0); Mean Platelet Volume 7.1; Monocytes # (A) 0.2 k/uL (0-1.0); Monocytes % (A) 3 %; Neutrophils # (A) 2.8 k/uL (1.3-7.7); Neutrophils % (A) 47 %; Platelet Count 184 k/uL (150-450); RBC 4.38 m/uL (3.80-5.40); RDW 13.2 % (11.5-15.5); WBC 5.9 k/uL (3.8-10.6)
--- NOTE | 2023-01-21 14:40 | ED ---
Chest Pain HPI - General Chief Complaint: Chest Pain Stated Complaint: Chest Pain Time Seen by Provider: 01/21/23 13:58 Source: patient Mode of arrival: ambulatory Limitations: no limitations - History of Present Illness Initial Comments: 52-year-old female who presents with complaints of midsternal sharp chest pain increases with deep breathing and certain movements she states it was very severe earlier today is about 5/10 or she describes as mild at this time. She does state that yesterday she was doing a lot of activity pushing pulling picking things up and cleaning. She denies any fevers chills sweats cough phlegm production or other symptoms at this time. She does states she has been able take ibuprofen in the past without any difficulty. She has not taken it for pain at this time. MD Complaint: chest pain - Related Data Home Medications Medication Instructions Recorded Confirmed Venlafaxine HCl [Effexor] 75 mg PO BID 12/25/18 01/21/23 busPIRone HCl [Buspar] 10 mg PO DAILY 12/25/18 01/21/23 Atorvastatin [Lipitor] 40 mg PO HS 01/21/21 01/21/23 Gabapentin 600 mg PO TID 01/21/21 01/21/23 Hydrocodone/Acetaminophen [[place] 1 tab PO BID 01/21/21 01/21/23 7.5-325] Ibuprofen [Motrin] 600 mg PO TID 01/21/21 01/21/23 metFORMIN HCL [Glucophage] 1,000 mg PO BID 01/21/21 01/21/23 rOPINIRole HCL [Requip] 1 mg PO HS 01/21/21 01/21/23 Dapagliflozin Propanediol [Farxiga] 5 mg PO DAILY 01/21/23 01/21/23 Divalproex Sodium 250 mg PO BID 01/21/23 01/21/23 Levothyroxine Sodium [Synthroid] 150 mcg PO DAILY 01/21/23 01/21/23 amLODIPine [Norvasc] 5 mg PO HS 01/21/23 01/21/23 Allergies Allergy/AdvReac Type Severity Reaction Status Date / Time codeine Allergy Severe Cardiac Verified 01/21/23 16:32 Arrest meperidine HCl [From Demerol] Allergy Severe Cardiac Verified 01/21/23 16:32 Arrest morphine Allergy Severe Caridac Verified 01/21/23 16:32 Arrest adhesive tape Allergy Rash/Hives Verified 01/21/23 16:32 celery Allergy Oral Verified 01/21/23 16:32 Numbness cinnamon Allergy Anaphylaxis Verified 01/21/23 16:32 diphenhydramine HCl Allergy Anaphylaxis Verified 01/21/23 16:32 [From Benadryl] eucalyptus Allergy Anaphylaxis Verified 01/21/23 16:32 [From [place] Cough Drops] menthol Allergy Anaphylaxis Verified 01/21/23 16:32 [From [place] Cough Drops] naproxen sodium [From Aleve] Allergy Rash/Hives Verified 01/21/23 16:32 nitrofurantoin Allergy Unknown Verified 01/21/23 16:32 macrocrystalline [From Macrodantin] Sulfa (Sulfonamide Allergy Rash/Hives Verified 01/21/23 16:32 Antibiotics) ciprofloxacin [From Cipro] AdvReac Abdominal Verified 01/21/23 16:32 Pain ciprofloxacin HCl AdvReac Abdominal Verified 01/21/23 16:32 [From Cipro] Pain multivitamin Allergy Intermediate Rash/Hives Uncoded 01/21/23 16:32 car exhaust AdvReac Mild Nausea & Uncoded 01/21/23 16:32 Vomiting Review of Systems ROS Statement: Those systems with pertinent positive or pertinent negative responses have been documented in the HPI. ROS Other: All systems not noted in ROS Statement are negative. Past Medical History Past Medical History: Diabetes Mellitus, Fibromyalgia, GERD/Reflux, Hyperlipidemia, Hypertension, Myocardial Infarction ([place]), Osteoarthritis (OA), Seizure Disorder, Supraventricular Tachycardia (SVT), Thyroid Disorder Additional Past Medical History / Comment(s): Severe allergies, PT STATES IN 1994 PTWAS HAD TOXEMIA WAS GIVEN DEMEROL AND WENT INTO A CARDIAC ARR EST (COMA 21 days), was having seizures and had 2ND CARDIAC ARREST 2000 (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 Neuropathy. Last Myocardial Infarction Date:: Pt does not know. History of Any Multi-Drug Resistant Organisms: None Reported Past Surgical History: Cardiac Ablation, Section, Cholecystectomy, Hernia Repair, Tubal Ligation Additional Past Surgical History / Comment(s): Umbilical hernia repair. Past Anesthesia/Blood Transfusion Reactions: No Reported Reaction Additional Past Anesthesia/Blood Transfusion Reaction / Comment(s): CLAUSTERPHOBIA, Past Psychological History: Anxiety, Panic Disorder Smoking Status: Former smoker Past Alcohol Use History: Occasional Past Drug Use History: None Reported - Past Family History Father Family Medical History: Cancer, Myocardial Infarction ([place]) Additional Family Medical History / Comment(s): AGE 45 FROM [place] Mother Family Medical History: No Reported History Additional Family Medical History / Comment(s): NORMAL-NO PROBLEMS General Exam - General Exam Comments Initial Comments: This is a well-developed well-nourished awake alert oriented 4 female Limitations: no limitations General appearance: alert, in no apparent distress Head exam: Present: atraumatic, normocephalic, normal inspection Eye exam: Present: normal appearance, PERRL, EOMI. Absent: scleral icterus, conjunctival injection, periorbital swelling ENT exam: Present: normal exam, mucous membranes moist Neck exam: Present: normal inspection, full ROM, other (Genitourinarybruits). Absent: tenderness, meningismus, lymphadenopathy Respiratory exam: Present: normal lung sounds bilaterally, chest wall tenderness (Reproducible tenderness palpation along the costal sternal margins bilaterally no step-off no crepitation.). Absent: respiratory distress, wheezes, rales, rhonchi, stridor Cardiovascular Exam: Present: regular rate, normal rhythm, normal heart sounds. Absent: systolic murmur, diastolic murmur, rubs, gallop, clicks GI/Abdominal exam: Present: soft, normal bowel sounds. Absent: distended, tenderness, guarding, rebound, rigid Extremities exam: Present: normal inspection, full ROM, normal capillary refill. Absent: tenderness, pedal edema, joint swelling, calf tenderness Back exam: Present: normal inspection Neurological exam: Present: alert, oriented X3, CN II-XII intact Psychiatric exam: Present: normal affect, normal mood Skin exam: Present: warm, dry, intact, normal color. Absent: rash Course Vital Signs 01/21/23 13:45 Temperature 98.4 F Pulse Rate 90 Respiratory 20 Rate Blood Pressure 145/88 O2 Sat by Pulse 95 Oximetry Chest Pain MDM - MDM Imaging the interpreted by me no acute process no evidence of PE. Negative. I did discuss findings the patient and her . Patient be discharged the presentation is consistent with costochondritis and chest wall strain. Was pt. sent in by a medical professional or institution (ISAIAS Moy, RADIOLOGIC TECHNOLOGIST MAMMOGRAM, urgent care, hospital, or custodial...) When possible be specific @ -No Did you speak to anyone other than the patient for history (EMS, parent, family, police, friend...)? What history was obtained from this source @ -No Did you review nursing and triage notes (agree or disagree)? Why? @ -I reviewed and agree with nursing and triage notes Were old charts reviewed (outside hosp., previous admission, EMS record, old EKG, old radiological studies, urgent care reports/EKG's, custodial records)? Report findings @ -No old charts were reviewed Differential Diagnosis (chest pain, altered mental status, abdominal pain women, abdominal pain men, vaginal bleeding, weakness, fever, dyspnea, syncope, headache, dizziness, GI bleed, back pain, seizure, CVA, palpatations, mental health, musculoskeletal)? @ -Chest pain EKG interpreted by me (3pts min.). @ -As above EKG interpreted by me EKG shows sinus rhythm 86. Interval 157 QRS duration 79 QT since QTC 368/411 nonspecific T-wave configuration X-rays interpreted by me (1pt min.). @ -Interpreted by me no acute findings CT interpreted by me (1pt min.). @ -CT interpreted by no evidence of pulmonary embolus U/S interpreted by me (1pt. min.). @ -None done What testing was considered but not performed or refused? (CT, X-rays, U/S, labs)? Why? @ -None What meds were considered but not given or refused? Why? @ -None Did you discuss the management of the patient with other professionals (professionals i.e. ISAIAS Moy, RADIOLOGIC TECHNOLOGIST [employer]MOGRAM, lab, RT, psych nurse, professor of social work, truck driver heavy, teacher, loan workout officer, case packer and sealer)? Give summary @ -No Was smoking cessation discussed for >3mins.? @ -No Was critical care preformed (if so, how long)? @ -No Were there social determinants of health that impacted care today? How? (Homelessness, low income, unemployed, alcoholism, drug addiction, transportation, low edu. Level, literacy, decrease access to med. care, penitentiary, rehab)? @ -No Was there de-escalation of care discussed even if they declined (Discuss DNR or withdrawal of care, Hospice)? DNR status @ -No What co-morbidities impacted this encounter? (DM, HTN, Smoking, COPD, CAD, Cancer, CVA, ARF, Chemo, Hep., AIDS, mental health diagnosis, sleep apnea, mor bid obesity)? @ -History of SVT with ablation GERD hypertension Was patient admitted / discharged? Hospital course, mention meds given and route, prescriptions, significant lab abnormalities, going to OR and other pertinent info. @ -hospital course patient was discharged Undiagnosed new problem with uncertain prognosis? @ -No Drug Therapy requiring intensive monitoring for toxicity (Heparin, Nitro, Insulin, Cardizem)? @ -No Were any procedures done? @ -No Diagnosis/symptom? @ -Costochondritis, chest wall pain Acute, or Chronic, or Acute on Chronic? @ -Acute Uncomplicated (without systemic symptoms) or Complicated (systemic symptoms)? @ -default Side effects of treatment? @ -No Exacerbation, Progression, or Severe Exacerbation? @ -No Poses a threat to life or bodily function? How? (Chest pain, [place], [place], pneumonia, PE, COPD, DKA, ARF, appy, cholecystitis, CVA, Diverticulitis, Homicidal, Suicidal, threat to staff... and all critical care pts) @ -No Disposition Clinical Impression: Costochondritis, acute, Chest wall pain Disposition: HOME SELF-CARE Condition: Good Instructions (If sedation given, give patient instructions): Costochondritis (ED) Additional Instructions: [id number] ibuprofen for pain Is patient prescribed a controlled substance at d/c from ED?: No Referrals: Og Oliva MD [Primary Care Provider] - 1-2 days Decision Date: 01/21/23 Decision Time: 18:30
[2023-01-21 14:50] LABS: ALT 22 U/L (4-34); AST 23 U/L (14-36); African American GFR (CKD) >90 (>60 ml/min/1.73 sqM); Albumin 4.2 g/dL (3.5-5.0); Alkaline Phosphatase 90 U/L (38-126); Anion Gap 14 mmol/L; Blood Urea Nitrogen 11 mg/dL (7-17); Calcium 9.1 mg/dL (8.4-10.2); Carbon Dioxide 26 mmol/L (22-30); Chloride 99 mmol/L (98-107); Glucose 160 mg/dL (74-99); Lipase 122 U/L (23-300); Magnesium 1.5 mg/dL (1.6-2.3); Non-African American GFR(CKD) >90 (>60 ml/min/1.73 sqM); Potassium 4.1 mmol/L (3.5-5.1); Sodium 139 mmol/L (137-145); Total Bilirubin 0.5 mg/dL (0.2-1.3)
[2023-01-21 14:54] LABS: INR 0.9 (<1.2); Partial Thromboplastin Time 23.2 sec (22.0-30.0); Prothrombin Time 9.5 sec (9.0-12.0)
[2023-01-21 14:58] LABS: NT-Pro-B-Type Natriuretic Pept 68 pg/mL
--- NOTE | 2023-01-21 16:54 | CT ---
EXAMINATION TYPE: CT angio chest CT DLP: 723.2 mGycm, Automated exposure control for dose reduction was used. DATE OF EXAM: 01/21/2023 4:28 PM COMPARISON: Chest radiograph from same day. CTA chest 01/22/2018. CLINICAL INDICATION:Female, 52 years old with history of PE suspected; PE suspected TECHNIQUE/CONTRAST: CTA scan of the thorax is performed with IV Contrast, patient injected with 100ml mL of Isovue 370, p ulmonary embolism protocol. MIP images are created and reviewed. FINDINGS: Pulmonary Artery: There is no evidence for a filling defect within the pulmonary vasculature to sugge st acute pulmonary embolism. The pulmonary artery is of normal size. Lungs/Pleura: Subsegmental atelectasis versus scarring in the lingula and anterior segments of the ri ght middle lobe. No evidence of focal consolidation, pleural effusion or pneumothorax. Airway: Large airways are patent. Heart: Heart is within normal limits for size.. Vasculature: No evidence of aortic aneurysm. Mediastinum: No gross evidence of adenopathy. Musculoskeletal: No acute osseous abnormalities Soft Tissues: Unremarkable. Lower neck: No significant findings. Upper Abdomen: No significant findings. Cholecystectomy. IMPRESSION: No evidence of pulmonary embolism or acute cardiopulmonary process..
[2023-01-21 19:31] VITALS: BP 140/79; PULSE 69; RESP 16; TEMP 98.1
== END 2023-01-21 19:25 | disposition home or self-care (01) ==
LOC: EC 13:40
DX: M94.0 Chondrocostal junction syndrome [Tietze] (principal); E11.40 Type 2 diabetes mellitus with diabetic neuropathy, unspecified; I10 Essential (primary) hypertension; I25.2 Old myocardial infarction; E78.5 Hyperlipidemia, unspecified; F41.9 Anxiety disorder, unspecified; G40.909 Epilepsy, unspecified, not intractable, without status epilepticus; E07.9 Disorder of thyroid, unspecified; Z79.890 Hormone replacement therapy; Z79.84 Long term (current) use of oral hypoglycemic drugs; Z79.899 Other long term (current) drug therapy; Z88.1 Allergy status to other antibiotic agents; Z88.2 Allergy status to sulfonamides; Z88.5 Allergy status to narcotic agent; Z88.6 Allergy status to analgesic agent; Z88.8 Allergy status to other drugs, medicaments and biological substances; Z91.048 Other nonmedicinal substance allergy status; Z91.09 Other allergy status, other than to drugs and biological substances; Z87.891 Personal history of nicotine dependence
CPT/HCPCS: 36415; 93005; 85379; 83880; 80053; 83690; 83735; 84484; 85025; 85610; 85730; 71046; 71275; 99285; 96374; J1885; Q9967

== ENCOUNTER 2023-03-31 02:09 | Emergency (ER) | payer BC, OTHER ==
[2023-03-31 02:27] VITALS: RESP 18; TEMP 98.6
[2023-03-31 03:02] LABS: Basophils % (A) 0 %; Eosinophils # (A) 0.1 k/uL (0-0.7); Eosinophils % (A) 3 %; HCT 40.6 % (34.0-46.0); HGB 13.5 gm/dL (11.4-16.0); Lymphocytes # (A) 1.9 k/uL (1.0-4.8); Lymphocytes % (A) 39 %; MCHC 33.2 g/dL (31.0-37.0); MCV 93.5 fL (80.0-100.0); Mean Platelet Volume 7.2; Monocytes # (A) 0.2 k/uL (0-1.0); Monocytes % (A) 4 %; Neutrophils # (A) 2.6 k/uL (1.3-7.7); Neutrophils % (A) 54 %; Platelet Count 192 k/uL (150-450); RBC 4.34 m/uL (3.80-5.40); RDW 13.1 % (11.5-15.5); WBC 4.8 k/uL (3.8-10.6)
[2023-03-31 03:23] LABS: ALT 21 U/L (4-34); AST 18 U/L (14-36); African American GFR (CKD) >90 (>60 ml/min/1.73 sqM); Albumin 3.8 g/dL (3.5-5.0); Alkaline Phosphatase 89 U/L (38-126); Anion Gap 15 mmol/L; Blood Urea Nitrogen 12 mg/dL (7-17); Carbon Dioxide 21 mmol/L (22-30); Chloride 103 mmol/L (98-107); Glucose 259 mg/dL (74-99); Non-African American GFR(CKD) >90 (>60 ml/min/1.73 sqM); Potassium 3.8 mmol/L (3.5-5.1); Sodium 139 mmol/L (137-145); Total Bilirubin 0.4 mg/dL (0.2-1.3); Total Protein 6.5 g/dL (6.3-8.2)
[2023-03-31 03:25] LABS: INR 0.9 (<1.2); Partial Thromboplastin Time 23.8 sec (22.0-30.0); Prothrombin Time 9.8 sec (10.0-12.5)
[2023-03-31] MEDS ORDERED: CYCLOBENZAPRINE 10 MG TAB PO STA (04:10)
[2023-03-31 05:35] VITALS: BP 141/80; PULSE 70
--- NOTE | 2023-03-31 06:29 | ED ---
Chest Pain HPI - General Chief Complaint: Chest Pain Stated Complaint: SOB Pain Time Seen by Provider: 03/31/23 02:30 Source: patient Mode of arrival: wheelchair Limitations: no limitations - History of Present Illness Initial Comments: 52-year-old female past history of cardiac arrest 2 who presents to the emergency Department reporting right-sided shoulder and neck pain. She reports that the symptoms have been present for a week. She is scheduled to see her primary care doctor however the pain has been going on so long that she wanted to be seen sooner. She presents with her boyfriend who was also being evaluated in the emergency department. She reports that she has some right-sided neck pain which radiates into her right arm and posterior shoulder. Pain is worse with palpation and movement and better with rest. She does take chronic [place] at home however this has not been helping her symptoms. She denies chest pain or shortness of breath. No abdominal pain. Denies any nausea or vomiting. No fevers, chills or cough. No other alleviating, precipitating or modifying factors - Related Data Home Medications Medication Instructions Recorded Confirmed Venlafaxine HCl [Effexor] 75 mg PO BID 12/25/18 01/21/23 busPIRone HCl [Buspar] 10 mg PO DAILY 12/25/18 01/21/23 Atorvastatin [Lipitor] 40 mg PO HS 01/21/21 01/21/23 Gabapentin 600 mg PO TID 01/21/21 01/21/23 Hydrocodone/Acetaminophen [[place] 1 tab PO BID 01/21/21 01/21/23 7.5-325] Ibuprofen [Motrin] 600 mg PO TID 01/21/21 01/21/23 metFORMIN HCL [Glucophage] 1,000 mg PO BID 01/21/21 01/21/23 rOPINIRole HCL [Requip] 1 mg PO HS 01/21/21 01/21/23 Dapagliflozin Propanediol [Farxiga] 5 mg PO DAILY 01/21/23 01/21/23 Divalproex Sodium 250 mg PO BID 01/21/23 01/21/23 Levothyroxine Sodium [Synthroid] 150 mcg PO DAILY 01/21/23 01/21/23 amLODIPine [Norvasc] 5 mg PO HS 01/21/23 01/21/23 Previous Rx's Medication Instructions Recorded methocarbamoL [Robaxin-750] 750 mg PO QID #30 tab 03/31/23 Allergies Allergy/AdvReac Type Severity Reaction Status Date / Time codeine Allergy Severe Cardiac Verified 03/31/23 02:23 Arrest meperidine HCl [From Demerol] Allergy Severe Cardiac Verified 03/31/23 02:23 Arrest morphine Allergy Severe Caridac Verified 03/31/23 02:23 Arrest adhesive tape Allergy Rash/Hives Verified 03/31/23 02:23 celery Allergy Oral Verified 03/31/23 02:23 Numbness cinnamon Allergy Anaphylaxis Verified 03/31/23 02:23 diphenhydramine HCl Allergy Anaphylaxis Verified 03/31/23 02:23 [From Benadryl] eucalyptus Allergy Anaphylaxis Verified 03/31/23 02:23 [From [place] Cough Drops] menthol Allergy Anaphylaxis Verified 03/31/23 02:23 [From [place] Cough Drops] naproxen sodium [From Aleve] Allergy Rash/Hives Verified 03/31/23 02:23 nitrofurantoin Allergy Unknown Verified 03/31/23 02:23 macrocrystalline [From Macrodantin] Sulfa (Sulfonamide Allergy Rash/Hives Verified 03/31/23 02:23 Antibiotics) ciprofloxacin [From Cipro] AdvReac Abdominal Verified 03/31/23 02:23 Pain ciprofloxacin HCl AdvReac Abdominal Verified 03/31/23 02:23 [From Cipro] Pain multivitamin Allergy Intermediate Rash/Hives Uncoded 03/31/23 02:23 car exhaust AdvReac Mild Nausea & Uncoded 03/31/23 02:23 Vomiting Review of Systems ROS Statement: Those systems with pertinent positive or pertinent negative responses have been documented in the HPI. ROS Other: All systems not noted in ROS Statement are negative. Past Medical History Past Medical History: Diabetes Mellitus, Fibromyalgia, GERD/Reflux, Hyperlipidemia, Hypertension, Myocardial Infarction (DC), Osteoarthritis (OA), Seizure Disorder, Supraventricular Tachycardia (SVT), Thyroid Disorder Additional Past Medical History / Comment(s): Severe allergies, PT STATES IN 1994 PTWAS HAD TOXEMIA WAS GIVEN DEMEROL AND WENT INTO A CARDIAC ARREST (COMA 21 days), was having seizures and had 2ND CARDIAC ARREST 2000 (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 Neuropathy. Last Myocardial Infarction Date:: Pt does not know. History of Any Multi-Drug Resistant Organisms: None Reported Past Surgical History: Cardiac Ablation, Section, Cholecystectomy, Hernia Repair, Tubal Ligation Additional Past Surgical History / Comment(s): Umbilical hernia repair. Past Anesthesia/Blood Transfusion Reactions: No Reported Reaction Additional Past Anesthesia/Blood Transfusion Reaction / Comment(s): CLAUSTERPHOBIA, Past Psychological History: Anxiety, Panic Disorder Smoking Status: Former smoker Past Alcohol Use History: Occasional Past Drug Use History: None Reported - Past Family History Father Family Medical History: Cancer, Myocardial Infarction (DC) Additional Family Medical History / Comment(s): AGE 45 FROM [place] Mother Family Medical History: No Reported History Additional Family Medical History / Comment(s): NORMAL-NO PROBLEMS General Exam Limitations: no limitations General appearance: alert, in no apparent distress Head exam: Present: atraumatic, normocephalic, normal inspection Eye exam: Present: normal appearance, PERRL, EOMI. 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 Absent: meningismus, lymphadenopathy Respiratory exam: Present: normal lung sounds bilaterally. Absent: respiratory distress, wheezes, rales, rhonchi, stridor Cardiovascular Exam: Present: regular rate, normal rhythm, normal heart sounds. Absent: systolic murmur, diastolic murmur, rubs, gallop, clicks GI/Abdominal exam: Present: soft, normal bowel sounds. Absent: distended, tenderness, guarding, rebound, rigid Extremities exam: Present: normal inspection, full ROM, normal capillary refill. Absent: tenderness, pedal edema, joint swelling, calf tenderness Back exam: Present: normal inspection Neurological exam: Present: alert, oriented X3, CN II-XII intact Psychiatric exam: Present: normal affect, normal mood Skin exam: Present: warm, dry, intact, normal color. Absent: rash Course Vital Signs 03/31/23 03/31/23 03/31/23 02:23 05:25 06:44 Temperature 98.6 F 98.6 F Pulse Rate 85 70 70 Respiratory 18 18 18 Rate Blood Pressure 136/81 141/80 141/80 O2 Sat by Pulse 98 95 95 Oximetry Chest Pain MDM - MDM Was pt. sent in by a medical professional or institution (ISAIAS Moy, PANTOGRAPH MACHINE SET UP OPERATOR, urgent care, hospital, or [facility]...) When possible be specific @ -No Did you speak to anyone other than the patient for history (EMS, parent, family, police, friend...)? What history was obtained from this source @ -No Did you review nursing and triage notes (agree or disagree)? Why? @ -I reviewed and agree with nursing and triage notes Were old charts reviewed (outside hosp., previous admission, EMS record, old EKG, old radiological studies, urgent care reports/EKG's, [facility] records)? Report findings @ -No old charts were reviewed Differential Diagnosis (chest pain, altered mental status, abdominal pain women, abdominal pain men, vaginal bleeding, weakness, fever, dyspnea, syncope, headache, dizziness, GI bleed, back pain, seizure, CVA, palpatations, mental health, musculoskeletal)? @ -Differential Musculoskeletal Muscular strain, contusion, ligament sprain, fracture, arthritis, septic arthritis, bursitis, cellulitis, muscle spasm, nerve compression, DVT, arterial occlusion, herpes zoster, electrolyte abnormality, tumor.... This is not meant to be in all inclusive list EKG interpreted by me (3pts min.). @ -Yes demonstrates sinus rhythm rate of 84. LA interval 156. QRS 81. QTC of 411. No acute ST segment elevations or depressions X-rays interpreted by me (1pt min.). @ -Yes and demonstrates no acute process CT interpreted by me (1pt min.). @ -None done U/S interpreted by me (1pt. min.). @ -None done What testing was considered but not performed or refused? (CT, X-rays, U/S, labs)? Why? @ -None What meds were considered but not given or refused? Why? @ -None Did you discuss the management of the patient with other professionals (professionals i.e. ISAIAS Moy, PANTOGRAPH MACHINE SET UP OPERATOR, lab, RT, psych nurse, home health care social worker, vp cardiovascular service line, teacher, chief green officer, spring encaser)? Give summary @ -No Was smoking cessation discussed for >3mins.? @ -No Was critical care preformed (if so, how long)? @ -No Were there social determinants of health that impacted care today? How? (Homelessness, low income, unemployed, alcoholism, drug addiction, transportation, low edu. Level, literacy, decrease access to med. care, fdc, rehab)? @ -No Was there de-escalation of care discussed even if they declined (Discuss DNR or withdrawal of care, Hospice)? DNR status @ -No What co-morbidities impacted this encounter? (DM, HTN, Smoking, COPD, CAD, Cancer, CVA, ARF, Chemo, Hep., AIDS, mental health diagnosis, sleep apnea, morbid obesity)? @ -Previous history of cardiac arrest Was patient admitted / discharged? Hospital course, mention meds given and route, prescriptions, significant lab abnormalities, going to OR and other pertinent info. @ -Upon arrival patient was placed into room 25. Thorough history and physical exam was performed. She was given a muscle relaxer. X-rays were performed. Patient reevaluated and reports to some improvement in her symptoms. I did discuss diagnosis, differential treatment options. Patient will be discharged home with a prescription for muscle relaxer. Instructed to take as directed. Follow up with her primary care doctor for further workup and return for any new or worsening symptoms. Patient discharged in stable condition Undiagnosed new problem with uncertain prognosis? @ -No Drug Therapy requiring intensive monitoring for toxicity (Heparin, Nitro, Insulin, Cardizem)? @ -No Were any procedures done? @ -No Diagnosis/symptom? @ -Acute right trapezius strain, cervical radiculopathy Acute, or Chronic, or Acute on Chronic? @ -Acute Uncomplicated (without systemic symptoms) or Complicated (systemic symptoms)? @ -Complicated Side effects of treatment? @ -No Exacerbation, Progression, or Severe Exacerbation? @ -No Poses a threat to life or bodily function? How? (Chest pain, [place], [place], pneumonia, PE, COPD, DKA, ARF, appy, cholecystitis, CVA, Diverticulitis, Homicidal, S uicidal, threat to staff... and all critical care pts) @ -No Disposition Clinical Impression: Right shoulder pain, Cervical radiculopathy Disposition: HOME SELF-CARE Condition: Stable Instructions (If sedation given, give patient instructions): Cervical Radiculopathy (ED) Additional Instructions: Please try the muscle relaxer to see if it helps your symptoms. Follow-up with your doctor. May benefit from seeing the orthopedic surgeon for injections. Return for any new or worsening symptoms Prescriptions: methocarbamoL [Robaxin-750] 750 mg PO QID #30 tab Is patient prescribed a controlled substance at d/c from ED?: No Referrals: Og Oliva MD [Primary Care Provider] - 1-2 days Dada Knott DO [Doctor of Osteopathic Medicine] - 1-2 days Time of Disposition: 06:29
--- NOTE | 2023-03-31 07:23 | XR ---
EXAMINATION TYPE: XR shoulder complete RT DATE OF EXAM: 03/31/2023 CLINICAL HISTORY: pain TECHNIQUE: Three views of the right shoulder are obtained. COMPARISON: None FINDINGS: There is no acute fracture/dislocation evident. The acromioclavicular and glenohumeral ashley int spaces appear within normal limits. The visualized ribs are intact and unremarkable. IMPRESSION: 1. There is no acute fracture or dislocation. ICD 10 NO FRACTURE, INITIAL EVALUATION
--- NOTE | 2023-03-31 07:24 | XR ---
EXAMINATION TYPE: XR cervical spine limited DATE OF EXAM: 03/31/2023 CLINICAL HISTORY: pain TECHNIQUE: 3 views of the cervical spine are submitted. COMPARISON: None. FINDINGS: There is satisfactory in alignment without evidence of acute fracture or dislocation. The pre-vertebral soft tissue appears within normal limits. Moderate degenerative narrowing C6-7. The C1 -C2 articulation is unremarkable on the open mouth view. IMPRESSION: No acute fracture or dislocation is seen in the cervical spine.
--- NOTE | 2023-03-31 07:25 | XR ---
EXAMINATION TYPE: XR chest 2V DATE OF EXAM: 03/31/2023 COMPARISON: 01/21/2023 HISTORY: Shortness of breath TECHNIQUE: Frontal and lateral views of the chest are obtained. FINDINGS: Scattered senescent parenchymal changes noted. Hyperinflation compatible with COPD. No evidence for infiltrate. No evidence for atelectasis. Heart size is stable. Mediastinal structures are stable and grossly unremarkable. No evidence for hilar prominence. Degenerative changes dorsal spine. IMPRESSION: 1. No evidence for acute pulmonary disease.
== END 2023-03-31 06:45 | disposition home or self-care (01) ==
LOC: EC 02:09
DX: M54.12 Radiculopathy, cervical region (principal); M25.511 Pain in right shoulder; E11.40 Type 2 diabetes mellitus with diabetic neuropathy, unspecified; E78.5 Hyperlipidemia, unspecified; I10 Essential (primary) hypertension; I25.2 Old myocardial infarction; E07.9 Disorder of thyroid, unspecified; F41.9 Anxiety disorder, unspecified; Z87.891 Personal history of nicotine dependence; Z88.1 Allergy status to other antibiotic agents; Z88.2 Allergy status to sulfonamides; Z88.5 Allergy status to narcotic agent; Z88.6 Allergy status to analgesic agent; Z88.8 Allergy status to other drugs, medicaments and biological substances; Z79.84 Long term (current) use of oral hypoglycemic drugs; Z79.890 Hormone replacement therapy; Z79.899 Other long term (current) drug therapy
CPT/HCPCS: 36415; 71046; 72040; 80053; 84484; 85025; 85610; 85730; 93005; 99285

== ENCOUNTER 2024-02-20 23:47 | Emergency (ER) | payer BC, OTHER ==
[2024-02-20 23:51] VITALS: RESP 18; TEMP 97.9
--- NOTE | 2024-02-21 00:39 | ED ---
Chest Pain HPI - General Chief Complaint: Chest Pain Stated Complaint: chest pain Time Seen by Provider: 02/21/24 00:36 Source: patient, RN notes reviewed Mode of arrival: ambulatory Limitations: no limitations - History of Present Illness Initial Comments: 53-year-old female with history of diabetes, hyperlipidemia, hypertension, [place], SVT presenting with chest pain x 8 hours. Patient describes a left-sided, sharp, constant chest pain that radiates to her back that began after she ate [employer] for dinner. Admits mild shortness of breath, denies nausea, vomiting, palpitations. Denies blood thinners. Denies trauma or injury. - Related Data Home Medications Medication Instructions Recorded Confirmed Venlafaxine HCl [Effexor] 75 mg PO BID 12/25/18 01/21/23 busPIRone HCl [Buspar] 10 mg PO DAILY 12/25/18 01/21/23 Atorvastatin [Lipitor] 40 mg PO HS 01/21/21 01/21/23 Gabapentin 600 mg PO TID 01/21/21 01/21/23 Hydrocodone/Acetaminophen [[place] 1 tab PO BID 01/21/21 01/21/23 7.5-325] Ibuprofen [Motrin] 600 mg PO TID 01/21/21 01/21/23 metFORMIN HCL [Glucophage] 1,000 mg PO BID 01/21/21 01/21/23 rOPINIRole HCL [Requip] 1 mg PO HS 01/21/21 01/21/23 Dapagliflozin Propanediol [Farxiga] 5 mg PO DAILY 01/21/23 01/21/23 Divalproex Sodium 250 mg PO BID 01/21/23 01/21/23 Levothyroxine Sodium [Synthroid] 150 mcg PO DAILY 01/21/23 01/21/23 amLODIPine [Norvasc] 5 mg PO HS 01/21/23 01/21/23 Previous Rx's Medication Instructions Recorded methocarbamoL [Robaxin-750] 750 mg PO QID #30 tab 03/31/23 Allergies Allergy/AdvReac Type Severity Reaction Status Date / Time codeine Allergy Severe Cardiac Verified 02/20/24 23:51 Arrest meperidine HCl [From Demerol] Allergy Severe Cardiac Verified 02/20/24 23:51 Arrest morphine Allergy Severe Caridac Verified 02/20/24 23:51 Arrest adhesive tape Allergy Rash/Hives Verified 02/20/24 23:51 celery Allergy Oral Verified 02/20/24 23:51 Numbness cinnamon Allergy Anaphylaxis Verified 02/20/24 23:51 diphenhydramine HCl Allergy Anaphylaxis Verified 02/20/24 23:51 [From Benadryl] eucalyptus Allergy Anaphylaxis Verified 02/20/24 23:51 [From [place] Cough Drops] menthol Allergy Anaphylaxis Verified 02/20/24 23:51 [From [place] Cough Drops] naproxen sodium [From Aleve] Allergy Rash/Hives Verified 02/20/24 23:51 nitrofurantoin Allergy Unknown Verified 02/20/24 23:51 macrocrystalline [From Macrodantin] Sulfa (Sulfonamide Allergy Rash/Hives Verified 02/20/24 23:51 Antibiotics) ciprofloxacin [From Cipro] AdvReac Abdominal Verified 02/20/24 23:51 Pain ciprofloxacin HCl AdvReac Abdominal Verified 02/20/24 23:51 [From Cipro] Pain multivitamin Allergy Intermediate Rash/Hives Uncoded 03/31/23 02:23 car exhaust AdvReac Mild Nausea & Uncoded 03/31/23 02:23 Vomiting Review of Systems ROS Statement: Those systems with pertinent positive or pertinent negative responses have been documented in the HPI. ROS Other: All systems not noted in ROS Statement are negative. EKG Findings - EKG Results: EKG: interpreted by ERMD (EKG reveals normal sinus rhythm with no ST changes. Ventricular rate 84 bpm, CT interval 156, QRS duration 85, QT/QTc 397/439) Past Medical History Past Medical History: Diabetes Mellitus, Fibromyalgia, GERD/Reflux, Hyperlipidemia, Hypertension, Myocardial Infarction ([place]), Osteoarthritis (OA), Seizure Disorder, Supraventricular Tachycardia (SVT), Thyroid Disorder Additional Past Medical History / Comment(s): Severe allergies, PT STATES IN 1994 PTWAS HAD TOXEMIA WAS GIVEN DEMEROL AND WENT INTO A CARDIAC ARREST (COMA 21 days), was having seizures and had 2ND CARDIAC ARREST 2000 (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 Neuropathy. Last Myocardial Infarction Date:: Pt does not know. History of Any Multi-Drug Resistant Organisms: None Reported Past Surgical History: Cardiac Ablation, Section, Cholecystectomy, Hernia Repair, Tubal Ligation Additional Past Surgical History / Comment(s): Umbilical hernia repair. Past Anesthesia/Blood Transfusion Reactions: No Reported Reaction Additional Past Anesthesia/Blood Transfusion Reaction / Comment(s): CLAUSTERPHOBIA, Past Psychological History: Anxiety, Panic Disorder Smoking Status: Former smoker Past Alcohol Use History: Occasional Past Drug Use History: None Reported - Past Family History Father Family Medical History: Cancer, Myocardial Infarction ([place]) Additional Family Medical History / Comment(s): AGE 45 FROM [place] Mother Family Medical History: No Reported History Additional Family Medical History / Comment(s): NORMAL-NO PROBLEMS General Exam Limitations: no limitations General appearance: alert, in no apparent distress Head exam: Present: atraumatic, normocephalic, normal inspection Eye exam: Present: normal appearance, PERRL, EOMI. Absent: scleral icterus, conjunctival injection, periorbital swelling ENT exam: Present: normal exam, mucous membranes moist Neck exam: Present: normal inspection. Absent: tenderness, meningismus, lymphadenopathy Respiratory exam: Present: normal lung sounds bilaterally. Absent: respiratory distress, wheezes, rales, rhonchi, stridor, chest wall tenderness Cardiovascular Exam: Present: regular rate, normal rhythm, normal heart sounds. Absent: systolic murmur, diastolic murmur, rubs, gallop, clicks Neurological exam: Present: alert, oriented X3 Psychiatric exam: Present: normal affect, normal mood Skin exam: Present: warm, dry, intact, normal color. Absent: rash Course Vital Signs 02/20/24 02/21/24 23:49 02:23 Temperature 97.9 F Pulse Rate 91 87 Respiratory 18 18 Rate Blood Pressure 121/69 111/61 O2 Sat by Pulse 95 94 L Oximetry Chest Pain MDM - MDM Was pt. sent in by a medical professional or institution (, PA, GUEST SERVICES, urgent care, hospital, or long-term...) When possible be specific @ -No Did you speak to anyone other than the patient for history (EMS, parent, family, police, friend...)? What history was obtained from this source @ -No Did you review nursing and triage notes (agree or disagree)? Why? @ -I reviewed and agree with nursing and triage notes Were old charts reviewed (outside hosp., previous admission, EMS record, old EKG, old radiological studies, urgent care reports/EKG's, long-term records)? Report findings @ -No old charts were reviewed Differential Diagnosis (chest pain, altered mental status, abdominal pain women, abdominal pain men, vaginal bleeding, weakness, fever, dyspnea, syncope, headache, dizziness, GI bleed, back pain, seizure, CVA, palpatations, mental health, musculoskeletal)? @ -Differential Chest Pain: Stable Angina, Unstable Angina, STEMI, NSTEMI Aortic Dissection, Pneumothorax, Musculoskeletal, Esophageal Spasm GERD, Cholecystitis, Pancreatitis, Zoster, this is not meant to be an all-inclusive list. EKG interpreted by me (3pts min.). @ -As above X-rays interpreted by me (1pt min.). @ -Chest x-ray interpreted by me reveals no acute process CT interpreted by me (1pt min.). @ -None done U/S interpreted by me (1pt. min.). @ -None done What testing was considered but not performed or refused? (CT, X-rays, U/S, labs)? Why? @ -None What meds were considered but not given or refused? Why? @ -None Did you discuss the management of the patient with other professionals (professionals i.e. , PA, GUEST SERVICES, lab, RT, psych nurse, director of social work, social work professor, teacher, targeting acquisition officer, business case analyst)? Give summary @ -No Was smoking cessation discussed for >3mins.? @ -No Was critical care preformed (if so, how long)? @ -No Were there social determinants of health that impacted care today? How? (Homelessness, low income, unemployed, alcoholism, drug addiction, transportation, low edu. Level, literacy, decrease access to med. care, [facility], rehab)? @ -No Was there de-escalation of care discussed even if they declined (Discuss DNR or withdrawal of care, Hospice)? DNR status @ -No What co-morbidities impacted this encounter? (DM, HTN, Smoking, COPD, CAD, Cancer, CVA, ARF, Chemo, Hep., AIDS, mental health diagnosis, sleep apnea, morbid obesity)? @ -DM Was patient admitted / discharged? Hospital course, mention meds given and route, prescriptions, significant lab abnormalities, going to OR and other pertinent info. @ -Patient was seen and evaluated for chest pain x 8 hours. Vital signs within normal limits. No reproducible chest pain on examination. Patient was given loading dose of aspirin. EKG reveals normal sinus rhythm with no ST changes. Chest x-ray reveals no acute process. Laboratory studies including CBC, CMP, coags, magnesium, troponin remarkable for glucose 349. Patient updated on findings. Acetone, VBG, urinalysis obtained at this time to rule out DKA. Patient started on IV fluids. Acetone negative, urinalysis reveals 4+ glucose in urine, negative for ketones. Repeat glucose is 232. Upon reevaluation, patient states symptoms have resolved and would like to be discharged at this time before VBG has resulted. I believe this is reasonable at this time as hyperglycemia and symptoms have improved. Patient does not appear to be in DKA as acetone is negative and there are no ketones in urine. Return precautions discussed and patient is agreeable to plan. Case was discussed with my ED attending Dr. Nguyen. Patient discharged stable condition. Undiagnosed new problem with uncertain prognosis? @ -No Drug Therapy requiring intensive monitoring for toxicity (Heparin, Nitro, Insulin, Cardizem)? @ -No Were any procedures done? @ -No Diagnosis/symptom? @ -Hyperglycemia, chest pain Acute, or Chronic, or Acute on Chronic? @ -Acute Uncomplicated (without systemic symptoms) or Complicated (systemic symptoms)? @ -Uncomplicated Side effects of treatment? @ -No Exacerbation, Progression, or Severe Exacerbation? @ -No Poses a threat to life or bodily function? How? (Chest pain, [place], [place], pneumonia, PE, COPD, DKA, ARF, appy, cholecystitis, CVA, Diverticulitis, Homicidal, Suicidal, threat to staff... and all critical care pts) @ -Unlikely Disposition Clinical Impression: Hyperglycemia Disposition: HOME SELF-CARE Condition: Stable Instructions (If sedation given, give patient instructions): Diabetic Hyperglycemia (ED) Additional Instructions: Please return to the Emergency Department if symptoms worsen or any other concerns. Is patient prescribed a controlled substance at d/c from ED?: No Referrals: Og Oliva MD [Primary Care Provider] - 1-2 days Time of Disposition: 04:15
[2024-02-21] MEDS: ASPIRIN 81 MG PO STA (00:41)
[2024-02-21 00:56] LABS: ALT 19 U/L (4-34); AST 20 U/L (14-36); African American GFR (CKD) >90 (>60 ml/min/1.73 sqM); Albumin 4.1 g/dL (3.5-5.0); Alkaline Phosphatase 122 U/L (38-126); Anion Gap 15 mmol/L; Blood Urea Nitrogen 14 mg/dL (7-17); Calcium 9.1 mg/dL (8.4-10.2); Carbon Dioxide 24 mmol/L (22-30); Chloride 97 mmol/L (98-107); Glucose 349 mg/dL (74-99); Magnesium 1.7 mg/dL (1.6-2.3); Non-African American GFR(CKD) 84 (>60 ml/min/1.73 sqM); Potassium 3.9 mmol/L (3.5-5.1); Sodium 136 mmol/L (137-145); Total Bilirubin 0.6 mg/dL (0.2-1.3); Total Protein 6.4 g/dL (6.3-8.2)
[2024-02-21 00:57] LABS: Basophils % (A) 1 %; Eosinophils # (A) 0.2 k/uL (0-0.7); Eosinophils % (A) 4 %; HGB 13.6 gm/dL (11.4-16.0); Lymphocytes # (A) 2.1 k/uL (1.0-4.8); Lymphocytes % (A) 38 %; MCHC 32.4 g/dL (31.0-37.0); MCV 95.6 fL (80.0-100.0); Monocytes # (A) 0.3 k/uL (0-1.0); Monocytes % (A) 5 %; Neutrophils # (A) 2.8 k/uL (1.3-7.7); Neutrophils % (A) 52 %; Platelet Count 201 k/uL (150-450); RDW 13.6 % (11.5-15.5); WBC 5.4 k/uL (3.8-10.6)
[2024-02-21 01:07] LABS: INR 0.9 (<1.2); Prothrombin Time 9.8 sec (10.0-12.5)
[2024-02-21 01:08] LABS: Partial Thromboplastin Time 24.1 sec (22.0-30.0)
[2024-02-21] MEDS: SODIUM CHLORIDE 0.9% 1,000 ML IV STA (02:17)
[2024-02-21] MEDS: ACETAMINOPHEN TAB 500 MG TAB PO STA (02:57)
[2024-02-21 03:42] LABS: Appearance,Urine Clear (Clear); Bilirubin,Urine Negative (Negative); Blood,Urine Negative (Negative); Color,Urine Colorless; Glucose,Urine (UA) 4+ (Negative); Ketones,Urine Negative (Negative); Leukocyte Esterase,Urine Negative (Negative); Nitrite,Urine Negative (Negative); PH, Urine 5.5 (5.0-8.0); Protein,Urine Negative (Negative); Specific Gravity,Urine 1.038 (1.001-1.035); Urobilinogen,Urine <2.0 mg/dL (<2.0)
[2024-02-21 03:53] LABS: Glucose,Whole Blood 232 mg/dL (70-110)
[2024-02-21 04:17] VITALS: BP 124/66; PULSE 74
[2024-02-21 04:57] LABS: VBG PH 7.33 (7.31-7.41)
--- NOTE | 2024-02-21 05:16 | XR ---
EXAM: XR Chest, 2 Views CLINICAL HISTORY: chest pain TECHNIQUE: Frontal and lateral views of the chest. COMPARISON: 03-31-2023. FINDINGS: Lungs: No consolidation. No atelectasis. No CHF. Pleural space: No pleural effusion. No pneumothorax. Heart: No cardiomegaly. Mediastinum: Unremarkable. Normal mediastinal contour. Bones/joints: Unremarkable. No acute fracture. IMPRESSION: No acute abnormality.
== END 2024-02-21 04:25 | disposition home or self-care (01) ==
LOC: EC 23:47
CPT/HCPCS: 36415; 71046; 80053; 81003; 82009; 82803; 83735; 84484; 85025; 85379; 85610; 85730; 93005; 96360; 99285

== ENCOUNTER 2024-08-22 00:31 | Observation (INO) | payer OTHER ==
--- NOTE | 2024-08-22 03:04 | ED ---
General Adult HPI - General Chief complaint: Chest Pain Stated complaint: Chest pain, Dizziness Time Seen by Provider: 08/22/24 02:19 Source: patient Mode of arrival: ambulatory Limitations: no limitations - History of Present Illness Initial comments: This is a 54 y/o female, PMH HTN, DM, Fibromyalgia presenting today for fever x 2 days, cough, sore throat and body aches. Cough is nonproductive of sputum or hemoptysis. Denies difficulty in breathing/ shortness of breath to myself. Endorses intermittent sharp left sided chest pain that does not seem to change with positions or ambulation. Notes associated nasal congestion. Last took tylenol yesterday afternoon at 2 PM. - Related Data Home Medications Medication Instructions Recorded Confirmed Venlafaxine HCl [Effexor] 75 mg PO BID 12/25/18 08/22/24 busPIRone HCl [Buspar] 10 mg PO BID 12/25/18 08/22/24 Atorvastatin [Lipitor] 40 mg PO HS 01/21/21 08/22/24 Gabapentin 600 mg PO TID 01/21/21 08/22/24 Hydrocodone/Acetaminophen [Capay 1 tab PO BID 01/21/21 08/22/24 7.5-325] Ibuprofen [Motrin] 600 mg PO TID PRN 01/21/21 08/22/24 rOPINIRole HCL [Requip] 1 mg PO HS 01/21/21 08/22/24 Divalproex Sodium 250 mg PO BID 01/21/23 08/22/24 amLODIPine [Norvasc] 5 mg PO HS 01/21/23 08/22/24 Dapagliflozin Propanediol [Farxiga] 10 mg PO DAILY 08/22/24 08/22/24 Dulaglutide [Trulicity] 3 mg SQ HUTCHINS 08/22/24 08/22/24 Ezetimibe [Zetia] 10 mg PO DAILY 08/22/24 08/22/24 Levothyroxine Sodium [Synthroid] 125 mcg PO DAILY 08/22/24 08/22/24 Metoprolol Tartrate [Lopressor] 25 mg PO BID 08/22/24 08/22/24 Omeprazole 40 mg PO DAILY 08/22/24 08/22/24 Previous Rx's Medication Instructions Recorded Cefdinir [Omnicef] 300 mg PO BID 7 Days #14 cap 08/24/24 dexAMETHasone ORAL [Hexadrol] 4 mg PO DAILY 5 Days #5 tab 08/24/24 Allergies Allergy/AdvReac Type Severity Reaction Status Date / Time codeine Allergy Severe Cardiac Verified 08/22/24 11:25 Arrest meperidine HCl [From Demerol] Allergy Severe Cardiac Verified 08/22/24 11:25 Arrest morphine Allergy Severe Caridac Verified 08/22/24 11:25 Arrest adhesive tape Allergy Rash/Hives Verified 08/22/24 11:25 celery Allergy Oral Verified 08/22/24 11:25 Numbness cinnamon Allergy Anaphylaxis Verified 08/22/24 11:25 diphenhydramine HCl Allergy Anaphylaxis Verified 08/22/24 11:25 [From Benadryl] eucalyptus Allergy Anaphylaxis Verified 08/22/24 11:25 [From [place] Cough Drops] menthol Allergy Anaphylaxis Verified 08/22/24 11:25 [From [place] Cough Drops] naproxen sodium [From Aleve] Allergy Rash/Hives Verified 08/22/24 11:25 nitrofurantoin Allergy Unknown Verified 08/22/24 11:25 macrocrystalline [From Macrodantin] Sulfa (Sulfonamide Allergy Rash/Hives Verified 08/22/24 11:25 Antibiotics) ciprofloxacin [From Cipro] AdvReac Abdominal Verified 08/22/24 11:25 Pain ciprofloxacin HCl AdvReac Abdominal Verified 08/22/24 11:25 [From Cipro] Pain multivitamin Allergy Intermediate Rash/Hives Uncoded 03/31/23 02:23 car exhaust AdvReac Mild Nausea & Uncoded 03/31/23 02:23 Vomiting Review of Systems ROS Statement: Those systems with pertinent positive or pertinent negative responses have been documented in the HPI. ROS Other: All systems not noted in ROS Statement are negative. 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 Neuropathy. Last Myocardial Infarction Date:: Pt does not know. History of Any Multi-Drug Resistant Organisms: None Reported Past Surgical History: Cardiac Ablation, Section, Cholecystectomy, Hernia Repair, Tubal Ligation Additional Past Surgical History / Comment(s): Umbilical hernia repair. Past Anesthesia/Blood Transfusion Reactions: No Reported Reaction Additional Past Anesthesia/Blood Transfusion Reaction / Comment(s): CLAUSTERPHOBIA, Past Psychological History: Anxiety, Panic Disorder Smoking Status: Former smoker Past Alcohol Use History: Occasional Past Drug Use History: None Reported - Past Family History Father Family Medical History: Cancer, Myocardial Infarction ([place]) Additional Family Medical History / Comment(s): AGE 45 FROM [place] Mother Family Medical History: No Reported History Additional Family Medical History / Comment(s): NORMAL-NO PROBLEMS General Exam - General Exam Comments Initial Comments: PE: CONSTITUTIONAL: No apparent distress, well appearing SKIN: Warm, dry, no jaundice, hives or petechiae EYES: Pupils are equally round, extraocular movements intact without nystagmus, clear conjunctiva, non-icteric sclera HENT: Normocephalic, atraumatic, moist mucus membranes, oropharynx clear without exudates, mild posterior oropharyngeal erythema NECK: , Full range of motion, normal appearance PULMONARY: Clear to auscultation without wheezes, rhonchi, or rales, normal excursion, no accessory muscle use and no stridor CARDIOVASCULAR: Regular rate, rhythm, normal S1 and S2. No appreciated murmurs, rubs or gallops. Strong radial pulses with intact distal perfusion. No lower extremity edema GASTROINTESTINAL: Soft, active bowel sounds throughout, non-tender, non- distended, no palpable masses, no rebound or guarding. No hepatosplenomegaly MUSCULOSKELETAL: Extremities have no gross deformity, no edema, redness, or swelling. No calf swelling NEUROLOGIC:_a/o x 3, GCS 15, normal mentation and speech. Moves all extremities x 4 without motor or sensory deficit PSYCHIATRIC:_normal mood and affect, thought process is clear and linear Limitations: no limitations Course Vital Signs 08/22/24 08/22/24 08/22/24 00:32 03:15 03:43 Temperature 98.2 F Pulse Rate 103 H 93 Respiratory 18 Rate Blood Pressure 136/68 131/72 130/69 Blood Pressure [Left Arm] O2 Sat by Pulse 95 Oximetry 08/22/24 08/22/24 08/22/24 06:00 07:16 07:47 Temperature 97.8 F 98.2 F 98.8 F Pulse Rate 86 84 Respiratory 18 18 16 Rate Blood Pressure 114/68 106/55 Blood Pressure 114/66 [Left Arm] O2 Sat by Pulse 93 L 96 94 L Oximetry 08/22/24 08/22/24 08/22/24 10:04 12:22 14:28 Temperature Pulse Rate 84 88 89 Respiratory 12 18 17 Rate Blood Pressure 106/55 110/67 122/69 Blood Pressure [Left Arm] O2 Sat by Pulse 93 L 97 92 L Oximetry 08/22/24 15:15 Temperature 98.6 F Pulse Rate 97 Respiratory 16 Rate Blood Pressure 152/91 Blood Pressure [Left Arm] O2 Sat by Pulse 97 Oximetry EKG Findings - EKG Comments: EKG Findings:: Sinus tachycardia, rate 105 bpm TX interval 150 ms QT/QTc 293/354 ms, no ST elevations or depressions, no arrhythmia,, no STEMI Medical Decision Making - Medical Decision Making Was pt. sent in by a medical professional or institution (, PA, TARIFF EXPERT, urgent care, hospital, or long term...) When possible be specific @ -No Did you speak to anyone other than the patient for history (EMS, parent, family, police, friend...)? What history was obtained from this source @ -No Did you review nursing and triage notes (agree or disagree)? Why? @ -I reviewed nursing and triage notes patient arrives with complaint of bodyaches, sore throat, left-sided chest pain dizziness shortness of breath; of note on my assessment patient endorses only mild dizziness with head movements otherwise I agree with triage note Were old charts reviewed (outside hosp., previous admission, EMS record, old EKG, old radiological studies, urgent care reports/EKG's, long term records)? Report findings @ -Medical records reviewed Differential Diagnosis (chest pain, altered mental status, abdominal pain women, abdominal pain men, vaginal bleeding, weakness, fever, dyspnea, syncope, headache, dizziness, GI bleed, back pain, seizure, CVA, palpatations, mental health, musculoskeletal)? @Differential Chest Pain: Stable Angina, Unstable Angina, STEMI, NSTEMI Aortic Dissection, pericarditis, pleurisy, chostochondirits, Pneumothorax, Musculoskeletal, Esophageal Spasm GERD, Cholecystitis, Pancreatitis, Zoster, this is not meant to be an all-in clusive list. EKG interpreted by me (3pts min.). @ -As above X-rays interpreted by me (1pt min.). Personally viewed chest x-ray, I see no evidence of cardiomegaly, pleural effusions, pneumothorax or obvious consolidation, read by radiologist as atelectasis in the right lung base possible atelectasis versus pneumonia. CT interpreted by me (1pt min.). @ -None done U/S interpreted by me (1pt. min.). @ -None done What testing was considered but not performed or refused? (CT, X-rays, U/S, labs)? Why? CT chest was considered however using Years Algorithm, (No clinical signs of DVT, no hemoptysis, PE is not the most likely diagnosis), D dimer is <1,000 ng/mL FEU (1.00 mg/L FEU), w/ D dimer 0.65, PE can be excluded w/o further evaluation What meds were considered but not given or refused? Why? @ -None Did you discuss the management of the patient with other professionals (professionals i.e. , PA, TARIFF EXPERT, lab, RT, psych nurse, social work nurse, pipe line walker, teacher, commanding officer motorized squad, major case detective)? Give summary @ -No Was smoking cessation discussed for >3mins.? @ -No Was critical care preformed (if so, how long)? @ -No Were there social determinants of health that impacted care today? How? (Homeles sness, low income, unemployed, alcoholism, drug addiction, transportation, low edu. Level, literacy, decrease access to med. care, care home, rehab)? @ -No Was there de-escalation of care discussed even if they declined (Discuss DNR or withdrawal of care, Hospice)? @ -No What co-morbidities impacted this encounter? (DM, HTN, Smoking, COPD, CAD, Cancer, CVA, ARF, Chemo, Hep., AIDS, mental health diagnosis, sleep apnea, morbid obesity)? @Diabetes, hypertension, Fibromyalgia Was patient admitted / discharged? Hospital course, mention meds given and route, prescriptions, significant lab abnormalities, going to OR and other pertinent info. @ Admission- This is a 54-year-old female history diabetes, hypertension, fibromyalgia presenting today for malaise, sore throat, cough, chest pain low-grade fevers at home. On my assessment patient is well-appearing in no acute distress. Lungs are clear to auscultation bilaterally, normal S1-S2 on cardiac exam, no lower extremity swelling. Plan for chest pain labs, strep testing, Cepheid testing, chest x-ray IV fluids Toradol and Tylenol. Initial troponin is within normal limits though not undetectable at 0.016 for this reason we will obtain a repeat. D-dimer 0.65. Using years algorithm PE can be ruled out without further imaging. On reassessment patient has pulse ox 86% while resting. With conversation does rise to 91%. Patient breathing comfortably at this time. I had pt ambulate at bedside and pulse ox decreased to 88% intermittently and pt endorsed lightheadedness. I discussed with patient discharge with prescription for oral doxycycline to trial outpatient treatment of pneumonia given her pulse ox does rise to 91-93% quickly with rest vs admission for observation. Patient would feel more comfortable with admission so will admit for obs for pneumonia. Case discussed w/ Dr. Morales, kindly accepts pt for admission. Undiagnosed new problem with uncertain prognosis? @ -No Drug Therapy requiring intensive monitoring for toxicity (Heparin, Nitro, Insulin, Cardizem)? @ -No Were any procedures done? @ -No Diagnosis/symptom? @ Community Acquired PNA Acute, or Chronic, or Acute on Chronic? @ acute Uncomplicated (without systemic symptoms) or Complicated (systemic symptoms)? complicated Side effects of treatment? @ -No Exacerbation, Progression, or Severe Exacerbation? @ -No Poses a threat to life or bodily function? How? (Chest pain, [place], [place], pneumonia, PE, COPD, DKA, ARF, appy, cholecystitis, CVA, Diverticulitis, Homicidal, Suicidal, threat to staff... and all critical care pts) @ -Potentially, pt borderline hypoxemic and symptomatic w/ ambulation, if left untreated could progress to hypoxemic respiratory failure and - Lab Data Result diagrams: 08/22/24 03:02 08/22/24 03:02 Lab Results 03/13/25 03/13/25 03/13/25 Range/Units 03:02 03:02 03:02 WBC 10.0 (3.8-10.6) k/uL RBC 3.90 (3.80-5.40) m/uL Hgb 12.3 (11.4-16.0) gm/dL Hct 37.2 (34.0-46.0) % MCV 95.3 (80.0-100.0) fL MCH 31.5 (25.0-35.0) pg MCHC 33.1 (31.0-37.0) g/dL RDW 13.3 (11.5-15.5) % Plt Count 182 (150-450) k/uL MPV 7.7 Neutrophils % 83 % Lymphocytes % 13 % Monocytes % 3 % Eosinophils % 1 % Basophils % 0 % Neutrophils # 8.2 H (1.3-7.7) k/uL Lymphocytes # 1.3 (1.0-4.8) k/uL Monocytes # 0.3 (0-1.0) k/uL Eosinophils # 0.1 (0-0.7) k/uL Basophils # 0.0 (0-0.2) k/uL PT 10.0 (10.0-12.5) sec INR 0.9 (<1.2) APTT 22.6 (22.0-30.0) sec D-Dimer (<0.60) mg/L FEU Sodium 132 L (137-145) mmol/L Potassium 3.9 (3.5-5.1) mmol/L Chloride 97 L (98-107) mmol/L Carbon Dioxide 25 (22-30) mmol/L Anion Gap 10 mmol/L BUN 9 (7-17) mg/dL Creatinine 0.52 (0.52-1.04) mg/dL Est GFR (CKD-EPI)AfAm >90 (>60 ml/min/1.73 sqM) Est GFR (CKD-EPI)NonAf >90 (>60 ml/min/1.73 sqM) Glucose 308 H (74-99) mg/dL Calcium 8.7 (8.4-10.2) mg/dL Magnesium 2.0 (1.6-2.3) mg/dL Total Bilirubin 1.2 (0.2-1.3) mg/dL AST 21 (14-36) U/L ALT 16 (4-34) U/L Alkaline Phosphatase 118 (38-126) U/L Troponin I (0.000-0.034) ng/mL NT-Pro-B Natriuret Pep 309 pg/mL Total Protein 6.1 L (6.3-8.2) g/dL Albumin 3.5 (3.5-5.0) g/dL Lipase 54 (23-300) U/L Influenza Type A (PCR) (Not Detectd) Influenza Type B (PCR) (Not Detectd) RSV (PCR) (Not Detectd) SARS-CoV-2 (PCR) (Not Detectd) Group A Strep (PCR) (Not Detectd) 08/22/24 08/22/24 08/22/24 Range/Units 03:02 03:51 03:57 WBC (3.8-10.6) k/uL RBC (3.80-5.40) m/uL Hgb (11.4-16.0) gm/dL Hct (34.0-46.0) % MCV (80.0-100.0) fL MCH (25.0-35.0) pg MCHC (31.0-37.0) g/dL RDW (11.5-15.5) % Plt Count (150-450) k/uL MPV Neutrophils % % Lymphocytes % % Monocytes % % Eosinophils % % Basophils % % Neutrophils # (1.3-7.7) k/uL Lymphocytes # (1.0-4.8) k/uL Monocytes # (0-1.0) k/uL Eosinophils # (0-0.7) k/uL Basophils # (0-0.2) k/uL PT (10.0-12.5) sec INR (<1.2) APTT (22.0-30.0) sec D-Dimer (<0.60) mg/L FEU Sodium (137-145) mmol/L Potassium (3.5-5.1) mmol/L Chloride (98-107) mmol/L Carbon Dioxide (22-30) mmol/L Anion Gap mmol/L BUN (7-17) mg/dL Creatinine (0.52-1.04) mg/dL Est GFR (CKD-EPI)AfAm (>60 ml/min/1.73 sqM) Est GFR (CKD-EPI)NonAf (>60 ml/min/1.73 sqM) Glucose (74-99) mg/dL Calcium (8.4-10.2) mg/dL Magnesium (1.6-2.3) mg/dL Total Bilirubin (0.2-1.3) mg/dL AST (14-36) U/L ALT (4-34) U/L Alkaline Phosphatase (38-126) U/L Troponin I 0.016 (0.000-0.034) ng/mL NT-Pro-B Natriuret Pep pg/mL Total Protein (6.3-8.2) g/dL Albumin (3.5-5.0) g/dL Lipase (23-300) U/L Influenza Type A (PCR) Not Detected (Not Detectd) Influenza Type B (PCR) Not Detected (Not Detectd) RSV (PCR) Not Detected (Not Detectd) SARS-CoV-2 (PCR) Not Detected (Not Detectd) Group A Strep (PCR) NOT DETECTED (Not Detectd) 08/22/24 08/22/24 Range/Units 06:18 06:18 WBC (3.8-10.6) k/uL RBC (3.80-5.40) m/uL Hgb (11.4-16.0) gm/dL Hct (34.0-46.0) % MCV (80.0-100.0) fL MCH (25.0-35.0) pg MCHC (31.0-37.0) g/dL RDW (11.5-15.5) % Plt Count (150-450) k/uL MPV Neutrophils % % Lymphocytes % % Monocytes % % Eosinophils % % Basophils % % Neutrophils # (1.3-7.7) k/uL Lymphocytes # (1.0-4.8) k/uL Monocytes # (0-1.0) k/uL Eosinophils # (0-0.7) k/uL Basophils # (0-0.2) k/uL PT (10.0-12.5) sec INR (<1.2) APTT (22.0-30.0) sec D-Dimer 0.65 H (<0.60) mg/L FEU Sodium (137-145) mmol/L Potassium (3.5-5.1) mmol/L Chloride (98-107) mmol/L Carbon Dioxide (22-30) mmol/L Anion Gap mmol/L BUN (7-17) mg/dL Creatinine (0.52-1.04) mg/dL Est GFR (CKD-EPI)AfAm (>60 ml/min/1.73 sqM) Est GFR (CKD-EPI)NonAf (>60 ml/min/1.73 sqM) Glucose (74-99) mg/dL Calcium (8.4-10.2) mg/dL Magnesium (1.6-2.3) mg/dL Total Bilirubin (0.2-1.3) mg/dL AST (14-36) U/L ALT (4-34) U/L Alkaline Phosphatase (38-126) U/L Troponin I 0.018 (0.000-0.034) ng/mL NT-Pro-B Natriuret Pep pg/mL Total Protein (6.3-8.2) g/dL Albumin (3.5-5.0) g/dL Lipase (23-300) U/L Influenza Type A (PCR) (Not Detectd) Influenza Type B (PCR) (Not Detectd) RSV (PCR) (Not Detectd) SARS-CoV-2 (PCR) (Not Detectd) Group A Strep (PCR) (Not Detectd) Disposition Clinical Impression: Community acquired bacterial pneumonia Disposition: ADMITTED IP TO THIS HOSP Condition: Stable
[2024-08-22] MEDS: SODIUM CHLORIDE 0.9% 1,000 ML IV ONE (03:14)
[2024-08-22] MEDS: ACETAMINOPHEN TAB 500 MG TAB PO STA (03:18)
[2024-08-22] MEDS: KETOROLAC 15 MG/ML 1 ML VIAL IVP STA (03:19)
[2024-08-22 03:26] LABS: Basophils % (A) 0 %; Eosinophils # (A) 0.1 k/uL (0-0.7); Eosinophils % (A) 1 %; HCT 37.2 % (34.0-46.0); HGB 12.3 gm/dL (11.4-16.0); Lymphocytes # (A) 1.3 k/uL (1.0-4.8); Lymphocytes % (A) 13 %; MCH 31.5 pg (25.0-35.0); MCHC 33.1 g/dL (31.0-37.0); MCV 95.3 fL (80.0-100.0); Mean Platelet Volume 7.7; Monocytes # (A) 0.3 k/uL (0-1.0); Monocytes % (A) 3 %; Neutrophils # (A) 8.2 k/uL (1.3-7.7); Neutrophils % (A) 83 %; Platelet Count 182 k/uL (150-450); RDW 13.3 % (11.5-15.5)
[2024-08-22 03:35] LABS: INR 0.9 (<1.2); Partial Thromboplastin Time 22.6 sec (22.0-30.0)
[2024-08-22 03:54] LABS: ALT 16 U/L (4-34); AST 21 U/L (14-36); African American GFR (CKD) >90 (>60 ml/min/1.73 sqM); Albumin 3.5 g/dL (3.5-5.0); Alkaline Phosphatase 118 U/L (38-126); Anion Gap 10 mmol/L; Blood Urea Nitrogen 9 mg/dL (7-17); Calcium 8.7 mg/dL (8.4-10.2); Carbon Dioxide 25 mmol/L (22-30); Chloride 97 mmol/L (98-107); Glucose 308 mg/dL (74-99); Lipase 54 U/L (23-300); Non-African American GFR(CKD) >90 (>60 ml/min/1.73 sqM); Potassium 3.9 mmol/L (3.5-5.1); Sodium 132 mmol/L (137-145); Total Bilirubin 1.2 mg/dL (0.2-1.3); Total Protein 6.1 g/dL (6.3-8.2)
[2024-08-22 04:03] LABS: NT-Pro-B-Type Natriuretic Pept 309 pg/mL
[2024-08-22 04:35] LABS: Influenza A Not Detected (Not Detectd); Influenza B Not Detected (Not Detectd); RSV Not Detected (Not Detectd)
--- NOTE | 2024-08-22 05:22 | XR ---
EXAM: XR Chest, 2 Views CLINICAL HISTORY: Pt arrives with c/o body aches, sore throat, left sided chest pain, dizziness, sob and dizziness. TECHNIQUE: Frontal and lateral views of the chest. COMPARISON: 02/21/2024 FINDINGS: Lungs: Small amount of airspace opacities over right lower lung zone. Pleural space: Unremarkable. Mediastinum: Unremarkable. Normal mediastinal contour. Bones/joints: No acute findings. IMPRESSION: Small amount of right basilar atelectasis and/or pneumonia
[2024-08-22] MEDS: DOXYCYCLINE 100 MG TABLET PO ONE (06:44)
[2024-08-22] MEDS ORDERED: PNEUMONIA PROTOCOL UTILIZED 1 EACH MISC PO PRN (07:03)
[2024-08-22] MEDS: SODIUM CHLORIDE 0.9% 1,000 ML IV SCH (07:59)
[2024-08-22] MEDS: HEPARIN SODIUM,PORCINE 5,000 UNIT/ML 1 ML VIAL SQ SCH (08:03)
[2024-08-22] MEDS: methylPREDNISolone SOD SUCCI 40 MG/ML 1 ML VIAL IV SCH (18:14)
[2024-08-22] MEDS: IBUPROFEN 600 MG TAB PO PRN (18:14)
[2024-08-22] MEDS: IPRATROPIUM-ALBUTEROL 3 ML NEB INHALATION SCH (18:44)
[2024-08-22] MEDS: AZITHROMYCIN 500 MG in SODIUM CHLORIDE 0.9% 250 ML IVPB SCH (18:46)
--- NOTE | 2024-08-22 19:01 | CT ---
EXAMINATION TYPE: CT angio chest DATE OF EXAM: 08/22/2024 COMPARISON: 05/31/2023 CLINICAL INDICATION: Female, 54 years old with history of d-dimer high, Elevated D-dimer., TECHNIQUE: CTA scan of the thorax is performed with IV Contrast, patient injected with 100 ml mL of Isovue 370, pulmonary embolism protocol. MIP Images are created on CT scanner and reviewed. CT DLP: 544.5 mGycm. Automated Exposure Control for Dose Reduction was Utilized. FINDINGS: LUNGS: There is mild to moderate linear scarring anteriorly in the mid aspect of both lungs. No suspi cious focal consolidation. There is no pleural effusion or pneumothorax seen. The tracheobronchial tree is patent. HEART: Size within normal limits. No significant coronary artery calcifications. MEDIASTINUM: Suboptimal study with most dense contrast in the SVC. No Central acute pulmonary embolis m. There are no new greater than 1 cm hilar or mediastinal lymph nodes. Satisfactory enhancement of t he aorta without aneurysm or dissection. No cardiomegaly or pericardial effusion is seen. OTHER: Visualized liver is hypodense suggesting diffuse fatty infiltration.. IMPRESSION: Suboptimal study without acute central pulmonary embolism. No suspicious acute pulmonary process. [facility], , 08/22/2024 6:59 PM
[2024-08-22] MEDS: GABAPENTIN 300 MG CAP PO SCH (21:15)
[2024-08-22] MEDS: HYDROcodone/APAP 7.5-325MG 1 EACH TAB PO SCH (21:15)
[2024-08-22] MEDS: DIVALPROEX 250 MG TABLET.DR PO SCH (21:16)
[2024-08-22] MEDS: METOPROLOL TARTRATE 25 MG TAB PO SCH (21:16)
[2024-08-22] MEDS: amLODIPine 5 MG TAB PO SCH (21:16)
[2024-08-22] MEDS: ATORVASTATIN 40 MG TAB PO SCH (21:16)
[2024-08-22] MEDS: VENLAFAXINE HCL 75 MG TAB PO SCH (21:16)
[2024-08-22] MEDS: busPIRone HCl 10 MG TAB PO SCH (21:16)
[2024-08-22] MEDS: guaiFENesin SYRUP 100MG/5ML 200 MG/10 ML CUP PO PRN (21:17)
--- NOTE | 2024-08-22 21:45 | HP ---
HISTORY AND PHYSICAL HISTORY OF PRESENT ILLNESS: A 54-year-old white female with fibromyalgia, diabetes, hypertension. She had fever for 2 days, body aches, coughing, cold, shortness of breath, left-sided chest pain, palpitation on ambulation, nasal congestion. HOME MEDICINES: 1. Effexor 75 b.i.d. 2. BuSpar 10 daily. 3. Lipitor 40 daily. 4. Gabapentin 600 t.i.d. 5. [place] 7.5 b.i.d. 6. Metformin 1000 b.i.d. 7. Requip 1 mg at night. 8. Farxiga 5 mg daily. 9. Valproic acid 250 b.i.d. 10.Synthroid 150 daily. 11.Norvasc 5 mg daily. ALLERGIES: Please see further old notes. REVIEW OF SYSTEMS: 14-point review of systems otherwise negative. PAST MEDICAL HISTORY: Diabetes mellitus, fibromyalgia, GERD, dyslipidemia, hypertension, coronary artery disease, osteoarthritis, seizure disorder, SVT, hypothyroidism. PAST SURGICAL HISTORY: Cardiac ablation, , cholecystectomy, hernia repair, tubal ligation, anxiety and depression. FAMILY HISTORY: Father myocardial infarction and mother negative. PHYSICAL EXAMINATION: VITAL SIGNS: Temperature 98.2, pulse 103, respiratory rate 18 to 20, blood pressure 130s over 60s, O2 95. CARDIOVASCULAR: S1 and S2. LUNGS: Scattered wheeze and rhonchi. HEMATOLOGY: Negative for Homans. PSYCH: Fair mood and affect. GI: Soft. HEENT: Normocephalic, atraumatic. SKIN: Dry skin turgor. LABORATORY DATA: EKG, sinus tachycardia. Sodium 132, potassium 3.9, BUN is 9, creatinine is 0.52. White count is 10, hemoglobin is 12.3. D-dimer is 0.65. Community-acquired pneumonia on chest x-ray, possibly do a CAT scan of her chest. Continue broad-spectrum antibiotics, steroids, and inhalers. Prognosis is guarded. MMODL / IJN: [id number] /
[2024-08-23] MEDS: LEVOTHYROXINE 125 MCG TAB PO SCH (06:07)
[2024-08-23] MEDS: PANTOPRAZOLE 40 MG TABLET PO SCH (08:51)
[2024-08-23] MEDS: DAPAGLIFLOZIN PROPANEDIOL 10 MG TABLET PO SCH (08:51)
[2024-08-23] MEDS: EZETIMIBE 10 MG TAB PO SCH (08:52)
[2024-08-23 20:31] VITALS: RESP 16
[2024-08-24 07:57] VITALS: BP 125/82; TEMP 97.5
[2024-08-24 08:17] VITALS: PULSE 70
[2024-08-24] MEDS ORDERED: ALBUTEROL NEBULIZED 2.5 MG/3 ML INHALATION PRN (08:19)
[2024-08-24] MEDS ORDERED: CEFDINIR 300 MG CAP PO SCH (21:00)
[2024-08-25] MEDS ORDERED: PATIENT'S OWN (Dulaglutide [Trulicity] 3 MG/0.5 ML Each) SQ SCH (09:00)
[2024-08-25] MEDS ORDERED: dexAMETHasone 4 MG TAB PO SCH (09:00)
== END 2024-08-24 13:46 | disposition home or self-care (01) ==
LOC: EC 00:31 → 6NMEDSUR 07:06
PROVIDERS: ADMIT Family Medicine; ATTEND Family Medicine
DX: J18.9 Pneumonia, unspecified organism (principal); E11.9 Type 2 diabetes mellitus without complications; I10 Essential (primary) hypertension; M79.7 Fibromyalgia; Z11.52 Encounter for screening for COVID-19; Z11.59 Encounter for screening for other viral diseases; Z79.84 Long term (current) use of oral hypoglycemic drugs; Z79.890 Hormone replacement therapy; Z79.85 Long-term (current) use of injectable non-insulin antidiabetic drugs; Z79.899 Other long term (current) drug therapy; Z79.891 Long term (current) use of opiate analgesic; Z88.1 Allergy status to other antibiotic agents; Z88.5 Allergy status to narcotic agent; Z88.6 Allergy status to analgesic agent; Z88.2 Allergy status to sulfonamides; Z88.8 Allergy status to other drugs, medicaments and biological substances; Z91.018 Allergy to other foods; Z91.048 Other nonmedicinal substance allergy status; Z87.891 Personal history of nicotine dependence
CPT/HCPCS: 96376 ×2; 96361 ×4; 96366 ×4; 96367; 96372 ×4; 96375 ×2; 96365; 99285; 36415; 94640 ×4; 94760 ×2; 93005; 87651; 85379; 83880; 80053; 87449; 83690; 83735; 84484; 85025; 85610; 85730; 87636; 71046; 71275; G0378 ×3; J1644 ×3; J0456 ×3; J0696 ×4; J1885; Q9967; J2919 ×3

== ENCOUNTER 2024-09-13 09:20 | Emergency (ER) | payer OTHER ==
[2024-09-13 09:26] VITALS: TEMP 98.3
--- NOTE | 2024-09-13 09:42 | ED ---
General Adult HPI - General Chief complaint: Shortness of Breath Stated complaint: ROSARIO Time Seen by Provider: 09/13/24 09:29 Source: patient, RN notes reviewed Mode of arrival: wheelchair - History of Present Illness Initial comments: 54-year-old female with multiple comorbid conditions including diabetes, hypertension, epilepsy presenting to the emergency department with chief co mplaint of URI symptoms. Patient states that she has been experiencing cough, chest congestion, bilateral ear pain, congestion over the past few weeks. Patient was hospitalized for pneumonia and followed up last week with her primary care provider. Patient states that she had a repeat x-ray which revealed that her pneumonia was still mildly present however was not continued on antibiotics. States that her symptoms have worsened. She endorses chest pain with deep inspiration and with coughing however denies difficulty in breathing. - Related Data Home Medications Medication Instructions Recorded Confirmed Venlafaxine HCl [Effexor] 75 mg PO BID 12/25/18 09/13/24 busPIRone HCl [Buspar] 10 mg PO BID 12/25/18 09/13/24 Atorvastatin [Lipitor] 40 mg PO HS 01/21/21 09/13/24 Gabapentin 600 mg PO TID 01/21/21 09/13/24 Hydrocodone/Acetaminophen [[place] 1 tab PO BID 01/21/21 09/13/24 7.5-325] Ibuprofen [Motrin] 600 mg PO TID PRN 01/21/21 09/13/24 rOPINIRole HCL [Requip] 1 mg PO HS 01/21/21 09/13/24 Divalproex Sodium 250 mg PO BID 01/21/23 09/13/24 amLODIPine [Norvasc] 5 mg PO HS 01/21/23 09/13/24 Dapagliflozin Propanediol [Farxiga] 10 mg PO DAILY 08/22/24 09/13/24 Dulaglutide [Trulicity] 3 mg SQ HUTCHINS 08/22/24 09/13/24 Ezetimibe [Zetia] 10 mg PO DAILY 08/22/24 09/13/24 Levothyroxine Sodium [Synthroid] 125 mcg PO DAILY 08/22/24 09/13/24 Metoprolol Tartrate [Lopressor] 25 mg PO BID 08/22/24 09/13/24 Omeprazole 40 mg PO BID 08/22/24 09/13/24 Previous Rx's Medication Instructions Recorded Amoxic-Pot Clav 875-125Mg 1 tab PO Q12HR #20 tab 09/13/24 [Augmentin 875-125] Allergies Allergy/AdvReac Type Severity Reaction Status Date / Time codeine Allergy Severe Cardiac Verified 09/13/24 10:28 Arrest meperidine HCl [From Demerol] Allergy Severe Cardiac Verified 09/13/24 10:28 Arrest morphine Allergy Severe Caridac Verified 09/13/24 10:28 Arrest adhesive tape Allergy Rash/Hives Verified 09/13/24 10:28 celery Allergy Oral Verified 09/13/24 10:28 Numbness cinnamon Allergy Anaphylaxis Verified 09/13/24 10:28 diphenhydramine HCl Allergy Anaphylaxis Verified 09/13/24 10:28 [From Benadryl] eucalyptus Allergy Anaphylaxis Verified 09/13/24 10:28 [From Reserve Cough Drops] menthol Allergy Anaphylaxis Verified 09/13/24 10:28 [From Reserve Cough Drops] naproxen sodium [From Aleve] Allergy Rash/Hives Verified 09/13/24 10:28 nitrofurantoin Allergy Unknown Verified 09/13/24 10:28 macrocrystalline [From Macrodantin] Sulfa (Sulfonamide Allergy Rash/Hives Verified 09/13/24 10:28 Antibiotics) ciprofloxacin [From Cipro] AdvReac Abdominal Verified 09/13/24 10:28 Pain ciprofloxacin HCl AdvReac Abdominal Verified 09/13/24 10:28 [From Cipro] Pain multivitamin Allergy Intermediate Rash/Hives Uncoded 09/13/24 09:27 car exhaust AdvReac Mild Nausea & Uncoded 09/13/24 09:27 Vomiting Review of Systems ROS Statement: Those systems with pertinent positive or pertinent negative responses have been documented in the HPI. ROS Other: All systems not noted in ROS Statement are negative. 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 Neuropathy. Last Myocardial Infarction Date:: Pt does not know. History of Any Multi-Drug Resistant Organisms: None Reported Past Surgical History: Cardiac Ablation, Section, Cholecystectomy, Hernia Repair, Tubal Ligation Additional Past Surgical History / Comment(s): Umbilical hernia repair. Past Anesthesia/Blood Transfusion Reactions: No Reported Reaction Additional Past Anesthesia/Blood Transfusion Reaction / Comment(s): CLAUSTERPHOBIA, Past Psychological History: Anxiety, Panic Disorder Smoking Status: Former smoker Past Alcohol Use History: Occasional Past Drug Use History: None Reported - Past Family History Father Family Medical History: Cancer, Myocardial Infarction ([place]) Additional Family Medical History / Comment(s): AGE 45 FROM [place] Mother Family Medical History: No Reported History Additional Family Medical History / Comment(s): NORMAL-NO PROBLEMS General Exam General appearance: alert, in no apparent distress ENT exam: Present: normal exam, mucous membranes moist Expanded TM/Canal exam: Erythema: Left TM, Bulging: Left TM Neck exam: Present: normal inspection. Absent: tenderness, meningismus, lymphadenopathy Respiratory exam: Present: normal lung sounds bilaterally. Absent: respiratory distress, wheezes, rales, rhonchi, stridor Cardiovascular Exam: Present: regular rate, normal rhythm, normal heart sounds. Absent: systolic murmur, diastolic murmur, rubs, gallop, clicks GI/Abdominal exam: Present: soft, normal bowel sounds. Absent: distended, tenderness, guarding, rebound, rigid Extremities exam: Present: normal inspection, full ROM, normal capillary refill. Absent: tenderness, pedal edema, joint swelling, calf tenderness Back exam: Present: normal inspection Skin exam: Present: warm, dry, intact, normal color. Absent: rash Course Vital Signs 09/13/24 09/13/24 09:22 12:01 Temperature 98.3 F Pulse Rate 102 H 74 Respiratory 18 17 Rate Blood Pressure 143/82 115/78 O2 Sat by Pulse 96 96 Oximetry Medical Decision Making - Medical Decision Making Was pt. sent in by a medical professional or institution (, PA, HUMAN CAPITAL MANAGER, urgent care, hospital, or [facility]...) When possible be specific @ -No Did you speak to anyone other than the patient for history (EMS, parent, family, police, friend...)? What history was obtained from this source @ -No Did you review nursing and triage notes (agree or disagree)? Why? @ -I reviewed and agree with nursing and triage notes Were old charts reviewed (outside hosp., previous admission, EMS record, old EKG, old radiological studies, urgent care reports/EKG's, [facility] records)? Report findings @ -No old charts were reviewed Differential Diagnosis (chest pain, altered mental status, abdominal pain women, abdominal pain men, vaginal bleeding, weakness, fever, dyspnea, syncope, headache, dizziness, GI bleed, back pain, seizure, CVA, palpatations, mental health, musculoskeletal)? @ -Differential Dyspnea: Coronary syndrome, arrhythmia, tamponade, asthma, COPD, pulmonary embolism, pneumonia, pneumothorax, pulmonary effusion, anaphylaxis, diabetic ketoacidosis, flailed chest, pulmonary contusion, diaphragmatic rupture, anemia, neuromuscular, this is not meant to be an all-inclusive list. EKG interpreted by me (3pts min.). @ -Completed at 947 sinus rhythm with a ventricular rate of 90, SC interval 124, QRS 80, QTc 396. X-rays interpreted by me (1pt min.). @ -None done CT interpreted by me (1pt min.). @ -None done U/S interpreted by me (1pt. min.). @ -None done What testing was considered but not performed or refused? (CT, X-rays, U/S, labs)? Why? @ -None What meds were considered but not given or refused? Why? @ -None Did you discuss the management of the patient with other professionals (professionals i.e. , PA, HUMAN CAPITAL MANAGER, lab, RT, psych nurse, social worker palliative care, yarn bleaching machine operator, teacher, operations officer, shoe caser)? Give summary @ -No Was smoking cessation discussed for >3mins.? @ -No Was critical care preformed (if so, how long)? @ -No Were there social determinants of health that impacted care today? How? (Homelessness, low income, unemployed, alcoholism, drug addiction, ann sportation, low edu. Level, literacy, decrease access to med. care, fdc, rehab)? @ -No Was there de-escalation of care discussed even if they declined (Discuss DNR or withdrawal of care, Hospice)? DNR status @ -No What co-morbidities impacted this encounter? (DM, HTN, Smoking, COPD, CAD, Cancer, CVA, ARF, Chemo, Hep., AIDS, mental health diagnosis, sleep apnea, morbid obesity)? @ -None Was patient admitted / discharged? Hospital course, mention meds given and route, prescriptions, significant lab abnormalities, going to OR and other pertinent info. @ -Discharge. 54-year-old female presents emergency department with URI symptoms. Patient's left TM on exam was noted to be erythematous and bulging with mild purulence consistent with a otitis media. Lung sounds are equal and clear bilaterally. Patient is not hypoxic and no signs of respiratory distress. EKG sinus rhythm. Laboratory test including CBC, CMP, viral testing and troponin within normal. Patient is noted to have hyperglycemia of 453 and provided with insulin, SQ. Chest x-ray no acute process. Patient will be treated for otitis media with Augmentin. Case discussed with Dr. Rebollar Undiagnosed new problem with uncertain prognosis? @ -No Drug Therapy requiring intensive monitoring for toxicity (Heparin, Nitro, Insulin, Cardizem)? @ -No Were any procedures done? @ -No Diagnosis/symptom? @ -Otitis media Acute, or Chronic, or Acute on Chronic? @ -Acute Uncomplicated (without systemic symptoms) or Complicated (systemic symptoms)? @ -Uncomplicated Side effects of treatment? @ -No Exacerbation, Progression, or Severe Exacerbation? @ -No Poses a threat to life or bodily function? How? (Chest pain, [place], [place], pneumonia, PE, COPD, DKA, ARF, appy, cholecystitis, CVA, Diverticulitis, Homicidal, Suic idal, threat to staff... and all critical care pts) @ -No - Lab Data Result diagrams: 09/13/24 09:41 09/13/24 09:41 Lab Results 09/13/24 09/13/24 09/13/24 Range/Units 09:41 09:41 09:41 WBC 5.6 (3.8-10.6) k/uL RBC 4.47 (3.80-5.40) m/uL Hgb 14.3 (11.4-16.0) gm/dL Hct 42.8 (34.0-46.0) % MCV 95.7 (80.0-100.0) fL MCH 32.0 (25.0-35.0) pg MCHC 33.5 (31.0-37.0) g/dL RDW 13.3 (11.5-15.5) % Plt Count 121 L (150-450) k/uL MPV 7.2 Neutrophils % 67 % Lymphocytes % 23 % Monocytes % 6 % Eosinophils % 3 % Basophils % 1 % Neutrophils # 3.7 (1.3-7.7) k/uL Lymphocytes # 1.3 (1.0-4.8) k/uL Monocytes # 0.3 (0-1.0) k/uL Eosinophils # 0.2 (0-0.7) k/uL Basophils # 0.0 (0-0.2) k/uL PT 9.9 L (10.0-12.5) sec INR 0.9 (<1.2) APTT 21.6 L (22.0-30.0) sec Sodium 133 L (137-145) mmol/L Potassium 3.7 (3.5-5.1) mmol/L Chloride 98 (98-107) mmol/L Carbon Dioxide 24 (22-30) mmol/L Anion Gap 11 mmol/L BUN 8 (7-17) mg/dL Creatinine 0.52 (0.52-1.04) mg/dL Est GFR (CKD-EPI)AfAm >90 (>60 ml/min/1.73 sqM) Est GFR (CKD-EPI)NonAf >90 (>60 ml/min/1.73 sqM) Glucose 453 H (74-99) mg/dL POC Glucose (mg/dL) (70-110) mg/dL POC Glu Business Continuity Planner ID Calcium 8.8 (8.4-10.2) mg/dL Magnesium 1.8 (1.6-2.3) mg/dL Total Bilirubin 0.9 (0.2-1.3) mg/dL AST 15 (14-36) U/L ALT 17 (4-34) U/L Alkaline Phosphatase 142 H (38-126) U/L Troponin I (0.000-0.034) ng/mL Total Protein 6.2 L (6.3-8.2) g/dL Albumin 3.9 (3.5-5.0) g/dL Influenza Type A (PCR) (Not Detectd) Influenza Type B (PCR) (Not Detectd) RSV (PCR) (Not Detectd) SARS-CoV-2 (PCR) (Not Detectd) 09/13/24 09/13/24 09/13/24 Range/Units 09:41 09:42 11:54 WBC (3.8-10.6) k/uL RBC (3.80-5.40) m/uL Hgb (11.4-16.0) gm/dL Hct (34.0-46.0) % MCV (80.0-100.0) fL MCH (25.0-35.0) pg MCHC (31.0-37.0) g/dL RDW (11.5-15.5) % Plt Count (150-450) k/uL MPV Neutrophils % % Lymphocytes % % Monocytes % % Eosinophils % % Basophils % % Neutrophils # (1.3-7.7) k/uL Lymphocytes # (1.0-4.8) k/uL Monocytes # (0-1.0) k/uL Eosinophils # (0-0.7) k/uL Basophils # (0-0.2) k/uL PT (10.0-12.5) sec INR (<1.2) APTT (22.0-30.0) sec Sodium (137-145) mmol/L Potassium (3.5-5.1) mmol/L Chloride (98-107) mmol/L Carbon Dioxide (22-30) mmol/L Anion Gap mmol/L BUN (7-17) mg/dL Creatinine (0.52-1.04) mg/dL Est GFR (CKD-EPI)AfAm (>60 ml/min/1.73 sqM) Est GFR (CKD-EPI)NonAf (>60 ml/min/1.73 sqM) Glucose (74-99) mg/dL POC Glucose (mg/dL) 413 H (70-110) mg/dL POC Glu Business Continuity Planner ID September Calcium (8.4-10.2) mg/dL Magnesium (1.6-2.3) mg/dL Total Bilirubin (0.2-1.3) mg/dL AST (14-36) U/L ALT (4-34) U/L Alkaline Phosphatase (38-126) U/L Troponin I <0.012 (0.000-0.034) ng/mL Total Protein (6.3-8.2) g/dL Albumin (3.5-5.0) g/dL Influenza Type A (PCR) Not Detected (Not Detectd) Influenza Type B (PCR) Not Detected (Not Detectd) RSV (PCR) Not Detected (Not Detectd) SARS-CoV-2 (PCR) Not Detected (Not Detectd) Disposition Clinical Impression: Otitis media Disposition: HOME SELF-CARE Condition: Good Instructions (If sedation given, give patient instructions): Ear Infection (ED) Additional Instructions: Please return to the Emergency Department if symptoms worsen or any other concerns. Prescriptions: Amoxic-Pot Clav 875-125Mg [Augmentin 875-125] 1 tab PO Q12HR #20 tab Is patient prescribed a controlled substance at d/c from ED?: No Referrals: Og Oliva MD [Primary Care Provider] - 1-2 days Time of Disposition: 11:19
[2024-09-13 10:33] LABS: ALT 17 U/L (4-34); AST 15 U/L (14-36); African American GFR (CKD) >90 (>60 ml/min/1.73 sqM); Albumin 3.9 g/dL (3.5-5.0); Alkaline Phosphatase 142 U/L (38-126); Anion Gap 11 mmol/L; Blood Urea Nitrogen 8 mg/dL (7-17); Calcium 8.8 mg/dL (8.4-10.2); Carbon Dioxide 24 mmol/L (22-30); Chloride 98 mmol/L (98-107); Glucose 453 mg/dL (74-99); Magnesium 1.8 mg/dL (1.6-2.3); Non-African American GFR(CKD) >90 (>60 ml/min/1.73 sqM); Potassium 3.7 mmol/L (3.5-5.1); Sodium 133 mmol/L (137-145); Total Bilirubin 0.9 mg/dL (0.2-1.3); Total Protein 6.2 g/dL (6.3-8.2)
[2024-09-13 10:36] LABS: Basophils % (A) 1 %; Eosinophils # (A) 0.2 k/uL (0-0.7); Eosinophils % (A) 3 %; HCT 42.8 % (34.0-46.0); HGB 14.3 gm/dL (11.4-16.0); Lymphocytes # (A) 1.3 k/uL (1.0-4.8); Lymphocytes % (A) 23 %; MCHC 33.5 g/dL (31.0-37.0); MCV 95.7 fL (80.0-100.0); Mean Platelet Volume 7.2; Monocytes # (A) 0.3 k/uL (0-1.0); Monocytes % (A) 6 %; Neutrophils # (A) 3.7 k/uL (1.3-7.7); Neutrophils % (A) 67 %; Platelet Count 121 k/uL (150-450); RBC 4.47 m/uL (3.80-5.40); RDW 13.3 % (11.5-15.5); WBC 5.6 k/uL (3.8-10.6)
[2024-09-13 10:38] LABS: INR 0.9 (<1.2); Prothrombin Time 9.9 sec (10.0-12.5)
--- NOTE | 2024-09-13 10:42 | XR ---
EXAMINATION TYPE: XR chest 2V DATE OF EXAM: 09/13/2024 CLINICAL INDICATION: Female, 54 years old with history of difficulty breathing, TECHNIQUE: Frontal and lateral views of the chest are obtained. COMPARISON: CTA chest August 22, 2024 FINDINGS: There is no focal air space opacity, pleural effusion, or pneumothorax seen. The cardiac silhouette size is within normal limits. The osseous structures are intact. Cholecystectomy clips a re present. IMPRESSION: No acute cardiopulmonary process. [facility], , 09/13/2024 10:40 AM
[2024-09-13 10:54] LABS: Influenza A Not Detected (Not Detectd); Influenza B Not Detected (Not Detectd); RSV Not Detected (Not Detectd)
[2024-09-13 11:00] LABS: Partial Thromboplastin Time 21.6 sec (22.0-30.0)
[2024-09-13 11:55] LABS: Glucose,Whole Blood 413 mg/dL (70-110)
[2024-09-13] MEDS: INSULIN LISPRO (HumaLOG) 100 UNIT/ML 10 mL VL SQ STA (11:56)
[2024-09-13 12:02] VITALS: BP 115/78; PULSE 74; RESP 17
[2024-09-13 12:25] LABS: Glucose,Whole Blood 453 mg/dL (70-110)
== END 2024-09-13 13:02 | disposition home or self-care (01) ==
LOC: EC 09:20
DX: H66.92 Otitis media, unspecified, left ear (principal); Z87.891 Personal history of nicotine dependence; Z88.2 Allergy status to sulfonamides; Z88.5 Allergy status to narcotic agent; Z91.048 Other nonmedicinal substance allergy status; Z91.018 Allergy to other foods; Z88.6 Allergy status to analgesic agent; Z91.09 Other allergy status, other than to drugs and biological substances
CPT/HCPCS: 36415; 71046; 80053; 83735; 84484; 85025; 85610; 85730; 87636; 93005; 99285